=== PATIENT | female | born 1955 | race African-American/Black ===

== ENCOUNTER 2017-10-05 12:22 | Outpatient (CLI) | payer MEDICARE, MEDICAID | END 2017-10-05 12:23 | disposition home or self-care (01) | LOC: ULT 12:22 | PROVIDERS: ATTEND Family Medicine | DX: I08.1 Rheumatic disorders of both mitral and tricuspid valves (principal); R06.09 Other forms of dyspnea | CPT/HCPCS: 93306 ==

== ENCOUNTER 2017-10-15 12:01 | Outpatient (CLI) | payer MEDICARE, MEDICAID ==
[2017-10-15] MEDS ORDERED: ISOVUE-370 76%-LOCM 1 ML ONE (16:32)
== END 2017-10-15 12:02 | disposition home or self-care (01) ==
LOC: BICCT 12:01
PROVIDERS: ATTEND Family Medicine
DX: I27.20 Pulmonary hypertension, unspecified (principal); F17.210 Nicotine dependence, cigarettes, uncomplicated; I51.7 Cardiomegaly; R06.00 Dyspnea, unspecified; J98.4 Other disorders of lung
CPT/HCPCS: 71260; 82565

== ENCOUNTER 2017-12-15 13:24 | Outpatient (CLI) | payer MEDICARE, MEDICAID | END 2017-12-15 13:25 | disposition home or self-care (01) | LOC: CP 13:24 | PROVIDERS: ATTEND Internal Medicine Pulmonary Disease | DX: R06.09 Other forms of dyspnea (principal) | CPT/HCPCS: 94060; 94727; 94729 ==

== ENCOUNTER 2017-12-15 20:30 | Outpatient (CLI) | payer MEDICARE, OTHER | END 2017-12-15 20:31 | disposition home or self-care (01) | LOC: SLEEPLAB 20:30 | PROVIDERS: ATTEND Internal Medicine Pulmonary Disease | DX: G47.33 Obstructive sleep apnea (adult) (pediatric) (principal); E66.9 Obesity, unspecified; R40.0 Somnolence; R53.83 Other fatigue; Z68.36 Body mass index [BMI] 36.0-36.9, adult | CPT/HCPCS: 95811 ==

== ENCOUNTER 2018-02-23 20:16 | Emergency (ER) | payer MEDICARE, OTHER ==
[2018-02-23 20:48] LABS: #Basophils 0.1 thou/uL (0.0-0.2); #Eosinphils 0.4 thou/uL (0.0-0.7); #Lymphocytes 3.7 thou/uL (1.20-3.40); #Monocytes 0.9 thou/uL (0.11-0.59); #Neutrophils 4.1 thou/uL (1.40-6.50); %Basophils 1.1 % (0.0-1.0); %Eosinophils 4.3 % (0.0-10.0); %Monocytes 9.6 % (0.0-10.0); Hemoglobin 12.7 g/dL (12.0-16.0); Mean Corpuscular HGB CONC 30.6 g/dL (32.0-36.0); Mean Corpuscular Hemoglobin 26.5 pg (27.0-31.0); Mean Corpuscular Volume 86.5 fL (78.0-98.0); Mean Platelet Volume 8.9 fL (7.4-10.4); Platelet Count 250 thou/uL (130-400); RBC Distribution Width 14.6 % (11.5-14.5); Red Blood Cell (RBC) Count 4.79 mill/uL (4.20-5.40); White Blood Cell (WBC) Count 9.1 thou/uL (4.8-10.8)
[2018-02-23 21:14] LABS: ALT (SGPT) Less than 7 U/L (8-55); AST (SGOT) 11 U/L (5-34); Albumin 3.8 g/dL (3.4-4.8); Alkaline Phosphatase 76 U/L (40-150); Anion Gap 11 mmol/L (10-20); BUN (Urea Nitrogen) 11 mg/dL (9.8-20.1); Bilirubin, Total 0.6 mg/dL (0.2-1.2); Calc. Creatinine Clearance 0 mL/min (70-130); Calcium 9.7 mg/dL (7.8-10.44); Carbon Dioxide 30 mmol/L (23-31); Chloride 100 mmol/L (98-107); Estimated GFR-MDRD 90; Globulin 4.2 g/dL (2.4-3.5); Glucose 95 mg/dL (80-115); Sodium 138 mmol/L (136-145)
[2018-02-23] MEDS ORDERED: Potassium Chloride 20 MEQ TAB ONE (21:37)
== END 2018-02-23 21:52 | disposition home or self-care (01) ==
LOC: ERS 20:16
DX: E87.6 Hypokalemia (principal); M32.9 Systemic lupus erythematosus, unspecified; F17.210 Nicotine dependence, cigarettes, uncomplicated; Z79.899 Other long term (current) drug therapy; Z79.52 Long term (current) use of systemic steroids
CPT/HCPCS: 36415; 80053; 85025; 93005

== ENCOUNTER 2018-02-28 11:23 | Outpatient (CLI) | payer MEDICARE, MEDICAID | END 2018-02-28 11:24 | disposition home or self-care (01) | LOC: BICMAMMO 11:23 | PROVIDERS: ATTEND Family Medicine | DX: Z12.31 Encounter for screening mammogram for malignant neoplasm of breast (principal) | CPT/HCPCS: 77063; 77067 ==

== ENCOUNTER 2018-11-16 13:45 | Outpatient (CLI) | payer MEDICARE, MEDICAID ==
--- NOTE | 2018-11-16 14:54 | RAD ---
XR Lumbar Spine Min 4 View: 11/16/2018 12:00 AM CLINICAL INDICATION: Lumbar radiculopathy, low back pain COMPARISON: None. FINDINGS: Fracture:No fracture. There is grade 1 spondylolisthesis at L4-5. Dextroscoliosis is centered at the mid lumbar spine. Arthropathy:There is multilevel degenerative change throughout the lumbar spine. Incidental findings:Left hip prosthesis. Vascular calcification. Surgical clips of right upper abdome n. IMPRESSION: 1. Multilevel degenerative change of lumbar spine. 2. No acute fracture. Grade I spondylolisthesis at L1-2.
--- NOTE | 2018-11-16 15:14 | MRI ---
MRI Lumbar Spine Noncontrast: HISTORY: Pain COMPARISON: 01/15/2014 FINDINGS: Conus medullaris is normal in morphology and terminates at the L1-2 level. Generalized marrow heterogeneity is likely degenerative. There are Schmorl's nodes at the superior L3 and L4 vertebral bodies, and there is multilevel endplate degenerative change with multilevel disc space narrowing and bilateral multilevel facet degenerative hypertrophy. L1-2:Minimal left neural foraminal narrowing due to facet hypertrophy and mild disc osteophyte. Centr al canal and right neural foramen are patent L2-3:Broad-based disc osteophyte with mild narrowing of the central canal and mild bilateral neural f oraminal narrowing L3-4:Mild central canal stenosis due to broad-based disc osteophyte. Neural foramina are patent. L4-5:Grade 1 spondylolisthesis. Moderate central canal stenosis with potential for impingement upon t he bilateral traversing L5 nerve roots. Mild bilateral neural foraminal narrowing. L5-S1:Broad-based disc osteophyte with mild to moderate central canal stenosis. There is moderate to severe bilateral neural foraminal stenosis. IMPRESSION: Multilevel degenerative change of the lumbar spine, as outlined above. Transcribed Date/Time: 11/16/2018 4:17 PM
== END 2018-11-16 13:46 | disposition home or self-care (01) ==
LOC: BICMRI 13:45
PROVIDERS: ATTEND Surgery
DX: M51.36 Other intervertebral disc degeneration, lumbar region (principal); M47.26 Other spondylosis with radiculopathy, lumbar region
CPT/HCPCS: 72110; 72148

== ENCOUNTER 2019-03-01 10:44 | Outpatient (CLI) | payer MEDICARE, MEDICAID ==
--- NOTE | 2019-03-01 13:12 | MMO ---
Bilateral MAMMO Bilat Screen [facility]. CLINICAL HISTORY: Patient is 63 years old and is seen for screening. The patient has no family history of breast cancer. The patient has no personal history of cancer. VIEWS: The views performed were: bilateral craniocaudal with tomosynthesis and bilateral mediolateral oblique with tomosynthesis. FILMS COMPARED: The present examination has been compared to prior imaging studies performed at [facility] on 01/31/2015, 02/04/2016, 02/26/2017 and 02/28/2018. This study has been interpreted with the assistance of computer-aided detection. MAMMOGRAM FINDINGS: There are scattered fibroglandular densities. There are benign appearing calcifications seen in both breasts. There are no suspicious masses, suspicious calcifications, or new areas of architectural distortion. IMPRESSION: THERE IS NO MAMMOGRAPHIC EVIDENCE OF MALIGNANCY. A ROUTINE FOLLOW-UP MAMMOGRAM IN 1 YEAR IS RECOMMENDED. THE RESULTS OF THIS EXAM WERE SENT TO THE PATIENT. ACR BI-RADS Category 2 - Benign finding MAMMOGRAPHY NOTE: 1. A negative mammogram report should not delay a biopsy if a dominant of clinically suspicious mass is present. 2. Approximately 10% to 15% of breast cancers are not detected by mammography. 3. Adenosis and dense breasts may obscure an underlying neoplasm. Reported by: LUIS ALBERTO REED MD Electonically Signed: [id number]
== END 2019-03-01 10:45 | disposition home or self-care (01) ==
LOC: BICMAMMO 10:44
DX: Z12.31 Encounter for screening mammogram for malignant neoplasm of breast (principal)
CPT/HCPCS: 77063; 77067

== ENCOUNTER 2019-06-22 20:17 | Inpatient (IN) | payer MEDICARE, MEDICAID ==
--- NOTE | 2019-06-22 21:29 | RAD ---
Chest AP view INDICATION: Shortness of breath COMPARISON: None FINDINGS: Lungs: There is scattered interstitial fibrosis and subpleural emphysema involving both lungs suspic ious for interstitial lung disease. No confluent airspace opacities is evident to suggest presence of pneumonia. Cardiac silhouette: There is mild cardiomegaly. There are mild vascular calcifications involving the aortic arch. Pulmonary vasculature: Normal Pleural spaces: No pleural effusion or pneumothorax is demonstrated. Upper abdomen: No abnormality seen. Osseous structures: No acute osseous abnormality. Additional findings: None. IMPRESSION: Scattered fibrotic change within the lungs suspicious for underlying interstitial lung disease. There is mild cardiomegaly without evidence of cardiac decompensation.
[2019-06-22 21:38] LABS: Mean Corpuscular Volume 87.9 fL (78.0-98.0)
[2019-06-22 21:41] LABS: ALT (SGPT) Less than 7 U/L (8-55); AST (SGOT) 17 U/L (5-34); Alkaline Phosphatase 74 U/L (40-110); Anion Gap 16 mmol/L (10-20); BUN (Urea Nitrogen) 8 mg/dL (9.8-20.1); Bilirubin, Total 3.6 mg/dL (0.2-1.2); Calc. Creatinine Clearance 0 mL/min (70-130); Calcium 9.2 mg/dL (7.8-10.44); Carbon Dioxide 23 mmol/L (23-31); Chloride 102 mmol/L (98-107); Estimated GFR-MDRD 83; Globulin 3.6 g/dL (2.4-3.5); Glucose 84 mg/dL (80-115); Protein, Total 7.6 g/dL (6.0-8.3); Sodium 138 mmol/L (136-145)
[2019-06-22 21:58] LABS: CKMB 1.4 ng/mL (0-6.6)
[2019-06-22 22:03] LABS: Anisocytosis SLIGHT = 6-15 cells (100X) (0-5/hpf); Band 4 % (5-11); Crenated RBC MODERATE= 6-15 cells (100X) (None Seen); Elliptocytes SLIGHT = 2-5 cells (100X) (0-1/hpf); Eosinophils 2 % (0-10); Hemoglobin 12.6 g/dL (12.0-16.0); Lymphocytes 37 % (21-51); MDiff Complete? YES; Mean Corpuscular HGB CONC 31.4 g/dL (32.0-36.0); Mean Corpuscular Hemoglobin 27.6 pg (27.0-31.0); Mean Platelet Volume 6.5 fL (7.4-10.4); Monocytes 2 % (0-10); Neutrophil 54 % (42-75); Platelet Count 109 thou/uL (130-400); Platelet Morphology Comment Appears Decreased; RBC Distribution Width 16.8 % (11.5-14.5); Red Blood Cell (RBC) Count 4.57 mill/uL (4.20-5.40); White Blood Cell (WBC) Count 7.5 thou/uL (4.8-10.8)
[2019-06-22] MEDS ORDERED: Furosemide 40 MG/4 ML VIAL ONE (22:21)
[2019-06-22 23:19] LABS: Bilirubin Negative (Negative); Blood, Urine Negative (Negative); Clarity Turbid (Clear); Glucose, Urine (Dipstick) Normal (Negative); Leukocyte Negative Leu/uL (Negative); Nitrite Negative (Negative); Protein, Urine (Dipstick) 20 mg/dL (Neg-Trace); Urobilinogen Greater than 12 mg/dL (Less than 2)
[2019-06-22] MEDS ORDERED: Aspirin Chewable 81 MG TAB ONE (23:19)
[2019-06-23 01:18] VITALS: BMI 34.0
[2019-06-23] MEDS ORDERED: Calcium Carbonate 500 MG ChewTAB PO PRN (03:06)
[2019-06-23] MEDS ORDERED: Acetaminophen 325 MG TAB PO PRN (03:06)
[2019-06-23 04:10] LABS: Troponin I 0.049 ng/mL (< 0.028)
[2019-06-23 04:38] LABS: Hemoglobin A1c 5.6 % (4.0-6.0)
[2019-06-23] MEDS ORDERED: Nitroglycerin 0.4 MG TAB (25 Tab Bottle) SL PRN (04:48)
[2019-06-23 04:52] LABS: Anion Gap 14 mmol/L (10-20); BUN (Urea Nitrogen) 6 mg/dL (9.8-20.1); Calc. Creatinine Clearance 106 mL/min (70-130); Calcium 9.3 mg/dL (7.8-10.44); Carbon Dioxide 26 mmol/L (23-31); Chloride 102 mmol/L (98-107); Estimated GFR-MDRD Greater than 90; Glucose 85 mg/dL (80-115); Sodium 139 mmol/L (136-145)
[2019-06-23 04:57] LABS: Cardiac Risk 3.8 (Less than 4.5); Cholesterol 84 mg/dl (< 200 Desired); HDL Cholesterol 22 mg/dL (>60 Neg Risk); LDL Cholesterol, Calculated 42 mg/dL; Magnesium 1.7 mg/dL (1.6-2.6); Phosphorus 2.5 mg/dL (2.3-4.7); Triglycerides 99 mg/dL (Less than 150)
[2019-06-23 04:58] LABS: Potassium 2.6 mmol/L (3.5-5.1)
[2019-06-23] MEDS ORDERED: Potassium Chloride 20 MEQ TAB PO SCH ×2 (05:00→14:45)
[2019-06-23] MEDS: Furosemide 20 MG/2 ML VIAL SLOW IVP SCH ×2 (05:20→13:50)
--- NOTE | 2019-06-23 05:50 | PDOC.FPRHP ---
- History of Present Illness Chief Complaint: dyspnea History of Present Illness: 63yo AAF with h/o lupus, HTN, LEE presents for worsening dyspnea over past 6+ months. Pt states no acute change or onset but over past 6mo has had increased LIN, LE edema, and dyspnea. Also endorses PND but no orthopnea. Denies any known history of cardiac disease, no CP, SOB, fever/chills, n/v, dizziness/ lightheadedness, abd pain, urinary sxs, recent falls. Presented to the ED because sxs had just not gotten any better and she wants to figure out why. ED Course: CXR, Lasix 20mg, KCl 20meq. - Allergies/Adverse Reactions Allergies Allergy/AdvReac Type Severity Reaction Status Date / Time No Known Allergies Allergy Verified 06/23/19 01:16 - Home Medications Medication Instructions Recorded Confirmed Type Calcium Carbonate [Tums] 1,000 mg PO QID PRN 10/09/14 06/23/19 History Hydroxychloroquine Sulfate 200 mg PO BID 10/09/14 06/23/19 History [Plaquenil] Naproxen Sodium [Aleve] 220 mg PO BID PRN 10/09/14 06/23/19 History Omeprazole [Prilosec] 20 mg PO DAILY 10/09/14 06/23/19 History Potassium Gluconate [Potassium] 200 mg PO DAILY 06/23/19 06/23/19 History - History PMHx: Lupus, LEE, HTN PSHx: L hip replacement FHx: mom with DM, dad of preet cancer Social: ~28py smoking history but trying to quit and down to 1 cig/day. THC use. No EtOH. Lives at home with daughters. - Review of Systems General: reports: weight/appetite/sleep changes (increased weight), fatigue. denies: fever/chills, night sweats Eyes: denies: vision changes ENT: denies: nasal congestion, rhinorrhea Respiratory: reports: cough, congestion, shortness of breath, exercise intolerance Cardiovascular: reports: edema, paroxysmal nocturnal dyspnea. denies: chest pain, palpitation, orthopnea Gastrointestinal: denies: nausea, vomiting, diarrhea, constipation, abdominal pain Genitourinary: denies: incontinence, dysuria Skin: denies: rashes - Vital signs BP: 152/79 HR: 81 RR: 18 Tmax: 98.1 Pox: 94% on RA Wt: 89kg - Physical Exam Constitutional: NAD, awake, alert and oriented, well developed HEENT: PERRLA, EOMI, conjunctiva clear, grossly normal vision, grossly normal hearing, MMM, oropharynx clear Neck: supple, trachea midline, no JVD Heart: RRR, normal S1/S2, pulses present, other (1+ pitting to mid prado, 2/6 systolic ejection murmur) Lungs: no respiratory distress, good air movement, no wheezing, other (mild bibasilar crackles) Abdomen: soft, non-tender, bowel sounds present Musculoskeletal: normal structure, normal tone Neurological: no focal deficit Skin: other (hypopigmented rash on right forearm) Heme/Lymphatic: no unusual bruising or bleeding Psychiatric: normal mood and affect, good judgment and insight, intact recent and remote memory FMR H&P: Results - Labs Result Diagrams: 06/22/19 21:08 06/23/19 04:03 Lab results: WBC 7.5 thou/uL (4.8-10.8) 06/22/19 21:08 Hgb 12.6 g/dL (12.0-16.0) 06/22/19 21:08 Hct 40.2 % (36.0-47.0) 06/22/19 21:08 MCV 87.9 fL (78.0-98.0) 06/22/19 21:08 Plt Count 109 thou/uL (130-400) L 06/22/19 21:08 Band Neuts % (Manual) 4 % (5-11) L 06/22/19 21:08 Sodium 139 mmol/L (136-145) 06/23/19 04:03 Potassium 2.6 mmol/L (3.5-5.1) L* 06/23/19 04:03 Chloride 102 mmol/L (98-107) 06/23/19 04:03 Carbon Dioxide 26 mmol/L (23-31) 06/23/19 04:03 BUN 6 mg/dL (9.8-20.1) L 06/23/19 04:03 Creatinine 0.76 mg/dL (0.6-1.1) 06/23/19 04:03 Glucose 85 mg/dL (80-115) 06/23/19 04:03 Calcium 9.3 mg/dL (7.8-10.44) 06/23/19 04:03 Total Bilirubin 3.6 mg/dL (0.2-1.2) H 06/22/19 21:08 AST 17 U/L (5-34) 06/22/19 21:08 ALT Less than 7 U/L (8-55) L 06/22/19 21:08 Alkaline Phosphatase 74 U/L (40-110) 06/22/19 21:08 CK-MB (CK-2) 1.4 ng/mL (0-6.6) 06/22/19 21:08 B-Natriuretic Peptide 506.0 pg/mL (0-100) H 06/22/19 21:08 Serum Total Protein 7.6 g/dL (6.0-8.3) 06/22/19 21:08 Albumin 4.0 g/dL (3.4-4.8) 06/22/19 21:08 Urine Ketones Negative mg/dL (Negative) 06/22/19 22:47 Urine Blood Negative (Negative) 06/22/19 22:47 Urine Nitrite Negative (Negative) 06/22/19 22:47 Ur Leukocyte Esterase Negative Sean/uL (Negative) 06/22/19 22:47 - EKG Interpretation EKG: Normal intervals. poor R wave progression, no acute st or T wave changes - Radiology Interpretation Chest x-ray Status: image reviewed by me (overpenatrated, no focal consolidation or pleural effusions noted, cardiomegaly and increased insterstitial lung markings), report reviewed by me FMR H&P: A/P - Problem List (1) CHF (congestive heart failure), NYHA class IV Current Visit: Yes Status: Suspected Code(s): I50.9 - HEART FAILURE, UNSPECIFIED (2) Lupus Current Visit: Yes Status: Chronic Code(s): M32.9 - SYSTEMIC LUPUS ERYTHEMATOSUS, UNSPECIFIED (3) HTN (hypertension) Current Visit: Yes Status: Chronic Code(s): I10 - ESSENTIAL (PRIMARY) HYPERTENSION (4) LEE (obstructive sleep apnea) Current Visit: Yes Status: Chronic Code(s): G47.33 - OBSTRUCTIVE SLEEP APNEA (ADULT) (PEDIATRIC) - Plan 63yo AAF with h/o lupus, HTN, LEE presents for suspected new onset CHF exacerbation #Suspected CHF exacerbation, newly dx - no previous h/o CHF or CAD - s/s of LIN, PND, dyspnea at rest over past 6 mo and progressive - NYHA Class IV - likely 2/2 R heart strain from chronic LEE as well as HTN and lupus - s/p lasix 20mg in ED - Will cont lasix 20mg IV BID - Echo ordered - Pending workup, consider CHF clinic and cardiac rehab consult and cards consult - PT/OT - will need HF medications post Echo and confirmation - strict I's and O's and daily weights - risk stratify with Lipid, A1C, TSH - satting low-90s on RA, hypertensive otherwise VSS, will cont to monitor #Elevated trop, suspected 2/2 demand ischemia and CHF - Trop 0.036 -> 0.045 - no sx of CP, EKG no acute changes - trend trop and monitor on tele #Hypokalemia - Replace, will need close monitoring as giving lasix - will check Mg #HTN - does not appear to be on home meds - consider addition pending echo and optimization of HF medications #LEE - newly dx per pt, awaiting CPAP at home, if knows settings consider adding CPAP QHS while inpt #Lupus - cont home meds, no apparent flare #Tob abuse - counseled on cessation PCP: DAVINA Garcia Code: Initially DNR however pt later stated she wanted to talk to her daughters before changing to DNR so now is Full Code IVF: SL Diet: HH, Low Na, Fluid restriction VTE: SCDs - held pharm 2/2 low plt Disposition/LOS: Admit to tele inpt for suspected new onset CHF with exacerbation. Diuresis, workup pending. Hospitalization >48hrs. FMR H&P: Upper Level - Pertinent history 63 year old female presents with progressively worsening dyspnea on exertion over the course of the last 6 months. Patient states she can barely walk a few steps without significant shortness of breath. She has been unable to come to doctor appointments because of it. She denies N/V. She states she has had some lower extremity edema, as well. Patient endorses one episode of sudden onset chest pain just prior to my evaluation. She states that the pain was left sided in nature and relieved with nitro. EKG and troponin obtained at time of chest pain. EKG NSR. Troponin neg. Patient denies any further episodes. Patient also with history of SLE on plaquinil. - Pertinent findings General: Alert and oriented x3. No acute distress. HEENT: MMM. Card: 2/6 LINO, RRR Resp: Mild bibasilar crackles Abdom: Soft, non-tender Ext: Trace edema - Plan Date/Time: 06/23/19 0556 I, Janie Morales, have evaluated this patient and agree with findings/plan as outlined by rn international resident. Pertinent changes/additions are listed here. Dyspnea, suspect new onset CHF vs. ILD - Patient with progressive dyspnea on exertion and LE edema - Will order Echo - CXR c/w ILD; this may be the etiology of dyspnea - Patient also with uncontrolled LEE and may have Pulmonary HTN contributing to above - Patient with SLE on plaquenil, both of which may contribute to lung pathology ; consider CT for further investigation - Strict I&O's, daily weights, fluid restriction - Consult cardiology of echo shows new onset HF, consult pulm if ILD seems to be leading differential - Start BERNARDINO-I, BB, statin if HF present - BNP 500 Elevated trop, suspected 2/2 demand ischemia and CHF - Trop 0.036 -> 0.045 -> 0.049 - One episode of chest pain, no EKG findings significant for ischemia - Monitor on tele - Nitro PRN - Consider further workup if pain returns/pending above workup Hypokalemia - Replace, will need close monitoring as giving lasix - Check Mg HTN - Does not appear to be on home meds - Consider addition pending echo and optimization of HF medications LEE - Newly dx per pt, awaiting CPAP at home, if knows settings consider adding CPAP QHS while inpt - LEE may be contributing to dyspnea if pulmonary HTN present Lupus - Cont home meds, no apparent flare - There does appear to be evidence of ILD on CXR which may be contributing to dyspnea Tobacco abuse - Counseled on cessation DVT: SCD's - held lovenox d/t low platelets Code: Initially DNR however pt later stated she wanted to talk to her daughters before changing to DNR so now is Full Code Dispo: Admit to telemetry. Anticipate LOS >48 hours. Addendum - Attending - Attending Attestation Date/Time: 06/23/19 [id number] I personally evaluated the patient and discussed the management with Dr. Gould I agree with the History, Examination, Assessment and Plan documented above with any addition or exceptions noted below. 63 yo AAF PMH LEE, HTN, and lupus. presents with 6 mo hx of worsening dyspnea that acutely worsened over past 1-2 weeks and lower extremity edema. No hx HF. Exam NSR, bibasilar crackles, and trace to 1+ LE edema. labs intermittent trop, BNP 500, potassium 2.6. CXR interstitial findings but no fluid overload. EKG NSR , normal intervals, no ST elevation/depressions. admit for new-onset CHF. cards consult, TTE, and diuresis. replace K and Mg and repeat K at 1200. will await recommendations from cardiology.
[2019-06-23 06:48] LABS: Troponin I 0.047 ng/mL (< 0.028)
[2019-06-23] MEDS: Hydroxychloroquine Sulfate 200 MG TAB PO SCH ×2 (08:45→20:38)
[2019-06-23] MEDS ORDERED: Magnesium 2 GM/50 ML 2 GM in Premix Bag 1 BAG IVPB SCH (10:15)
[2019-06-23 14:28] LABS: Potassium 3.3 mmol/L (3.5-5.1)
[2019-06-24 04:22] LABS: Anion Gap 13 mmol/L (10-20); BUN (Urea Nitrogen) 8 mg/dL (9.8-20.1); Calc. Creatinine Clearance 93 mL/min (70-130); Calcium 9.6 mg/dL (7.8-10.44); Carbon Dioxide 26 mmol/L (23-31); Chloride 103 mmol/L (98-107); Estimated GFR-MDRD 79; Glucose 99 mg/dL (80-115); Potassium 3.4 mmol/L (3.5-5.1); Sodium 139 mmol/L (136-145)
[2019-06-24] MEDS: Furosemide 20 MG/2 ML VIAL SLOW IVP SCH ×2 (05:37→14:58)
--- NOTE | 2019-06-24 06:07 | PDOC.FM ---
- Subjective Subjective: She says she is doing well and not having any SOB. She denies any edema. - Objective MAR Reviewed: Yes Vital Signs & Weight: Vital Signs (12 hours) Temp Pulse Resp BP Pulse Ox 06/24/19 04:00 97.7 F 79 18 118/72 95 06/23/19 23:30 97.4 F L 92 20 123/84 94 L 06/23/19 19:30 97.3 F L 91 20 129/71 94 L Weight Weight 87.997 kg I&O: 06/22/19 06/23/19 06/24/19 06:59 06:59 06:59 Intake Total 1250 Output Total 4000 Balance -2750 Result Diagrams: 06/22/19 21:08 06/24/19 03:27 EKG Reviewed by me: Yes (SR 70s with some non-conducting PACs) Phys Exam - Physical Examination Constitutional: NAD HEENT: moist MMs, oral pharynx no lesions Neck: no nodes, supple Respiratory: no wheezing, no rales, no rhonchi, clear to auscultation bilateral Cardiovascular: RRR, no significant murmur Gastrointestinal: soft, non-tender, positive bowel sounds Musculoskeletal: no edema, pulses present Neurological: moves all 4 limbs Lymphatic: no nodes Psychiatric: normal affect Skin: no rash, normal turgor Dx/Plan (1) CHF (congestive heart failure), NYHA class IV Code(s): I50.9 - HEART FAILURE, UNSPECIFIED Status: Suspected (2) HTN (hypertension) Code(s): I10 - ESSENTIAL (PRIMARY) HYPERTENSION Status: Chronic (3) Lupus Code(s): M32.9 - SYSTEMIC LUPUS ERYTHEMATOSUS, UNSPECIFIED Status: Chronic (4) LEE (obstructive sleep apnea) Code(s): G47.33 - OBSTRUCTIVE SLEEP APNEA (ADULT) (PEDIATRIC) Status: Chronic - Plan Plan: 63yo AAF with h/o lupus, HTN, LEE presents for suspected new onset CHF exacerbation 1. Suspected CHF exacerbation, newly dx No previous h/o CHF or CAD * s/s of LIN, PND, dyspnea at rest over past 6 mo and progressive * NYHA Class IV * CXR: Scattered Fibrotic changes * Pulmonology referral outpatient * likely 2/2 R heart strain from chronic LEE as well as HTN and lupus * s/p lasix 20mg in ED, will cont lasix 20mg IV BID * Echo: EF 50-55%, I/III Diastolic Dysfunction, Dilated LV consistent with volume overload, Dilated RV with decreased systolic function, Enlarged RA, Mild MR, AV sclerosis, Severe TR, Increased RV systolic pressure, Mild RI * Consider CHF clinic and cardiac rehab consult and cards consult * Strict I's and O's and daily weight 2. Elevated trop, suspected 2/2 demand ischemia and CHF * Trop 0.036 > 0.045 > 0.047 * No sx of CP, EKG no acute changes * Unable to calculate ASCVD due to low LDL 3. Hypokalemia * Replaced, will need close monitoring as giving lasix * Mag replaced yesterday 4. HTN * Does not appear to be on home meds * Will monitor 5. LEE * Newly dx per pt, awaiting CPAP at home, if knows settings consider adding CPAP QHS while inpt 6. Lupus * Cont home meds, no apparent flare 7. Tob abuse * Counseled on cessation Code Status: Full IVF: SL Diet: HH, Low Na, Fluid restriction VTE: SCDs - held pharm 2/2 low plt PCP: DAVINA Garcia Disposition/LOS: Tele inpt, need to f/u with Cardiology and get recs. Possibly d /c later today with f/u with her paper deliverer. LOS >48hrs.
[2019-06-24] MEDS ORDERED: Potassium Chloride 20 MEQ TAB PO SCH ×2 (07:30→08:00)
[2019-06-24] MEDS: Hydroxychloroquine Sulfate 200 MG TAB PO SCH (08:48)
--- NOTE | 2019-06-24 11:38 | CT ---
EXAM: CTA of the chest HISTORY: Shortness of breath COMPARISON: None TECHNIQUE: Multiple contiguous axial images were obtained a CTA of the chest with contrast per pulmon osorio embolism protocol. 3-D oblique MIP reformats and direct coronal reformats were performed. FINDINGS: HEART: Normal in size without focal cardiac abnormality. PULMONARY ARTERIES: Normal in caliber without filling defects to suggest pulmonary emboli. MEDIASTINUM: No hilar or mediastinal lymphadenopathy. LUNGS: Emphysematous changes are seen in the lungs. Peripheral increased interstitial lung markings a re seen throughout the lungs. This is more prominent in the lung apices. No suspicious pulmonary nodules or focal infiltrates are seen. PLEURAL SPACE: No pleural effusion or pneumothorax. CHEST WALL SOFT TISSUES: Unremarkable VISUALIZED OSSEOUS STRUCTURES: Degenerative changes in the spine. VISUALIZED SUBDIAPHRAGMATIC STRUCTURES: Unremarkable IMPRESSION: No evidence of pulmonary thromboembolism
[2019-06-24] MEDS ORDERED: Iopamidol-370 76% 500 ML 1 ML ONE (11:46)
--- NOTE | 2019-06-24 15:12 | CON ---
DATE OF CONSULTATION: 06/24/2019 REASON FOR CONSULTATION: Shortness of breath. PRIMARY SUPERINTENDENT CAR CONSTRUCTION: John Junior MD. HISTORY OF PRESENT ILLNESS: Ms. Pollard is a pleasant 63-year-old female, who comes to the hospital for worsening shortness of breath. She states that she has been getting worsening shortness of breath in the last 6 months to the point where she has had to come in yesterday for further evaluation. She was found to be in volume overload. She was diuresed, and actually today, she feels a lot better. She denies any chest pain, tightness, or pressure. Shortness of breath has significantly improved. PAST MEDICAL HISTORY: 1. Hypertension. 2. Sleep apnea. 3. Lupus. SURGICAL HISTORY: Left hip replacement. FAMILY HISTORY: Mother with diabetes. Father with lung cancer. No early coronary artery disease. OUTPATIENT MEDICATIONS: 1. Calcium carbonate. 2. Plaquenil. 3. Aleve. 4. Omeprazole. 5. Potassium. ALLERGIES: NO KNOWN DRUG ALLERGIES. SOCIAL HISTORY: Continues to smoke, she states she quit when she came into the hospital. No alcohol. No drugs. REVIEW OF SYSTEMS: A 12-point review of systems was done and was all negative unless stated in the history of present illness. PHYSICAL EXAMINATION: VITAL SIGNS: Temperature 97.4, pulse 82, respiratory rate 17, saturations 94% on room air, blood pressure 138/75. GENERAL: Awake, alert, and oriented x3. No distress. HEENT: Normocephalic and atraumatic. NECK: Supple. LUNGS: Reduced breath sounds bilaterally. CARDIOVASCULAR: S1 and S2. No S3 or S4. ABDOMEN: Soft. Positive bowel sounds. EXTREMITIES: No edema. SKIN: Warm and dry. LABORATORY DATA: Laboratory work was reviewed. UA was unremarkable. Chemistry was low, but has been replaced . GFR was normal. CBC is unremarkable except for a low platelet count of 109, but normal hemoglobin of 12.6, normal white count. Echocardiogram done yesterday, showed normal LV systolic function of 50% to 55%, but findings consistent with pulmonary hypertension with a D-shaped left ventricle and dilated right ventricle with reduced systolic function and enlarged right atrium. Chest x-ray was reviewed. ASSESSMENT: 1. Acute on chronic right-sided heart failure. 2. Possibly chronic obstructive pulmonary disease, given history of tobacco use. 3. Lupus maybe playing a role in her pulmonary hypertension. PLAN: 1. Agree with IV diuresis. 2. We will plan on getting a CT chest with contrast. If this is negative for thromboembolic disease, she will need a sleep study as an outpatient and follow up with Pulmonary for pulmonary hypertension. She is Dr. Byrd's patient. Thank you for letting us to participate in the care of your patient. We will follow. Job ID: [id number]
[2019-06-24 16:58] VITALS: BP 126/75; TEMP 97.2
--- NOTE | 2019-06-24 17:44 | PRG ---
DATE OF SERVICE: 06/24/[address] Daimon Gould, for which I agree. The patient is seen, evaluated, discussed, and examined with the residents by bedside. Complicated 63-year-old with known lupus. Not the best historian, but it sounds like she has been seeing Dr. Byrd of Pulmonary for a while for fibrosis of the lungs, some breathing problems. Did show that she has an albuterol inhaler, but states that it is not working. Came in with worsening shortness of breath and almost seemed to be a CHF type picture little bit volume overload. Fluid overload responded well to IV Lasix. BNP was slightly elevated at 506. X-ray shows interstitial lung disease. CT is pending, was done this morning. Echocardiogram showed a lot of right-sided heart issues including likely pulmonary hypertension, but otherwise left-sided ejection fraction was normal. So, it is unclear how much of her issues is the Plaquenil potentially causing pulmonary fibrosis. I looked it up and the incident is 0.5%. So very low percentage, but I guess is a possibility versus how much this is actually from the lupus. She also has known sleep apnea, but states she cannot afford her CPAP, although has dual insurance include Medicaid, so I am not sure why that is. This sounds like she has two basic primary care doctors, one at [facility] and one with [facility] and sees a resident intern at [facility] here in town, but diuresed well, breathing better, seems fairly stable right now and probably can be taken care of as an outpatient and would recommend we stop the Plaquenil, put her on p.o. Lasix, put her on prednisone taper and to follow up with Rheumatology and Pulmonary soon in this next week. Can continue her home albuterol. Job ID: [id number]
--- NOTE | 2019-06-26 07:49 | PQF ---
Araceli Pollard FERNANDO [id number] CLINICAL DOCUMENTATION CLARIFICATION FORM: POST DISCHARGE Addendum to original discharge summary date: ____ Late entry note date: __ DATE: 06/26/2019 ATTN:TONJA BLAKE Please exercise your independent, professional judgment in responding to the clarification form. Clinical indicators are provided on the bottom of this form for your review Please check appropriate box(s): AMI TYPE: [ ] Acute Coronary Syndrome (ACS) without Acute GA meaning Unstable Angina [ ] NSTEMI (GA type I) [ * ] NSTEMI due to Demand Ischemia (AMI Type II) [ ] Demand Ischemia without GA [ ] STEMI (please also specify site and arterysee below) If STEMI, SITE:[ ] Anterior [ ] Apical [ ] Lateral [ ] Inferior [ ] Posterior [ ] Q Wave [ ] Septal [ ] Unable to Determine SPECIFIC ARTERY (Based on site) [ ] Left Main Coronary[ ] Diagonal [ ] Left Anterior Descending[ ] Oblique Marginal [ ] Right Coronary Artery[ ] Unable to Determine [ ] Left Circumflex [ ] Other diagnosis [ ] Unable to determine CLINICAL INDICATORS - SIGNS / SYMPTOMS / LABS -Elevated troponin, suspected 2/2 demand ischemia and CHF- Family medicine H&P, 06/22, Pee Carson MD -Troponin: 0.036>0.045>0.049- - Family medicine H&P, 06/22, Pee Carson MD - EKG NSR, Normal intervals, no ST elevation/depressions-- Family medicine H&P, 06/22, Pee Carson MD - EF: 50-55%, grade 1/3 diastolic dysfunction-Echo, 06/23 - Lupus may be playing a role in her pulmonary hypertension- Consultation report , 06/24, CHLOE BLAKE RISKS: - Acute on chronic right-sided heart failure- Consultation report, 06/24, TONJA BLAKE - PMH: HTN- Family medicine H&P, 06/22, Pee Carson MD TREATMENTS: - Cardiac consultation, 06/24 - Aspirin chewable- JUL, 06/22 - Furosemide.IV- MAR, 06/22 to 06/24 (This form is maintained as a part of the permanent medical record) 2014 [employer] All Rights Reserved Michelle [email or web address]
--- NOTE | 2019-06-26 12:05 | DIS ---
DATE OF ADMISSION: 06/22/2019 DATE OF DISCHARGE: 06/24/2019 RESIDENT: Damion Gould MD ADMITTING ATTENDING: Alli Glasgow MD DISCHARGE ATTENDING: Deniz Pyle MD CONSULT: Cardiology, Dr. King, on 06/24. Agree with IV diuresis. CT chest with contrast is negative for thromboembolic disease. She needs an outpatient followup with sleep study with Pulmonary Medicine,Dr. Byrd. PROCEDURES PERFORMED: * Chest x-ray 06/22 showed scattered fibrotic changes within the lungs suspicious for underlying interstitial lung disease. There is cardiomegaly without evidence of cardiac decompensation. * Echo on 06/23 shows EF is 55%. Grade 1/3 diastolic dysfunction, flattened end diastole, D-shaped left ventricle consistent with right ventricle volume overload, dilated right ventricle with reduced right ventricular systolic function, markedly enlarged right atrium size, mild mitral regurgitation is present, aortic valve sclerosis but opens well, severe tricuspid regurgitation, elevated right ventricular systolic pressure estimated at 76 mmHg , mild pulmonic regurgitation present. * Chest CT 06/24 shows no evidence of PE. PRIMARY DIAGNOSES: 1. Pulmonary hypertension with congestive heart failure exacerbation. 2. Elevated troponin. 3. Hypokalemia. SECONDARY DIAGNOSES: 1. Hypertension 2. Obstructive sleep apnea 3. Lupus 4. Tobacco abuse. DISCHARGE MEDICATIONS: 1. Lasix 20 mg daily. 2. Potassium chloride 20 mEq daily. 3. Prednisone 10 mg p.o. q.a.m. DISCONTINUED MEDICATIONS: Continue home medications except for Plaquenil, which should be discontinued. HISTORY OF PRESENT ILLNESS: The patient is a 63-year-old female with history of lupus, hypertension, obstructive sleep apnea, presents for worsening dyspnea over the past six months. The patient states no acute changes around that but over the past six months has had increased dyspnea on exertion, lower extremity edema, and dyspnea. Also endorses paroxysmal nocturnal dyspnea, but no orthopnea. Denies any known history of cardiac disease. No chest pain, shortness of breath , fever, chills, nausea, vomiting, dizziness, lightheadedness, abdominal pain, urinary symptoms, or recent falls, presented to the ED because her symptoms have not gotten any better and she wants to know why. In the ED, they performed a chest x-ray as noted above. Lasix 20 mg, potassium chloride 20 mEq. 1. Suspected congestive heart failure with pulmonary hypertension as noted above. No previous history of congestive heart failure or coronary artery symptoms of dyspnea on exertion. * Paroxysmal nocturnal dyspnea at rest over past 6 months and progressive. * [place] Heart Association class 4. * Chest x-ray shows scattered fibrotic changes. * Will need Pulmonary referral outpatient, although she is followed by Dr. Byrd. * Likely secondary to right heart strain from chronic obstructive sleep apnea as well as hypertension and lupus, was previously on Plaquenil status post Lasix 20 mg in the ED. * We will continue 20 mg IV Lasix b.i.d. * Echo shows EF of 50% to 55%. Echo as noted above. * Cardiology consulted as noted above 2. Elevated troponin suspected secondary to demand ischemia and congestive heart failure. Troponins trended from 0.036 to 0.047. * No symptoms of chest pain. * EKG showed no acute changes. * Unable to calculate ASCVD due to low LDL. 3. Hypokalemia, replaced. 4. Hypertension. * Does not appear to be on any home meds. 5. Obstructive sleep apnea, newly diagnosed per patient awaiting CPAP at home. 6. Lupus. * Discontinued home medications * No apparent flare. * D/c with prednisone 7. Tobacco abuse. Counseled on cessation. DISPOSITION: Stable. DISCHARGE INSTRUCTIONS: 1. Location: Home. 2. Diet: Heart healthy, low-sodium. 3. Activity: As tolerated. 4. Followup: Follow up with Dr. Byrd in 7 days, Dr. Junior in 3 to 4 weeks, and Dr. Neymar Blackwell on 06/30/2019 at 4:00 p.m. Job ID: [id number] MTDD
== END 2019-06-24 17:35 | disposition home or self-care (01) | DRG 282 ==
LOC: ERS 20:17 → 2NO 23:18
PROVIDERS: ADMIT Family Medicine; ATTEND Family Medicine
DX: I11.0 Hypertensive heart disease with heart failure (principal); I21.A1 Myocardial infarction type 2; Z96.642 Presence of left artificial hip joint; F12.10 Cannabis abuse, uncomplicated; F17.210 Nicotine dependence, cigarettes, uncomplicated; Z66 Do not resuscitate; G47.33 Obstructive sleep apnea (adult) (pediatric); M32.9 Systemic lupus erythematosus, unspecified; E87.6 Hypokalemia; I27.20 Pulmonary hypertension, unspecified; J84.10 Pulmonary fibrosis, unspecified; I50.813 Acute on chronic right heart failure; J44.9 Chronic obstructive pulmonary disease, unspecified
CPT/HCPCS: 36415; 71045; 71275; 80048; 80053; 80061; 81003; 82553; 83036; 83735; 83880; 84100; 84443; 84484; 85025; 93005; 93010; 93306; 96374; J1940; J3475; Q9967

== ENCOUNTER 2020-01-18 13:52 | Inpatient (IN) | payer MEDICARE, MEDICAID, OTHER ==
[2020-01-18] MEDS ORDERED: Iopamidol-370 76% 500 ML 1 ML ONE (14:25)
--- NOTE | 2020-01-18 15:57 | RAD ---
XR Chest 1 View Portable HISTORY: Difficulty urinating. COMPARISON: 06/22/2019 FINDINGS: The heart size is at upper limits of normal. Chronic parenchymal changes again seen. The ok ngs are well expanded without focal areas of consolidation, pneumothorax or pleural effusions. IMPRESSION: No radiographic evidence of acute cardiopulmonary process.
[2020-01-18 15:59] LABS: Bacteria/HPF 4+ HPF (None Seen); Bilirubin 1+ (Negative); Blood, Urine Trace (Negative); Clarity Turbid (Clear); Glucose, Urine (Dipstick) Normal (Negative); Ketone, Urine Negative (Negative); Leukocyte 75 Leu/uL (Negative); Nitrite 1+ (Negative); Protein, Urine (Dipstick) 70 mg/dL (Neg-Trace); RBC/HPF 0-3 HPF (0-3); Specific Gravity, Urine 1.024 (1.002-1.036); Urobilinogen 12 mg/dL (Less than 2); pH, Urine 5.5 (5.0-9.0)
[2020-01-18 16:07] LABS: ALT (SGPT) 27 U/L (8-55); AST (SGOT) 31 U/L (5-34); Albumin 3.3 g/dL (3.4-4.8); Alkaline Phosphatase 70 U/L (40-110); Anion Gap 17 mmol/L (10-20); BUN (Urea Nitrogen) 16 mg/dL (9.8-20.1); Bilirubin, Total 6.6 mg/dL (0.2-1.2); Calc. Creatinine Clearance 0 mL/min (70-130); Carbon Dioxide 30 mmol/L (23-31); Chloride 94 mmol/L (98-107); Estimated GFR-MDRD 70; Globulin 3.7 g/dL (2.4-3.5); Glucose 96 mg/dL (80-115); Lipase 13 U/L (8-78); Sodium 138 mmol/L (136-145)
[2020-01-18 16:10] LABS: Potassium 2.5 mmol/L (3.5-5.1)
[2020-01-18 16:13] LABS: Anisocytosis SLIGHT = 6-15 cells (100X) (0-5/hpf); Band 7 % (5-11); Hemoglobin 14.3 g/dL (12.0-16.0); Hypochromia SLIGHT = 6-15 cells (100X) (0-5/hpf); Lymphocytes 23 % (21-51); MDiff Complete? YES; Mean Corpuscular HGB CONC 30.9 g/dL (32.0-36.0); Mean Corpuscular Hemoglobin 26.9 pg (27.0-31.0); Mean Corpuscular Volume 87.3 fL (78.0-98.0); Mean Platelet Volume 7.2 fL (7.4-10.4); Monocytes 3 % (0-10); Neutrophil 62 % (42-75); Nucleated RBC 3 % (0); Ovalocytes SLIGHT = 2-5 cells (100X) (0-1/hpf); Platelet Count 109 thou/uL (130-400); Platelet Morphology Comment Appears Decreased; Polychromasia MODERATE = 3-4 cells (100X) (0-2/hpf); Reactive Lymphocytes 5 % (0-10); Red Blood Cell (RBC) Count 5.29 mill/uL (4.20-5.40); Schistocytes SLIGHT = 2-5 cells (100X) (0-1/hpf); Target Cells MODERATE= 6-15 cells (100X) (0-1/hpf); Tear Drops SLIGHT = 2-5 cells (100X) (0-1/hpf)
[2020-01-18 16:28] LABS: CKMB 2.6 ng/mL (0-6.6)
[2020-01-18] MEDS ORDERED: Aspirin Chewable 81 MG TAB ONE (17:03)
[2020-01-18] MEDS ORDERED: cefTRIAXone\\ROCEPHIN 2 GM VIAL ONE (17:03)
[2020-01-18] MEDS ORDERED: Aspirin Chewable 81 MG TAB PO SCH (17:15)
[2020-01-18] MEDS ORDERED: cefTRIAXone\\ROCEPHIN 2 GM in Sodium Chloride 0.9% 100 ML IVPB SCH (17:15)
[2020-01-18] MEDS ORDERED: Potassium Chloride 20 MEQ TAB PO SCH ×2 (17:15→20:00)
[2020-01-18] MEDS ORDERED: Potassium Chloride 20 MEQ in Premix Bag 1 BAG IVPB SCH (17:15)
[2020-01-18] MEDS ORDERED: Calcium Carbonate 500 MG ChewTAB PO PRN (18:34)
[2020-01-18] MEDS ORDERED: Guaifenesin DM 100-10/5 ML UDCUP PO PRN (18:34)
[2020-01-18] MEDS ORDERED: Bisacodyl 10 MG SUPP PR PRN (18:34)
[2020-01-18] MEDS ORDERED: HYDROcodone/Acetaminophen 5/325 mg Tablet PO PRN (18:34)
[2020-01-18] MEDS ORDERED: Ondansetron PF 4 MG/2 ML Vial IVP PRN (18:34)
[2020-01-18] MEDS ORDERED: Senokot S 8.6-50 MG TAB PO PRN (18:34)
--- NOTE | 2020-01-18 19:11 | HP ---
REASON FOR ADMISSION: CHF exacerbation, hypokalemia, possible UTI, hyperbilirubinemia. HISTORY OF PRESENTING ILLNESS: The patient gives history of difficulty walking. She normally uses a walker and mobilizes to do activities of daily living. She states she has not been able to walk long distance for almost a year now. She stays with her daughter. She is having trouble even with minimal walking. She has had aches and pains in the leg musculature. She also developed shortness of breath. She is always short of breath due to her smoking habit in the past with prior COPD. She tried taking nebulizer which did not help either. On arrival in the ER, the patient was found to have had a potassium of 2.5 with the patient being on Bumex and a BNP of 766. A decision was made to admit the patient. Incidentally, patient' s total bilirubin was also 6.6 with normal AST, ALT, and alkaline phosphatase. She has never had this high level of total bilirubin in the past. No complaints of exposure to COVID. No diarrhea. No complaints of chest pain or palpitation. PAST MEDICAL AND SURGICAL HISTORY: History of CHF with diastolic dysfunction, COPD, history of lupus, left hip replacement, obstructive sleep apnea. CURRENT MEDICATIONS: 1. Potassium chloride 20 mEq p.o. daily. 2. Plaquenil 200 mg p.o. daily. 3. Bumex 1 mg p.o. daily. 4. Prednisone 5 mg p.o. daily. ALLERGIES: NO KNOWN DRUG ALLERGIES. PERSONAL HISTORY: The patient states she quit smoking recently, but has smoked all her life. Does not abuse alcohol or drugs. She lives with her daughter, uses rolling walker to ambulate. FAMILY HISTORY: Both parents in their 80s both had lung cancer and were smokers per patient. CODE STATUS: Full. Power of patent prosecution attorney is her daughter. REVIEW OF SYSTEMS: CONSTITUTIONAL: Negative for weight loss or gain, ability to conduct usual activities. SKIN: Negative for rash, itching. EYES: Negative for double vision, pain. ENT/MOUTH: Negative for nose bleeding, neck stiffness, pain, tenderness. CARDIOVASCULAR: Negative for palpitations, dyspnea on exertion, orthopnea. RESPIRATORY: Negative for shortness of breath, wheezing, cough, hemoptysis, fever or night sweats. GASTROINTESTINAL: Negative for poor appetite, abdominal pain, heartburn, nausea , vomiting, constipation, or diarrhea. GENITOURINARY: Negative for urgency, frequency, dysuria, nocturia. MUSCULOSKELETAL: Negative for pain, swelling. NEUROLOGIC/PSYCHIATRIC: Negative for anxiety, depression. ALLERGY/IMMUNOLOGIC: Negative for skin rash, bleeding tendency. PHYSICAL EXAMINATION: GENERAL: The patient is a 64-year-old female, who is currently not in any acute distress. VITAL SIGNS: Blood pressure 134/96, pulse 90 per minute, respiratory rate 16 per minute, temperature 97.5 degrees Fahrenheit, saturating 95% on room air. NECK: Supple. No elevated JVD. HEENT: Eyes: Extraocular muscles intact. Pupils reacting to light. Oral cavity: Mucous membranes are dry. No exudates or congestion. CARDIOVASCULAR SYSTEM: S1, S2 heard. Regular rhythm. RESPIRATORY: Air entry 1+ bilateral. Scattered rhonchi plus bilateral. No wheezes. ABDOMEN: Soft bowel sounds heard. No tenderness, rigidity, or guarding. EXTREMITIES: There is 2+ peripheral edema. No calf tenderness. Peripheral pulses are 1+ bilateral. Dorsalis pedis is barely palpable. There is 1+ posterior tibial felt on both sides. Her toes are cold to touch, but no clinical evidence of any gangrene seen. CENTRAL NERVOUS: No gross focal deficits noted. The patient has contractures of her finger and hands due to history of lupus with small joint involvement. No prior history of CVA. PSYCHIATRIC: No obvious hallucinations or delusions. LABORATORY DATA: Chest x-ray done shows chronic parenchymal changes see. No acute infiltrate. CT of the abdomen and pelvis without contrast done is pending at present. H and H 14 and 46, platelet count 109, MCV is 87, white count of 8, 62 % neutrophils. There are 6-15 target cells seen. There are 3 nucleated RBC seen, potassium 2.5, serum bicarb is 30, BUN 16, creatinine 0.9, serum glucose is 96, total bilirubin 6.6, albumin is 3.3, CK-MB 2.6, troponin I 0.08. BNP is 766. Lipase is 13. TSH is 2.3. UA is positive for urobilinogen and signs of UTI. EKG shows low voltage sinus rhythm at 87 beats per minute. There is RSR prime seen. There is Q-wave seen in V1, V2, V3. CLINICAL IMPRESSION AND PLAN: The patient will be admitted to telemetry for acute congestive heart failure exacerbation, severe hypokalemia with diuretic use and needing diuretics with congestive heart failure exacerbation. She will be kept inpatient due to above-mentioned factors. We will continue her on Lasix 40 mg IV at 6 a.m. and 2 p.m. 20 mEq IV potassium is being given in the ER. She also got 40 mEq of p.o. potassium, 1 dose and will continue K-Dur 40 mEq p.o. q.6 hourly for a total of 6 doses. The patient has been chronically on prednisone. We will continue the same for now. We will place her on a small dose of Cozaar, a small dose of Coreg and continue omeprazole as before. DuoNeb q.6 hourly. We will follow up on the CT of the abdomen. COVID-19 PCR has been ordered and will follow up on the results as well. We will obtain LDH, Magdalene test, and hepatitis panel for elevated Total bilirubin to rule out hemolysis. . Job ID: [id number] MTDD
--- NOTE | 2020-01-18 19:38 | CT ---
CT ABDOMEN WITH CONTRAST CT PELVIS WITH CONTRAST: DATE: 01/18/20 HISTORY: 64-year-old female with abdominal pain and dysuria. COMPARISON: 10/22/[address] TECHNIQUE: IV injection of iodinated contrast media: 100 mL Isovue 370. Oral contrast media: Not administered. FINDINGS: Chronic appearing interstitial changes at the lung bases, similar to or slightly worse than in 2016. The cluster of calcifications at the posterior aspect of the right renal upper pole mentioned on the previous noncontrast CT, is demonstrated to be within a 2 x 2 x 2.5 cm cyst in that location. Patient's upper extremities were not elevated, resulting in streak artifact degrading the images, benny ecially of the bilateral kidneys, such that the sensitivity for the detection of pyelonephritis is de creased. There is no hydronephrosis. No major pathology of the liver, spleen, pancreas, or appendix. Atherosclerotic calcification without aneurysm of abdominal aorta. No small bowel dilation, ascites, pneumoperitoneum. Metallic hardware for left total hip prosthesis r esults in severe streak artifact, significantly partial obscuring portions of the pelvic cavity, incl uding bladder. Large number of descending and sigmoid colonic diverticula without diverticulitis. High grade bilateral facet DJD at L4-5 and L5-S1. This causes grade I anterolisthesis of L4 on L5. De generative disc disease at L4-5 and L5-S1. IMPRESSION: 1. No definite acute findings. 2. 2.5 cm cystic lesion containing calcifications at the upper pole of the right kidney. 3. Left total hip replacement arthroplasty. 4. Colonic diverticulosis without diverticulitis. 5. Lower lumbar spondylosis. 6. Urinary bladder cannot be evaluated because of the severe streak artifact from the orthopedic hardware of the left hip. TANI R POS: OFF
--- NOTE | 2020-01-18 19:43 | PDOC.BPN ---
- Brief Progress Note Discussed with Dr. Callaway that patient is our clinic patient. Since she is already admitted with orders and workup started, she will remain on hospitalist service for tonight with transfer to our team tomorrow morning.
[2020-01-18] MEDS ORDERED: Famotidine 20 MG TAB PO SCH (21:00)
[2020-01-18] MEDS ORDERED: Carvedilol 3.125 MG TAB PO SCH (21:00)
[2020-01-18] MEDS: Albuterol 200 PUFF (6.7GM INHALER) INH SCH (22:40)
[2020-01-19 01:11] LABS: Troponin I 0.061 ng/mL (< 0.028)
[2020-01-19 01:12] LABS: HBCM Index 0.05 S/CO (0-0.79); HBSAg Index 0.16 S/CO (0-0.99); Hep A IgM AB Non-Reactive (NonReactive); Hep A IgM S/CO 0.16 S/CO (0-0.79); Hep B Surf Ag Non-Reactive S/CO (NonReactive); Hep C IgG Ab Non-Reactive (NonReactive); Hepatitis B Core IgM Abs Non-Reactive (NonReactive)
[2020-01-19 02:03] LABS: Hep C Index 0.16 S/CO (0-0.79)
[2020-01-19] MEDS ORDERED: Potassium Chloride 20 MEQ TAB PO SCH ×2 (03:00→08:00)
[2020-01-19] MEDS: Albuterol 200 PUFF (6.7GM INHALER) INH SCH ×4 (05:16→19:31)
[2020-01-19] MEDS: Furosemide 40 MG/4 ML VIAL SLOW IVP SCH ×2 (05:22→14:47)
--- NOTE | 2020-01-19 06:35 | PDOC.FM ---
- Subjective Subjective: Araceli Pollard was asleep and unable to answer many questions aside from telling me she has Lupus and takes prednisone daily. She is unable to tell me any of her other medical hx or why she was brought into the hospital. She is A&O to self, location, president, but not month/year. She lives with her daughters Kamryn and Chasity, and gave me the contact information for them as well as her other daughter Shelby. She gave me permission to speak with them about her and her health. I was able to get in contact with Kamryn: They brought Araceli to the hospital yesterday because she was delusional. About 2 wks ago, Kamryn noticed Araceli's legs started swelling and they noticed she was going to the bathroom frequently and producing foul smelling urine. She was also starting to have funcional incontinence because her leg swelling was accompanied by pain that prevented her from making it to the bathroom on time. Then, she started having a decline in mental status that continued to worsen until last night when she started having delusions and hallucinations. Kamryn says Araceli was complaining of having an allergic reaction to her face, rambling and perseverating on topics, and talking about her hair feeling frozen and bugs being on the bed. Kamryn denies any recent falls, fevers, other changes. She endorses a PMH of CHF, COPD without O2 requirement, SLE, LEE. She denies incontinence, kidney and liver disease. She says Araceli quit smoking ~1mo ago but previously smoked ~1/3-1/2ppd for several years. Normally, Kamryn says Araceli has no memory issues, is able to tell you all about her medical history, and is very vibrant and bubbly. - Objective Vital Signs & Weight: Vital Signs (12 hours) Temp Pulse Resp BP BP Pulse Ox 01/19/20 03:59 98.4 F 90 20 124/71 95 01/19/20 00:00 98.5 F 89 20 117/78 95 01/18/20 21:55 97.9 F 93 20 119/75 96 Weight Weight 83.098 kg I&O: 01/17/20 01/18/20 01/19/20 06:59 06:59 06:59 Intake Total 460 Output Total 700 Balance -240 Result Diagrams: 01/21/20 09:20 01/21/20 09:20 Phys Exam - Physical Examination Constitutional: NAD (Sleeping comfortably, easily arousable) Neck: supple Significant crackles Cardiovascular: RRR, no significant murmur Gastrointestinal: soft, no distention, positive bowel sounds Musculoskeletal: pulses present (2+ radial b/l. 1+ dp b/l), edema present (1+ pitting in LE b/l) Psychiatric: A&O x 3 Deviation from normal: Slow to answer questions Deviation from normal: Hypopigmentation and skin changes consistent with SLE -: Feels very cold, which daughter says is normal for her Dx/Plan - Plan Plan: This is a 64yo F that was brought to the ED for AMS, polyuria, foul-smelling urine, and LE edema b/l. Metabolic encephalopathy likely 2/2 UTI - Did not meet sepsis criteria because only had tachycardia. All other vitals nml, WBC of 8 without L shift or abnormal band count WBC possibly falsely normal d/t chronic steroid use - TSH 2.3, Lipase 13 - UA showed nitrites, leuks, bacteria, urobili, WBCs, hyaline casts, crystals, epith cells - UCx shows presumptive E. coli - BCx pending - CXR showed chronic parenchymal changes - She is A&O x3 but is far from baseline mental status based on daughter's description of what her baseline is Hypokalemia - K 2.5 on CMP at admission - Pt takes Bumex and Lasix at home. - Hold Bumex. On Lasix 40mg IV - Started K-Dur - Repeat K was 4.2 on 01/18. - Continue to monitor with daily BMPs Acute CHF exacerbation - HFpEF - Had new dx of HFpEF by Dr. King during hospitalization in 06/2019 - EF at that time showed EF 50-55%, with RV overload and decreased RV systolic function with mild pulmonary regurg and an increased RV pressure of 76 - BNP 766 - EKG shows low voltage, R BBB, RSR', and Q wave in V1-V3 On tele monitoring - Troponin 0.089 -> 0.061 - CK-MB nml at 2.6 - Clinically fluid-overloaded: crackles in lungs b/l and 1+ edema in LE b/l - On Lasix 40mg IV - Strict I&Os - Monitor fluid status - Consider cards consult Hyperbilirubinemia - TBili 6.6 on admission - AST/ALT/Alk Phos normal - Hepatitis panel neg - LDH 503 - Magdalene test showed Ab neg, but direct antiglobulin positive - Fractionated bili ordered - RUQ U/S showed mild GB wall thickening and possible small collection of pericholecystic edema - Hepatic doppler ordered - CBC showed 3 nucleated RBCs, moderate polychromasia, moderate target cells - Reticulocyte count 1.5 with 0.4 fraction of immature reticulocytes - Haptoglobin pending SLE - Patient takes prednisone 10mg daily and Plaquenil - Continue here - It is possible this is the underlying cause of her heart disease R renal cyst - CT abd/pelvis showed a 2.5cm R renal upper pole cyst COPD - Smoking hx of 05/11-1/3ppd x "many years" - Quit smoking ~1mo ago - Uses albuterol at home. Continue here LEE - Uses CPAP at home - Continue here SPIKE - Takes Omeprazole and TUMS at home - Contine here Colonic diverticulosis - No diverticulitis - Seen on CT abd/pelvis - MD aware L total hip arthroplasty - Confirmed by CT abd/pelvis - Streak from hardware prevented clear view of bladder Dispo: Inpatient tele, LOS >48h Diet: fluid restricted, HH IVF: SL DVT Ppx: Lovenox 40mg Code: Full, per daughter Addendum - Attending - Attending Attestation Date/Time: 01/21/202021 I personally evaluated the patient and discussed the management with the team. I agree with the History, Examination, Assessment and Plan documented above with any addition or exceptions noted below.
[2020-01-19 08:08] LABS: Reticulocyte Count 1.5 % (0.5-1.5)
[2020-01-19 08:09] LABS: Hemoglobin 14.1 g/dL (12.0-16.0); Mean Corpuscular Hemoglobin 26.3 pg (27.0-31.0); Mean Corpuscular Volume 87.5 fL (78.0-98.0); Mean Platelet Volume 7.1 fL (7.4-10.4); Platelet Count 106 thou/uL (130-400); Red Blood Cell (RBC) Count 5.35 mill/uL (4.20-5.40); White Blood Cell (WBC) Count 8.1 thou/uL (4.8-10.8)
[2020-01-19 08:29] LABS: ALT (SGPT) 27 U/L (8-55); AST (SGOT) 29 U/L (5-34); Albumin 3.2 g/dL (3.4-4.8); Alkaline Phosphatase 68 U/L (40-110); Anion Gap 19 mmol/L (10-20); BUN (Urea Nitrogen) 18 mg/dL (9.8-20.1); Calc. Creatinine Clearance 71 mL/min (70-130); Calcium 8.8 mg/dL (7.8-10.44); Carbon Dioxide 27 mmol/L (23-31); Chloride 97 mmol/L (98-107); Estimated GFR-MDRD 64; Globulin 3.7 g/dL (2.4-3.5); Glucose 88 mg/dL (80-115); Potassium 4.2 mmol/L (3.5-5.1); Protein, Total 6.9 g/dL (6.0-8.3); Sodium 139 mmol/L (136-145)
[2020-01-19 08:44] LABS: Band 5 % (5-11); Lymphocytes 25 % (21-51); MDiff Complete? YES; Monocytes 2 % (0-10); Neutrophil 68 % (42-75); Nucleated RBC 1 % (0); Ovalocytes MODERATE= 6-15 cells (100X) (0-1/hpf); Platelet Morphology Comment Appears Decreased; Polychromasia MODERATE = 3-4 cells (100X) (0-2/hpf); Schistocytes SLIGHT = 2-5 cells (100X) (0-1/hpf); Target Cells SLIGHT = 2-5 cells (100X) (0-1/hpf)
[2020-01-19] MEDS: Enoxaparin Sodium 40 MG/0.4 ML SYRINGE SC SCH (09:54)
[2020-01-19] MEDS: predniSONE 20 MG TAB PO SCH (09:56)
[2020-01-19] MEDS: Aspirin Chewable 81 MG TAB PO SCH (09:57)
[2020-01-19] MEDS: Losartan 25 MG TAB PO SCH (09:58)
[2020-01-19] MEDS: Carvedilol 3.125 MG TAB PO SCH ×2 (09:59→16:23)
[2020-01-19 12:41] LABS: SARS-CoV-2 MS2 Positive; SARS-CoV-2 N Gene Negative; SARS-CoV-2 S Gene Negative; SARS-CoV-2 by NAA Not Detected (NotDetected); SARS-CoV-2 orf1ab Negative
--- NOTE | 2020-01-19 14:21 | ULT ---
HEPATIC ULTRASOUND WITH DOPPLER: Color Doppler with spectral analysis performed on hepatic vessels. INDICATION: Hepatic congestion. FINDINGS: Liver is upper normal size measured at 16 cm. The liver is mildly heterogeneous. The technologist states that the exam is technically difficult due to the patient's inability to move to appropriate positions. Liver is upper normal size measured at 16 cm. The liver is mildly hetero geneous. The technologist states the exam is technically difficult due to patient's inability to move to appro priate positions. The patient is unable to lay on her back. As visualized with Doppler, the hepatic vessels appear to show normal hepatopetal blood flow. Aorta and IVC both show normal flow. Portal veins, hepatic veins, splenic artery, and splenic vein show no rmal hepatopetal blood flow. The gallbladder shows a mildly thickened wall and some questionable pericholecystic edema. This may be due to mild contraction. No definite gallstone. The common duct is normal caliber. Visualized spleen appears normal. Both kidneys are imaged and appear unremarkable. Visualized pancreas unremarkable. Visualized aorta and IVC unremarkable. IMPRESSION: 1. Hepatic vessels show normal hepatopetal blood flow. 2. Gallbladder shows mild wall thickening and question of pericholecystic edema. POS: AGW
[2020-01-19] MEDS: cefTRIAXone\\ROCEPHIN 2 GM in Sodium Chloride 0.9% 100 ML IVPB SCH (16:23)
[2020-01-19] MEDS: Potassium Chloride 20 MEQ TAB PO SCH (16:23)
[2020-01-19 17:09] LABS: Bilirubin, Total 5.8 mg/dL (0.2-1.2)
[2020-01-20] MEDS: Albuterol 200 PUFF (6.7GM INHALER) INH SCH ×4 (00:50→19:11)
[2020-01-20 04:47] LABS: ALT (SGPT) 26 U/L (8-55); AST (SGOT) 25 U/L (5-34); Albumin 2.8 g/dL (3.4-4.8); Alkaline Phosphatase 60 U/L (40-110); Anion Gap 18 mmol/L (10-20); BUN (Urea Nitrogen) 23 mg/dL (9.8-20.1); Bilirubin, Total 4.4 mg/dL (0.2-1.2); Calc. Creatinine Clearance 69 mL/min (70-130); Calcium 8.7 mg/dL (7.8-10.44); Carbon Dioxide 29 mmol/L (23-31); Chloride 95 mmol/L (98-107); Estimated GFR-MDRD 62; Globulin 3.5 g/dL (2.4-3.5); Glucose 93 mg/dL (80-115); Protein, Total 6.3 g/dL (6.0-8.3); Sodium 138 mmol/L (136-145)
[2020-01-20 05:41] LABS: Hemoglobin 13.8 g/dL (12.0-16.0); Mean Corpuscular HGB CONC 30.7 g/dL (32.0-36.0); Mean Corpuscular Hemoglobin 26.3 pg (27.0-31.0); Mean Corpuscular Volume 85.7 fL (78.0-98.0); RBC Distribution Width 18.1 % (11.5-14.5); Red Blood Cell (RBC) Count 5.24 mill/uL (4.20-5.40); White Blood Cell (WBC) Count 9.4 thou/uL (4.8-10.8)
--- NOTE | 2020-01-20 05:42 | PDOC.FM ---
- Subjective Subjective: Patient says she is feeling well. She notes lower extremity edema bilaterally but denies headache, vision changes, chest pain, SOB, nausea and abdominal pain. - Objective MAR Reviewed: Yes Vital Signs & Weight: Vital Signs (12 hours) Temp Pulse Resp BP Pulse Ox 01/20/20 04:00 98.1 F 71 20 92/66 01/19/20 20:00 97.5 F L 74 16 100/64 98 01/19/20 19:32 95 Weight Admit Weight 83.416 kg Weight 83.098 kg I&O: 01/18/20 01/19/20 01/20/20 06:59 06:59 06:59 Intake Total 460 960 Output Total 700 1400 Balance -240 -440 Result Diagrams: 01/20/20 04:01 01/20/20 04:01 Phys Exam - Physical Examination Constitutional: NAD HEENT: moist MMs, sclera anicteric Neck: supple Respiratory: no wheezing, clear to auscultation bilateral Cardiovascular: RRR, no significant murmur Gastrointestinal: soft, non-tender Musculoskeletal: pulses present, edema present 2+ pitting edema Neurological: non-focal, moves all 4 limbs Lymphatic: no nodes Psychiatric: normal affect Deviation from normal: A&Ox1 (self). States she is in hospital for "allergic reaction." Skin: no rash, cap refill <2 seconds Dx/Plan - Plan Plan: This is a 64yo F that was brought to the ED for AMS, polyuria, foul-smelling urine, and LE edema b/l. Metabolic encephalopathy 2/2 UTI - UA showed nitrites, leuks, bacteria, urobili, WBCs, hyaline casts, crystals, epith cells. Started on Rocephin. - UCx shows presumptive E. coli - BCx pending - Decreased mentation from baseline (A&Ox3). Will monitor today and consider CT Head in am if mentation has not improved with treatment Hypokalemia, resolved - K 2.5 at admission, now 4.0 - Held home bumex - Continue Lasix 40mg BID - Continue K-Dur - Continue to monitor with daily BMPs Acute HFpEF exacerbation - Diagnosed with HFpEF by Dr. King during hospitalization in 06/2019. EF 50-55 % with RV overload and decreased RV systolic function with mild pulmonary regurg and an increased RV pressure of 76. BNP 766. - EKG shows low voltage, R BBB, RSR', and Q wave in V1-V3 - Troponin 0.089 -> 0.061 - Continue Lasix 40mg BID - Continue home meds - Strict I&Os - Monitor fluid status Hyperbilirubinemia - TBili 6.6 on admission. AST/ALT/Alk Phos normal. Hepatitis panel neg. LDH 503. Magdalene test showed Ab neg, but direct antiglobulin positive - RUQ U/S showed mild GB wall thickening and possible small collection of pericholecystic edema - Hepatic doppler showed normal blood flow - CBC showed high immature retic count - Haptoglobin pending SLE - Continue home prednisone and Plaquenil R renal cyst - CT abd/pelvis showed a 2.5cm R renal upper pole cyst COPD - Smoking hx of 2-1/3ppd x "many years" - Quit smoking ~1mo ago - Uses albuterol at home. Continue here LEE - Uses CPAP at home - Continue here SPIKE - Takes Omeprazole and TUMS at home - Continue here Colonic diverticulosis - No diverticulitis seen on CT abd/pelvis L total hip arthroplasty - Confirmed by CT abd/pelvis - Streak from hardware prevented clear view of bladder DVT Ppx: Lovenox 40mg Code: Full, per daughter PCP: DAVINA Garcia Dispo: Home pending symptom improvement Addendum - Attending - Attending Attestation Date/Time: 01/20/20 5811 I personally evaluated the patient and discussed the management with Dr. King. I agree with the History, Examination, Assessment and Plan documented above with any addition or exceptions noted below. The patient was resting comfortably. She denies pain to me. Continue antibiotics. Will monitor for improvement in cognition, if no change, will consider CT head. Pt is hypotensive but asymtpomatic. Will hold bp meds.
[2020-01-20] MEDS: Furosemide 40 MG/4 ML VIAL SLOW IVP SCH ×2 (05:52→15:10)
[2020-01-20 06:02] LABS: Band 1 % (5-11); Elliptocytes SLIGHT = 2-5 cells (100X) (0-1/hpf); Lymphocytes 43 % (21-51); MDiff Complete? YES; Monocytes 7 % (0-10); Nucleated RBC 4 % (0); Platelet Morphology Comment Appears Decreased; Polychromasia SLIGHT = 2-3 cells (100X) (0-2/hpf); Reactive Lymphocytes 2 % (0-10); Schistocytes SLIGHT = 2-5 cells (100X) (0-1/hpf); Target Cells SLIGHT = 2-5 cells (100X) (0-1/hpf)
[2020-01-20 06:03] LABS: Mean Platelet Volume 8.4 fL (7.4-10.4); Platelet Count 119 thou/uL (130-400)
[2020-01-20] MEDS: predniSONE 20 MG TAB PO SCH (08:19)
[2020-01-20] MEDS: Carvedilol 3.125 MG TAB PO SCH (08:19)
[2020-01-20] MEDS: Aspirin Chewable 81 MG TAB PO SCH (08:19)
[2020-01-20] MEDS: Potassium Chloride 20 MEQ TAB PO SCH ×2 (08:20→16:44)
[2020-01-20] MEDS: Enoxaparin Sodium 40 MG/0.4 ML SYRINGE SC SCH (08:20)
[2020-01-20] MEDS: Losartan 25 MG TAB PO SCH (08:26)
[2020-01-20] MEDS: cefTRIAXone\\ROCEPHIN 2 GM in Sodium Chloride 0.9% 100 ML IVPB SCH (16:44)
[2020-01-20] MEDS: Acetaminophen 325 MG TAB PO PRN (16:44)
[2020-01-21] MEDS: Albuterol 200 PUFF (6.7GM INHALER) INH SCH ×5 (00:07→23:43)
--- NOTE | 2020-01-21 05:38 | PDOC.FM ---
- Subjective Subjective: The patient complains of mild abdominal pain with nausea. She does not know when her last BM was and believes her pain might be related to constipation. She reports continued lower extremity edema. She denies headache, vision changes , chest pain and SOB. - Objective MAR Reviewed: Yes Vital Signs & Weight: Vital Signs (12 hours) Temp Pulse Resp BP BP Pulse Ox 01/21/20 04:00 98.5 F 68 18 103/55 L 96 01/21/20 00:29 96 01/20/20 23:42 98.2 F 67 22 H 98/53 L 98 01/20/20 19:30 97.7 F 73 20 91/57 L 93 L 01/20/20 19:12 94 L Weight Admit Weight 83.416 kg Weight 89.811 kg I&O: 01/19/20 01/20/20 01/21/20 06:59 06:59 06:59 Intake Total 460 1135 320 Output Total 700 2150 700 Balance -797 -1015 -334 Result Diagrams: 01/21/20 09:01/21/20 09:20 Phys Exam - Physical Examination Constitutional: NAD HEENT: moist MMs, sclera anicteric Neck: supple, full ROM Respiratory: no wheezing, clear to auscultation bilateral Cardiovascular: RRR, no significant murmur Gastrointestinal: soft, non-tender, positive bowel sounds Musculoskeletal: pulses present, edema present (2+ pitting edema) Neurological: non-focal, moves all 4 limbs Psychiatric: normal affect Deviation from normal: A&Ox2 (person, place). Does not know date, month or year. Believes she was admitted for "allergic reaction to my head." Skin: no rash, cap refill <2 seconds Dx/Plan - Plan Plan: This is a 64yo F that was brought to the ED for AMS, polyuria, foul-smelling urine, and LE edema b/l. Metabolic encephalopathy 2/2 UTI - UA showed nitrites, leuks, bacteria, urobili, WBCs, hyaline casts, crystals, epith cells. Started on Rocephin. - UCx shows presumptive E. coli - BCx 1/2 prelim - coag negative staph - Decreased mentation from baseline (A&Ox3). Due to continued alteration despite treatment for UTI, will order CT Brain for further investigation Acute HFpEF exacerbation - Diagnosed with HFpEF by Dr. King during hospitalization in 06/2019. EF 50-55% . BNP 766. - EKG showed low voltage, R BBB, RSR', and Q wave in V1-V3 - Troponin 0.089 -> 0.061 - Continue Lasix 20mg BID. - Hold home meds due to asymptomatic hypotension over last day - Strict I&Os - Monitor fluid status Constipation - Unknown last BM. Complaining of mild abdominal pain with nausea. - Dulcolax, senokot PRN Hyperbilirubinemia - TBili 6.6 on admission. AST/ALT/Alk Phos normal. Hepatitis panel neg. LDH 503. Magdalene test showed Ab neg, but direct antiglobulin positive - RUQ U/S showed mild GB wall thickening and possible small collection of pericholecystic edema - Hepatic doppler showed normal blood flow - CBC showed high immature retic count - Haptoglobin pending SLE - Continue home prednisone and Plaquenil R renal cyst - CT abd/pelvis showed a 2.5cm R renal upper pole cyst COPD - Smoking hx of 05/11-1/3ppd x "many years" - Quit smoking ~1mo ago - Uses albuterol at home. Continue here LEE - Uses CPAP at home - Continue here SPIKE - Takes Omeprazole and TUMS at home - Continue here Colonic diverticulosis - No diverticulitis seen on CT abd/pelvis L total hip arthroplasty - Confirmed by CT abd/pelvis - Streak from hardware prevented clear view of bladder DVT Ppx: Lovenox 40mg Code: Full, per daughter PCP: DAVINA Garcia Dispo: Home pending symptom improvement Addendum - Attending - Attending Attestation Date/Time: 01/21/20 4503 I personally evaluated the patient and discussed the management with Dr. King. I agree with the History, Examination, Assessment and Plan documented above with any addition or exceptions noted below. Patient is still confused. Oriented to person, place. Continue antibiotics. Blood cultures show contaminant. Will get CT brain to further evaluate persistent confusion.
[2020-01-21] MEDS: Furosemide 20 MG/2 ML VIAL SLOW IVP SCH ×2 (06:53→15:16)
[2020-01-21] MEDS: Potassium Chloride 20 MEQ TAB PO SCH ×2 (09:34→17:14)
[2020-01-21] MEDS: predniSONE 20 MG TAB PO SCH (09:34)
[2020-01-21] MEDS: Enoxaparin Sodium 40 MG/0.4 ML SYRINGE SC SCH (09:34)
[2020-01-21] MEDS: Aspirin Chewable 81 MG TAB PO SCH (09:34)
[2020-01-21 09:45] LABS: Anisocytosis SLIGHT = 6-15 cells (100X) (0-5/hpf); Hemoglobin 13.7 g/dL (12.0-16.0); Hypochromia SLIGHT = 6-15 cells (100X) (0-5/hpf); Lymphocytes 35 % (21-51); MDiff Complete? YES; Mean Corpuscular Hemoglobin 26.8 pg (27.0-31.0); Mean Corpuscular Volume 86.3 fL (78.0-98.0); Mean Platelet Volume 7.6 fL (7.4-10.4); Monocytes 5 % (0-10); Neutrophil 60 % (42-75); Nucleated RBC 1 % (0); Platelet Count 132 thou/uL (130-400); Poikilocytosis SLIGHT = 6-15 cells (100X) (0-5/hpf); RBC Distribution Width 18.2 % (11.5-14.5); Target Cells SLIGHT = 2-5 cells (100X) (0-1/hpf); White Blood Cell (WBC) Count 11.5 thou/uL (4.8-10.8)
[2020-01-21 09:51] LABS: ALT (SGPT) 32 U/L (8-55); AST (SGOT) 32 U/L (5-34); Albumin 2.9 g/dL (3.4-4.8); Alkaline Phosphatase 67 U/L (40-110); Anion Gap 17 mmol/L (10-20); BUN (Urea Nitrogen) 27 mg/dL (9.8-20.1); Bilirubin, Total 4.1 mg/dL (0.2-1.2); Calc. Creatinine Clearance 73 mL/min (70-130); Calcium 9.1 mg/dL (7.8-10.44); Carbon Dioxide 27 mmol/L (23-31); Chloride 96 mmol/L (98-107); Estimated GFR-MDRD 65; Globulin 3.5 g/dL (2.4-3.5); Glucose 113 mg/dL (80-115); Potassium 3.7 mmol/L (3.5-5.1); Protein, Total 6.4 g/dL (6.0-8.3); Sodium 136 mmol/L (136-145)
--- NOTE | 2020-01-21 11:25 | CT ---
CT head noncontrast HISTORY: Altered mental status. FINDINGS: There is no evidence of acute intracranial hemorrhage or infarct. No mass effect or shift o f midline structures. Diffuse cortical atrophy and chronic ischemic small vessel disease. Calcification of the arterial structures of the brain base. Visualized paranasal sinuses remain well aerated. IMPRESSION : Chronic-type findings. No acute intracranial abnormalities are demonstrated.
[2020-01-21] MEDS: Acetaminophen 325 MG TAB PO PRN (12:32)
[2020-01-21] MEDS: cefTRIAXone\\ROCEPHIN 2 GM in Sodium Chloride 0.9% 100 ML IVPB SCH (17:13)
[2020-01-21] MEDS: Carvedilol 3.125 MG TAB PO SCH (17:14)
--- NOTE | 2020-01-22 06:00 | PDOC.FM ---
- Subjective Subjective: Araceli is doing okay this morning. Her mentation is improved from Wednesday. She still thinks she came in to the hospital for an allergic reaction but is now able to tell me about her medical problems, endorses UTI sxs prior to being admitted, and remembers having delusions/hallucinations. She is still not upbeat the way her daughter describes her. She still appears confused and cannot tell me the year but is oriented to self, location, and president. She endorses feeling cold which is normal for her per her daughter. She is endorsing significant L leg hip pain, worse on the posterior aspect. She had a brief episode of R hand trembling that scared her but that appeared to resolve with distraction. She denies N/V/D, dyspnea/SOB, CP. - Objective Vital Signs & Weight: Vital Signs (12 hours) Temp Pulse Resp BP Pulse Ox 01/22/20 03:46 98.0 F 72 15 110/69 100 01/21/20 21:15 97.7 F 79 24 H 111/66 98 01/21/20 19:21 95 Weight Admit Weight 83.416 kg Weight 84.912 kg I&O: 01/20/20 01/21/20 01/22/20 06:59 06:59 06:59 Intake Total 1135 520 240 Output Total 2150 950 400 Balance -1015 -430 -160 Result Diagrams: 01/22/20 07:44 01/22/20 07:44 Phys Exam - Physical Examination Constitutional: NAD (Was sitting comfortably) Neck: supple Significant crackles on L mid/lower lobes Cardiovascular: RRR (Telemetry shows some PACs) Gastrointestinal: soft, no distention, positive bowel sounds Tender in LLQ Musculoskeletal: pulses present, edema present (Non-pitting but present in LW b/l) Neurological: non-focal, moves all 4 limbs Psychiatric: normal affect Skin: no rash Dx/Plan - Plan Plan: This is a 64yo F that was brought to the ED for AMS, polyuria, foul-smelling urine, and LE edema b/l. Metabolic encephalopathy 2/2 UTI - UA showed nitrites, leuks, bacteria, urobili, WBCs, hyaline casts, crystals, epith cells. Started on Rocephin. - UCx shows E. coli sensitive to Rocephin On Rocephin since 01/17 (today is day 5) - BCx 1/2 prelim - coag negative staph - Decreased mentation from baseline (A&Ox3). Improving - CT brain ordered due to continued alteration despite treatment for UTI. Showed chronic findings Acute HFpEF exacerbation - Diagnosed with HFpEF by Dr. King during hospitalization in 06/2019. EF 50- 55%. BNP 766. - EKG showed low voltage, R BBB, RSR', and Q wave in V1-V3 - Troponin 0.089 -> 0.061 - Continue Lasix 20mg BID. - Strict I&Os. Balance -160mL on 01/21 - Monitor fluid status - Will consult cardiology today d/t poor diuresis, hypotension Constipation - Unknown last BM. Complaining of mild abdominal pain with nausea. - Will schedule dulcolax, senokot Hyperbilirubinemia - TBili 6.6 on admission. - AST/ALT/Alk Phos normal. - Hepatitis panel neg. - LDH 503. - Magdalene test positive - Haptoglobin low - RUQ U/S showed mild GB wall thickening and possible small collection of pericholecystic edema - Hepatic doppler showed normal blood flow - CBC showed high immature retic count SLE - Continue home prednisone and Plaquenil R renal cyst - CT abd/pelvis showed a 2.5cm R renal upper pole cyst COPD - Smoking hx of 05/11-1/3ppd x "many years" - Quit smoking ~1mo ago - Uses albuterol at home. Continue here LEE - Uses CPAP at home - Continue here SPIKE - Takes Omeprazole and TUMS at home - Continue here Colonic diverticulosis - No diverticulitis seen on CT abd/pelvis L total hip arthroplasty - Confirmed by CT abd/pelvis - Streak from hardware prevented clear view of bladder DVT Ppx: Lovenox 40mg Code: Full, per daughter PCP: DAVINA Garcia Dispo: Home pending symptom improvement
[2020-01-22] MEDS: Furosemide 20 MG/2 ML VIAL SLOW IVP SCH (06:13)
[2020-01-22] MEDS: Albuterol 200 PUFF (6.7GM INHALER) INH SCH ×3 (08:02→20:39)
[2020-01-22 08:09] LABS: Hemoglobin 13.8 g/dL (12.0-16.0); Mean Corpuscular HGB CONC 30.6 g/dL (32.0-36.0); Mean Corpuscular Hemoglobin 26.3 pg (27.0-31.0); Mean Corpuscular Volume 85.8 fL (78.0-98.0); Mean Platelet Volume 8.3 fL (7.4-10.4); Platelet Count 141 thou/uL (130-400); RBC Distribution Width 18.2 % (11.5-14.5); Red Blood Cell (RBC) Count 5.24 mill/uL (4.20-5.40); White Blood Cell (WBC) Count 12.2 thou/uL (4.8-10.8)
[2020-01-22 08:25] LABS: ALT (SGPT) 36 U/L (8-55); AST (SGOT) 30 U/L (5-34); Alkaline Phosphatase 66 U/L (40-110); Anion Gap 16 mmol/L (10-20); BUN (Urea Nitrogen) 23 mg/dL (9.8-20.1); Bilirubin, Total 3.9 mg/dL (0.2-1.2); Calc. Creatinine Clearance 70 mL/min (70-130); Calcium 8.8 mg/dL (7.8-10.44); Carbon Dioxide 28 mmol/L (23-31); Chloride 96 mmol/L (98-107); Estimated GFR-MDRD 62; Globulin 3.7 g/dL (2.4-3.5); Glucose 86 mg/dL (80-115); Potassium 3.6 mmol/L (3.5-5.1); Protein, Total 6.7 g/dL (6.0-8.3); Sodium 136 mmol/L (136-145)
[2020-01-22 08:43] LABS: Band 1 % (5-11); Basophilic Stippling SLIGHT = 1-2 cells (100X) (None Seen); Elliptocytes SLIGHT = 2-5 cells (100X) (0-1/hpf); Hypochromia SLIGHT = 6-15 cells (100X) (0-5/hpf); Lymphocytes 28 % (21-51); MDiff Complete? YES; Monocytes 2 % (0-10); Nucleated RBC 5 % (0); Ovalocytes SLIGHT = 2-5 cells (100X) (0-1/hpf); Platelet Morphology Comment Appears Adequate; Polychromasia MODERATE = 3-4 cells (100X) (0-2/hpf); Schistocytes SLIGHT = 2-5 cells (100X) (0-1/hpf); Target Cells SLIGHT = 2-5 cells (100X) (0-1/hpf)
[2020-01-22] MEDS: Carvedilol 3.125 MG TAB PO SCH ×2 (08:43→17:26)
[2020-01-22] MEDS: Potassium Chloride 20 MEQ TAB PO SCH ×2 (08:43→17:26)
[2020-01-22] MEDS: Enoxaparin Sodium 40 MG/0.4 ML SYRINGE SC SCH (08:44)
[2020-01-22] MEDS: predniSONE 20 MG TAB PO SCH (08:44)
[2020-01-22] MEDS: Acetaminophen 325 MG TAB PO PRN (08:44)
[2020-01-22] MEDS: Losartan 25 MG TAB PO SCH (08:44)
[2020-01-22] MEDS: Aspirin Chewable 81 MG TAB PO SCH (08:44)
[2020-01-22] MEDS ORDERED: cefTRIAXone\\ROCEPHIN 1 GM in Sodium Chloride 0.9% 100 ML IVPB SCH (17:30)
--- NOTE | 2020-01-22 19:17 | PRG ---
DATE OF SERVICE: 01/22/2020 Ms. Pollard is admitted with a mild heart failure exacerbation and is looking and feeling better. She was noted on admission to have quite elevated bilirubin, which may be related to chronic hemolysis from her lupus. However, most of the bilirubin seems to be of the direct component and we may consult Hematology to help us sort this out. Job ID: [id number]
[2020-01-23] MEDS: Albuterol 200 PUFF (6.7GM INHALER) INH SCH ×4 (01:30→19:07)
--- NOTE | 2020-01-23 01:37 | CON ---
DATE OF CONSULTATION: REASON FOR CONSULTATION: Possible hemolysis. HISTORY OF PRESENT ILLNESS: Ms. Pollard is a 64-year-old female with a history of lupus, who was admitted for CHF exacerbation and UTI. She was having altered mental status and difficulty walking for over two weeks prior to admission. Her bilirubin was 6.6 on admission. She received IV fluids and antibiotics. Her urine showed 4+ bacteria and micro was positive for E coli bacteremia. The patient's CBC on arrival showed a white count of 8, normal hemoglobin of 14.3, and platelet count of 109,000. She has 52% neutrophils, 7% bands, and 23% lymphocytes. She did have three nucleated RBC's and slight schistocytes on her smear. She had a retic count of 1.5, immature retic fraction of 0.399, and haptoglobin of less than 10. The patient had a fractionated bilirubin, which showed a total of 5.6 and direct of 4.0. Her LDH was 503. The patient had an elevated bilirubin in June, on a prior admission, it was 3.6 at this time. She was admitted then for cardiac issues. The patient has slowly improved over the course of the last several days. Her mentation has improved. Her bilirubin is now 3.9. Her platelets are back to normal. PAST MEDICAL HISTORY: 1. Congestive heart failure. 2. SLE. 3. COPD. 4. Obstructive sleep apnea. PAST SURGICAL HISTORY: Left hip replacement. ALLERGIES: NO KNOWN DRUG ALLERGIES. HOME MEDICATIONS: 1. Potassium chloride. 2. Plaquenil. 3. Bumex. 4. Prednisone. FAMILY HISTORY: Apparently, both parents had lung cancer and were smokers. SOCIAL HISTORY: Quit smoking recently. No alcohol or illicit drug use. Lives with her daughter. REVIEW OF SYSTEMS: A 10-point review of systems is negative. PHYSICAL EXAMINATION: VITAL SIGNS: Temperature is 97.8, pulse is 74, respiratory rate 15, and blood pressure is 103/59. GENERAL: This is a well-developed, well-nourished female, in no acute distress. HEENT: Normocephalic, atraumatic. NECK: Supple. CV: Regular rate and rhythm. ABDOMEN: Obese and nontender. Bowel sounds are positive. EXTREMITIES: No clubbing or cyanosis. NEUROLOGIC: The patient is oriented to time and place. PERTINENT LABORATORY DATA AND X-RAYS: Current WBCs 12.2, hemoglobin 13.8, hematocrit 45.0, platelet count is 141,000. Sodium 136, potassium 3.6, chloride 96, CO2 of 28, BUN is 23, creatinine 1.07, calcium 8.8. Bilirubin 3.9, AST 30, ALT 36, alkaline phosphatase is 66, LDH is 503. C-reactive protein is 1.34. Serum total protein is 6.7, albumin 3.0, globulin 3.7. Urine showed 4+ bacteria with positive leukocyte esterase and nitrites. Hepatitis and COVID-19 were negative. Radiology, per HPI. ASSESSMENT: 1. Escherichia coli bacteremia in urine. 2. Toxic metabolic encephalopathy. 3. Lupus, on Plaquenil. DISCUSSION: Case has been discussed with Dr. Blanca. The patient has no evidence of hemolysis at this time. She has a normal RBC with normal retic count. Although , her haptoglobin is low, it can be secondary to liver disease and infection. She has elevated bilirubin, which has been chronic and is predominantly direct. Her Magdalene test is positive; however, she has not received any blood and this could be a longstanding issue. The nucleated RBCs are likely due to her sepsis. We will continue treating her UTI and recheck a CBC in 3 to 4 weeks after treatment. She may need a GI workup for her liver issues. Thank you for the consult. Job ID: [id number] EVIN
--- NOTE | 2020-01-23 06:41 | PDOC.FM ---
- Subjective Subjective: Araceli is doing okay this morning and is oriented to year which is an improvement from previously. Still appears to not be at baseline. She says she spoke to her daughters yesterday and they kept asking her what was wrong with her. She endorses some dyspnea but cannot qualify it. She endorses LE edema although it is minimal on exam. Denies CP/N/V/D/hip pain. - Objective Vital Signs & Weight: Vital Signs (12 hours) Temp Pulse Resp BP Pulse Ox 01/23/20 04:07 98.1 F 74 18 106/59 L 94 L 01/22/20 21:24 98.0 F 82 18 90/53 L 93 L Weight Admit Weight 83.416 kg Weight 86.239 kg I&O: 01/21/20 01/22/20 01/23/20 06:59 06:59 06:59 Intake Total 184 141 4878 Output Total 950 625 950 Balance -430 -185 110 Result Diagrams: 01/23/20 06:45 01/23/20 06:45 Phys Exam - Physical Examination Constitutional: NAD (Sitting up comfortably, slow to speak, easily annoyed which is not baseline, per daughter) Neck: supple, full ROM Respiratory: no wheezing, no rales, clear to auscultation bilateral Difficult to auscultate mid/lower lung d/t poor air movement Cardiovascular: RRR, no significant murmur Telemetry shows 9s SVT run and PAC Musculoskeletal: pulses present Non-pitting, minimal edema of L LE. 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 Dx/Plan (1) Acute metabolic encephalopathy Code(s): G93.41 - METABOLIC ENCEPHALOPATHY Status: Acute (2) UTI (urinary tract infection) due to Enterococcus Code(s): N39.0 - URINARY TRACT INFECTION, SITE NOT SPECIFIED; B95.2 - ENTEROCOCCUS THE CAUSE OF DISEASES CLASSIFIED ELSEWHERE Status: Acute (3) Constipation Code(s): K59.00 - CONSTIPATION, UNSPECIFIED Status: Chronic (4) Lupus Code(s): M32.9 - SYSTEMIC LUPUS ERYTHEMATOSUS, UNSPECIFIED Status: Chronic (5) CHF (congestive heart failure), NYHA class IV Code(s): I50.9 - HEART FAILURE, UNSPECIFIED Status: Chronic (6) COPD (chronic obstructive pulmonary disease) Status: Chronic (7) Hyperbilirubinemia Code(s): E80.6 - OTHER DISORDERS OF BILIRUBIN METABOLISM Status: Chronic (8) Hypokalemia due to excessive renal loss of potassium Code(s): E87.6 - HYPOKALEMIA Status: Acute (9) LEE (obstructive sleep apnea) Code(s): G47.33 - OBSTRUCTIVE SLEEP APNEA (ADULT) (PEDIATRIC) Status: Chronic (10) Renal cyst, right Code(s): N28.1 - CYST OF KIDNEY, ACQUIRED Status: Acute - Plan Plan: This is a 64yo F that was brought to the ED for AMS, polyuria, foul-smelling urine, and LE edema b/l. Metabolic encephalopathy 06/11 UTI - UA showed nitrites, leuks, bacteria, urobili, WBCs, hyaline casts, crystals, epith cells. Started on Rocephin. - UCx shows E. coli sensitive to Rocephin On Rocephin since 01/17 - BCx 05/11 prelim - coag negative staph likely skin juana, and alpha hemolytic strep - Decreased mentation from baseline (A&Ox3). Improving - CT brain ordered due to continued alteration despite treatment for UTI. Showed chronic findings - CRP elev at 1.34 - ESR 14 - Procal 0.31 - CBC: WBCs 9.4 with 1% bands on 01/22 Acute HFpEF exacerbation - Diagnosed with HFpEF by Dr. King during hospitalization in 06/2019. EF 50- 55%. BNP 766. - EKG showed low voltage, R BBB, RSR', and Q wave in V1-V3 - Troponin 0.089 -> 0.061 - Continue Lasix 20mg BID. - Strict I&Os. Balance +110mL on 01/22 - Monitor fluid status Hyperbilirubinemia - TBili 6.6 on admission. Present on previous hospitalizations 3.1 on 01/22 - AST/ALT/Alk Phos normal. - Hepatitis panel neg. - LDH 503. - Magdalene test positive - Haptoglobin low - RUQ U/S showed mild GB wall thickening and possible small collection of pericholecystic edema - Hepatic doppler showed normal blood flow - CBC showed high immature retic count - MIESHA, Anti-Sm, SPEP pending. Consider AMA - Order HIDA scan - Consider GI consult Positive Magdalene - Concern for autoimmune hemolytic anemia - Consulted heme onc on 01/21, appreciate recs Do not think it is hemolytic in nature - MIESHA, Anti-Sm, SPEP pending. Consider AMA SLE - Continue home prednisone and Plaquenil Constipation - Unknown last BM. Complaining of mild abdominal pain with nausea. - Will schedule dulcolax, senokot R renal cyst - CT abd/pelvis showed a 2.5cm R renal upper pole cyst COPD - Smoking hx of 05/11-1/3ppd x "many years" - Quit smoking ~1mo ago - Uses albuterol at home. Continue here LEE - Uses CPAP at home - Continue here SPIKE - Takes Omeprazole and TUMS at home - Continue here Colonic diverticulosis - No diverticulitis seen on CT abd/pelvis L total hip arthroplasty - Confirmed by CT abd/pelvis - Streak from hardware prevented clear view of bladder DVT Ppx: Lovenox 40mg Code: Full, per daughter PCP: DAVINA Garcia Dispo: Home pending symptom improvement, LOS >48h
[2020-01-23 07:20] LABS: ALT (SGPT) 37 U/L (8-55); AST (SGOT) 32 U/L (5-34); Alkaline Phosphatase 99 U/L (40-110); Anion Gap 14 mmol/L (10-20); BUN (Urea Nitrogen) 30 mg/dL (9.8-20.1); Bilirubin, Total 3.1 mg/dL (0.2-1.2); Calc. Creatinine Clearance 73 mL/min (70-130); Carbon Dioxide 28 mmol/L (23-31); Chloride 97 mmol/L (98-107); Estimated GFR-MDRD 64; Globulin 3.7 g/dL (2.4-3.5); Glucose 143 mg/dL (80-115); Potassium 4.2 mmol/L (3.5-5.1); Protein, Total 6.7 g/dL (6.0-8.3); Sodium 135 mmol/L (136-145)
[2020-01-23 08:00] LABS: Hemoglobin 13.2 g/dL (12.0-16.0); Mean Corpuscular HGB CONC 29.6 g/dL (32.0-36.0); Mean Corpuscular Hemoglobin 25.2 pg (27.0-31.0); Mean Corpuscular Volume 85.3 fL (78.0-98.0); Mean Platelet Volume 9.4 fL (7.4-10.4); Platelet Count 144 thou/uL (130-400); RBC Distribution Width 18.6 % (11.5-14.5); Red Blood Cell (RBC) Count 5.23 mill/uL (4.20-5.40); White Blood Cell (WBC) Count 9.4 thou/uL (4.8-10.8)
[2020-01-23 08:50] LABS: Band 1 % (5-11); Bite Cells SLIGHT = 2-5 cells (100X) (0-1/hpf); Eosinophils 1 % (0-10); Lymphocytes 48 % (21-51); MDiff Complete? YES; Nucleated RBC 8 % (0); Ovalocytes MODERATE= 6-15 cells (100X) (0-1/hpf); Platelet Morphology Comment Appears Adequate; Polychromasia MODERATE = 3-4 cells (100X) (0-2/hpf); Reactive Lymphocytes 4 % (0-10); Schistocytes SLIGHT = 2-5 cells (100X) (0-1/hpf); Target Cells SLIGHT = 2-5 cells (100X) (0-1/hpf)
[2020-01-23] MEDS: Enoxaparin Sodium 40 MG/0.4 ML SYRINGE SC SCH (08:51)
[2020-01-23] MEDS: Aspirin Chewable 81 MG TAB PO SCH (08:51)
[2020-01-23] MEDS: predniSONE 20 MG TAB PO SCH (08:52)
[2020-01-23] MEDS: Furosemide 40 MG/4 ML VIAL SLOW IVP SCH (08:52)
[2020-01-23] MEDS: Carvedilol 3.125 MG TAB PO SCH ×2 (08:52→17:16)
[2020-01-23] MEDS: Potassium Chloride 20 MEQ TAB PO SCH ×2 (08:52→17:16)
[2020-01-23] MEDS: Losartan 25 MG TAB PO SCH (09:48)
[2020-01-23 10:25] LABS: Neutrophil 69 % (42-75)
--- NOTE | 2020-01-23 12:19 | PRG ---
DATE OF SERVICE: 01/23/2020 Ms. Pollard is presenting some diagnostic dilemmas. Her labs seemed consistent with a possible hemolytic anemia. We consulted Hem-Onc and they did not feel the patient had a hemolytic anemia and suggested we pursue a liver GI workup. We are in fact ordering markers for possible autoimmune hepatitis. In the event, Ms. Pollard' bilirubin has dropped from her admission level of 6.1 with today being 3.1. Job ID: [id number]
[2020-01-23 12:37] LABS: Neutrophil 47 % (42-75)
[2020-01-23 14:55] VITALS: BMI 32.6
[2020-01-24] MEDS: Albuterol 200 PUFF (6.7GM INHALER) INH SCH ×4 (00:06→18:54)
[2020-01-24] MEDS ORDERED: Enoxaparin Sodium 40 MG/0.4 ML SYRINGE ONE (08:18)
[2020-01-24] MEDS: predniSONE 20 MG TAB PO SCH ×2 (08:18→09:45)
[2020-01-24] MEDS: Enoxaparin Sodium 40 MG/0.4 ML SYRINGE SC SCH ×2 (08:18→09:45)
[2020-01-24] MEDS ORDERED: predniSONE 20 MG TAB ONE (08:18)
[2020-01-24] MEDS: Furosemide 40 MG/4 ML VIAL SLOW IVP SCH ×2 (08:18→09:46)
[2020-01-24] MEDS ORDERED: Aspirin Chewable 81 MG TAB ONE (08:18)
[2020-01-24] MEDS: Losartan 25 MG TAB PO SCH ×2 (08:18→09:44)
[2020-01-24] MEDS ORDERED: Losartan 25 MG TAB ONE (08:18)
[2020-01-24] MEDS: Carvedilol 3.125 MG TAB PO SCH ×3 (08:18→16:59)
[2020-01-24] MEDS ORDERED: Carvedilol 3.125 MG TAB ONE (08:18)
[2020-01-24] MEDS ORDERED: Potassium Chloride 20 MEQ TAB ONE (08:18)
[2020-01-24] MEDS: Aspirin Chewable 81 MG TAB PO SCH ×2 (08:18→09:44)
[2020-01-24] MEDS ORDERED: Furosemide 40 MG/4 ML VIAL ONE (08:18)
[2020-01-24] MEDS: Potassium Chloride 20 MEQ TAB PO SCH ×3 (08:18→16:59)
--- NOTE | 2020-01-24 11:01 | PRG ---
DATE OF SERVICE: 01/24/2020 Ms. Pollard is getting a HIDA scan. We are still working up her hyperbilirubinemia and likely later get a GI consult as Hem/Onc had seen the patient and does not believe this is hemolysis. Job ID: [id number]
[2020-01-24 11:07] LABS: Hemoglobin 14.4 g/dL (12.0-16.0); Mean Corpuscular HGB CONC 30.9 g/dL (32.0-36.0); Mean Corpuscular Hemoglobin 26.3 pg (27.0-31.0); Mean Corpuscular Volume 85.2 fL (78.0-98.0); Mean Platelet Volume 7.4 fL (7.4-10.4); Platelet Count 134 thou/uL (130-400); RBC Distribution Width 18.1 % (11.5-14.5); Red Blood Cell (RBC) Count 5.45 mill/uL (4.20-5.40); White Blood Cell (WBC) Count 11.8 thou/uL (4.8-10.8)
[2020-01-24 11:08] LABS: Band 4 % (5-11); Eosinophils 2 % (0-10); Lymphocytes 29 % (21-51); MDiff Complete? YES; Monocytes 9 % (0-10); Neutrophil 56 % (42-75)
[2020-01-24 11:09] LABS: Anisocytosis SLIGHT = 6-15 cells (100X) (0-5/hpf); Elliptocytes SLIGHT = 2-5 cells (100X) (0-1/hpf); Polychromasia SLIGHT = 2-3 cells (100X) (0-2/hpf)
[2020-01-24 11:10] LABS: Nucleated RBC 5 % (0)
--- NOTE | 2020-01-24 11:22 | PQF ---
CLINICAL DOCUMENTATION CLARIFICATION FORM: Dear Dr. Sadiq GRAY Date: 01/24/20 7727 Please exercise your independent, professional judgment in responding to the clarification form. Clinical indicators are provided on the bottom of this form for your review. Please check appropriate box(es): ACUTE CONGESTIVE HEART FAILURE EXACERBATION A. TYPE: [ ] Systolic / HFrEF [ ] Diastolic / HFpEF [ ] Combined Systolic / Diastolic [ ] Other diagnosis [ X ] Unable to determine In addition, please specify: Present on Admission (POA): [ X ] Yes [ ] No [ ] Unable to determine For continuity of documentation, please document condition throughout progress notes and discharge summary. Thank You. To be completed by CDI/Coding staff for physician review: CLINICAL INDICATORS - SIGNS / SYMPTOMS / LABS / RESULTS AND LOCATION IN EMR 01/17 BNP 766.6 01/17 H&P (TYRA) THE PATIENT WILL BE ADMITTED TO TELEMETRY FOR ACUTE CONGESTIVE HEART FAILURE EXACERBATION. 01/18 PN (ISAAC) ACUTE CHF EXACERBATION- HAD NEW DX OF HFpEF BY DR. BLAKE DURING HOSPITALIZATION IN 06/2019- EF AT THAT TIME SHOWED EF 50-55%, WITH RV OVERLOAD AND DECREASED RV SYSTOLIC FUNCTION WITH MILD PULMONARY REGURGITATION AND AN INCREASED RV PRESSURE OF 76 RISKS FACTORS / RESULTS AND LOCATION IN EMR HX OF CHF WITH DIASTOLIC DYSFUNCTION ( H&P/DEVIKAADEESHAN) 01/17 TREATMENTS / RESULTS AND LOCATION IN EMR LASIX IV (01/22 PRESENT) CDS Signature: ALLA PEARCE RN Phone #: [phone] Date: 01/24/20 This is a permanent part of the Medical Record [facility]
[2020-01-24 11:28] LABS: Platelet Morphology Comment Appears Adequate; Target Cells SLIGHT = 2-5 cells (100X) (0-1/hpf)
--- NOTE | 2020-01-24 11:54 | PDOC.FM ---
- Subjective Subjective: Araceli is doing well this morning and has no complaints but admits she still does not feel like she is back to her normal self. She is A&O x3 this morning and denies dyspnea/SOB/CP/V/D. - Objective Vital Signs & Weight: Vital Signs (12 hours) Temp Pulse Resp BP Pulse Ox 01/24/20 07:25 98.8 F 91 14 94/55 L 95 Weight Admit Weight 83.416 kg Weight 86.239 kg I&O: 01/23/20 01/24/20 01/25/20 06:59 06:59 06:59 Intake Total 1060 480 Output Total 950 850 Balance 110 -370 Result Diagrams: 01/24/20 05:26 01/23/20 06:45 Phys Exam - Physical Examination Constitutional: NAD (Sleeping comfortably, easily arousable) Neck: supple, full ROM Significant crackles b/l Cardiovascular: RRR, no significant murmur Musculoskeletal: edema present (Minimal in LE b/l) Neurological: moves all 4 limbs Psychiatric: normal affect, A&O x 3 Dx/Plan (1) Acute metabolic encephalopathy Code(s): G93.41 - METABOLIC ENCEPHALOPATHY Status: Acute (2) UTI (urinary tract infection) due to Enterococcus Code(s): N39.0 - URINARY TRACT INFECTION, SITE NOT SPECIFIED; B95.2 - ENTEROCOCCUS THE CAUSE OF DISEASES CLASSIFIED ELSEWHERE Status: Acute (3) Constipation Code(s): K59.00 - CONSTIPATION, UNSPECIFIED Status: Chronic (4) Lupus Code(s): M32.9 - SYSTEMIC LUPUS ERYTHEMATOSUS, UNSPECIFIED Status: Chronic (5) CHF (congestive heart failure), NYHA class IV Code(s): I50.9 - HEART FAILURE, UNSPECIFIED Status: Chronic (6) COPD (chronic obstructive pulmonary disease) Status: Chronic (7) Hyperbilirubinemia Code(s): E80.6 - OTHER DISORDERS OF BILIRUBIN METABOLISM Status: Chronic (8) Hypokalemia due to excessive renal loss of potassium Code(s): E87.6 - HYPOKALEMIA Status: Acute (9) LEE (obstructive sleep apnea) Code(s): G47.33 - OBSTRUCTIVE SLEEP APNEA (ADULT) (PEDIATRIC) Status: Chronic (10) Renal cyst, right Code(s): N28.1 - CYST OF KIDNEY, ACQUIRED Status: Acute - Plan Plan: This is a 64yo F that was brought to the ED for AMS, polyuria, foul-smelling urine, and LE edema b/l. Metabolic encephalopathy 2/ UTI - UA showed nitrites, leuks, bacteria, urobili, WBCs, hyaline casts, crystals, epith cells. Started on Rocephin. - UCx shows E. coli sensitive to Rocephin On Rocephin since 01/17 - BCx 1/2 positive coag negative staph likely skin juana, and alpha hemolytic strep - Decreased mentation from baseline although still A&Ox3. Improving - CT brain ordered due to continued alteration despite treatment for UTI. Showed chronic findings - CRP elev at 1.34 - ESR 14 - Procal negative and stable - CBC: WBCs 11.8 with 4% bands on 01/23. Finished Rocephin yesterday, no other signs of infxn currently. Will continue to monitor with daily CBCs Acute HFpEF exacerbation - Diagnosed with HFpEF by Dr. King during hospitalization in 06/2019. EF 50- 55%. BNP 766. - EKG showed low voltage, R BBB, RSR', and Q wave in V1-V3 - Troponin 0.089 -> 0.061 - Continue Lasix 20mg BID. - Strict I&Os. Minimal urine production and limited fluid intake. Will double Lasix - Monitor fluid status. Crackles in lungs but minimal LE edema - Echo from 01/22 shows dilated RV and RA, with increased RV systolic pressure although it is not quantified. Suggests considering PE or COPD; pt has hx of COPD. Shows EF 50-55%. Overall, consistent with findings from echo on 06/2019 Hyperbilirubinemia - TBili 6.6 on admission. Present on previous hospitalizations 3.1 on 01/22 - AST/ALT/Alk Phos normal. - Hepatitis panel neg. - LDH 503. - Magdalene test positive - Haptoglobin low - RUQ U/S showed mild GB wall thickening and possible small collection of pericholecystic edema - Hepatic doppler showed normal blood flow - CBC showed high immature retic count - MIESHA, AMA, Anti-Sm, SPEP pending. - HIDA scan ordered and pending - Consulting GI today, appreciate recs Positive Magdalene - Concern for autoimmune hemolytic anemia - Consulted heme onc on 9/14, appreciate recs Do not think it is hemolytic in nature - MIESHA, AMA, Anti-Sm, SPEP pending. SLE - Continue home prednisone and Plaquenil Constipation - Unknown last BM. Complaining of mild abdominal pain with nausea. - Will schedule dulcolax, senokot R renal cyst - CT abd/pelvis showed a 2.5cm R renal upper pole cyst COPD - Smoking hx of 1/2-1/3ppd x "many years" - Quit smoking ~1mo ago - Uses albuterol at home. Continue here LEE - Uses CPAP at home - Continue here SPIKE - Takes Omeprazole and TUMS at home - Continue here Colonic diverticulosis - No diverticulitis seen on CT abd/pelvis L total hip arthroplasty - Confirmed by CT abd/pelvis - Streak from hardware prevented clear view of bladder DVT Ppx: Lovenox 40mg Code: Full, per daughter PCP: DAVINA Garcia Dispo: Home pending symptom improvement, LOS >48h
[2020-01-24] MEDS ORDERED: Furosemide 40 MG/4 ML VIAL SLOW IVP SCH ×2 (12:06→15:45)
[2020-01-24 12:37] LABS: ALT (SGPT) 46 U/L (8-55); AST (SGOT) 38 U/L (5-34); Albumin 3.2 g/dL (3.4-4.8); Alkaline Phosphatase 100 U/L (40-110); Anion Gap 13 mmol/L (10-20); BUN (Urea Nitrogen) 26 mg/dL (9.8-20.1); Bilirubin, Total 4.1 mg/dL (0.2-1.2); Calc. Creatinine Clearance 80 mL/min (70-130); Carbon Dioxide 29 mmol/L (23-31); Chloride 94 mmol/L (98-107); Estimated GFR-MDRD 71; Globulin 3.9 g/dL (2.4-3.5); Glucose 139 mg/dL (80-115); Potassium 4.2 mmol/L (3.5-5.1); Protein, Total 7.1 g/dL (6.0-8.3); Sodium 132 mmol/L (136-145)
--- NOTE | 2020-01-24 12:38 | NM ---
HEPATOBILIARY SCAN: HISTORY:Hyperbilirubinemia. Abdominal pain no gallstones on ultrasound of 01/19/2020 RADIOPHARMACEUTICAL: 6 mCi Technetium 99m Mebrofenin injected intravenously FINDINGS: There is normal tracer extraction by the liver with normal excretion into the biliary tracts and smal l bowel loops and normal filling of the gallbladder. The calculated gallbladder ejection fraction following a 30 minute IV infusion of 1.7 mcg CCK-8 measu res 93%. The patient was also pretreated with 1.7 mcg of CCK-8 intravenously 20 minutes prior to imaging. IMPRESSION:Normal exam.
[2020-01-24] MEDS ORDERED: Furosemide 100 MG/10 ML VIAL SLOW IVP SCH (12:45)
[2020-01-24 13:40] LABS: Albumin 3.2 g/dL (2.9-4.4); Alpha 1 0.2 g/dL (0.0-0.4); Alpha 2 0.4 g/dL (0.4-1.0); Beta 0.9 g/dL (0.7-1.3); Gamma 1.7 g/dL (0.4-1.8); Globulin, Total 3.3 g/dL (2.2-3.9); M-Spike Not Observed g/dL (Not Observed)
[2020-01-24 13:53] LABS: Iron 95 ug/dL (50-170); Iron Binding Capacity, Total 265 mcg/dL (265-497)
[2020-01-24 14:17] LABS: Ferritin 407.85 ng/mL (10-291)
[2020-01-24 15:00] LABS: EliA Vaculitis New Method **** NEW METHOD ****
[2020-01-24 15:49] LABS: ANA Symphony (Qualitative) POSITIVE (Negative); ANA Symphony (Quantitative) 1.8 Ratio (< 0.7 Negative); CENP IgG Antibody 0.5 EliAU/mL (<7 Negative); Jo-1 IgG Antibody Less than 0.3 EliAU/mL (<7 Negative); RNP70 IgG Antibody 0.4 EliAU/mL (<7 Negative); SSA/Ro IgG Antibody 0.4 EliAU/mL (<7 Negative); SSB/La IgG Antibody 0.4 EliAU/mL (<7 Negative); Scleroderma-70 IgG Antibody 0.9 EliAU/mL (<7 Negative); Smith D IgG Antibody 1.9 EliAU/mL (<7 Negative); dsDNA IgG Antibody 2.3 IU/mL (<10 Negative)
[2020-01-24] MEDS ORDERED: Hydroxychloroquine Sulfate 200 MG TAB PO SCH (21:00)
[2020-01-25] MEDS: Albuterol 200 PUFF (6.7GM INHALER) INH SCH ×4 (00:16→19:29)
--- NOTE | 2020-01-25 05:45 | PDOC.FM ---
- Subjective Subjective: Araceli is doing well this morning. She is still flat in affect but tells me nothing is wrong. She is not sure if she is feeling back to her normal self yet. She denies dyspnea/SOB/CP/edema/V/D. - Objective Vital Signs & Weight: Vital Signs (12 hours) Temp Pulse Resp BP Pulse Ox 01/25/20 03:09 98.1 F 80 15 123/64 97 01/24/20 23:14 91/50 L 01/24/20 21:06 96 Weight Admit Weight 83.416 kg Weight 85.729 kg I&O: 01/23/20 01/24/20 01/25/20 06:59 06:59 06:59 Intake Total 1060 480 816 Output Total 950 850 850 Balance 110 -370 -34 Result Diagrams: 01/24/20 05:26 01/24/20 11:44 Phys Exam - Physical Examination Constitutional: NAD (Sitting up comfortably) Neck: supple, full ROM Rales present in bases of lungs b/l Cardiovascular: RRR, no significant murmur Telemetry has shown occasional PACs and PVCs but otherwise NSR Musculoskeletal: pulses present, edema present (Mild, non-pitting edema in LE b/l. Unchanged from previous exams) Endorses pain every time I check for edema in her LEs Neurological: moves all 4 limbs Psychiatric: normal affect, A&O x 3 Dx/Plan (1) Acute metabolic encephalopathy Code(s): G93.41 - METABOLIC ENCEPHALOPATHY Status: Acute (2) UTI (urinary tract infection) due to Enterococcus Code(s): N39.0 - URINARY TRACT INFECTION, SITE NOT SPECIFIED; B95.2 - ENTEROCOCCUS THE CAUSE OF DISEASES CLASSIFIED ELSEWHERE Status: Acute (3) Constipation Code(s): K59.00 - CONSTIPATION, UNSPECIFIED Status: Chronic (4) Lupus Code(s): M32.9 - SYSTEMIC LUPUS ERYTHEMATOSUS, UNSPECIFIED Status: Chronic (5) CHF (congestive heart failure), NYHA class IV Code(s): I50.9 - HEART FAILURE, UNSPECIFIED Status: Chronic (6) COPD (chronic obstructive pulmonary disease) Status: Chronic (7) Hyperbilirubinemia Code(s): E80.6 - OTHER DISORDERS OF BILIRUBIN METABOLISM Status: Chronic (8) Hypokalemia due to excessive renal loss of potassium Code(s): E87.6 - HYPOKALEMIA Status: Acute (9) LEE (obstructive sleep apnea) Code(s): G47.33 - OBSTRUCTIVE SLEEP APNEA (ADULT) (PEDIATRIC) Status: Chronic (10) Renal cyst, right Code(s): N28.1 - CYST OF KIDNEY, ACQUIRED Status: Acute - Plan Plan: This is a 64yo F that was brought to the ED for AMS, polyuria, foul-smelling urine, and LE edema b/l. Metabolic encephalopathy 2/ UTI - UA showed nitrites, leuks, bacteria, urobili, WBCs, hyaline casts, crystals, epith cells. Started on Rocephin. - UCx shows E. coli sensitive to Rocephin Rocephin stopped on 01/22 - BCx 1/ positive coag negative staph likely skin juana, and alpha hemolytic strep - Decreased mentation from baseline although still A&Ox3. Improving - CT brain ordered due to continued alteration despite treatment for UTI. Showed chronic findings - CRP elev at 1.34 - ESR 14 - Procal negative and stable - CBC: WBCs 11.8 with 4% bands on 01/23. Finished Rocephin yesterday, no other signs of infxn currently. Will continue to monitor with daily CBCs Have not resulted yet this morning. Will monitor. Acute HFpEF exacerbation - Diagnosed with HFpEF by Dr. King during hospitalization in 06/2019. EF 50- 55%. BNP 766. - EKG showed low voltage, R BBB, RSR', and Q wave in V1-V3 - Troponin 0.089 -> 0.061 - Continue Lasix 80mg BID. - Strict I&Os. Minimal urine production and limited fluid intake. Balance -34mL per chart - Monitor fluid status. Crackles in lungs but minimal LE edema - Echo from 01/22 shows dilated RV and RA, with increased RV systolic pressure although it is not quantified. Suggests considering PE or COPD; pt has hx of COPD. Shows EF 50-55%. Overall, consistent with findings from echo on 06/2019 Hyperbilirubinemia - TBili 6.6 on admission. Present on previous hospitalizations 3.1 on 01/22 - AST/ALT/Alk Phos normal. Hepatitis panel neg. - LDH 503. - Magdalene test positive - Haptoglobin low - RUQ U/S showed mild GB wall thickening and possible small collection of pericholecystic edema - Hepatic doppler showed normal blood flow - CBC showed high immature retic count - AMA negative - MIESHA, Anti-Sm, SPEP pending. - HIDA scan ordered and pending - GI consulted yesterday, appreciate recs Positive Magdalene - Concern for autoimmune hemolytic anemia - Consulted heme onc on 01/21, appreciate recs Do not think it is hemolytic in nature - AMA neg - MIESHA, Anti-Sm, SPEP pending. SLE - Continue home prednisone and Plaquenil Constipation - Unknown last BM. Complaining of mild abdominal pain with nausea. - Will schedule dulcolax, senokot R renal cyst - CT abd/pelvis showed a 2.5cm R renal upper pole cyst COPD - Smoking hx of 05/11-1/3ppd x "many years" - Quit smoking ~1mo ago - Uses albuterol at home. Continue here LEE - Uses CPAP at home - Continue here SPIKE - Takes Omeprazole and TUMS at home - Continue here Colonic diverticulosis - No diverticulitis seen on CT abd/pelvis L total hip arthroplasty - Confirmed by CT abd/pelvis - Streak from hardware prevented clear view of bladder DVT Ppx: Lovenox 40mg Code: Full, per daughter PCP: DAVINA Garcia Dispo: Home pending symptom improvement, LOS >48h
--- NOTE | 2020-01-25 07:51 | CON ---
DATE OF CONSULTATION: 01/24/2020 REASON FOR CONSULTATION: Abnormal liver function tests. HISTORY OF PRESENT ILLNESS: Ms. Araceli Pollard is a 64-year-old female hospitalized almost 6 days ago with hyperkalemia, UTI and also CHF exacerbation. She was found to have abnormal liver tests on admission. Her liver function tests are actually normal. Her bilirubin level is elevated. The patient had abdominal CAT scan, abdominal sonogram, which came back negative. She does have a kidney cyst on the right side. The patient also had a HIDA scan today. The HIDA scan is normal. Her liver function test shows normal AST and normal ALT. Alkaline phosphatase is normal at 99 to 100. The bilirubin level yesterday was 3.1, today 4.1. Her albumin level is 3.2. The patient has no previous liver disease. She appears very weak but not in distress. She denies abdominal pain, nausea, vomiting. The bilirubin appears to be direct bilirubin. The bilirubin on admission was 6. The repeat on 01/18 shows direct bilirubin to be 4 mg percent and indirect to be 5.8. It has been decreasing slowly. Today it is about 4.1. On admission she also had elevated bilirubin. The patient actually feeling better. She does not have any chest pain, any difficulty breathing, and she has no orthopnea. She is actually lying down flat and without any difficulty breathing. She denies abdominal pain, nausea, vomiting. No relevant history. ALLERGIES: NO DRUG ALLERGIES. SOCIAL HISTORY: The patient quit smoking recently. Denies any alcohol abuse. No history of drug abuse. She lives with daughter. PAST MEDICAL HISTORY: 1. History of congestive heart failure. 2. COPD. 3. History of lupus. Not sure if it is history of lupus or discoid lupus. 4. Sleep apnea. 5. Left hip replacement. MEDICATIONS: List reviewed, which include 1. Prednisone. 2. Bumex. 3. Plaquenil. 4. Potassium chloride. 5. Albuterol inhaler. 6. Dulcolax. 7. Coreg. 8. Lovenox. 9. Furosemide. FAMILY HISTORY: Lung cancer. REVIEW OF SYSTEMS: CONSTITUTIONAL: Poor appetite, does not ambulate and she has generalized weakness and fatigue. HEAD: No chronic headache, no TIA. EYES: No diplopia, no impaired vision. EARS: No hearing loss. NOSE: No nosebleed. THROAT: No sore throat or dysphagia. NECK: No stiffness or any limitation of movement. LUNGS: History of COPD. CARDIOVASCULAR: No chest pain. No palpitation. No dyspnea, orthopnea, or PND. GI: No abdominal pain. No nausea, no vomiting. No hematochezia or melena. GENITOURINARY: No dysuria, hematuria, although she has positive UTI. NEUROPSYCHIATRY: No depression, anxiety. PHYSICAL EXAMINATION: GENERAL: She appears comfortable but appears weak. She does communicate. She is in no distress. VITAL SIGNS: Afebrile, pulse is 73, blood pressure is 113/58. HEENT: She is mildly icteric. NECK: Supple. No adenitis or thyromegaly noted. CARDIOVASCULAR: Normal heart sounds. LUNGS: Clear to auscultation. ABDOMEN: Soft. Abdomen is nondistended. Abdomen is nontender. No organomegaly. No masses. EXTREMITIES: No edema. LABORATORY DATA: WBC of 9400, hemoglobin 13.2, hematocrit 44.6, MCV is 85.3, platelet count is 144,000, polymorphs of 69, lymphocytes 28, monocytes 2. She has mild microcytosis. Her LDH is slightly high at 503, normal is up to 220. Retic count is 1.5. She has positive . CLINICAL IMPRESSION: 1. A 64-year-old female with CHF, UTI hyperbilirubinemia. The patient's AST 32, ALT 37, alkaline phosphatase 98. Her abdominal CAT scan, abdominal sonogram and HIDA scan all are negative. 2. History of lupus from before. She is on Plaquenil and also she is on prednisone. 3. Congestive heart failure. 4. Chronic obstructive pulmonary disease. 5. Sleep apnea. 6. Hyperbilirubinemia without any other abnormal lab findings. The possibilities include compensated hemolysis versus Rolanda-Hamilton syndrome or possibly Gilbert disease. She has been totally asymptomatic and her elevated bilirubin level. Probably we will just watch it periodically. Job ID: [id number]
[2020-01-25] MEDS: predniSONE 20 MG TAB PO SCH (08:35)
[2020-01-25] MEDS: Enoxaparin Sodium 40 MG/0.4 ML SYRINGE SC SCH (08:35)
[2020-01-25] MEDS: Aspirin Chewable 81 MG TAB PO SCH (08:36)
[2020-01-25] MEDS ORDERED: Furosemide 100 MG/10 ML VIAL SLOW IVP SCH (09:00)
[2020-01-25] MEDS: Potassium Chloride 20 MEQ TAB PO SCH ×2 (09:33→17:52)
[2020-01-25] MEDS: Carvedilol 3.125 MG TAB PO SCH ×2 (09:37→17:52)
[2020-01-25] MEDS: Losartan 25 MG TAB PO SCH (09:37)
[2020-01-25] MEDS ORDERED: Haloperidol Lactate 5 MG/ML VIAL IM PRN (11:03)
[2020-01-25] MEDS ORDERED: Haloperidol Lactate 5 MG/ML VIAL SLOW IVP PRN (11:33)
--- NOTE | 2020-01-25 12:38 | PRG ---
DATE OF SERVICE: 01/25/2020 Ms. Pollard was originally admitted for AMS. Her workup so far has been unrevealing. Her CBC; white count 9400, hemoglobin 13.8, hematocrit 44.9 with an MCV of 86, platelets 141,000. Chemistries; sodium 138, potassium 4.0, chloride 95, bicarb 29, BUN 23, creatinine 1.07 with a GFR of 62. Her bilirubin was elevated at 4.4 and has been looked at and evaluated thoroughly. Her MIESHA screen is positive and she does have a history of lupus. Her hepatitis screen is negative. Imaging; her brain CT showed no evidence of acute intracranial hemorrhage or infarct. There was no mass effect or shift of midline structures. She did have diffuse cortical atrophy and chronic ischemic small-vessel disease. Her echocardiogram does show changes consistent with a dilated right ventricle, likely secondary to her COPD as well as elevated right ventricular systolic pressure consistent with moderate pulmonary hypertension. Her ejection fraction was 50% to 55%. She does have some suggestion of diastolic dysfunction. Her HIDA scan is not coming up. Her HIDA scan showed no evidence of gallbladder disease. She was seen also in consultation by Dr. Lindquist given her elevated bilirubin. His impression was that the hyperbilirubinemia possibly could be compensated hemolysis versus Rolanda-Hamilton syndrome or possible Gilbert syndrome. He felt that all it was necessary at this point was just to watch it periodically. Given that her workup so far has been completely negative, I feel it would be safe to pursue further workup as an outpatient. There is, however, a problem with her remaining at home by herself, which I would not agree with. Her daughter works during the day and cannot be with her. We will therefore consult Case Management for some type of placement. Job ID: [id number]
[2020-01-25 12:59] LABS: Anisocytosis SLIGHT = 6-15 cells (100X) (0-5/hpf); Eosinophils 2 % (0-10); Hemoglobin 15.1 g/dL (12.0-16.0); Lymphocytes 18 % (21-51); MDiff Complete? YES; Mean Corpuscular HGB CONC 31.2 g/dL (32.0-36.0); Mean Corpuscular Hemoglobin 26.4 pg (27.0-31.0); Mean Corpuscular Volume 84.7 fL (78.0-98.0); Mean Platelet Volume 7.5 fL (7.4-10.4); Monocytes 1 % (0-10); Neutrophil 79 % (42-75); Nucleated RBC 2 % (0); Ovalocytes SLIGHT = 2-5 cells (100X) (0-1/hpf); Platelet Count 163 thou/uL (130-400); Platelet Morphology Comment Appears Adequate; Polychromasia MODERATE = 3-4 cells (100X) (0-2/hpf); RBC Distribution Width 18.5 % (11.5-14.5); Red Blood Cell (RBC) Count 5.71 mill/uL (4.20-5.40); Target Cells SLIGHT = 2-5 cells (100X) (0-1/hpf); White Blood Cell (WBC) Count 11.5 thou/uL (4.8-10.8)
[2020-01-25 13:04] LABS: ALT (SGPT) 58 U/L (8-55); AST (SGOT) 54 U/L (5-34); Albumin 3.3 g/dL (3.4-4.8); Alkaline Phosphatase 124 U/L (40-110); Anion Gap 15 mmol/L (10-20); BUN (Urea Nitrogen) 30 mg/dL (9.8-20.1); Bilirubin, Total 4.1 mg/dL (0.2-1.2); Calc. Creatinine Clearance 73 mL/min (70-130); Calcium 10.2 mg/dL (7.8-10.44); Carbon Dioxide 26 mmol/L (23-31); Chloride 94 mmol/L (98-107); Estimated GFR-MDRD 64; Globulin 4.2 g/dL (2.4-3.5); Glucose 205 mg/dL (80-115); Potassium 4.2 mmol/L (3.5-5.1); Protein, Total 7.5 g/dL (6.0-8.3); Sodium 131 mmol/L (136-145)
[2020-01-25 13:06] LABS: Syphilis Antibody Nonreactive (Nonreactive); Syphilis Antibody Index 0.09 S/CO (<1.00 Non-Reactive)
[2020-01-25 13:18] LABS: HIV (1/2) Antibody/Antigen Non-Reactive (NonReactive); HIV 1/2 INDEX 0.14 S/CO (<1.00)
[2020-01-25 15:14] LABS: Hematocrit 45.9 % (34.0-46.6); RBC Folate Test Component 671 ng/mL (>498)
--- NOTE | 2020-01-25 15:21 | MRI ---
MRI BRAIN WITH AND WITHOUT IV CONTRAST: HISTORY: Altered mental status COMPARISON: None CORRELATION:01/21/2020 FINDINGS: No restricted diffusion is seen. No evidence of infarct, hemorrhage, mass, midline shift or abnormal extra-axial fluid collections is noted. No abnormal postcontrast enhancement is seen. The ventricular size is appropriate and the basilar cisterns are patent. There are multiple foci of T2 prolongation in the periventricular white matter, consistent with chron ic small vessel ischemic disease. There is diffuse cortical atrophy. There is a tiny amount of fluid in the mastoid air cells.The visualized paranasal sinuses are well ae rated. A Tornwaldt cyst is seen in the nasopharynx. IMPRESSION: Chronic changes. No evidence of acute intracranial process or mass.
[2020-01-25 16:34] VITALS: TEMP 97.8
[2020-01-25 18:08] VITALS: BP 105/53
--- NOTE | 2020-01-26 02:04 | DIS ---
DATE OF ADMISSION: 01/18/2020 DATE OF DISCHARGE: 01/25/2020 RESIDENT: Rody Macdonald MD ADMITTING ATTENDING: Venus Lindsey MD / Dr. Mat Vaughn DISCHARGE ATTENDING: Mat Vaughn MD CONSULTS: Hematology (01/21), GI (01/23). PROCEDURES: None. PRIMARY DIAGNOSES: Metabolic encephalopathy likely secondary to urinary tract infection, acute CHF exacerbation, pulmonary hypertension, corpulmonale, hypokalemia, hyperbilirubinemia. SECONDARY DIAGNOSES: Lupus, COPD, GERD, sleep apnea, heart failure with preserved ejection fraction. DISCHARGE MEDICATIONS: None. DISCONTINUED MEDICATIONS: 1. Coreg 3.125 mg b.i.d. 2. Losartan 12.5 mg p.o. daily. 3. Dulcolax. 4. Prednisone 20 mg p.o. daily x5 days. 5. Prilosec. 6. Tums. 7. Aleve. 8. Potassium gluconate. 9. Lasix 20 mg p.o. daily. 10. Potassium chloride. 11. Hydroxychloroquine 200 mg p.o. daily. 12. Bumex 1 mg p.o. daily. 13. Albuterol inhaler. 14. Prednisone 10 mg once daily beginning 01/29/2020. DISCONTINUED MEDICATIONS: None. HISTORY OF PRESENT ILLNESS/HOSPITAL COURSE: This is a 64-year-old female who was brought to the ED by her daughters due to declining mental status, polyuria, foul smelling urine x14 days. Her daughter states she had begun rambling nonsensically and having visual hallucinations. On arrival to the ED, urinalysis was positive for nitrites, leukocytes, bacteria, urobilinogen, white blood cells, epithelial cells, crystals. She was started on Rocephin. AST/ALT/alkaline phosphatase were normal. Her BNP was 766, total bili was 6.6, potassium was 2.5, troponin was 0.088. White blood cell count was 8 and there were several different red blood cell morphology present on CBC. Chest x-ray was negative. CT of abdomen/pelvis showed a 2.5 cm right renal upper pole cyst. EKG showed low voltage sinus rhythm as well as an RSR prime and Q-waves in V1 through V3. The patient was admitted to telemetry for acute CHF exacerbation, severe hypokalemia associated with diuretic use and elevated total bilirubin. Due to her heart failure, her Lasix was continued but her Bumex was stopped and she was given IV potassium in the ED, followed by K-Dur. Repeat potassium had corrected, so her K-Dur was decreased. By the next day, she was A&O x2-3, but was unable to answer questions about her medical history that brought her to the hospital. Hepatitis panel was negative, LDH was 503, Magdalene test was positive, and she had low haptoglobin. Right upper quadrant ultrasound showed mild gallbladder wall thickening and possible pericholecystic edema, hepatic doppler was normal, fractionated bilirubin showed elevated direct bilirubin, and her reticulocyte fraction was normal. Hematology was consulted due to suspected hemolytic process. They evaluated her, but felt she was not undergoing hemolysis and recommended a GI consult. Urine culture grew E. coli sensitive to Rocephin, so the Rocephin was continued. Blood culture resulted positive for staph and strep suggestive of skin juana. CT brain was ordered due to continued altered mental status and it showed only chronic findings. CRP was elevated at 1.34, ESR was 14, procal 0.31. Her white blood cell count was transiently and inconsistently elevated. RODY was positive, AMA was negative. HIDA scan was negative. Anti-smooth muscle antibody and SPEP were ordered and pending. GI was consulted to evaluate the elevated bilirubin due to suspicion for autoimmune hepatitis despite normal liver function tests. They concluded that the possibilities included compensated hemolysis versus Rolanda-Hamilton syndrome versus Gilbert disease but given her lack of symptoms and decreasing bilirubin levels, they recommended watchful waiting. The patient continued to cycle through behaviors suggestive of delirium, but never returned to her previous baseline, so an RPR, HIV, and MRI were obtained. RPR was nonreactive. MRI was unremarkable. HIV is pending. In an attempt to address all possible causes of her change in mentation, the prednisone was increased from 10 mg daily to 20 daily for 5 days as a stress dose of steroid. Both the patient and her daughter wanted her to go back home and home health was successfully setup, so she was discharged. DISPOSITION: Stable. DISCHARGE INSTRUCTIONS: Location: Home with home health. Diet: Fluid restriction, heart healthy. Activity: As tolerated. Followup: Recommend follow up with PCP (Bibiana Garcia) within 10 days to manage diuretics, medications, and fluid status. Job ID: [id number] [facility]
[2020-01-26] MEDS ORDERED: predniSONE 20 MG TAB PO SCH (08:00)
[2020-01-26 14:14] LABS: Smooth Muscle Total ABS 11 Units (0-19)
--- NOTE | 2020-01-27 13:51 | EKG ---
Test Reason : Blood Pressure : / mmHG Vent. Rate : 087 BPM Atrial Rate : 090 BPM P-R Int : 142 ms QRS Dur : 090 ms QT Int : 408 ms P-R-T Axes : 053 -03 -33 degrees QTc Int : 490 ms Sinus rhythm with Premature atrial complexes with Abberant conduction Possible Left atrial enlargement RSR' or QR pattern in V1 suggests right ventricular conduction delay Anteroseptal infarct , age undetermined Abnormal ECG T wave inversions III, aVF, V4-V6 Confirmed by LIVAN KENT M.D. ([id number]), rewrite editor NAKIA SINGH ([id number]) on 01/27/2020 1:50:35 PM Referred By: Confirmed By:LIVAN KENT M.D.
[2020-02-01] MEDS ORDERED: predniSONE 5 MG TAB PO SCH (08:00)
== END 2020-01-25 19:45 | disposition home health service (06) | DRG 291 ==
LOC: ERS 13:52 → 2NO 17:13
PROVIDERS: ADMIT Internal Medicine; ATTEND Student in an Organized Health Care Education/Training Program
DX: I50.31 Acute diastolic (congestive) heart failure (principal); G93.41 Metabolic encephalopathy; N39.0 Urinary tract infection, site not specified; Z20.828 Contact with and (suspected) exposure to other viral communicable diseases; I27.20 Pulmonary hypertension, unspecified; E87.6 Hypokalemia; I27.81 Cor pulmonale (chronic); J44.9 Chronic obstructive pulmonary disease, unspecified; G47.33 Obstructive sleep apnea (adult) (pediatric); B96.20 Unspecified Escherichia coli [E. coli] as the cause of diseases classified elsewhere; Z96.642 Presence of left artificial hip joint; M32.9 Systemic lupus erythematosus, unspecified; N28.1 Cyst of kidney, acquired; K21.9 Gastro-esophageal reflux disease without esophagitis; I45.10 Unspecified right bundle-branch block; K57.90 Diverticulosis of intestine, part unspecified, without perforation or abscess without bleeding; I37.1 Nonrheumatic pulmonary valve insufficiency; E80.6 Other disorders of bilirubin metabolism; B95.2 Enterococcus as the cause of diseases classified elsewhere; I95.9 Hypotension, unspecified; K59.00 Constipation, unspecified; Z87.891 Personal history of nicotine dependence
CPT/HCPCS: 36415; 51701; 70450; 70553; 71045; 74177; 76705; 78227; 80053; 80074; 81003; 81015; 82247; 82553; 82607; 82728; 82747; 83010; 83516; 83540; 83550; 83615; 83690; 83735; 83880; 84145; 84165; 84443; 84484; 85025; 85046; 85652; 86038; 86140; 86225; 86235; 86780; 86850; 86880; 87040; 87077; 87086; 87149; 87186; 87389; 87635; 93005; 93306; 96365; 96366; 96367; A9537; J0696; J1630; J1650; J1940; J3480; J3490; J7512; Q9967; U0003

== ENCOUNTER 2020-02-10 17:56 | Inpatient (IN) | payer MEDICARE, MEDICAID, OTHER ==
[2020-02-10 18:57] LABS: Hemoglobin 13.3 g/dL (12.0-16.0); Mean Corpuscular HGB CONC 31.5 g/dL (32.0-36.0); Mean Corpuscular Hemoglobin 27.2 pg (27.0-31.0); Mean Corpuscular Volume 86.3 fL (78.0-98.0); Mean Platelet Volume 10.9 fL (7.4-10.4); Platelet Count 221 thou/uL (130-400); RBC Distribution Width 18.9 % (11.5-14.5); Red Blood Cell (RBC) Count 4.88 mill/uL (4.20-5.40); White Blood Cell (WBC) Count 12.2 thou/uL (4.8-10.8)
[2020-02-10 19:19] LABS: Anisocytosis SLIGHT = 6-15 cells (100X) (0-5/hpf); Band 2 % (5-11); Elliptocytes SLIGHT = 2-5 cells (100X) (0-1/hpf); Eosinophils 1 % (0-10); Lymphocytes 44 % (21-51); MDiff Complete? YES; Monocytes 4 % (0-10); Neutrophil 42 % (42-75); Nucleated RBC 1 % (0); Platelet Morphology Comment Appears Adequate; Poikilocytosis SLIGHT = 6-15 cells (100X) (0-5/hpf); Polychromasia SLIGHT = 2-3 cells (100X) (0-2/hpf); Reactive Lymphocytes 7 % (0-10); Schistocytes SLIGHT = 2-5 cells (100X) (0-1/hpf); Target Cells SLIGHT = 2-5 cells (100X) (0-1/hpf); Tear Drops SLIGHT = 2-5 cells (100X) (0-1/hpf)
[2020-02-10 19:25] LABS: ALT (SGPT) 24 U/L (8-55); AST (SGOT) 29 U/L (5-34); Albumin 2.9 g/dL (3.4-4.8); Alkaline Phosphatase 136 U/L (40-110); Anion Gap 14 mmol/L (10-20); BUN (Urea Nitrogen) 33 mg/dL (9.8-20.1); Bilirubin, Total 2.9 mg/dL (0.2-1.2); Calc. Creatinine Clearance 0 mL/min (70-130); Calcium 9.3 mg/dL (7.8-10.44); Carbon Dioxide 29 mmol/L (23-31); Chloride 100 mmol/L (98-107); Estimated GFR-MDRD 53; Globulin 4.1 g/dL (2.4-3.5); Glucose 85 mg/dL (80-115); Potassium 4.2 mmol/L (3.5-5.1); Sodium 139 mmol/L (136-145)
--- NOTE | 2020-02-10 22:37 | PDOC.FPRHP ---
- History of Present Illness Chief Complaint: bleeding per rectum History of Present Illness: Pt is a 64 yo F with PMH of CHF, Lupus, HTN, LEE, COPD who presents from SNF with her daughter at bed side for bleeding per rectum. Patient states this started today, and nothing like this has ever happened in the past. She did say she has not had a BM in about 2 weeks. She denies a recent history of abdominal pain, CP, SOB, N/V, inability to tolerate PO, fevers, chills leading up to the bleeding. She states "I did not realize my stomach was hurting until you and the other doctor made me think about it". She cannot describe the quality or location of the pain in her stomach, but she does state she feels pressure in her vagina "like she is going to have a baby". She was recently discharged on 02/06 after a hospital stay where she was admitted for sepsis 2/2 UTI. As per patient, she has had persistent dysuria since discharge. She was sent home on Doxycycline. As per ED report, patient had dark blood bleeding per rectum on exam. The med student went in and disimpacted the patient and an enema was given. The patient continued to bleed "only a tbsp" of blood per rectum but vitals and H/H were stable so patient was sent to Obs. Upon arrival to obs, nursing called to notify of "copious amounts of bright red blood and clots per rectum". Upon exam, patient was briskly bleeding bright red blood per rectum and patient complained of being dizzy. SBP was 93 while being tachycardic to 113. Recheck 5-10 minutes later was improved to SBP of 110s. GI was called due to concern for amount of bleeding and symptoms of being dizzy in the setting of lower BP and tachycardia. A bolus was given and blood was typed and crossed and patient was transferred to the CCU. Of note, on previous admission on 02/03, CT Abdomen/Pelvis showed constipation and stercoral proctitis. ED Course: fecal disimpaction, enema - Allergies/Adverse Reactions Allergies Allergy/AdvReac Type Severity Reaction Status Date / Time No Known Allergies Allergy Verified 02/11/20 00:57 - Home Medications Medication Instructions Recorded Confirmed Type Furosemide [Lasix] 20 mg PO DAILY 30 Days #30 tab 06/24/19 02/11/20 Rx Potassium Chloride 20 meq PO DAILY 30 Days #30 ml 06/24/19 02/11/20 Rx Bumetanide 1 mg PO DAILY 01/18/20 02/11/20 History Hydroxychloroquine Sulfate 200 mg PO DAILY 01/18/20 02/11/20 History [Plaquenil] Carvedilol 3.125 mg PO BID 02/04/20 02/11/20 History Losartan [Cozaar] 12.5 mg PO DAILY 02/04/20 02/11/20 History Naproxen 500 mg PO BID 02/04/20 02/11/20 History predniSONE [Prednisone] 5 mg PO DAILY 02/04/20 02/11/20 History Doxycycline [Vibramycin] 100 mg PO BID 2 Days cap 02/07/20 02/11/20 Rx Mirtazapine [Remeron] 15 mg PO HS tab 02/07/20 02/11/20 Rx Polyethylene Glycol 3350 [Miralax] 17 gm PO DAILY pk 02/07/20 02/11/20 Rx Sennosides [Senokot] 2 tab PO HS tab 02/07/20 02/11/20 Rx - History PMHx: CHF, Lupus, HTN, LEE, COPD, right renal cyst PSHx: L hip replacement FHx: non-contributory Social: former smoker, denies drugs/alcohol - Review of Systems General: denies: fever/chills, fatigue Respiratory: denies: cough, shortness of breath Cardiovascular: denies: chest pain Gastrointestinal: reports: constipation, abdominal pain, GI bleeding. denies: nausea, vomiting, diarrhea Genitourinary: reports: dysuria Skin: denies: rashes Musculoskeletal: denies: swelling Neurological: denies: weakness - Vital signs BP: 127/76 HR: 81 RR: 23 Tmax: 98.7 Pox: 99% on 2L Wt: 77.11kg - Physical Exam Constitutional: NAD, awake, alert and oriented HEENT: normocephalic and atraumatic, EOMI Neck: supple, no JVD Chest: no-tender to palpation Heart: RRR, normal S1/S2, pulses present, no edema Lungs: CTAB, no respiratory distress, good air movement -Abdomen: diffusely TTP, especially along right side and in the epigastric region. Distension noted on exam in the lower/mid abdomen. Hyperactive, high pitched bowel sounds. Clumps of hard stool extracted on exam and clots of blood and active bleeding of bright red blood per rectum Musculoskeletal: normal structure, normal tone Neurological: no focal deficit -Skin: discoid lupus lesions scattered over body Psychiatric: normal mood and affect FMR H&P: Results - Labs Result Diagrams: 02/11/20 00:38 02/10/20 18:34 Lab results: WBC 12.2 thou/uL (4.8-10.8) H 02/10/20 18:34 Hgb 13.3 g/dL (12.0-16.0) 02/10/20 18:34 Hct 42.1 % (36.0-47.0) 02/10/20 18:34 MCV 86.3 fL (78.0-98.0) 02/10/20 18:34 Plt Count 221 thou/uL (130-400) 02/10/20 18:34 Band Neuts % (Manual) 2 % (5-11) L 02/10/20 18:34 Sodium 139 mmol/L (136-145) 02/10/20 18:34 Potassium 4.2 mmol/L (3.5-5.1) 02/10/20 18:34 Chloride 100 mmol/L (98-107) 02/10/20 18:34 Carbon Dioxide 29 mmol/L (23-31) 02/10/20 18:34 BUN 33 mg/dL (9.8-20.1) H 02/10/20 18:34 Creatinine 1.24 mg/dL (0.6-1.1) H 02/10/20 18:34 Glucose 85 mg/dL (80-115) 02/10/20 18:34 Calcium 9.3 mg/dL (7.8-10.44) 02/10/20 18:34 Total Bilirubin 2.9 mg/dL (0.2-1.2) H 02/10/20 18:34 AST 29 U/L (5-34) 02/10/20 18:34 ALT 24 U/L (8-55) 02/10/20 18:34 Alkaline Phosphatase 136 U/L (40-110) H 02/10/20 18:34 Serum Total Protein 7.0 g/dL (6.0-8.3) 02/10/20 18:34 Albumin 2.9 g/dL (3.4-4.8) L 02/10/20 18:34 FMR H&P: A/P - Plan 1. Bleeding per rectum likely 2/2 stercoral ulcer -CT abd/pelvis on 02/03 showed constipation and likely stercoral proctitis -patient's bleeding progressed from mild, dark blood to copious amounts of bright red bleeding per rectum -bleeding improved s/p disimpaction x2 and enema x3, vitals stable -Type and screen 4U -s/p 1 of blood, follow up H/H -GI consulted, appreciate the recs -continue to monitor vitals and clinical picture, concern for large bowel ob struction -KUB pending from prior to disimpaction, repeat KUB in AM -Rocephin started 02/10 for ppx given possibility of bacterial translocation across her bowel coy 2. HFpEF -last echo 01/27 showed EF 50-55%, severe tricuspid regurgitation -continue home meds 3. Lupus -aware, continue home meds 4. COPD -aware, continue home meds 5. HTN -hold home meds at this time 6. Pulmonary HTN -last echo 01/27 -MD aware 7. SONIA -Cr mildly elevated -IVF, continue to monitor 8. Dysuria -patient recently d/c for sepsis 2/2 UTI -patient has had persistent dysuria -follow up UA Diet: NPO Fluids: IVF LR @ 100mL/hr GI ppx: Protonix DVT ppx: SCDs Code: FULL DISPO: admit CCU, anticipated LOS >38 hours FMR H&P: Upper Level - Plan Date/Time: 02/10/202235 Luis Trivedi DO, have evaluated this patient and agree with findings/plan as outlined by graduate internship resident. Pertinent changes/additions are listed here. 64 yo F presents for rectal bleeding from SNF Daughter and pt confirm noticeable BRBPR starting today. No BM for approx. two weeks, reported lower abdominal pain. Denies fever, previous episodes, taking blood thinners, abnormal colonoscopies or vaginal source of bleeding. Upon further questioning she does report dysuria. Pt was initially normotensive and had minimal blood found on rectal exam. Abdominal pain present with palpation in the suprapubic area and LLQ. Hb wnl, BUN elevated. Upon transfer to oncology nursing called to report pt passing large amount of blood and clots. Upon repeat evaluation pt is hypotense and tachycardic, mildly dizzy, Alert and oriented, rectal exam positive for blood and clots, no masses or stool present. GI contacted, pt to be transferred to ICU where she will be treated for a Lower GI bleed with fluid resuscitation, transfuse 1u, monitor H&H. Obtain coags and UA. Please see graduate internship note for mgmt. of chronic medical conditions. Admit to ICU, ELOS>48hrs. Addendum - Attending - Attending Attestation Date/Time: 02/11/20 0015 I personally evaluated the patient and discussed the management with Dr. Tomlinson/Perry. I agree with the History, Examination, Assessment and Plan documented above with any addition or exceptions noted below. Patient here with initial concern of vaginal bleeding per her SNF facility. Patient reports blood in her diaper area that began this evening. In the ED, pelvic exam performed which did not reveal source of bleeding. Rectal exam then performed, small amount of chris blood discovered at that time, and patient had manual disimpaction in ED. She was admitted to our service for observation. However, shortly after arriving on the medical floor, she began passing large clots per rectum, associated with a change in her vital signs. Repeat rectal exam revealed clots as well as large stool burden. Manual disimpaction attempted again followed by enema. She had bright red blood per rectum at this time. I was contacted by the team at that time, and recommended urgent GI consult while I was en route to bedside. Patient transferred to CCU for more intensive monitoring. At bedside, patient is A&O, reports pain in her "butt". Her pulse at that time was 78 and SBP 113. She had diffuse mild tenderness to palpation across the abdomen. Firm, mass-like structures palpated in the lower abdomen, and patient with some voluntary guarding. Exam of the perineal area revealed a large amount of blood. The rest of her exam is noncontributory. On review of her chart, she had initial Hgb of 13. Elevated BUN and Cr but not too much above her baseline. CT scan of the abdomen from 02/03 (previous admit) showed large stool burden and findings concerning for stercoral proctitis. A/P is as follows: 1. Suspected Stercoral ulcer with hemorrhage, 2. Large stool burden to the point of possible LBO, 3. Acute lower GI bleed, 4. Acute blood loss anemia. The patient will be monitored in the CCU. GI has been consulted who recommends supportive care overnight as well as continued disimpaction and enema. KUB to ensure no pneumoperitoneum. T&C, will tranfuse 1 unit and continue to transfuse for continued bleeding. Vitals stable at this time but monitor extremely closely with serial exams through the night. NPO status, IVF and ensure she has adequate IV access. Consider abx for ppx given her likelihood of some ischemic proctitis, leading to possibility of bacterial translocation across her bowel coy.
[2020-02-10] MEDS ORDERED: Acetaminophen 325 MG TAB PO PRN (23:56)
[2020-02-10] MEDS ORDERED: Ondansetron ODT 4 MG TAB PO PRN (23:56)
[2020-02-11 00:43] VITALS: BMI 30.1
[2020-02-11 00:55] LABS: Hemoglobin 11.6 g/dL (12.0-16.0)
[2020-02-11 00:59] LABS: INR-International Normal Ratio 1.2; Prothrombin Time 15.1 sec (12.0-14.7)
[2020-02-11] MEDS: cefTRIAXone\\ROCEPHIN 1 GM in Sodium Chloride 0.9% 100 ML IVPB SCH (03:52)
[2020-02-11 04:23] LABS: ALT (SGPT) 19 U/L (8-55); AST (SGOT) 22 U/L (5-34); Albumin 2.3 g/dL (3.4-4.8); Alkaline Phosphatase 98 U/L (40-110); Anion Gap 15 mmol/L (10-20); BUN (Urea Nitrogen) 33 mg/dL (9.8-20.1); Bilirubin, Total 2.7 mg/dL (0.2-1.2); Calc. Creatinine Clearance 73 mL/min (70-130); Calcium 8.4 mg/dL (7.8-10.44); Carbon Dioxide 23 mmol/L (23-31); Chloride 104 mmol/L (98-107); Estimated GFR-MDRD 70; Globulin 3.2 g/dL (2.4-3.5); Glucose 93 mg/dL (80-115); Potassium 4.3 mmol/L (3.5-5.1); Protein, Total 5.5 g/dL (6.0-8.3); Sodium 138 mmol/L (136-145)
[2020-02-11 05:03] LABS: Band 2 % (5-11); Lymphocytes 44 % (21-51); MDiff Complete? YES; Mean Corpuscular HGB CONC 30.6 g/dL (32.0-36.0); Mean Corpuscular Hemoglobin 27.1 pg (27.0-31.0); Mean Corpuscular Volume 88.5 fL (78.0-98.0); Mean Platelet Volume 11.1 fL (7.4-10.4); Monocytes 10 % (0-10); Neutrophil 44 % (42-75); Platelet Count 137 thou/uL (130-400); Platelet Morphology Comment Appears Adequate; RBC Distribution Width 18.2 % (11.5-14.5); RBC Morphology Normal; Red Blood Cell (RBC) Count 4.45 mill/uL (4.20-5.40); White Blood Cell (WBC) Count 12.7 thou/uL (4.8-10.8)
[2020-02-11 05:53] LABS: Bacteria/HPF None Seen HPF (None Seen); Bilirubin Negative (Negative); Blood, Urine Negative (Negative); Clarity Clear (Clear); Glucose, Urine (Dipstick) Normal (Negative); Ketone, Urine Negative (Negative); Leukocyte 25 Leu/uL (Negative); Nitrite Negative (Negative); Protein, Urine (Dipstick) Negative (Neg-Trace); Specific Gravity, Urine 1.015 (1.002-1.036); Squamous Epithelial 0-3 HPF (0-3); Urobilinogen 6 mg/dL (Less than 2)
--- NOTE | 2020-02-11 05:55 | PDOC.FM ---
- Subjective Subjective: Patient is resting in bed. Denies chest pain, shortness of breath, dizziness, or light-headed. No abdominal pain. Patient reports she is unsure if she still has rectal bleeding. - Objective MAR Reviewed: Yes Vital Signs & Weight: Vital Signs (12 hours) Temp Pulse Resp BP Pulse Ox 02/11/20 01:00 98.4 F 02/11/20 00:20 100 02/11/20 00:05 81 94/62 02/10/20 23:50 82 108/60 02/10/20 23:16 97.6 F 84 18 118/62 99 Weight Weight 79.696 kg Most Recent Monitor Data Heart Rate from ECG 78 NIBP 101/57 NIBP BP-Mean 71 Respiration from ECG 29 SpO2 100 I&O: 02/09/20 02/10/20 02/11/20 06:59 06:59 06:59 Intake Total 500 Balance 500 Result Diagrams: 02/11/20 03:49 02/11/20 03:49 Phys Exam - Physical Examination Constitutional: NAD HEENT: PERRLA, moist MMs Respiratory: no wheezing, clear to auscultation bilateral Cardiovascular: RRR, no significant murmur Gastrointestinal: soft, positive bowel sounds diffuse tenderness to palpation, firm abdomen palpated Musculoskeletal: no edema, pulses present Neurological: non-focal, normal sensation Psychiatric: normal affect, A&O x 3 Skin: no rash Dx/Plan - Plan Plan: 1. Rectal Bleeding, Likely 2/[address] abd/pelvis on 02/03 showed constipation and likely stercoral proctitis Copious amounts of bright red bleeding per rectum, improved s/p disimpaction x2 and enema x3, vitals stable S/p Transfusion 1 of blood, follow up H/H -GI consulted, appreciate the recs -continue to monitor vitals and clinical picture, concern for large bowel obstruction -KUB prior to disimpaction showed fecal impaction, repeat KUB pending -Rocephin started 02/10 for ppx 2. HFpEF -last echo 01/27 showed EF 50-55%, severe tricuspid regurgitation -continue home meds 3. Lupus -aware, continue home meds 4. COPD -aware, continue home meds 5. HTN -hold home meds at this time 6. Pulmonary HTN -last echo 01/27 -MD aware 7. SONIA, resolved -Cr .97 today -IVF, continue to monitor 8. Dysuria -patient recently d/c for sepsis 2/2 UTI -patient has had persistent dysuria -follow up UA showed +Leuk esterase and WBC, will order Uculture, patient on Rocephin Diet: NPO Fluids: IVF LR @ 100mL/hr GI ppx: Protonix DVT ppx: SCDs Code: FULL DISPO: admit CCU, anticipated LOS >38 hours Addendum - Attending - Attending Attestation Date/Time: 02/11/20 0712 I personally evaluated the patient and discussed the management with Dr. Dumont. I agree with the History, Examination, Assessment and Plan documented above with any addition or exceptions noted below. Continue to trend H/H and vital signs. GI recs pending.
[2020-02-11] MEDS: Lactated Ringer's 1,000 ML IV SCH ×3 (06:00→19:17)
--- NOTE | 2020-02-11 08:38 | RAD ---
KUB: HISTORY: Rectal bleeding. COMPARISON: CT abdomen and pelvis dated 02/04/2020. FINDINGS: Bowel gas pattern is nonobstructive. There is residual oral contrast within the cecum and diverticul osis changes of the descending colon. A mild amount of stool was seen in the rectum region. There i s a round density which is almost the same density of the contrast in the adjacent descending colon s een just to the left of the L4 level. I am no certain what this represents. It does not appear to r epresent a diverticulum and no inflammatory change was seen in this region on the CT examination and may just represent some residual oral contrast. IMPRESSION: No evidence of obstruction. Definite reduction in the fecal burden within the rectum. POS: OFF
[2020-02-11] MEDS: Hydroxychloroquine Sulfate 200 MG TAB PO SCH (08:47)
[2020-02-11] MEDS: Carvedilol 3.125 MG TAB PO SCH ×2 (08:47→20:02)
[2020-02-11] MEDS: predniSONE 5 MG TAB PO SCH (08:47)
[2020-02-11] MEDS: Sodium Chloride 0.9% (PF) 10 ML VIAL FS PRN (08:48)
[2020-02-11] MEDS: Pantoprazole 40 MG VIAL IVP SCH ×2 (08:48→20:06)
[2020-02-11] MEDS: Losartan 25 MG TAB PO SCH (08:57)
[2020-02-11] MEDS ORDERED: GoLYTELY 4,000 ml Bottle PO SCH ×2 (09:15→16:00)
--- NOTE | 2020-02-11 12:02 | RAD ---
KUB: HISTORY: Constipation and bleeding per rectum. COMPARISON: Exam done earlier today. FINDINGS: Residual oral contrast still within the colon. The round collection seen in the left mid abdomen on the previous examination is no longer visualized. Diverticular disease of the descending and sigmoid colon is seen. Arthritic changes of the lower lumbar spine are present. IMPRESSION: No evidence of obstruction. Residual oral contrast within the colon. Moderate diverticulosis change s of the descending sigmoid colon region. POS: OFF
[2020-02-11 13:51] LABS: Hemoglobin 10.3 g/dL (12.0-16.0); Platelet Count 184 thou/uL (130-400)
[2020-02-11] MEDS ORDERED: Sodium Chloride 0.9% 500 ML IV SCH (14:15)
[2020-02-11] MEDS: Mirtazapine 15 MG TAB PO SCH (20:02)
[2020-02-11 21:25] LABS: Hemoglobin 11.7 g/dL (12.0-16.0)
[2020-02-12] MEDS: cefTRIAXone\\ROCEPHIN 1 GM in Sodium Chloride 0.9% 100 ML IVPB SCH (02:24)
--- NOTE | 2020-02-12 05:33 | CON ---
DATE OF CONSULTATION: 02/11/2020 CONSULTING PHYSICIAN: Dr. Nitza Tomlinson. REASON FOR CONSULT: Rectal bleeding. HISTORY OF PRESENT ILLNESS: Ms. Pollard came to the hospital yesterday evening for bright red blood per rectum. She was at the group home facility. She was here about a week ago, being discharged I think on the 03 of February, at which time, she was in for UTI and severe constipation, at which time she was manually disimpacted. On presentation here, she states she had not had a bowel movement in 2 weeks. However, she had been in the hospital within the last two weeks, but she complained of some lower abdominal discomfort and pressure-like sensation in the vagina like she is going to have a baby. She was also complaining of ongoing dysuria. In the emergency room, she had dark blood per rectum on disimpaction exam and enema was given. Then, the patient had a little bit of bleeding and was admitted to observation. However, on observation, she had a "copious amount of bright red blood per rectum and clots from the rectum per the nurse." She was re-examined by the admitting physician. There was brisk red bleeding, which concerned them enough to call me. She was a little bit dizzy with systolic pressure in the 90s and became tachycardic to a pulse of 113. She was given a fluid bolus and her vital signs stabilized. She was sent to the ICU and I was called. After reviewing the films last night from her previous admissions, it appeared to me that she had a stercoral proctitis. I did talk to the ICU nurse and noted she was not bleeding much and I decided to come in and see her this morning. In talking with the daughter, she has had a lot of problems with constipation recently. The patient notes she is taking something at home for constipation. It looks like her shelter medicines do include Senokot at bedtime. Presently, she denies any lower abdominal pain, states she feels much better. The nurses here report that she has had minimal blood per rectum and she has had good urine output with 600 mL out by straight cath just recently. The patient denies having any problems with urination when she is at home typically. On reviewing her records, she had an EGD and colonoscopy in 2014, at which time, she had some mild duodenitis and gastritis, no H pylori, and she also had a diminutive polyp, which was hyperplastic. PAST MEDICAL HISTORY: Difficulty walking for several years, history of lupus, history of heart failure with diastolic dysfunction, mild COPD, obstructive sleep apnea. PAST SURGICAL HISTORY: Left hip replacement. STUDIES: Last echocardiogram on 01/23 showed EF of 50% to 55%, moderately enlarged right ventricle, right atrial dilatation, trace MR, severe tricuspid regurg. She had ultrasound on 01/19/2020, which showed normal gallbladder, mild thickening. She had a normal HIDA scan on 01/24/2020. Brain MRI with chronic changes on 01/25/2020. CAT scan on 02/04/2020, as noted in HPI showed constipation, large volume of stool in the rectum with perirectal edema and free fluid, possible stercoral proctitis and signs of medical renal disease. Chest x-ray on 02/03, no acute cardiopulmonary abnormalities. ALLERGIES: NONE KNOWN. MEDICATIONS: Home medications; 1. Lasix 20 mg daily. 2. Potassium chloride 20 mEq daily. 3. Bumetanide 1 mg daily. 4. Hydroxychloroquine sulfate 200 mg daily. 5. Carvedilol 3.125 mg b.i.d. 6. Losartan 12.5 mg daily. 7. Naprosyn 500 mg b.i.d. 8. Prednisone 5 mg daily. 9. Vibramycin 100 mg. 10. Remeron 15 mg at bedtime. 11. Polyethylene glycol once daily. 12. Senokot two tablets at bedtime. Home medications recorded by nursing did not include the MiraLAX. It is unclear if she is getting that at the shelter. Medications here; 1. Tylenol. 2. Bumex on hold. 3. Coreg. 4. Rocephin. 5. Furosemide. 6. Plaquenil. 7. LR at 100. 8. Losartan. 9. Remeron 15 mg at bedtime. 10. Zofran p.r.n. 11. Protonix 40 mg b.i.d. 12. Prednisone 5 mg daily. SOCIAL HISTORY: The patient stays with her daughter for the most part, but is in a group home unit presently. She is a former smoker. She does not drink. FAMILY HISTORY: Noncontributory. REVIEW OF SYSTEMS: GENERAL: She has had a poor functional status, not being able to walk well recently, past several months to a year. She has had generalized fatigue. She denies any chills or rigors. RESPIRATORY: Denies any shortness of breath or cough or dyspnea on exertion, but she does not exert herself much. CARDIOVASCULAR: Negative for chest pain or orthopnea. GI: Positive for constipation, abdominal pain, and rectal bleeding. No nausea, vomiting, or diarrhea. : Dysuria, pelvic fullness. SKIN: Negative for rashes, myalgias, or arthralgias. MUSCULOSKELETAL: No arthralgias. NEUROLOGIC: No focal weakness or prior history of TIAs or strokes. PHYSICAL EXAMINATION: GENERAL: Presently, she is resting comfortably in bed. She is alert and oriented to person, place, and time. VITAL SIGNS: Temperature is 98.5, but she has been afebrile since admission. Blood pressure 113/73, pulse is 78. Urine output was 600 mL by straight cath this morning, 450 out yesterday. On physical exam, she is alert and oriented. HEENT: Oropharynx without lesions. NECK: Supple. HEART: Regular rate and rhythm. ABDOMEN: Soft and nontender. There is no rebound. There is no guarding. There is no distention in lower abdomen. RECTAL: Reveals no residual impaction. There is scant dark blood on the examining glove. There is no overt pain. There is some small what feels like an internal hemorrhoid. EXTREMITIES: Reveal no clubbing, cyanosis, or edema. LABORATORY STUDIES: White count was 12.2 on admission, 12.7 this morning. Hemoglobin was 13.3 on admission, it was 13.7 on discharge on 02/06, hemoglobin was 11.6 at midnight and 12 this morning. Platelet count 137. Differential is normal. INR 1.2. Sodium 138, potassium 4.3, BUN and creatinine are 33 and 0.9, bilirubin is 2.7, calcium is 8.4, albumin 2.3, protein 5, alkaline phosphatase 98. On 01/22/2020, she had negative M spike. In January, she had a B12 of 735, folate normal. TSH on 02/03 was 2.1. Ferritin 407. Direct bilirubin had been 4 on 01/18. She had total bilirubin 5.8. ASSESSMENT: 1. Lower gastrointestinal bleed, likely related to stercoral colitis or stercoral ulcer from fecal impaction, improving. No evidence of hemodynamic instability. Hemoglobin is stable at 11.7. She is getting a unit of blood today. 2. Constipation with fecal impaction, seemingly resolved with disimpaction, enemas last night. 3. History of lupus. 4. History of congestive heart failure with good preserved EF, but it seems like most of her problem is right heart failure with dilated right ventricle and severe tricuspid regurgitation. She has a history of sleep apnea. It does not seem she uses a CPAP. 5. Elevated bilirubin. This is likely related to passive congestion of liver. It has come and gone over time. She was evaluated by Dr. Lindquist back in January. She had negative hepatitis A, B, and C, negative HIV. She does have a positive MIESHA. Smooth muscle antibody was negative. AMA was negative. 6. Anemia secondary to gastrointestinal bleeding. This is likely related to the stercoral ulcer. 7. History of chronic NSAID use with steroid use at home. She is at high risk for ulcers in the upper GI tract. RECOMMENDATIONS: 1. She needs to be on PPI maintenance therapy at discharge to prevent upper GI tract ulcers in light of her chronic NSAID and steroid use. 2. Likely, the patient will be moved to the floor and started on liquid diet. 3. We will proceed with colonoscopy tomorrow. We would also do an upper endoscopy at the same time in light of her high risk for ulcers with current medications. I have discussed with the patient's daughter, Kamryn Pollard, who is in agreement. Discussed with the patient the risks, benefits, and possible complications, and she would like to proceed. Job ID: [id number]
--- NOTE | 2020-02-12 05:38 | PDOC.FM ---
- Subjective Subjective: Patient is doing well this morning. She denies any headache, CP, weakness. She says she is tired. - Objective Vital Signs & Weight: Vital Signs (12 hours) Temp Pulse Ox 02/12/20 04:00 98 F 02/12/20 00:00 98.3 F 02/11/20 20:00 98 F 02/11/20 19:33 100 Weight Weight 79.696 kg Most Recent Monitor Data Heart Rate from ECG 80 NIBP 77/44 NIBP BP-Mean 55 Respiration from ECG 35 SpO2 99 I&O: 02/10/20 02/11/20 02/12/20 06:59 06:59 06:59 Intake Total 1488 4283 Output Total 650 2285 Balance 838 1997 Result Diagrams: 02/11/20 21:13 02/11/20 03:49 Phys Exam - Physical Examination Constitutional: NAD HEENT: moist MMs, sclera anicteric Neck: full ROM Respiratory: no wheezing, clear to auscultation bilateral Cardiovascular: RRR, no significant murmur Gastrointestinal: soft, non-tender, no distention, positive bowel sounds Musculoskeletal: no edema, pulses present Neurological: moves all 4 limbs Psychiatric: normal affect, A&O x 3 Dx/Plan - Plan Plan: 1. Rectal Bleeding, Likely 2/[address] abd/pelvis on 02/03 showed constipation and likely stercoral proctitis Copious amounts of bright red bleeding per rectum on admission, improved s/p disimpaction x2 and enema x3, vitals stable S/p 2 blood transfusions, H/H stable at 11.7/37.4 -continue to monitor vitals -KUB prior to disimpaction showed fecal impaction, repeat KUB showed no obstruction -Rocephin started 02/10 for ppx -GI consulted: PPI maintenance upon discharge, colonoscopy and endoscopy today (02/11) 2. COVID positive Screening completed prior to colonoscopy resulted positive - asymptomatic - unsure if patient will be able to complete colonoscopy today given positive screening 3. HFpEF -last echo 01/27 showed EF 50-55%, severe tricuspid regurgitation -continue home meds 4. Lupus -aware, continue home meds 5. COPD -aware, continue home meds 6. HTN -hold home meds at this time 7. Pulmonary HTN -last echo 01/27 -MD aware 8. SONIA, resolved -IVF, continue to monitor 9. Dysuria -patient recently d/c for sepsis 2/2 UTI -patient has had persistent dysuria -follow up UA showed +Leuk esterase and WBC, will order Uculture, patient on Rocephin Diet: NPO Fluids: IVF LR @ 100mL/hr GI ppx: Protonix DVT ppx: SCDs Code: FULL DISPO: admit CCU, anticipated LOS >38 hours Addendum - Attending - Attending Attestation Date/Time: 02/12/20 1104 I personally evaluated the patient and discussed the management with Dr. Diaz. I agree with the History, Examination, Assessment and Plan documented above with any addition or exceptions noted below.
[2020-02-12 08:12] LABS: SARS-CoV-2 NAA Rapid Test DETECTED (NotDetected)
[2020-02-12] MEDS: Pantoprazole 40 MG VIAL IVP SCH (08:49)
[2020-02-12] MEDS: predniSONE 5 MG TAB PO SCH (08:49)
[2020-02-12] MEDS: Sodium Chloride 0.9% (PF) 10 ML VIAL FS PRN (08:49)
[2020-02-12] MEDS: Hydroxychloroquine Sulfate 200 MG TAB PO SCH (08:50)
[2020-02-12] MEDS: Furosemide 20 MG TAB PO SCH (09:15)
[2020-02-12] MEDS: Carvedilol 3.125 MG TAB PO SCH ×2 (09:15→22:13)
[2020-02-12] MEDS: Bumetanide 1 MG TAB PO SCH (10:21)
[2020-02-12] MEDS ORDERED: PROPOFOL 200 MG/20 ML VIAL ONE (10:46)
[2020-02-12] MEDS: Lactated Ringer's 1,000 ML IV SCH (17:57)
[2020-02-12] MEDS: Mirtazapine 15 MG TAB PO SCH (22:13)
[2020-02-13] MEDS: cefTRIAXone\\ROCEPHIN 1 GM in Sodium Chloride 0.9% 100 ML IVPB SCH (01:52)
--- NOTE | 2020-02-13 07:57 | OP ---
DATE OF PROCEDURE: 02/12/2020 PROCEDURE PERFORMED: Colonoscopy with biopsy. ANESTHESIA: TIVA. POSTPROCEDURE DIAGNOSES: 1. Ulcer in the rectum consistent with stercoral/ischemic ulcer in conjunction which fits the clinical history of having a large fecal impaction with CT showing "proctitis." Biopsies obtained. 2. Small red vessels at the base of some of these ulcers, but no visible vessels indicate high risk for hemorrhage. Biopsies obtained. 3. Diverticulosis coli diffusely. No obstructive lesions. RECOMMENDATIONS: 1. Fiber daily. 2. MiraLAX daily with possible Senokot daily. 3. Basically this patient needs a bowel regimen to keep her bowels moving. 4. Await biopsies. 5. We will follow from a distance. If I can be of any further assistance in the patient's care, please do not hesitate to contact me. 6. We will defer COVID positive status to the admitting physicians, although there does not appear to be any active symptoms. This may represent a previous exposure at the [place] [facility]. PROCEDURE IN DETAIL: After the patient was informed of the risks, benefits, and possible complications of endoscopy including perforation, bleeding, reaction to medication, and aspiration, informed consent was obtained. The patient was brought to the endoscopy suite, a negative pressure room. All team members were in respiratory precaution and contact precaution at the time-out. Once the patient was adequately sedated, rectal examination was performed, which was normal. The endoscope was advanced from the anal canal through the colon to the cecum, which was identified by ileocecal valve and the appendiceal orifice. Scope was then slowly removed. There was good visualization of the mucosa. There was no mass lesions or AV malformations. Diverticulosis coli was noted throughout the colon. In the rectal distally, there were ulcers that were somewhat serpiginous with dusky borders and then normal intervening mucosa and areas of healing. These had the appearance of what you would expect from the appearance of ischemic/stercoral ulcer. Biopsies taken at the margins. Retroflexion was performed, revealing no lesions. The scope was removed. The patient tolerated the procedure well and there were no complications. Job ID: [id number]
--- NOTE | 2020-02-13 08:18 | PDOC.FM ---
- Subjective Subjective: Patient was resting comfortably in bed at the time of evaluation. Patient denied any acute overnight events, particularly with regard to chest pain, worsening cough, SOB, ABD pain or profuse rectal bleeding. - Objective Vital Signs & Weight: Vital Signs (12 hours) Temp Pulse Resp BP Pulse Ox 02/13/20 03:13 97.8 F 88 16 105/71 94 L 02/12/20 21:00 98.1 F 104 H 16 106/72 97 Weight Weight 79.696 kg Most Recent Monitor Data Heart Rate from ECG 101 NIBP 97/63 NIBP BP-Mean 74 Respiration from ECG 24 SpO2 95 I&O: 02/12/20 02/13/20 02/14/20 06:59 06:59 06:59 Intake Total 5579 720 Output Total 0425 800 Balance 3194 -80 Result Diagrams: 02/11/20 21:13 02/11/20 03:49 Phys Exam - Physical Examination Constitutional: NAD HEENT: moist MMs, oral pharynx no lesions Neck: supple, full ROM Respiratory: no wheezing, no rales, no rhonchi, clear to auscultation bilateral Cardiovascular: RRR, no significant murmur, no rub Gastrointestinal: soft, non-tender, no distention, positive bowel sounds Musculoskeletal: no edema, pulses present Neurological: non-focal, moves all 4 limbs Psychiatric: normal affect Deviation from normal: Diffuse Vitiligo Dx/Plan (1) Renal cyst, right Code(s): N28.1 - CYST OF KIDNEY, ACQUIRED Status: Acute (2) COPD (chronic obstructive pulmonary disease) Status: Chronic (3) Constipation Code(s): K59.00 - CONSTIPATION, UNSPECIFIED Status: Chronic (4) HTN (hypertension) Code(s): I10 - ESSENTIAL (PRIMARY) HYPERTENSION Status: Chronic (5) Lupus Code(s): M32.9 - SYSTEMIC LUPUS ERYTHEMATOSUS, UNSPECIFIED Status: Chronic (6) LEE (obstructive sleep apnea) Code(s): G47.33 - OBSTRUCTIVE SLEEP APNEA (ADULT) (PEDIATRIC) Status: Chronic - Plan Plan: Patient is a 64 y/o female with a PMH significant for SLE, HFpEF and COPD who presents to the hospital for evaluation of rectal bleeding. 1. Rectal Bleeding, likely 2/2 Stercoral Ulcer -Copious amounts of BRBPR on admission, improved s/p disimpaction x2 and enema x3 -s/p 2u PRBCs - VSS and H/H stable -CT ABD/Pelvis (02/03): Constipation and likely Stercoral Proctitis -KUB (Prior to Disimpaction): Fecal impaction - no obstruction on repeat -Ceftriaxone initiated on 02/10 for PPx -Colonoscopy (02/11): Stercoral Ulcer w/o active bleeding -GI: Consulted, recommended PPI, fiber and Miralax following DC 2. COVID(+) -Screening completed prior to Colonoscopy - results delayed -Asymptomatic -COVID Precautions in place 3. HFpEF -Echo (01/27): EF (50-55%) w/ severe Tricuspid Regurgitation -Will continue home medication regimen 4. SLE -Will continue home medication regimen 5. COPD -Will continue home medication regimen 6. HTN -Will hold home medication regimen at this time 7. Pulmonary HTN -Seen on Echo on 01/27 - stable -Will continue to monitor 8. SONIA, resolved -Cr: 1.24 > 0.97 -s/p IVF - will continue to monitor 9. Dysuria -Patient recently treated for Sepsis 2/2 UTI - patient has complained of persistent dysuria since that time -UA: Leuk. Esterase, WBCs -UCx: No growth at 48H -s/p Ceftriaxone Code: Full PCP: [facility] Diet: Regular VTE PPx: SCDs IVF: None GI PPx: Protonix Dispo: Patient is currently stable and admitted to the Medical Floor for ongoing evaluation and treatment of Rectal Bleeding secondary to Stercoral Ulcer. Colonoscopy performed on 02/11 demonstrated Stercoral Ulcer without evidence of ongoing bleeding - will continue to coordinate with GI closely prior to DC. Will likely plan to DC following coordination with Case Management for transfer back to [place]. Expected LOS < 48H. Addendum - Attending - Attending Attestation Date/Time: 02/13/20 9935 I personally evaluated the patient and discussed the management with Dr. Cosme. I agree with the History, Examination, Assessment and Plan documented above with any addition or exceptions noted below. No evidence of continued bleeding. S/p endoscopic evaluation, had stercoral ulcer. Biopsies obtained. If tolerating diet, will work to dc on bowel regimen back to SNF.
[2020-02-13] MEDS: Hydroxychloroquine Sulfate 200 MG TAB PO SCH (09:12)
[2020-02-13] MEDS: predniSONE 5 MG TAB PO SCH (09:12)
[2020-02-13] MEDS: Furosemide 20 MG TAB PO SCH ×2 (09:12→15:47)
[2020-02-13] MEDS: Carvedilol 3.125 MG TAB PO SCH ×2 (09:13→22:11)
[2020-02-13] MEDS: Losartan 25 MG TAB PO SCH (09:13)
[2020-02-13] MEDS: Polyethylene Glycol 3350 17 GM Packet PO SCH (09:14)
[2020-02-13] MEDS: Bumetanide 1 MG TAB PO SCH ×2 (09:14→15:47)
[2020-02-13] MEDS: Citrucel 500 MG TAB PO SCH (09:15)
[2020-02-13 13:14] LABS: #Basophils 0.1 thou/uL (0.0-0.2); #Eosinphils 0.2 thou/uL (0.0-0.7); #Lymphocytes 4.3 thou/uL (1.20-3.40); #Monocytes 0.9 thou/uL (0.11-0.59); #Neutrophils 5.3 thou/uL (1.40-6.50); %Basophils 1.1 % (0.0-1.0); %Eosinophils 1.6 % (0.0-10.0); %Lymphocytes 39.6 % (21.0-51.0); %Monocytes 8.6 % (0.0-10.0); %Neutrophils 49.1 % (42.0-75.0); Hemoglobin 10.6 g/dL (12.0-16.0); Mean Corpuscular HGB CONC 31.3 g/dL (32.0-36.0); Mean Corpuscular Hemoglobin 27.8 pg (27.0-31.0); Mean Corpuscular Volume 88.8 fL (78.0-98.0); Mean Platelet Volume 9.5 fL (7.4-10.4); Platelet Count 190 thou/uL (130-400); RBC Distribution Width 17.7 % (11.5-14.5); White Blood Cell (WBC) Count 10.7 thou/uL (4.8-10.8)
[2020-02-13] MEDS: Mirtazapine 15 MG TAB PO SCH (22:11)
[2020-02-14] MEDS: cefTRIAXone\\ROCEPHIN 1 GM in Sodium Chloride 0.9% 100 ML IVPB SCH (01:38)
--- NOTE | 2020-02-14 06:23 | PDOC.FM ---
- Subjective Subjective: Patient was sleeping at the time of evaluation, but was easily arousable and easy to converse with. Patient denied any acute overnight events, to include chest pain, SOB or ABD pain. Patient states that she had a bowel movement overnight, and denied any noticeable blood. - Objective Vital Signs & Weight: Vital Signs (12 hours) Temp Pulse Resp BP Pulse Ox 02/13/20 21:00 97.8 F 98 16 107/73 100 02/13/20 20:00 100 Weight Weight 79.696 kg Most Recent Monitor Data Heart Rate from ECG 101 NIBP 97/63 NIBP BP-Mean 74 Respiration from ECG 24 SpO2 95 I&O: 02/12/20 02/13/20 02/14/20 06:59 06:59 06:59 Intake Total 5579 720 340 Output Total 2385 800 Balance 3194 -80 340 Result Diagrams: 02/13/20 13:06 02/11/20 03:49 Phys Exam - Physical Examination Constitutional: NAD HEENT: moist MMs, oral pharynx no lesions Neck: supple, full ROM No stethoscope present in the room No stethoscope present in the room Gastrointestinal: soft, non-tender, no distention, positive bowel sounds Musculoskeletal: pulses present Neurological: non-focal, moves all 4 limbs Psychiatric: normal affect Deviation from normal: A&Ox2 (Person, Place) Deviation from normal: Diffuse vitiligo present - stable Dx/Plan (1) Renal cyst, right Code(s): N28.1 - CYST OF KIDNEY, ACQUIRED Status: Acute (2) COPD (chronic obstructive pulmonary disease) Status: Chronic (3) Constipation Code(s): K59.00 - CONSTIPATION, UNSPECIFIED Status: Chronic (4) HTN (hypertension) Code(s): I10 - ESSENTIAL (PRIMARY) HYPERTENSION Status: Chronic (5) Lupus Code(s): M32.9 - SYSTEMIC LUPUS ERYTHEMATOSUS, UNSPECIFIED Status: Chronic (6) LEE (obstructive sleep apnea) Code(s): G47.33 - OBSTRUCTIVE SLEEP APNEA (ADULT) (PEDIATRIC) Status: Chronic - Plan Plan: Patient is a 64 y/o female with a PMH significant for SLE, HFpEF and COPD who presents to the hospital for evaluation of rectal bleeding. 1. Rectal Bleeding, likely 2/2 Stercoral Ulcer -Copious amounts of BRBPR on admission, improved s/p disimpaction x2 and enema x3 -s/p 2u PRBCs - VSS and H/H stable -CT ABD/Pelvis (02/03): Constipation and likely Stercoral Proctitis -KUB (Prior to Disimpaction): Fecal impaction - no obstruction on repeat -Ceftriaxone initiated on 02/10 for PPx -Colonoscopy (02/11): Stercoral Ulcer w/o active bleeding -GI: Consulted, recommended PPI, fiber and Miralax following DC 2. COVID(+) -Screening completed prior to Colonoscopy - results delayed -Asymptomatic -COVID Precautions in place 3. HFpEF -Echo (01/27): EF (50-55%) w/ severe Tricuspid Regurgitation -Will continue home medication regimen 4. SLE -Will continue home medication regimen 5. COPD -Will continue home medication regimen 6. HTN -Will hold home medication regimen at this time 7. Pulmonary HTN -Seen on Echo on 01/27 - stable -Will continue to monitor 8. SONIA, resolved -Cr: 1.24 > 0.97 -s/p IVF - will continue to monitor 9. Dysuria -Patient recently treated for Sepsis 2/2 UTI - patient has complained of persistent dysuria since that time -UA: Leuk. Esterase, WBCs -UCx: No growth at >48H -s/p Ceftriaxone - will consider d/c this AM Code: Full PCP: [facility] Diet: Regular VTE PPx: SCDs IVF: None GI PPx: Protonix 40 mg PO Daily Dispo: Patient is currently stable and admitted to the Medical Floor for ongoing evaluation and treatment of Rectal Bleeding secondary to Stercoral Ulcer. Colonoscopy performed on 02/11 demonstrated Stercoral Ulcer without evidence of ongoing bleeding - GI will follow from [place] following medication optimization to include an appropriate bowel regimen. Patient is currently stable for DC back to her NH but is awaiting insurance authorization. Expected LOS < 48H. Addendum - Attending - Attending Attestation Date/Time: 02/14/20 8900 I personally evaluated the patient and discussed the management with Dr. Cosme. I agree with the History, Examination, Assessment and Plan documented above with any addition or exceptions noted below. Patient stable. Working to get her back to [place] today. Continues to have adequate BMs and no bleeding.
[2020-02-14] MEDS: Losartan 25 MG TAB PO SCH (08:32)
[2020-02-14] MEDS: Bumetanide 1 MG TAB PO SCH (08:32)
[2020-02-14] MEDS: Carvedilol 3.125 MG TAB PO SCH (08:32)
[2020-02-14] MEDS: Hydroxychloroquine Sulfate 200 MG TAB PO SCH (08:32)
[2020-02-14] MEDS: predniSONE 5 MG TAB PO SCH (08:33)
[2020-02-14] MEDS: Furosemide 20 MG TAB PO SCH (08:33)
[2020-02-14] MEDS: Polyethylene Glycol 3350 17 GM Packet PO SCH (08:33)
[2020-02-14] MEDS: Citrucel 500 MG TAB PO SCH (08:33)
[2020-02-14 16:54] VITALS: BP 117/80; TEMP 98.1
--- NOTE | 2020-02-15 03:28 | DIS ---
DATE OF ADMISSION: 02/10/2020 DATE OF DISCHARGE: 02/14/2020 RESIDENT: Adriel Cosme MD. ADMITTING ATTENDING: Ja Bravo MD. DISCHARGE ATTENDING: Ja Bravo MD. CONSULTS: Anup Fajardo MD, GI. PROCEDURES: Abdominal x-ray performed on 02/11/2020 which revealed no evidence of obstruction. PRIMARY DIAGNOSES: Lower gastrointestinal bleed secondary to stercoral ulcer and proctitis. SECONDARY DIAGNOSES: COVID-19 positive; heart failure with preserved ejection fraction; lupus; chronic obstructive pulmonary disease; hypertension; pulmonary hypertension; acute kidney injury, resolved; dysuria, likely chronic. DISCHARGE MEDICATIONS: 1. Bumetanide 1 mg p.o. daily. 2. Carvedilol 3.125 mg p.o. b.i.d. 3. Furosemide 20 mg p.o. daily. 4. Hydroxychloroquine 200 mg p.o. daily. 5. Losartan 12.5 mg p.o. daily. 6. Mirtazapine 15 mg p.o. daily. 7. Prednisone 5 mg p.o. daily. 8. Doxycycline 100 mg p.o. b.i.d. in accordance with previous prescription written prior to hospitalization. 9. Naproxen 500 mg p.o. b.i.d. 10. MiraLAX 17 g p.o. daily. 11. Potassium chloride 20 mEq p.o. daily. 12. Senokot 2 tabs p.o. daily. DISCONTINUED MEDICATIONS: None. HISTORY OF PRESENT ILLNESS AND HOSPITAL COURSE: The patient is a 64-year-old female with past medical history significant for heart failure with preserved ejection fraction, lupus, hypertension, obstructive sleep apnea, COPD, and pulmonary hypertension, who [facility] with her daughter at bedside due to bleeding per rectum. The patient states that the bleeding started today and nothing like this has ever happened in the past. She states that she has not had a BM in about 2 weeks. The patient denies recent history of abdominal pain, chest pain, shortness of breath, nausea, vomiting, inability to tolerate p.o., fevers, chills, or any other symptoms leading up to this episode of bleeding. However, when questioned again, she did admit to intermittent abdominal pain, but she was unable to describe the quality or location of the pain. She states that she did feel a pressure in her vagina that was "like she is going to have a baby." She was recently discharged on 02/06 after a hospital stay where she was admitted for sepsis secondary to urinary tract infection. As such, she has had persistent dysuria since discharge and was sent home on a prescription for doxycycline. Per ER provider report, the patient had dark bleeding from her rectum on physical exam. A medical student attempted disimpaction, and an enema was administered. Only a small amount of blood was returned. This was repeated 2nd time and copious amounts of bright red blood and clots were returned per rectum with brisk bleed noted. The patient suddenly became dizzy. Systolic blood pressure at the time was noted to be 93 and heart rate was recorded at 113. Repeat in 5 to 10 minutes confirmed similar measurements. GI was consulted from the ER for concern of amount of bleeding and patient being hemodynamically unstable. A bolus of fluid was given and the patient was administered 2 units of packed red blood cells. The patient was subsequently transferred to the ICU. A CT abdomen and pelvis revealed constipation and likely stercoral proctitis. This was an old record that was referenced from February 04, 2020. Subsequent KUB revealed fecal impaction. A colonoscopy was performed on 02/12/2020, which revealed stercoral ulcer without active bleeding. The patient did not demonstrate additional episodes of bleeding throughout her hospital stay and she remained hemodynamically stable and was able to tolerate p.o. intake well and void and stool appropriately without blood noted. As such, the patient was subsequently medically optimized to include an appropriate bowel regimen as per GI recommendations, and she was prepped for discharge. Prior to discharge, the patient's vital signs were recorded as temperature of 98 degrees, pulse 78 beats per minute, respirations 20 breaths per minute, oxygen saturation 98% on room air, blood pressure 105/76. LABORATORY ANALYSIS: Revealed a white blood cell count of 10.7, hemoglobin 10.6, hematocrit 33.7, platelet count 190. Coagulation panel revealed a PT of 15.1, INR of 1.2. Chem panel revealed a sodium of 138, potassium 4.3, chloride 104, carbon dioxide 23, BUN 33, creatinine 0.97, glucose 93, calcium 8.4. Total bilirubin 2.7, down from a high of 2.9. AST 22, ALT 19. Alkaline phosphatase 98, down from a high of 136. Urinalysis revealed +6 urobilinogen, +25 leukocyte esterase, 11 to 20 urine rbc's and 4 to 6 wbc's; however, subsequent urine culture was negative for growth at greater than 48 hours. The patient was also tested for COVID-19 and was found to be positive and was subsequently kept under COVID-19 contact precaution for the duration of her hospitalization. DISPOSITION: Stable. DISCHARGE INSTRUCTIONS: 1. Location: [facility]. 2. Diet: Heart healthy to include appropriate bowel regimen as mentioned elsewhere in this document. 3. Activity: No restrictions. 4. Followup: The patient was encouraged to follow up with the primary care provider in 1 to 2 weeks in order to discuss her most recent hospitalization and an appropriate bowel regimen moving forward. Job ID: [id number]
== END 2020-02-14 18:08 | DRG 385 ==
LOC: ERS 17:56 → ONC 22:35 → OBSVTOIN 22:35 → CCU 02-11 00:26 → T4-B 02-12 17:20
PROVIDERS: ADMIT Student in an Organized Health Care Education/Training Program; ATTEND Student in an Organized Health Care Education/Training Program
PROC: 0DBP8ZX Excision of Rectum, Via Natural or Artificial Opening Endoscopic, Diagnostic (ICD-10-PCS; principal; 2020-02-13)
DX: K51.211 Ulcerative (chronic) proctitis with rectal bleeding (principal); U07.1 COVID-19; I50.32 Chronic diastolic (congestive) heart failure; N17.9 Acute kidney failure, unspecified; D62 Acute posthemorrhagic anemia; K55.9 Vascular disorder of intestine, unspecified; N93.9 Abnormal uterine and vaginal bleeding, unspecified; K57.30 Diverticulosis of large intestine without perforation or abscess without bleeding; I27.20 Pulmonary hypertension, unspecified; Z96.642 Presence of left artificial hip joint; L89.152 Pressure ulcer of sacral region, stage 2; J44.9 Chronic obstructive pulmonary disease, unspecified; G47.33 Obstructive sleep apnea (adult) (pediatric); I11.0 Hypertensive heart disease with heart failure; N28.1 Cyst of kidney, acquired; M32.9 Systemic lupus erythematosus, unspecified; K59.00 Constipation, unspecified; K62.89 Other specified diseases of anus and rectum; Z79.899 Other long term (current) drug therapy; Z87.891 Personal history of nicotine dependence
CPT/HCPCS: 36415; 36430; 74018; 80053; 81001; 85025; 85610; 86850; 86900; 86901; 87086; 88305; 99285; C9113; G0378; J0696; J2704; J3490; J7512; P9016; U0002

== ENCOUNTER 2020-03-18 11:58 | Inpatient (IN) | payer MEDICARE, MEDICAID ==
[~2020-03-18 11:58] MED LIST: Iopamidol-370 76% 500 ML 1 ML ONE
--- NOTE | 2020-03-18 12:49 | RAD ---
Exam: Chest one view HISTORY:Decreasing O2 saturation. COVID positive patient Comparison: 02/04/2020 FINDINGS: Cardiac silhouette:Cardiomegaly, due to portable technique Aorta: Atherosclerotic Pulmonary vessels: Normal Costophrenic angles: Clear LUNGS: No masses or consolidation. Scattered interstitial opacities do remain. Pneumothorax: None Osseous abnormalities: None IMPRESSION: 1. Atherosclerosis. 2. Scattered interstitial opacities which may represent infiltrate from COVID pneumonia.
[2020-03-18] MEDS ORDERED: Furosemide 40 MG/4 ML VIAL ONE (12:52)
[2020-03-18] MEDS ORDERED: Nitroglycerin 2% Ointment 1 INCH/1 GM Packet ONE ×2 (12:52→13:12)
[2020-03-18] MEDS ORDERED: Aspirin 325 MG TAB ONE (12:52)
[2020-03-18 13:28] LABS: Actual Bicarbonate (HCO3a) 19.3 mEq/L (22-28); Analyzer IN Cardio ER; CO2 Tension 27.3 mmHg (35.0-45.0); Calcium, Ionized (arterial) 1.22 mmol/L (1.12-1.30); Carboxyhemoglobin (COHb) 1.6 gm% (0.0-3.0); Hemoglobin (Hb) 13.6 g/dL (12.0-16.0); O2 Tension (PaO2), arterial 67.6 mmHg (> 80.0); Potassium - ABG Lab 3.71 mmol/L (3.70-5.30); pH, Arterial 7.47 (7.35-7.45)
[2020-03-18 13:36] LABS: ALV-art Gradient 97.915 mmHg (0-20); Puncture Site RRA
[2020-03-18 13:54] LABS: Hemoglobin 13.2 g/dL (12.0-16.0); Mean Corpuscular HGB CONC 28.9 g/dL (32.0-36.0); Mean Corpuscular Hemoglobin 28.4 pg (27.0-31.0); Mean Corpuscular Volume 98.5 fL (78.0-98.0); Mean Platelet Volume 9.6 fL (7.4-10.4); Platelet Count 174 thou/uL (130-400); RBC Distribution Width 18.7 % (11.5-14.5); Red Blood Cell (RBC) Count 4.65 mill/uL (4.20-5.40); White Blood Cell (WBC) Count 10.1 thou/uL (4.8-10.8)
[2020-03-18 14:01] LABS: ALT (SGPT) 25 U/L (8-55); AST (SGOT) 43 U/L (5-34); Albumin 3.3 g/dL (3.4-4.8); Alkaline Phosphatase 154 U/L (40-110); Anion Gap 16 mmol/L (10-20); BUN (Urea Nitrogen) 20 mg/dL (9.8-20.1); Bilirubin, Total 5.7 mg/dL (0.2-1.2); CK (CPK) 76 U/L (29-168); Calc. Creatinine Clearance 0 mL/min (70-130); Calcium 9.3 mg/dL (7.8-10.44); Carbon Dioxide 23 mmol/L (23-31); Chloride 107 mmol/L (98-107); Estimated GFR-MDRD 86; Globulin 4.7 g/dL (2.4-3.5); Glucose 112 mg/dL (80-115); Lipase 12 U/L (8-78); Potassium 3.8 mmol/L (3.5-5.1); Sodium 142 mmol/L (136-145)
[2020-03-18 14:08] LABS: Band 7 % (5-11); Eosinophils 2 % (0-10); Hypochromia MODERATE=16-30 cells (100X) (0-5/hpf); Lymphocytes 25 % (21-51); MDiff Complete? YES; Monocytes 8 % (0-10); Neutrophil 58 % (42-75); Ovalocytes SLIGHT = 2-5 cells (100X) (0-1/hpf); Platelet Morphology Comment Appears Adequate; Polychromasia MODERATE = 3-4 cells (100X) (0-2/hpf); Target Cells MODERATE= 6-15 cells (100X) (0-1/hpf); Tear Drops SLIGHT = 2-5 cells (100X) (0-1/hpf)
[2020-03-18 14:17] LABS: CKMB 3.3 ng/mL (0-6.6)
--- NOTE | 2020-03-18 15:03 | CT ---
CTA Angio Chest W WO Con History: Elevated d-dimer. Comparison: Radiograph chest same day Findings: CT angiogram chest performed after the intravenous ministration of contrast. 3-D rendering provided. Heart size is enlarged. Small pericardial effusion. Reflux contrast within the suprahepatic IVC along the hepatic veins. Evaluation for embolism is limited due to motion artifact. No proximal segmental pulmonary arterial f illing defect. In the upper abdomen there is abnormal fluid along the right paracolic gutter. Layering calcium withi n a cyst superior pole right kidney is similar. Moderate third spacing of fluid in the superficial and deep soft tissues. No acute thoracic spine fracture. Sternum and manubrium are intact. No acute displaced rib fracture. Moderate fibrosis throughout the lungs with honeycombing. No high-grade pulmonary edema. No pulmonary consolidation. Impression: 1. UIP pattern pulmonary fibrosis. 2. No pulmonary embolism. 3. Dilated right atrium and right ventricle with reflux into the abdomen suggesting cardiac dysfuncti on. Echocardiogram may be beneficial. 4. New third spacing of fluid throughout the superficial and deep soft tissues along with right parac olic gutter fluid could also be sequelae of congestive change. If there is concern for inflammatory process within the abdomen and pelvis, CT would be recommended. 5. Asymmetric skin thickening along the right breast may also be sequela of asymmetric third spacing as patient is slightly rotated to the right versus less likely underlying malignant process. Clinical correlation advised along with mammographic evaluation.
--- NOTE | 2020-03-18 15:31 | PDOC.FPRHP ---
- History of Present Illness Chief Complaint: Shortness of Breath History of Present Illness: Ms. Pollard is a 64 yo F with hx of COPD and pulmonary HTN who was sent over by her PCP after a home visit for feeling SOB and altered. Patient is A&O x3 but unable to provide history as she doesn't know why she is sent here. After talking with PCP & daughter, patient has been declining for the past two weeks after coming back from rehab. This past week she had dec. PO intake and refusing meds and also having hallucinations. She normally requires 2L O2 at home and currently she is at 3L. Patient endorses she has been having increasing difficulty breathing and orthopnea. Declines fever or recent travel. ER: In the ER she had an elevated troponin and was given 324 mg ASA, nitro paste and 40mg IV lasix. BNP was elevated beyond normal baseline. She had an elevated Ddimer of 16 with f/u CTA that was negative for PE. ABG was consistent with metabolic acidosis with respiratory compensation. - Allergies/Adverse Reactions Allergies Allergy/AdvReac Type Severity Reaction Status Date / Time No Known Allergies Allergy Verified 03/18/20 23:00 - Home Medications Medication Instructions Recorded Confirmed Type Carvedilol 3.125 mg PO BID 02/04/20 03/18/20 History Losartan [Cozaar] 12.5 mg PO DAILY 02/04/20 03/18/20 History Naproxen 500 mg PO BID PRN 02/04/20 03/18/20 History predniSONE [Prednisone] 5 mg PO DAILY 02/04/20 03/18/20 History Bisacodyl [Dulcolax] 5 mg PO DAILY PRN 03/18/20 03/18/20 History - History PMHx: CHF, Lupus, HTN, LEE, COPD, right renal cyst PSHx: L hip replacement FHx: non-contributory Social: former smoker, denies drugs/alcohol - Review of Systems General: denies: fever/chills, weight/appetite/sleep changes ENT: denies: nasal congestion, rhinorrhea Respiratory: reports: cough, shortness of breath Cardiovascular: reports: edema. denies: chest pain, palpitation Gastrointestinal: denies: nausea, vomiting, diarrhea, constipation, abdominal pain Skin: reports: lesions. denies: rashes, jaundice Musculoskeletal: denies: pain, tenderness, stiffness Neurological: denies: numbness, syncope Psychological: denies: anxiety, depression - Vital signs BP: 136/97, Pulse: 88, Resp: 28, Pain: 0, O2 sat: 98 on (Room Air), Time: 03/18/2020 12:05. Wt 77 kg - Physical Exam Constitutional: NAD, awake, alert and oriented, well developed HEENT: normocephalic and atraumatic, PERRLA -HEENT: mild scleral icterus Neck: supple, FROM, trachea midline Chest: no-tender to palpation -Heart: tachycardic Lungs: no respiratory distress -Lungs: crackles bilaterally Abdomen: soft, non-tender, no masses/distention -Musculoskeletal: 3/5 strength in lower extremities 4/5 in upper extremities Neurological: no focal deficit -Neurological: strength 3/5 Skin: good turgor, capillary refill <2 seconds -Skin: depigmented patches on upper extremities Heme/Lymphatic: no unusual bruising or bleeding, no purpura Psychiatric: normal mood and affect -Psychiatric: poor insight & judgement FMR H&P: Results - Labs Result Diagrams: 03/21/20 05:00 03/21/20 05:00 Lab results: WBC 10.1 thou/uL (4.8-10.8) 03/18/20 13:24 Hgb 13.2 g/dL (12.0-16.0) 03/18/20 13:24 Hct 45.8 % (36.0-47.0) 03/18/20 13:24 MCV 98.5 fL (78.0-98.0) H 03/18/20 13:24 Plt Count 174 thou/uL (130-400) 03/18/20 13:24 Band Neuts % (Manual) 7 % (5-11) 03/18/20 13:24 ABG pH 7.47 (7.35-7.45) H 03/18/20 13:15 ABG pCO2 27.3 mmHg (35.0-45.0) L 03/18/20 13:15 ABG pO2 67.6 mmHg (> 80.0) 03/18/20 13:15 Sodium 142 mmol/L (136-145) 03/18/20 13:24 Potassium 3.8 mmol/L (3.5-5.1) 03/18/20 13:24 Chloride 107 mmol/L (98-107) 03/18/20 13:24 Carbon Dioxide 23 mmol/L (23-31) 03/18/20 13:24 BUN 20 mg/dL (9.8-20.1) 03/18/20 13:24 Creatinine 0.81 mg/dL (0.6-1.1) 03/18/20 13:24 Glucose 112 mg/dL (80-115) 03/18/20 13:24 Calcium 9.3 mg/dL (7.8-10.44) 03/18/20 13:24 Total Bilirubin 5.7 mg/dL (0.2-1.2) H 03/18/20 13:24 AST 43 U/L (5-34) H 03/18/20 13:24 ALT 25 U/L (8-55) 03/18/20 13:24 Alkaline Phosphatase 154 U/L (40-110) H 03/18/20 13:24 Creatine Kinase 76 U/L (29-168) 03/18/20 13:24 CK-MB (CK-2) 3.3 ng/mL (0-6.6) 03/18/20 13:24 B-Natriuretic Peptide 1259.2 pg/mL (0-100) H 03/18/20 13:24 Serum Total Protein 8.0 g/dL (6.0-8.3) 03/18/20 13:24 Albumin 3.3 g/dL (3.4-4.8) L 03/18/20 13:24 Lipase 12 U/L (8-78) 03/18/20 13:24 - EKG Interpretation EKG: Tachycardic, no ST/T wave changes - Radiology Interpretation CT scan - chest Status: report reviewed by me Chest x-ray Status: image reviewed by me, report reviewed by me FMR H&P: A/P - Plan 64 yo F here for acute on chronic CHF exacerbation #Acute on chronic exacerbation -Hx of diastolic heart failure as seen on echo January 2020 with pulmonary HTN and dilated right atrium, EF 55-60% -Trace edema, elevated BNP (higher than baseline), crackles on lungs -Requiring 3L (baseline 2L) nasal cannula -s/p IV lasix, will continue home bumex (IV), strict I/O #Respiratory alkalosis -pH 7.47, mild, stable, will monitor #Metabolic acidosis -Per ABG but CMP normal -Will repeat in AM #Hyperbilirubinemia -5.8, could be from hepatic congestion. Will get direct bili & coags. -LFTs mildly elevated. Repeat in AM. -RUQ to further evaluate. #Indeterminate trop -Likely from demand. EKG with no ST elevations. No chest pain. -Trend. Tele monitoring. #Physical deconditioning -Family interested in fdc. CM/PT/OT consulted -Plan for placement #COPD -PRN Duonebs -sPO2 target goal 88-92% #Pulmonary HTN/Pulm fibrosis -Continue home O2 Admit:Tele/Inpt PCP: Oseas Dvt ppx: Lovenox Abx: None Code:Full FMR H&P: Upper Level - Plan Date/Time: 03/18/20 5226 I, [], have evaluated this patient and agree with findings/plan as outlined by communications marketing intern resident. Pertinent changes/additions are listed here. Addendum - Attending - Attending Attestation Date/Time: 03/18/20 6753 I personally evaluated the patient and discussed the management with resident team I agree with the History, Examination, Assessment and Plan documented above with any addition or exceptions noted below. Patient does not appear well. Poor prognosis due to chronic conditions. End stage HF with hepatic congestion and complicated by pHTN along with SLE. Now with acute exerbation of HF. Last ECHO reviewed. Continue supplemental O2. Rule out COVID and other forms of infection. Trend cardiac labs. Place on tele. Risk for dysrrhythmias. Monitor renal function closely. Consult cards/HF team and pulm. Caren
[2020-03-18 17:39] LABS: INR-International Normal Ratio 1.6; Prothrombin Time 19.2 sec (12.0-14.7)
[2020-03-18 17:40] LABS: PTT 30.7 sec (22.9-36.1)
[2020-03-18 17:56] LABS: Troponin I 0.068 ng/mL (< 0.028)
[2020-03-18 19:08] LABS: Bilirubin Negative (Negative); Blood, Urine Negative (Negative); Clarity Clear (Clear); Glucose, Urine (Dipstick) Normal (Negative); Ketone, Urine Negative (Negative); Leukocyte Negative Leu/uL (Negative); Nitrite Negative (Negative); Protein, Urine (Dipstick) Negative (Neg-Trace); Specific Gravity, Urine 1.023 (1.002-1.036); Urobilinogen Normal mg/dL (Less than 2)
[2020-03-18 21:43] LABS: Troponin I 0.059 ng/mL (< 0.028)
[2020-03-18] MEDS ORDERED: Ondansetron PF 4 MG/2 ML Vial IVP PRN (22:34)
[2020-03-18] MEDS ORDERED: Polyethylene Glycol 3350 17 GM Packet PO PRN (22:34)
[2020-03-18] MEDS ORDERED: Senokot S 8.6-50 MG TAB PO PRN (22:34)
[2020-03-18] MEDS ORDERED: Bisacodyl 10 MG SUPP PR PRN (22:34)
[2020-03-18] MEDS ORDERED: Bisacodyl 5 MG TAB PO PRN ×2 (22:34→23:48)
[2020-03-18] MEDS ORDERED: Acetaminophen 650 MG Suppository PR PRN (22:34)
[2020-03-18] MEDS ORDERED: Ondansetron ODT 4 MG TAB PO PRN (22:34)
[2020-03-18] MEDS ORDERED: Carvedilol 3.125 MG TAB PO SCH (23:59)
[2020-03-19 05:22] LABS: ALT (SGPT) 22 U/L (8-55); AST (SGOT) 38 U/L (5-34); Albumin 2.9 g/dL (3.4-4.8); Alkaline Phosphatase 142 U/L (40-110); Anion Gap 14 mmol/L (10-20); BUN (Urea Nitrogen) 21 mg/dL (9.8-20.1); Bilirubin, Total 4.7 mg/dL (0.2-1.2); Calc. Creatinine Clearance 96 mL/min (70-130); Calcium 8.9 mg/dL (7.8-10.44); Carbon Dioxide 25 mmol/L (23-31); Chloride 106 mmol/L (98-107); Estimated GFR-MDRD 87; Globulin 4.2 g/dL (2.4-3.5); Glucose 121 mg/dL (80-115); Potassium 3.5 mmol/L (3.5-5.1); Protein, Total 7.1 g/dL (6.0-8.3); Sodium 141 mmol/L (136-145)
[2020-03-19 05:57] LABS: Hemoglobin 12.1 g/dL (12.0-16.0); Mean Corpuscular HGB CONC 29.6 g/dL (32.0-36.0); Mean Corpuscular Hemoglobin 28.8 pg (27.0-31.0); Mean Corpuscular Volume 97.4 fL (78.0-98.0); Mean Platelet Volume 9.5 fL (7.4-10.4); Platelet Count 161 thou/uL (130-400); RBC Distribution Width 18.7 % (11.5-14.5)
[2020-03-19] MEDS ORDERED: Bumetanide 1 MG/4 ML VIAL IVP SCH (06:00)
[2020-03-19 06:24] LABS: Anisocytosis SLIGHT = 6-15 cells (100X) (0-5/hpf); Band 6 % (5-11); Eosinophils 1 % (0-10); Hypochromia SLIGHT = 6-15 cells (100X) (0-5/hpf); Lymphocytes 41 % (21-51); MDiff Complete? YES; Monocytes 10 % (0-10); Neutrophil 42 % (42-75); Nucleated RBC 1 % (0); Polychromasia SLIGHT = 2-3 cells (100X) (0-2/hpf); Target Cells MODERATE= 6-15 cells (100X) (0-1/hpf); Tear Drops SLIGHT = 2-5 cells (100X) (0-1/hpf); White Blood Cell (WBC) Count 8.5 thou/uL (4.8-10.8)
--- NOTE | 2020-03-19 08:53 | PDOC.FM ---
- Subjective Subjective: Patient reports no acute concerns this AM. Breathing at baseline per patient. Patient had several episodes of asymptomatic, nonsustained VTac. Patient received another dose of home coreg overnight. - Objective Vital Signs & Weight: Vital Signs (12 hours) Temp Pulse Resp BP Pulse Ox 03/19/20 07:12 98.2 F 80 16 120/78 100 03/19/20 03:38 98.1 F 95 18 115/56 L 93 L 03/18/20 23:36 98.4 F 97 12 115/78 97 Weight Weight 87.498 kg I&O: 03/18/20 03/19/20 03/20/20 06:59 06:59 06:59 Intake Total 600 Balance 600 Result Diagrams: 03/19/20 04:50 03/19/20 04:50 Phys Exam - Physical Examination Constitutional: NAD mild crackles in bases bilaterally Cardiovascular: RRR, no significant murmur, no rub Gastrointestinal: soft, no distention, positive bowel sounds mild epigastric tenderness Dx/Plan - Plan Plan: 64 yo F here for acute on chronic CHF exacerbation Acute on chronic exacerbation - Hx of diastolic heart failure as seen on echo January 2020 with pulmonary HTN and dilated right atrium, EF 55-60% - BNP >1200 on admission, mild crackles today - on baseline 2L NC O2 - Bumex diuresis--strict I/Os Respiratory alkalosis - pH 7.47, mild, stable, will monitor - Would expect CO2 retention with chronic disease, could be compensation for metabolic acidosis Metabolic acidosis - Per ABG but CMP normal on admission - repeat CMP shows normal Bicarb this AM Hyperbilirubinemia - 5.8, likely from hepatic congestion with direct bili of 3.5 on admission - LFTs mildly elevated - RUQ to further evaluate. Indeterminate trop - Likely from demand, troponins elevated but stable with trend EKG with no ST elevations - Tele monitoring. Physical deconditioning - Family interested in prison per discussion with PCP, will discuss again today - CM/PT/OT consulted - Plan for placement COPD - PRN Duonebs - sPO2 target goal 88-92% Pulmonary HTN/Pulm fibrosis - Continue home O2 Admit:Tele/Inpt PCP: Oseas Dvt ppx: Lovenox Abx: None Code:Full Dispo: patient likely need placement in SNF vs NH Addendum - Attending - Attending Attestation Date/Time: 03/19/20 5902 I personally evaluated the patient and discussed the management with Dr. Zaman. I agree with the History, Examination, Assessment and Plan documented above with any addition or exceptions noted below. Patient on baseline O2 requirement at this time. Will work on possible placement with family. Continue chronic meds and bowel regimen.
[2020-03-19] MEDS ORDERED: Losartan 25 MG TAB PO SCH (09:00)
[2020-03-19] MEDS ORDERED: FLU VACC QS2020-21(65YR UP)/PF 240 MCG/0.7 ML SYRINGE IM ONE (09:00)
[2020-03-19] MEDS: Potassium Chloride 20 MEQ TAB PO SCH (10:48)
[2020-03-19] MEDS: Enoxaparin Sodium 40 MG/0.4 ML SYRINGE SC SCH ×2 (10:49→11:09)
[2020-03-19] MEDS: predniSONE 5 MG TAB PO SCH (10:49)
[2020-03-19] MEDS: Carvedilol 3.125 MG TAB PO SCH ×2 (10:49→19:53)
[2020-03-19] MEDS: Losartan 25 MG TAB PO SCH (10:49)
[2020-03-19 13:56] LABS: SARS-CoV-2 MS2 Positive; SARS-CoV-2 N Gene Negative; SARS-CoV-2 S Gene Negative; SARS-CoV-2 by NAA Not Detected (NotDetected); SARS-CoV-2 orf1ab Negative
[2020-03-19] MEDS: Acetaminophen 325 MG TAB PO PRN (14:48)
[2020-03-19] MEDS ORDERED: Lactated Ringer's 500 ML IV SCH ×2 (16:15→20:45)
[2020-03-19] MEDS ORDERED: Furosemide 40 MG/4 ML VIAL SLOW IVP SCH (16:15)
[2020-03-19] MEDS: Lactated Ringer's 1,000 ML IV SCH ×2 (16:24→21:03)
--- NOTE | 2020-03-19 16:43 | RAD ---
RADIOGRAPH CHEST 1 VIEW: DATE: 03/19/2020 TIME: 4:25 PM HISTORY: 66-year-old female with hypotension COMPARISON: 03/18/2020 FINDINGS: Hypoinflated lungs. Diffuse moderate to severe chronic interstitial infiltrates. Cardiomegaly. No pneumothorax. The interstitial densities appear slightly worse on the current study compared to previous, but that could be due to positional and inspirational differences. IMPRESSION: 1) moderate to severe interstitial lung disease: Pulmonary fibrosis. 2) cardiomegaly
[2020-03-19] MEDS ORDERED: DOPamine 400 MG/D5W 250 ML 250 ML IVPB SCH (22:00)
--- NOTE | 2020-03-19 23:29 | PDOC.BPN ---
- Brief Progress Note Encounter Date: 03/19/20 Encounter Time: 21:00 Received call from nursing that patient's BP was 86/52 with MAP of 53. Evaluated patient who appeared dry on exam and gave a 500mL bolus of LR. Spoke with Dr. Javier who suggested consulting Cardiology. Spoke with Dr. Billingsley with cardiology who recommended not giving patient anymore fluid due to her BNP of 1200 and recommended starting dopamine 5mg if her pressures did not improve. After finishing 500mL bolus, nurse contacted via tiger text and informed that patient's BP was 72/49, was trendelenburg and felt tired and was dozing off. Put in order for patient to begin receiving dopamine 5mg.
[2020-03-20 06:02] LABS: ALT (SGPT) 25 U/L (8-55); AST (SGOT) 49 U/L (5-34); Albumin 3.2 g/dL (3.4-4.8); Alkaline Phosphatase 163 U/L (40-110); Anion Gap 15 mmol/L (10-20); BUN (Urea Nitrogen) 23 mg/dL (9.8-20.1); Bilirubin, Total 4.2 mg/dL (0.2-1.2); Calc. Creatinine Clearance 85 mL/min (70-130); Calcium 9.2 mg/dL (7.8-10.44); Carbon Dioxide 22 mmol/L (23-31); Chloride 103 mmol/L (98-107); Estimated GFR-MDRD 75; Globulin 4.8 g/dL (2.4-3.5); Glucose 142 mg/dL (80-115); Potassium 4.3 mmol/L (3.5-5.1); Sodium 136 mmol/L (136-145)
[2020-03-20 06:16] LABS: #Basophils 0.1 thou/uL (0.0-0.2); #Eosinphils 0.2 thou/uL (0.0-0.7); #Lymphocytes 4.3 thou/uL (1.20-3.40); #Monocytes 1.1 thou/uL (0.11-0.59); #Neutrophils 7.5 thou/uL (1.40-6.50); %Eosinophils 1.6 % (0.0-10.0); %Lymphocytes 32.4 % (21.0-51.0); %Monocytes 8.2 % (0.0-10.0); %Neutrophils 56.9 % (42.0-75.0); Hemoglobin 13.8 g/dL (12.0-16.0); Mean Corpuscular HGB CONC 29.3 g/dL (32.0-36.0); Mean Corpuscular Hemoglobin 28.9 pg (27.0-31.0); Mean Corpuscular Volume 98.7 fL (78.0-98.0); Platelet Count 160 thou/uL (130-400); RBC Distribution Width 19.3 % (11.5-14.5); Red Blood Cell (RBC) Count 4.79 mill/uL (4.20-5.40); White Blood Cell (WBC) Count 13.2 thou/uL (4.8-10.8)
[2020-03-20] MEDS: Losartan 25 MG TAB PO SCH (07:38)
[2020-03-20] MEDS: Carvedilol 3.125 MG TAB PO SCH (07:38)
[2020-03-20] MEDS: Potassium Chloride 20 MEQ TAB PO SCH (08:04)
[2020-03-20] MEDS: Enoxaparin Sodium 40 MG/0.4 ML SYRINGE SC SCH (08:05)
[2020-03-20] MEDS: predniSONE 5 MG TAB PO SCH (08:05)
[2020-03-20] MEDS: Polyethylene Glycol 3350 17 GM Packet PO SCH (08:25)
--- NOTE | 2020-03-20 08:40 | PDOC.FM ---
- Subjective Subjective: Patient reports feeling well this AM. Denies difficulty breathing, chest pain, or palpitations. Overnight had multiple events of VTach and SVT on tele monitoring. Received fluid bolus for hypotension and eventually 5 of dopamine drip through PIV. - Objective Vital Signs & Weight: Vital Signs (12 hours) Temp Pulse Resp BP Pulse Ox 03/20/20 07:09 98.1 F 111 H 20 127/88 96 03/20/20 04:27 97.4 F L 24 H 149/76 H 98 03/20/20 03:15 98 03/20/20 00:10 94 156/98 H Weight Weight 89.675 kg I&O: 03/19/20 03/20/20 03/21/20 06:59 06:59 06:59 Intake Total 600 416.7 Output Total 650 Balance 600 -233.3 Result Diagrams: 03/20/20 05:16 03/20/20 05:16 Phys Exam - Physical Examination Constitutional: NAD Bilateral diffuse crackles Cardiovascular: no significant murmur, no rub Irregularly irregular rate/rhythm Gastrointestinal: soft, non-tender, no distention, positive bowel sounds trace pitting edema BLT Dx/Plan - Plan Plan: 64 yo F here for acute on chronic CHF exacerbation Acute on chronic CHF vs COPD exacerbation - Hx of diastolic heart failure as seen on echo January 2020 with pulmonary HTN and dilated right atrium, EF 55-60% - BNP >1200 on admission, mild crackles throughout today - on baseline 2L NC O2 - Hold diuresis Intermittent arrhythmia - Going into bouts of SVT and VTach-mainly overnight - Cardiology consulted, appreciate recs - Consider selective rate/rhythm controller Hypotension - s/p Fluid bolus yesterday w/ no improvement - Patient with significant pulmonary HTN - Started on 5 dopamine drip, MAPs near or just below 60 - Cards consulted Respiratory alkalosis - pH 7.47, mild, stable, will monitor - Would expect CO2 retention with chronic disease, could be compensation for metabolic acidosis Metabolic acidosis - Per ABG but CMP normal on admission - repeat CMP shows normal Bicarb this AM Hyperbilirubinemia - 5.8, likely from hepatic congestion with direct bili of 3.5 on admission - LFTs mildly elevated - RUQ to further evaluate. Indeterminate trop - Likely from demand, troponins elevated but stable with trend EKG with no ST elevations - Tele monitoring. Physical deconditioning - Family interested in [facility] per discussion with PCP, discussed with family yesterday, will plan for SNU placement - CM/PT/OT consulted - Plan for placement COPD - PRN Duonebs - sPO2 target goal 88-92% Pulmonary HTN/Pulm fibrosis - Continue home O2 Admit:Tele/Inpt PCP: [facility] Dvt ppx: Lovenox Abx: None Code:Full Dispo: patient likely need placement in SNF vs NH Addendum - Attending - Attending Attestation Date/Time: 03/20/20 1100 I personally evaluated the patient and discussed the management with Dr. Zaman. I agree with the History, Examination, Assessment and Plan documented above with any addition or exceptions noted below. Concern for worsening heart failure, likely R sided, as she has become hypotensive overnight. Cardiology on board. Julissa Neptali called a few minutes ago due to issues with loss of IV access and hypotension once Dobamine stopped. That has now resolved and central line is being placed. Cardiology updated. Recent CXR does not suggest pulmonary edema.
[2020-03-20] MEDS ORDERED: Bisacodyl 5 MG TAB PO SCH (09:00)
[2020-03-20] MEDS ORDERED: Bumetanide 1 MG TAB PO SCH (09:00)
[2020-03-20] MEDS ORDERED: Lidocaine 1% (PF) 30 ML VIAL ONE (10:50)
--- NOTE | 2020-03-20 11:40 | PDOC.OP ---
Operative Note - Operative Note Operative Note: INDICATION: Hypotension PROCEDURE DECISION SCIENCE ANALYST: Dr. Zaman ATTENDING PHYSICIAN: Dr. Rubio, In Attendance Ultrasound Used: Y CONSENT: Consent was obtained from patient's daughter over phone prior to the procedure. Indications, risks, and benefits were explained at length. PROCEDURE SUMMARY: A time out was performed. My hands were washed immediately prior to the procedure. I wore a surgical cap, mask with protective eyewear, sterile gown and sterile gloves throughout the procedure. The RIGHT inguinal region was prepped using chlorhexidine scrub and draped in sterile fashion using a full drape and sterile probe cover employed. The femoral pulse was identified. Ultrasound was used to visualize the femoral artery and vein. Anesthesia was achieved using 1% lidocaine. The introducer needle was inserted medial to the femoral artery, inferior to the inguinal crease and into the femoral vein while under direct US visualization. Venous blood was withdrawn. The syringe was removed and a guidewire was advanced into the introducer needle. A small incision was made at the skin surface with a scalpel and the introducer needle was exchanged for a dilator over the guidewire. Advancement over the wire was not able to be done, procedure was repeated X1 with successful advancement of catheter. The wire was removed and the catheter was sutured in place at 1.5 cm. A sterile sorbaview shield was placed over the catheter at the insertion site. The patient tolerated the procedure without any hemodynamic compromise. At time of procedure completion, all ports aspirated and flushed properly. Estimated blood loss is <15 mL.
[2020-03-20] MEDS: Acetaminophen 325 MG TAB PO PRN ×2 (11:57→19:01)
[2020-03-20] MEDS: DOPamine 400 MG/D5W 250 ML 250 ML IVPB SCH ×2 (12:12→17:30)
--- NOTE | 2020-03-20 12:39 | PDOC.BPN ---
- Brief Progress Note Code german was called on patient at approximately 1008 this am 2/2 hypotension (in range of 60-70/40-50)and loss of IV access with dopamine drip. Patient appeared to have pulled IV out, per nursing, when they went in the room it was disconnected. They are unsure of how long she was l. They were able to successfully establish IV access and patient was evaluated with decision was made to place central line. Central line was placed succesfully. We were called again 2/2 intermittent SVT with HR reaching the 180s. We reevaluated the richard ent, decreased the dopamine to 2.5 from 5, and got an EKG. EKG is showing intermittent SVT and sinus tachycardia. BP was stable on 2.5 dopamine at 129/86.
[2020-03-20] MEDS: Lactated Ringer's 1,000 ML IV SCH ×2 (14:05→19:40)
[2020-03-20] MEDS ORDERED: DOPamine 400 MG/D5W 250 ML 250 ML IVPB SCH ×2 (18:30→20:15)
--- NOTE | 2020-03-20 19:26 | CON ---
DATE OF CONSULTATION: REASON FOR CONSULTATION: Hypotension. HISTORY OF PRESENT ILLNESS: Ms. Pollard is a 64-year-old woman who I have seen and evaluated in the past. She recently presented with shortness of breath. She has had intermittent episodes of hypotension. Blood pressure is in the 60s. Julissa porter was called. She was placed on dopamine. She has had episodes of ventricular tachycardia, likely related to dopamine. Ms. Pollard' LVEF has been normal in the past. Her most recent echo was dated 01/24/2016. LVEF at that time was 50% to 55%. She did have a dilated right ventricle and right atrium. She also had moderate pulmonary hypertension. CT of her chest to rule out PE was performed on 03/18/2020 and did show pulmonary fibrosis with no evidence of PE. Dilated right atrium and right ventricle were noted. PAST MEDICAL HISTORY: Diastolic dysfunction, underlying dementia, sleep apnea, and lupus. PAST SURGICAL HISTORY: Hip replacement. MEDICATIONS: Include: 1. Calcium carbonate. 2. Plaquenil. 3. Aleve. 4. Omeprazole. 5. Potassium. ALLERGIES: NONE. SOCIAL HISTORY: Positive tobacco use. REVIEW OF SYSTEMS: Ten-point review of systems is difficult to obtain. She is alert and oriented x2 only. PHYSICAL EXAMINATION: GENERAL: Patient is a pleasant female who is in no acute distress. The patient appears their stated age. VITAL SIGNS: Blood pressure 101/68, pulse 109, and respirations 20. NEUROLOGIC: The patient is alert and oriented x3 with no focal neurologic deficits. HEENT: Sclerae without icterus. Mouth has moist mucous membranes with normal pallor. NECK: No JVD. Carotid upstroke brisk. No bruits bilaterally. LUNGS: Clear to auscultation with unlabored respirations. BACK: No scoliosis or kyphosis. CARDIAC: Regular rate and rhythm with normal S1 and S2. No S3 or S4 noted. No significant rubs, murmurs, thrills, or gallops noted throughout the precordium. PMI is not displaced. There is no parasternal heave. ABDOMEN: Soft, nontender, nondistended. No peritoneal signs present. No hepatosplenomegaly. No abnormal striae. EXTREMITIES: 2+ femoral and 2+ dorsalis pedis pulses. No cyanosis, clubbing, or edema. SKIN: No gross abnormalities. PERTINENT LABORATORY DATA: Hemoglobin 13.8, hematocrit 47.3, and white blood cell count 13.2. Peak troponin 0.04, creatinine 0.91. BNP of 1200. IMPRESSION: Hypotension. RECOMMENDATIONS: 1. Continue IV fluids. 2. The patient's LVEF was felt to be normal a few months ago. I would recheck her echo. 3. Blood cultures x2. 4. PE has been ruled out. She does have right ventricle enlarged noted on previous echo also on CT scan. This is likely related to a COPD. 5. Continue to try and wean off the dopamine. Underlying VT secondary to dopamine. Job ID: [id number]
[2020-03-21 05:51] LABS: ALT (SGPT) 22 U/L (8-55); AST (SGOT) 39 U/L (5-34); Albumin 2.8 g/dL (3.4-4.8); Alkaline Phosphatase 151 U/L (40-110); Anion Gap 14 mmol/L (10-20); BUN (Urea Nitrogen) 21 mg/dL (9.8-20.1); Bilirubin, Total 3.4 mg/dL (0.2-1.2); Calc. Creatinine Clearance 99 mL/min (70-130); Calcium 9.2 mg/dL (7.8-10.44); Carbon Dioxide 20 mmol/L (23-31); Chloride 105 mmol/L (98-107); Estimated GFR-MDRD 87; Globulin 4.5 g/dL (2.4-3.5); Glucose 134 mg/dL (80-115); Protein, Total 7.3 g/dL (6.0-8.3); Sodium 135 mmol/L (136-145)
[2020-03-21 05:55] LABS: Band 1 % (5-11); Eosinophils 2 % (0-10); Hemoglobin 12.9 g/dL (12.0-16.0); Lymphocytes 43 % (21-51); MDiff Complete? YES; Mean Corpuscular Hemoglobin 28.6 pg (27.0-31.0); Mean Corpuscular Volume 98.8 fL (78.0-98.0); Mean Platelet Volume 10.4 fL (7.4-10.4); Monocytes 6 % (0-10); Neutrophil 46 % (42-75); Platelet Count 166 thou/uL (130-400); Polychromasia SLIGHT = 2-3 cells (100X) (0-2/hpf); RBC Distribution Width 18.6 % (11.5-14.5); Reactive Lymphocytes 2 % (0-10); Red Blood Cell (RBC) Count 4.52 mill/uL (4.20-5.40); Target Cells MODERATE= 6-15 cells (100X) (0-1/hpf); Tear Drops SLIGHT = 2-5 cells (100X) (0-1/hpf)
[2020-03-21] MEDS: Potassium Chloride 20 MEQ TAB PO SCH (08:29)
[2020-03-21] MEDS: Enoxaparin Sodium 40 MG/0.4 ML SYRINGE SC SCH (08:32)
[2020-03-21] MEDS: predniSONE 5 MG TAB PO SCH (08:32)
--- NOTE | 2020-03-21 08:32 | PDOC.FM ---
- Subjective Subjective: Patient is feeling well this AM. no acute concerns this AM. - Objective Vital Signs & Weight: Vital Signs (12 hours) Temp Pulse Resp BP Pulse Ox 03/21/20 08:11 97.8 F 112 H 20 118/79 96 03/21/20 05:14 100 03/21/20 03:36 97.6 F 113 H 18 119/82 100 03/21/20 00:20 92 16 108/78 95 Weight Weight 91.444 kg I&O: 03/20/20 03/21/20 03/22/20 06:59 06:59 06:59 Intake Total 416.7 840 Output Total 650 400 Balance -233.3 440 Result Diagrams: 03/21/20 05:00 03/21/20 05:00 Phys Exam - Physical Examination Constitutional: NAD Respiratory: no wheezing Bilateral diffuse crackles Cardiovascular: no significant murmur irregularly irregular rate/rhythm Gastrointestinal: soft, non-tender, no distention, positive bowel sounds Dx/Plan - Plan Plan: 64 yo F here for acute on chronic CHF exacerbation Acute on chronic CHF vs COPD exacerbation - Hx of diastolic heart failure as seen on echo January 2020 with pulmonary HTN and dilated right atrium, EF 55-60% - BNP >1200 on admission, mild crackles throughout today - on baseline 2L NC O2 - Give fluids Intermittent arrhythmia - Going into bouts of SVT and VTachs/p dopamine drip and CVC placement - Cardiology consulted, appreciate recs Constipation - No BM documented, nurse reports there may have been one undocumented BM yesterday - Patient with recent hx of stercoral colitis - Bowel regimen in place, please call MD if patient refuses Hypotension - Patient with significant pulmonary HTN - On 2.5 dopamine drip - Cards consulted - on IVF Respiratory alkalosis - pH 7.47, mild, stable, will monitor - Would expect CO2 retention with chronic disease, could be compensation for metabolic acidosis Metabolic acidosis - Per ABG but CMP normal on admission - repeat CMP shows normal Bicarb this AM Hyperbilirubinemia-improving - 5.8, likely from hepatic congestion with direct bili of 3.5 on admission - LFTs mildly elevated, improving with AM labs Indeterminate trop - Likely from demand, troponins elevated but stable with trend EKG with no ST el evations - Tele monitoring. Physical deconditioning - Family interested in snf per discussion with PCP, discussed with family yesterday, will plan for SNU placement - CM/PT/OT consulted - Plan for placement COPD - PRN Duonebs - sPO2 target goal 88-92% Pulmonary HTN/Pulm fibrosis - Continue home O2 Admit:Tele/Inpt PCP: Ose[facility] Dvt ppx: Lovenox Abx: None Code:Full Dispo: patient likely need placement in SNF vs NH Addendum - Attending - Attending Attestation Date/Time: 03/21/20 1205 I personally evaluated the patient and discussed the management with Dr. Zaman. I agree with the History, Examination, Assessment and Plan documented above with any addition or exceptions noted below. Patient BPs better, weaning Dopamine as tolerated. I suspect R sided heart failure and worsening due to hypovolemia. Cardiology on board, awaiting repeat TTE and their further recs.
[2020-03-21] MEDS: Polyethylene Glycol 3350 17 GM Packet PO SCH (08:33)
[2020-03-21] MEDS: Bisacodyl 5 MG TAB PO SCH (08:35)
[2020-03-21] MEDS: Lactated Ringer's 1,000 ML IV SCH (12:24)
--- NOTE | 2020-03-21 16:25 | PRG ---
DATE OF SERVICE: 03/21/2020 SUBJECTIVE: Ms. Pollard' status is unchanged. She continues to be dopamine dependent. Her blood pressure according to the nurse overnight states her blood pressure dropped in the 60s off dopamine. She was on 2.5 mcg. Her echo did suggest LVEF 45% to 50%, but difficult to assess due to cor pulmonale. Her right ventricle and right atrium were markedly enlarged. She does have severe tricuspid regurgitation with mild pulmonary hypertension. OBJECTIVE: VITAL SIGNS: Blood pressure 120/85, pulse 107, temperature 98.1. LUNGS: Fine crackles noted bilaterally. HEART: Regular rate and rhythm, tachycardic. ABDOMEN: Soft, nontender, nondistended. EXTREMITIES: No edema. PERTINENT LABORATORY DATA: Hemoglobin 12.9, hematocrit 44.7. Creatinine 0.8, sodium 135, albumin 2.8. IMPRESSION: 1. Hypotension. 2. Right ventricular failure. 3. Chronic obstructive pulmonary disease. RECOMMENDATIONS: I had a long discussion today with Kamryn, her daughter about how to proceed. Ms. Pollard does have underlying confusion and maybe the new-onset dementia. She does have enlarged right atrium and right ventricle, which is a known finding, but appears worse. At this point, we will try and discontinue dopamine and add dobutamine. She will need better inotropic support. She does have fine crackles on exam, although her CT scan did not suggest pulmonary fibrosis. May discuss with Pulmonary to see if she has seen Pulmonary in the past. She did have initial opacities on the chest x-ray, but is COVID negative. The family wants to be more aggressive. We would recommend transfer to [place] for further workup for RV failure. Her CT scan did suggest pulmonary fibrosis and is consistent with her physical examination findings. We will consult with Pulmonary. Job ID: [id number]
[2020-03-21] MEDS: Acetaminophen 325 MG TAB PO PRN ×2 (16:43→21:32)
[2020-03-21] MEDS ORDERED: DOBUTamine 500 mg/250 ml 250 ML IVPB SCH (18:15)
[2020-03-22] MEDS: Lactated Ringer's 1,000 ML IV SCH (00:36)
[2020-03-22 05:31] LABS: ALT (SGPT) 20 U/L (8-55); AST (SGOT) 40 U/L (5-34); Albumin 2.7 g/dL (3.4-4.8); Alkaline Phosphatase 139 U/L (40-110); Anion Gap 14 mmol/L (10-20); BUN (Urea Nitrogen) 15 mg/dL (9.8-20.1); Bilirubin, Total 2.5 mg/dL (0.2-1.2); Calc. Creatinine Clearance 112 mL/min (70-130); Calcium 8.7 mg/dL (7.8-10.44); Carbon Dioxide 22 mmol/L (23-31); Chloride 104 mmol/L (98-107); Estimated GFR-MDRD Greater than 90; Globulin 4.1 g/dL (2.4-3.5); Glucose 99 mg/dL (80-115); Potassium 4.3 mmol/L (3.5-5.1); Protein, Total 6.8 g/dL (6.0-8.3); Sodium 136 mmol/L (136-145)
[2020-03-22 05:32] LABS: Hemoglobin 11.9 g/dL (12.0-16.0); Mean Corpuscular HGB CONC 28.9 g/dL (32.0-36.0); Mean Corpuscular Volume 96.8 fL (78.0-98.0); Mean Platelet Volume 9.7 fL (7.4-10.4); Platelet Count 145 thou/uL (130-400); RBC Distribution Width 17.9 % (11.5-14.5); Red Blood Cell (RBC) Count 4.26 mill/uL (4.20-5.40)
[2020-03-22 05:33] LABS: Elliptocytes SLIGHT = 2-5 cells (100X) (0-1/hpf); Eosinophils 6 % (0-10); Lymphocytes 49 % (21-51); MDiff Complete? YES; Monocytes 9 % (0-10); Neutrophil 36 % (42-75); Platelet Morphology Comment Appears Adequate; Target Cells MODERATE= 6-15 cells (100X) (0-1/hpf)
--- NOTE | 2020-03-22 08:07 | CON ---
DATE OF CONSULTATION: 03/22/2020 SUBJECTIVE: Ms. Pollard from a clinical standpoint is unchanged. She has no current complaints, although is fairly nonverbal. Blood pressures have been stable. Dobutamine was discontinued and placed off Dobutrex. Blood pressures have been in the 100s systolic. OBJECTIVE: VITAL SIGNS: Blood pressure 105/57, pulse 100, temperature 98.7. LUNGS: Fine crackles noted bilaterally. HEART: Regular rate and rhythm. ABDOMEN: Soft, nontender, nondistended. EXTREMITIES: 1 to 2+ pitting edema. PERTINENT LABORATORY DATA: Creatinine 0.72. Albumin 2.7. IMPRESSION: 1. RV failure. 2. Hypotension. 3. Pulmonary fibrosis. 4. Chronic obstructive pulmonary disease. RECOMMENDATIONS: The patient's right ventricle and right atrium are markedly enlarged strongly suggesting RV failure. Right ventricle appears hypokinetic. She appears to have undiagnosed pulmonary hypertension. This is noted on both physical exam and confirmed on CT scan. She also has longstanding tobacco history and likely has underlying COPD. Overall LVEF does appear mildly diminished, but is likely underestimated due to RV pressure overload. At this point, I would try and wean off her Dobutrex and see if her blood pressure is maintained. I have added inotropic support with digoxin, although the studies using digoxin are unclear. It appears from a long-term prognosis standpoint that Ms. Pollard' prognosis is poor. I have asked Pulmonary to consult for further recommendations to confirm the above. If confirmed, we will need to discuss palliative measures for patient if she is not able to maintain blood pressure off inotropes. Job ID: [id number]
[2020-03-22] MEDS: Digoxin 0.25 MG TAB PO SCH ×4 (08:23→23:33)
[2020-03-22] MEDS: Bisacodyl 5 MG TAB PO SCH (08:23)
[2020-03-22] MEDS: Potassium Chloride 20 MEQ TAB PO SCH (08:24)
[2020-03-22] MEDS: predniSONE 5 MG TAB PO SCH (08:24)
[2020-03-22] MEDS: Polyethylene Glycol 3350 17 GM Packet PO SCH (08:24)
[2020-03-22] MEDS: Enoxaparin Sodium 40 MG/0.4 ML SYRINGE SC SCH (08:24)
--- NOTE | 2020-03-22 08:54 | PDOC.FM ---
- Subjective Subjective: Patient feeling well this AM. No acute concerns. - Objective Vital Signs & Weight: Vital Signs (12 hours) Temp Pulse Resp BP Pulse Ox 03/22/20 08:33 99 03/22/20 08:23 102 H 03/22/20 07:56 98.7 F 102 H 19 100/55 L 100 03/22/20 04:00 98.7 F 100 20 105/57 L 99 Weight Weight 92.669 kg I&O: 03/21/20 03/22/20 03/23/20 06:59 06:59 06:59 Intake Total 840 2175.1 Output Total 400 850 Balance 440 1325.1 Result Diagrams: 03/22/20 04:30 03/22/20 04:30 Phys Exam - Physical Examination Constitutional: NAD Respiratory: no wheezing mild crackles diffusely Cardiovascular: no significant murmur, no rub irregularly irregular rhythm Gastrointestinal: soft, non-tender, no distention, positive bowel sounds Dx/Plan - Plan Plan: 64 yo F here for acute on chronic CHF exacerbation Acute on chronic CHF vs COPD exacerbation - Hx of diastolic heart failure as seen on echo January 2020 with pulmonary HTN and dilated right atrium, EF 55-60% - RPT ECHO shows cor pulmonale with EF 45-50% - BNP >1200 on admission, mild crackles throughout persistently on exam likely 2/2 pulmoary fibrosis - on baseline 2L NC O2 - Give fluids Intermittent arrhythmia - Going into bouts of SVT and VTach CVC placement - CVC not in place, patient on dobutamine at this time - Cardiology consulted, appreciate recs Constipation - one BM yesterday - Patient with recent hx of stercoral colitis - Bowel regimen in place, please call MD if patient refuses Hypotension - Patient with significant pulmonary HTN - On 2.8 dobutamine drip - Cards consulted - on IVF Respiratory alkalosis - pH 7.47, mild, stable, will monitor - Would expect CO2 retention with chronic disease, could be compensation for metabolic acidosis Metabolic acidosis - Per ABG but CMP normal on admission - repeat CMP shows normal Bicarb this AM Hyperbilirubinemia-improving - 5.8, likely from hepatic congestion with direct bili of 3.5 on admission - LFTs mildly elevated, improving with AM labs Indeterminate trop - Likely from demand, troponins elevated but stable with trend EKG with no ST elevations - Tele monitoring. Physical deconditioning - Family interested in fci per discussion with PCP, discussed with family yesterday, will plan for SNU placement - CM/PT/OT consulted - Plan for placement COPD - PRN Duonebs - sPO2 target goal 88-92% Pulmonary HTN/Pulm fibrosis - Continue home O2 Admit:Tele/Inpt PCP: [facility] Dvt ppx: Lovenox Abx: None Code:Full Dispo: patient likely need placement in SNF vs NH, palliative care consulted for GOC, will likely need to discuss with family Addendum - Attending - Attending Attestation Date/Time: 03/22/20 5119 I personally evaluated the patient and discussed the management with Dr. Zaman. I agree with the History, Examination, Assessment and Plan documented above with any addition or exceptions noted below. Patient here for worsening R sided HF. She is on Dobutamine. Cardiology has discussed possible transfer and we will await their recs regarding that.
--- NOTE | 2020-03-22 16:45 | CON ---
DATE OF CONSULTATION: 03/22/2020 HISTORY OF PRESENT ILLNESS: Ms. Pollard is a 64-year-old female. She looks older than her age. She was admitted on March 18 with complaints of shortness of breath. There is a report that she was hallucinating prior to admission. She is chronically on oxygen at home. She is a very poor historian. Pulmonary function tests done in 2018 showed a restrictive defect. This was of [id number] severity. Her diffusion was severely reduced. She has had multiple CTs over the last 2 years. I was consulted because of pulmonary hypertension. PAST MEDICAL HISTORY: Remarkable for; 1. Interstitial lung disease. 2. History of hypertension. 3. Reported history of lupus. 4. History of sleep apnea. 5. History of deconditioning and falling, noted on admission on June 29, 2019. 6. History of a hip replacement. 7. She is a pack-a-day smoker, all most all of her life. 8. She has a history of severe sleep apnea with an apnea-hypopnea index of 107. CPAP was recommended at 11 cm of water pressure. FAMILY HISTORY: Negative for lung disease in early age. REVIEW OF SYSTEMS: Otherwise negative. All she would tell me is "I want to go home, I'm fine." PHYSICAL EXAMINATION: VITAL SIGNS: The patient is afebrile. Heart rate is 108, respiratory rate is 18, oximetry is 99 on room air, blood pressure is 111/65. HEENT: Pupils are equal. Sclerae are anicteric. Conjunctivae are injected. Throat is clear. NECK: Supple. LUNGS: Remarkable for distant crackles. HEART: Regular rhythm. S1 and S2 are normal. There is grade 2/6 systolic murmur. ABDOMEN: Soft and nontender. EXTREMITIES: Without clubbing or cyanosis. She does have lower extremity edema. LABORATORY DATA: White count 9, hemoglobin 11.9, platelets 145. Electrolytes are normal. Liver enzymes are mildly elevated. Albumin is 2.7. IMPRESSION: Pulmonary hypertension. I reviewed CTs going back as far as we have them in our records. She has radiographic evidence of usual interstitial pneumonitis in my opinion. Pulmonary function test moderate restrictive defect, but these have not been repeated since 2018. CT angiogram did not show any evidence of thromboembolic disease at this admission. It is unclear whether or not she has a component of obstructive lung disease. She does not feel nebulizer treatments helped her, so I suspect most of her shortness of breath is related to pulmonary fibrosis and deconditioning. Her pulmonary hypertension is secondary to that combined with very severe obstructive sleep apnea. Her cardiac medications will be adjusted. Blood pressure control is important. Treatment of her sleep apnea is important. I have no other suggestions at this time. We will follow from a distance. This is a 50 min visit with greater than 50% of the time spent on the unit with coordination of care. Job ID: [id number] EVIN
[2020-03-22] MEDS: Acetaminophen 325 MG TAB PO PRN (20:37)
[2020-03-22] MEDS: Guaifenesin DM 100-10/5 ML UDCUP PO PRN (20:40)
[2020-03-23] MEDS: Guaifenesin DM 100-10/5 ML UDCUP PO PRN ×3 (03:26→21:31)
[2020-03-23 04:57] LABS: ALT (SGPT) 21 U/L (8-55); AST (SGOT) 43 U/L (5-34); Albumin 2.7 g/dL (3.4-4.8); Alkaline Phosphatase 134 U/L (40-110); Anion Gap 14 mmol/L (10-20); BUN (Urea Nitrogen) 14 mg/dL (9.8-20.1); Bilirubin, Total 3.1 mg/dL (0.2-1.2); Calc. Creatinine Clearance 126 mL/min (70-130); Calcium 8.7 mg/dL (7.8-10.44); Carbon Dioxide 24 mmol/L (23-31); Chloride 103 mmol/L (98-107); Estimated GFR-MDRD Greater than 90; Globulin 4.1 g/dL (2.4-3.5); Glucose 89 mg/dL (80-115); Protein, Total 6.8 g/dL (6.0-8.3); Sodium 137 mmol/L (136-145)
[2020-03-23 05:38] LABS: Band 6 % (5-11); Eosinophils 1 % (0-10); Hemoglobin 12.4 g/dL (12.0-16.0); Lymphocytes 46 % (21-51); MDiff Complete? YES; Mean Corpuscular HGB CONC 30.6 g/dL (32.0-36.0); Mean Corpuscular Volume 94.7 fL (78.0-98.0); Mean Platelet Volume 10.1 fL (7.4-10.4); Monocytes 4 % (0-10); Neutrophil 43 % (42-75); Platelet Count 162 thou/uL (130-400); RBC Distribution Width 17.9 % (11.5-14.5); Red Blood Cell (RBC) Count 4.29 mill/uL (4.20-5.40)
--- NOTE | 2020-03-23 06:21 | PDOC.FM ---
- Subjective Subjective: Pt resting comfortably. Has no complaints. Says her daughter helps take care of her at home. - Objective Vital Signs & Weight: Vital Signs (12 hours) Temp Pulse Resp BP Pulse Ox 03/23/20 03:15 97.8 F 92 20 124/78 92 L 03/22/20 23:33 78 03/22/20 23:15 97.7 F 78 22 H 126/83 94 L 03/22/20 19:10 98.5 F 98 20 165/86 H 93 L Weight Weight 92.533 kg I&O: 03/21/20 03/22/20 03/23/20 06:59 06:59 06:59 Intake Total 840 2175.1 1204 Output Total 400 850 500 Balance 440 1325.1 704 Result Diagrams: 03/23/20 04:15 03/23/20 04:15 Phys Exam - Physical Examination Respiratory: no wheezing, clear to auscultation bilateral Cardiovascular: RRR, no significant murmur Gastrointestinal: soft, non-tender, no distention Musculoskeletal: edema present Dx/Plan - Plan Plan: 64 yo F here for acute on chronic CHF exacerbation Acute on chronic CHF vs COPD exacerbation - ECHO: cor pulmonale with EF 45-50% - BNP >1200 on admission - cardiology consulted, Dr. Junior-will wean dobutamine, add digoxin, poor prognosis, likely needs palliative care if unable to maintain pressure on digoxin - pulmonology consulted, Dr Whaley- needs treatment for LEE - on baseline 2L NC O2 Intermittent arrhythmia - SVT overnight, HR 180-190s - CVC not in place, patient on dobutamine at this time via peripheral IV - Cardiology consulted Constipation - one BM yesterday - Patient with recent hx of stercoral colitis - Bowel regimen in place Hypotension - On 2.8 dobutamine gtt - Cards consulted Respiratory alkalosis - pH 7.47, mild, stable, will monitor - Would expect CO2 retention with chronic disease, could be compensation for metabolic acidosis Metabolic acidosis - Per ABG but CMP normal on admission - repeat CMP shows normal Bicarb this AM Hyperbilirubinemia-improving - 5.8-->3.1, likely from hepatic congestion - LFTs mildly elevated, improving Indeterminate trop - Likely from demand, troponins elevated but stable with trend EKG with no ST elevations - Tele monitoring. Physical deconditioning - Family discussing with palliative care: placement vs hospice - CM/PT/OT consulted COPD - PRN Duonebs - sPO2 target goal 88-92% Pulmonary HTN/Pulm fibrosis - Continue home O2 Admit:Tele/Inpt PCP: [facility] Dvt ppx: Lovenox Code:Full Dispo: Cardiology consulted, palliative care consulted, will need to discuss placement/hospice with family Addendum - Attending - Attending Attestation Date/Time: 03/23/20 1204 I personally evaluated the patient and discussed the management with Dr. Krishnamurthy I agree with the History, Examination, Assessment and Plan documented above with any addition or exceptions noted below.intermission coordinator prognosis guarded agree with plan of care. wean off doputamine convert po digoxin as tolerated appreciate Ca rdiology and Pulmonary recommendations will need to discuss Goals of care with patient and family.
[2020-03-23] MEDS: predniSONE 5 MG TAB PO SCH (09:53)
[2020-03-23] MEDS: Bisacodyl 5 MG TAB PO SCH (09:53)
[2020-03-23] MEDS: Enoxaparin Sodium 40 MG/0.4 ML SYRINGE SC SCH (09:53)
[2020-03-23] MEDS: Potassium Chloride 20 MEQ TAB PO SCH (09:53)
[2020-03-23] MEDS: Polyethylene Glycol 3350 17 GM Packet PO SCH (10:28)
[2020-03-23] MEDS ORDERED: Metolazone 5 MG TAB PO SCH (11:45)
[2020-03-23] MEDS ORDERED: Digoxin 0.125 MG TAB PO SCH (11:45)
--- NOTE | 2020-03-23 15:57 | PDOC.CPN ---
- Subjective Date: 03/23/20 Time: 09:45 Interval history: Patient with c/o SOB, cough and edema. Symptoms no worse, just "not much better" Denies any CP. - Review of Systems General: denies: fever/chills, weight/appetite/sleep changes, night sweats, fatigue Respiratory: reports: cough, shortness of breath Cardiovascular: reports: edema. denies: chest pain, palpitation, paroxysmal nocturnal dyspnea, orthopnea Gastrointestinal: denies: nausea, vomiting, diarrhea, constipation, abd pain, GI bleeding Musculoskeletal: denies: pain, tenderness, stiffness, swelling, arthritis/arthralgias Neurological: denies: numbness, syncope, seizure, weakness - Objective Allergies/Adverse Reactions: Allergies Allergy/AdvReac Type Severity Reaction Status Date / Time No Known Allergies Allergy Verified 03/18/20 23:00 Visit Medications: Current Medications Acetaminophen (Acetaminophen 325 Mg Tab) 650 mg PO Q4H PRN PRN Reason: Headache/Fever/Mild Pain (1-3) Last Admin: 03/22/20 20:37 Dose: 650 mg Documented by: Acetaminophen (Acetaminophen 650 Mg Suppository) 650 mg CA Q4H PRN PRN Reason: Headache/Fever/Mild Pain (1-3) Albuterol/Ipratropium (Ipratropium/Albuterol Sulfate 3 Ml Neb) 3 ml NEB [id number] PRN PRN Reason: SOB &/or Wheezing Bisacodyl (Bisacodyl 10 Mg Supp) 10 mg CA DAILYPRN PRN PRN Reason: Constipation Bisacodyl (Bisacodyl 5 Mg Tab) 10 mg PO DAILY [facility] Last Admin: 03/23/20 09:53 Dose: 10 mg Documented by: Calcium Carbonate (Calcium Carbonate 500 Mg Chewtab) 1,000 mg PO Q4H PRN PRN Reason: Heartburn or Indigestion Digoxin (Digoxin 0.125 Mg Tab) 0.125 mg PO DAILY [facility] Enoxaparin Sodium (Enoxaparin Sodium 40 Mg/0.4 Ml Syringe) 40 mg SC 0900 [facility] Last Admin: 03/23/20 09:53 Dose: 40 mg Documented by: Guaifenesin/Dextromethorphan (Guaifenesin Dm 100-10/5 Ml Udcup) 15 ml PO Q4H PRN PRN Reason: Cough Last Admin: 03/23/20 09:53 Dose: 15 ml Documented by: Metolazone (Metolazone 5 Mg Tab) 5 mg PO 0830 [facility] Ondansetron HCl (Ondansetron Pf 4 Mg/2 Ml Vial) 4 mg IVP Q6H PRN PRN Reason: Nausea/Vomiting Ondansetron HCl (Ondansetron Odt 4 Mg Tab) 4 mg PO Q6H PRN PRN Reason: Nausea/Vomiting Pantoprazole Sodium (Pantoprazole 40 Mg Tab) 40 mg PO DAILY [facility] Last Admin: 03/23/20 09:53 Dose: 40 mg Documented by: Polyethylene Glycol (Polyethylene Glycol 3350 17 Gm Packet) 17 gm PO DAILY [facility] Last Admin: 03/23/20 10:28 Dose: 17 gm Documented by: Potassium Chloride (Potassium Chloride 20 Meq Tab) 20 meq PO QA-[facility] Last Admin: 03/23/20 09:53 Dose: 20 meq Documented by: Prednisone (Prednisone 5 Mg Tab) 5 mg PO DAILY [facility] Last Admin: 03/23/20 09:53 Dose: 5 mg Documented by: Senna/Docusate Sodium (Senokot S 8.6-50 Mg Tab) 2 tab PO BID PRN PRN Reason: Constipation Sodium Chloride (Flush - Normal Saline 10 Ml Syringe) 10 ml IVF PRN PRN PRN Reason: Saline Flush Vital Signs & Weight: Vital Signs Temp Pulse Resp BP Pulse Ox 03/23/20 12:41 86 03/23/20 11:57 98.1 F 81 16 125/74 97 03/23/20 08:10 97.6 F 92 16 121/57 L 94 L Weight 204 lb - Physical Exam General: alert & oriented x3, appears well, no apparent distress HEENT: mucus membranes moist Neck: supple neck Cardiac: regular rate and rhythm Lungs: decreased breath sounds, bibasilar rales Neuro: grossly intact Abdomen: soft, non-tender Extremities: 1+ LE edema, 2+ LE edema Skin: clear Musculoskeletal: no pain - Labs Result Diagrams: 03/23/20 04:15 03/23/20 04:15 Troponin/CKMB CK-MB (CK-2) 3.3 ng/mL (0-6.6) 03/18/20 13:24 Troponin I 0.040 ng/mL (< 0.028) H 03/19/20 16:45 - Assessment/Plan Assessment/Plan: 1. Cor Pulmonale and RHF 2. SLE Will wean dobutamine. Patient edematous and weight up since admit. Add zaroxolyn and caution not to overdiurese. Will resume Coreg once off dobutamine. Digoxin added yesterday by RG.
--- NOTE | 2020-03-24 06:14 | PDOC.FM ---
- Subjective Subjective: Pt doing well this morning. Awake and alert, no complaints. No CP, SOB. Tolerating diet. - Objective Vital Signs & Weight: Vital Signs (12 hours) Temp Pulse Resp BP Pulse Ox 03/24/20 03:05 96 F L 95 20 137/69 97 03/24/20 00:18 96 03/23/20 23:30 98.6 F 100 20 126/76 95 03/23/20 19:30 97.6 F 99 22 H 145/71 H 96 Weight Weight 91.671 kg I&O: 03/22/20 03/23/20 03/24/20 06:59 06:59 06:59 Intake Total 2175.1 1204 880 Output Total 034 034 0325 Balance 1325.1 704 -470 Result Diagrams: 03/23/20 04:15 03/23/20 04:15 Phys Exam - Physical Examination Constitutional: NAD Neck: supple Respiratory: no wheezing, clear to auscultation bilateral Cardiovascular: RRR, no significant murmur Gastrointestinal: soft, non-tender, no distention Musculoskeletal: edema present Dx/Plan - Plan Plan: 64 yo F here for acute on chronic CHF exacerbation Acute on chronic CHF vs COPD exacerbation - ECHO: cor pulmonale with EF 45-50% - cardiology consulted: weaned dobutamine, added digoxin, added zaroxolyn, add back coreg once off dobutamine - she is preload dependent so will monitor diuresis closely - pulmonology consulted, Dr Whaley- needs treatment for LEE - on baseline 2L NC O2 - CM and palliative care consulted for placement, GOC, advanced directives Intermittent arrhythmia - NSR for past 24 hours - will add back coreg once off dobutamine - Cardiology consulted Constipation - 2 small b.m yesterday - Patient with recent hx of stercoral colitis - Bowel regimen in place Hypotension - currently normotensive on digoxin - Cards consulted Respiratory alkalosis - pH 7.47, mild, stable, will monitor - Would expect CO2 retention with chronic disease, could be compensation for metabolic acidosis Metabolic acidosis - Per ABG but CMP normal on admission - repeat CMP shows normal Bicarb this AM Hyperbilirubinemia-improving - 5.8-->3.1, likely from hepatic congestion - LFTs mildly elevated, improving Indeterminate trop - Likely from demand, troponins elevated but stable with trend EKG with no ST elevations - Tele monitoring. Physical deconditioning - Family discussing with palliative care: placement vs hospice - CM/PT/OT consulted COPD - PRN Duonebs - sPO2 target goal 88-92% Pulmonary HTN/Pulm fibrosis - Continue home O2 Admit:Tele/Inpt PCP: [facility] Dvt ppx: Lovenox Code:Full Dispo: Cardiology consulted, palliative care consulted, will need to discuss placement/hospice with family Addendum - Attending - Attending Attestation Date/Time: 03/24/20 3446 I personally evaluated the patient and discussed the management with Dr. Krishnamurthy I agree with the History, Examination, Assessment and Plan documented above with any addition or exceptions noted below. patient somewhat despondent this am she has been successfully weaned off dobutamine to digoxin. Will need continued discussion with patient and family regard goals of care. recommend check dig level soon.
[2020-03-24] MEDS: predniSONE 5 MG TAB PO SCH (08:17)
[2020-03-24] MEDS: Bisacodyl 5 MG TAB PO SCH (08:18)
[2020-03-24] MEDS: Potassium Chloride 20 MEQ TAB PO SCH (08:18)
[2020-03-24] MEDS: Enoxaparin Sodium 40 MG/0.4 ML SYRINGE SC SCH (08:18)
[2020-03-24] MEDS: Polyethylene Glycol 3350 17 GM Packet PO SCH (08:18)
[2020-03-24] MEDS: Metolazone 5 MG TAB PO SCH (08:18)
[2020-03-24] MEDS: Digoxin 0.125 MG TAB PO SCH (08:18)
[2020-03-24] MEDS ORDERED: Carvedilol 3.125 MG TAB PO SCH (09:15)
[2020-03-24] MEDS: Acetaminophen 325 MG TAB PO PRN (10:25)
--- NOTE | 2020-03-24 14:37 | PDOC.CPN ---
- Subjective Date: 03/24/20 Time: 09:50 Interval history: No overnight events. Still weak and tired - Review of Systems General: denies: fever/chills, weight/appetite/sleep changes, night sweats, fatigue Respiratory: reports: cough, congestion, shortness of breath, exercise intolerance Cardiovascular: denies: chest pain, palpitation, edema, paroxysmal nocturnal dyspnea, orthopnea Gastrointestinal: denies: nausea, vomiting, diarrhea, constipation, abd pain, GI bleeding Musculoskeletal: denies: pain, tenderness, stiffness, swelling, arthritis/arthralgias Neurological: denies: numbness, syncope, seizure, weakness - Objective Allergies/Adverse Reactions: Allergies Allergy/AdvReac Type Severity Reaction Status Date / Time No Known Allergies Allergy Verified 03/18/20 23:00 Visit Medications: Current Medications Acetaminophen (Acetaminophen 325 Mg Tab) 650 mg PO Q4H PRN PRN Reason: Headache/Fever/Mild Pain (1-3) Last Admin: 03/24/20 10:25 Dose: 650 mg Documented by: Acetaminophen (Acetaminophen 650 Mg Suppository) 650 mg MD Q4H PRN PRN Reason: Headache/Fever/Mild Pain (1-3) Albuterol/Ipratropium (Ipratropium/Albuterol Sulfate 3 Ml Neb) 3 ml NEB [id number] PRN PRN Reason: SOB &/or Wheezing Bisacodyl (Bisacodyl 10 Mg Supp) 10 mg MD DAILYPRN PRN PRN Reason: Constipation Bisacodyl (Bisacodyl 5 Mg Tab) 10 mg PO DAILY [facility] Last Admin: 03/24/20 08:18 Dose: 10 mg Documented by: Calcium Carbonate (Calcium Carbonate 500 Mg Chewtab) 1,000 mg PO Q4H PRN PRN Reason: Heartburn or Indigestion Carvedilol (Carvedilol 3.125 Mg Tab) 3.125 mg PO BID-[facility] Digoxin (Digoxin 0.125 Mg Tab) 0.125 mg PO DAILY [facility] Last Admin: 03/24/20 08:18 Dose: 0.125 mg Documented by: Enoxaparin Sodium (Enoxaparin Sodium 40 Mg/0.4 Ml Syringe) 40 mg SC 0900 [facility] Last Admin: 03/24/20 08:18 Dose: 40 mg Documented by: Guaifenesin/Dextromethorphan (Guaifenesin Dm 100-10/5 Ml Udcup) 15 ml PO Q4H PRN PRN Reason: Cough Last Admin: 03/23/20 21:31 Dose: 15 ml Documented by: Metolazone (Metolazone 5 Mg Tab) 5 mg PO 0830 [facility] Last Admin: 03/24/20 08:18 Dose: 5 mg Documented by: Ondansetron HCl (Ondansetron Pf 4 Mg/2 Ml Vial) 4 mg IVP Q6H PRN PRN Reason: Nausea/Vomiting Ondansetron HCl (Ondansetron Odt 4 Mg Tab) 4 mg PO Q6H PRN PRN Reason: Nausea/Vomiting Pantoprazole Sodium (Pantoprazole 40 Mg Tab) 40 mg PO DAILY [facility] Last Admin: 03/24/20 08:18 Dose: 40 mg Documented by: Polyethylene Glycol (Polyethylene Glycol 3350 17 Gm Packet) 17 gm PO DAILY [facility] Last Admin: 03/24/20 08:18 Dose: 17 gm Documented by: Potassium Chloride (Potassium Chloride 20 Meq Tab) 20 meq PO QA-[facility] Last Admin: 03/24/20 08:18 Dose: 20 meq Documented by: Prednisone (Prednisone 5 Mg Tab) 5 mg PO DAILY [facility] Last Admin: 03/24/20 08:17 Dose: 5 mg Documented by: Senna/Docusate Sodium (Senokot S 8.6-50 Mg Tab) 2 tab PO BID PRN PRN Reason: Constipation Sodium Chloride (Flush - Normal Saline 10 Ml Syringe) 10 ml IVF PRN PRN PRN Reason: Saline Flush Vital Signs & Weight: Vital Signs Temp Pulse Resp BP Pulse Ox 03/24/20 11:36 97.5 F L 80 15 106/67 100 03/24/20 08:25 99 03/24/20 08:13 98.3 F 95 15 133/80 99 03/24/20 03:05 96 F L 95 20 137/69 97 Weight 202 lb 1.6 oz - Physical Exam General: alert & oriented x3, appears well, no apparent distress HEENT: mucus membranes moist Neck: supple neck, JVD/HJR Cardiac: regular rate and rhythm Lungs: decreased breath sounds Neuro: grossly intact Abdomen: soft, non-tender Extremities: 1+ LE edema Skin: clear Musculoskeletal: no pain - Labs Result Diagrams: 03/23/20 04:15 03/23/20 04:15 Troponin/CKMB CK-MB (CK-2) 3.3 ng/mL (0-6.6) 03/18/20 13:24 Troponin I 0.040 ng/mL (< 0.028) H 03/19/20 16:45 - Assessment/Plan Assessment/Plan: 1. Cor Pulmonale and RHF 2. SLE Poor termite renewal inspector prognosis. No changes today. Will continue zaroxolyn 5mg for now and consider decrease to 2.5mg in the future. If potassium stable tomorrow, ok for discharge from my standpoint. Will see PRN.
[2020-03-24] MEDS: Carvedilol 3.125 MG TAB PO SCH (16:47)
[2020-03-24] MEDS: Guaifenesin DM 100-10/5 ML UDCUP PO PRN (22:16)
[2020-03-25 05:06] LABS: Anion Gap 12 mmol/L (10-20); BUN (Urea Nitrogen) 12 mg/dL (9.8-20.1); Calc. Creatinine Clearance 112 mL/min (70-130); Carbon Dioxide 26 mmol/L (23-31); Chloride 100 mmol/L (98-107); Estimated GFR-MDRD Greater than 90; Glucose 112 mg/dL (80-115); Potassium 3.6 mmol/L (3.5-5.1); Sodium 134 mmol/L (136-145)
--- NOTE | 2020-03-25 06:39 | PDOC.FM ---
- Subjective Subjective: Pt resting comfortably. Tolerating diet, voiding well. Denies CP, SOB, N/V. - Objective Vital Signs & Weight: Vital Signs (12 hours) Temp Pulse Resp BP Pulse Ox 03/25/20 04:00 98.8 F 83 16 129/79 90 L 03/24/20 20:00 98.5 F 89 14 116/65 90 L Weight Weight 89.811 kg I&O: 03/23/20 03/24/20 03/25/20 06:59 06:59 06:59 Intake Total 5626 260 2755 Output Total 500 1350 1200 Balance 704 -470 300 Result Diagrams: 03/23/20 04:15 03/25/20 04:06 Phys Exam - Physical Examination Neck: supple Respiratory: no wheezing velcro crackles heard on anterior chest auscultation occasional irregular beat Gastrointestinal: soft, non-tender, no distention Neurological: non-focal Psychiatric: normal affect Dx/Plan - Plan Plan: 64 yo F here for acute on chronic CHF exacerbation Acute on chronic CHF vs COPD exacerbation - ECHO: cor pulmonale with EF 45-50% - cardiology consulted: stable for discharge, needs outpt f/u, she is preload dependent so will monitor diuresis closely, on zaroxolyn 5mg, will decrease to 2.5mg - pulmonology consulted, Dr Whaley- needs treatment for LEE - on baseline 2L NC O2 - CM and palliative care consulted for placement, GOC, advanced directives Intermittent arrhythmia - NSR for past 24 hours - on home meds - Cardiology consulted Constipation - 2 small b.m yesterday - Patient with recent hx of stercoral colitis - Bowel regimen in place Hypotension - currently normotensive on digoxin. - dig level ordered for later today - Cards consulted Respiratory alkalosis - pH 7.47, mild, stable, will monitor - Would expect CO2 retention with chronic disease, could be compensation for metabolic acidosis Metabolic acidosis - Per ABG but CMP normal on admission - repeat CMP shows normal Bicarb this AM Hyperbilirubinemia-improving - 5.8-->3.1, likely from hepatic congestion - LFTs mildly elevated, improving Indeterminate trop - Likely from demand, troponins elevated but stable with trend EKG with no ST elevations - Tele monitoring. Physical deconditioning - Family discussing with palliative care: placement vs hospice - CM/PT/OT consulted COPD - PRN Duonebs - sPO2 target goal 88-92% Pulmonary HTN/Pulm fibrosis - Continue home O2 LEE -needs outpt f/u Admit:Tele/Inpt PCP: [facility] Dvt ppx: Lovenox Code:Full Dispo: Cardiology consulted, palliative care consulted, will need to discuss placement/hospice with family Addendum - Attending - Attending Attestation Date/Time: 03/25/20 6010 I personally evaluated the patient and discussed the management with . [] I agree with the History, Examination, Assessment and Plan documented above with any addition or exceptions noted below. Patient is nearing ready for d/c. Cardiology and pulm have signed off. Will change metolazone 5mg to every other day. Check dig level to verify not toxic. CM to work on placement. Will discuss palliative options with family. Given patient's advanced HF and concurrent pulmonary problems, she would be a candidate for hospice.
[2020-03-25] MEDS: predniSONE 5 MG TAB PO SCH (09:06)
[2020-03-25] MEDS: Potassium Chloride 20 MEQ TAB PO SCH (09:06)
[2020-03-25] MEDS: Enoxaparin Sodium 40 MG/0.4 ML SYRINGE SC SCH (09:06)
[2020-03-25] MEDS: Polyethylene Glycol 3350 17 GM Packet PO SCH (09:06)
[2020-03-25] MEDS: Bisacodyl 5 MG TAB PO SCH (09:06)
[2020-03-25] MEDS: Carvedilol 3.125 MG TAB PO SCH ×2 (09:07→15:43)
[2020-03-25] MEDS: Digoxin 0.125 MG TAB PO SCH (09:07)
[2020-03-25] MEDS: Metolazone 5 MG TAB PO SCH (09:08)
--- NOTE | 2020-03-25 11:01 | PRG ---
DATE OF SERVICE: 03/25/2020 SUBJECTIVE: Araceli Pollard this morning is awake, alert, and responsive. OBJECTIVE: VITAL SIGNS: Temperature is 97, pulse 91, saturations 98% on room air, respiratory rate 16, and blood pressure 116/76. LUNGS: Denies any shortness of breath, coughing, or wheezing. CHEST: No wheezing. No crackles. CARDIAC: Normal S1 and S2. No gallops. ABDOMEN: No masses. IMPRESSION AND PLAN: Mild ejection fraction. Sleep apnea, pulmonary hypertension, and pulmonary fibrosis. Pulmonary hawkins, she is stable to be discharged home any time. Pulmonary follow at a distance. Call if any questions. Job ID: [id number]
[2020-03-25] MEDS: Guaifenesin DM 100-10/5 ML UDCUP PO PRN ×2 (16:59→22:29)
[2020-03-25] MEDS: Acetaminophen 325 MG TAB PO PRN (22:40)
[2020-03-25 22:53] LABS: Digoxin 0.73 ng/mL (0.8-2.0)
--- NOTE | 2020-03-26 02:11 | EKG ---
Test Reason : Blood Pressure : / mmHG Vent. Rate : 082 BPM Atrial Rate : 082 BPM P-R Int : 144 ms QRS Dur : 088 ms QT Int : 414 ms P-R-T Axes : 059 023 -41 degrees QTc Int : 483 ms Sinus rhythm with Premature atrial complexes Low voltage QRS Cannot rule out Anteroseptal infarct , age undetermined Abnormal ECG When compared with ECG of 18-MAR-2020 13:30, (Unconfirmed) Minimal criteria for Anteroseptal infarct are now Present Confirmed by FRED LEONG MD ([id number]) on 03/26/2020 2:11:35 AM Referred By: MEGHAN armando Confirmed By:FRED LEONG MD
--- NOTE | 2020-03-26 02:13 | EKG ---
Test Reason : Blood Pressure : / mmHG Vent. Rate : 112 BPM Atrial Rate : 112 BPM P-R Int : 162 ms QRS Dur : 080 ms QT Int : 330 ms P-R-T Axes : 043 018 036 degrees QTc Int : 450 ms Sinus tachycardia with Premature atrial complexes Low voltage QRS RSR' or QR pattern in V1 suggests right ventricular conduction delay Borderline ECG Confirmed by FRED LEONG MD ([id number]) on 03/26/2020 2:13:31 AM Referred By: MEGHAN *r Confirmed By:FRED LEONG MD
--- NOTE | 2020-03-26 02:14 | EKG ---
Test Reason : Blood Pressure : / mmHG Vent. Rate : 177 BPM Atrial Rate : 177 BPM P-R Int : 104 ms QRS Dur : 070 ms QT Int : 284 ms P-R-T Axes : 000 -03 083 degrees QTc Int : 487 ms Supraventricular tachycardia RSR' or QR pattern in V1 suggests right ventricular conduction delay Septal infarct , age undetermined Abnormal ECG When compared with ECG of 20-MAR-2020 12:20, (Unconfirmed) Vent. rate has increased BY 65 BPM Non-specific change in ST segment in Lateral leads Nonspecific T wave abnormality, worse in Lateral leads Confirmed by FRED LEONG MD ([id number]) on 03/26/2020 2:14:04 AM Referred By: MEGHAN *r Confirmed By:FRED LEONG MD
--- NOTE | 2020-03-26 06:16 | PDOC.FM ---
- Subjective Subjective: Pt resting comfortably. Complains of dysuria and mild abdominal pain. - Objective Vital Signs & Weight: Vital Signs (12 hours) Temp Pulse Resp BP Pulse Ox 03/26/20 04:00 98.6 F 82 18 119/74 90 L 03/25/20 19:52 98.5 F 87 16 128/78 97 Weight Weight 89.811 kg I&O: 03/24/20 03/25/20 03/26/20 06:59 06:59 06:59 Intake Total 880 1500 870 Output Total 1350 1200 1425 Balance -470 300 -555 Result Diagrams: 03/26/20 06:28 03/26/20 08:50 Phys Exam - Physical Examination Constitutional: NAD Neck: supple velcro crackles Cardiovascular: RRR Gastrointestinal: soft, no distention mild tenderness to palpation Neurological: non-focal Dx/Plan - Plan Plan: 64 yo F here for acute on chronic CHF exacerbation Acute on chronic CHF vs COPD exacerbation - ECHO: cor pulmonale with EF 45-50% - cardiology consulted: stable for discharge, continue digoxin, switch metolazone to lasix - on baseline 2L NC O2 - CM and palliative care consulted for placement, pt family wants NH placement, not interested in hospice at this time Intermittent arrhythmia - 19 beat of SVT overnight - on home meds - Cardiology consulted Constipation - Patient with recent hx of stercoral colitis - Bowel regimen in place Hypotension - currently normotensive on digoxin. - dig level 0.73, therapeutic range 0.8-2 - Cards consulted Respiratory alkalosis - stable, will monitor Metabolic acidosis - resolved Hyperbilirubinemia-improving - 5.8-->3.1, likely from hepatic congestion - LFTs mildly elevated, improving Indeterminate trop - Likely from demand, troponins elevated but stable with trend EKG with no ST elevations - Tele monitoring. Physical deconditioning - Family would like NH placement - CM/PT/OT consulted COPD - PRN Duonebs - sPO2 target goal 88-92% Pulmonary HTN/Pulm fibrosis - Continue home O2 LEE -needs outpt f/u Admit:Tele/Inpt PCP: [facility] Dvt ppx: Lovenox Code:Full Dispo: Cardiology consulted, CM consulted, pending placement Addendum - Attending - Attending Attestation Date/Time: 03/26/20 1352 I personally evaluated the patient and discussed the management with Dr. Krishnamurthy. I agree with the History, Examination, Assessment and Plan documented above with any addition or exceptions noted below. Awaiting placement. Cardiology adjusted diuretics and signed off.
[2020-03-26 06:49] LABS: Hemoglobin 12.4 g/dL (12.0-16.0); Mean Corpuscular HGB CONC 30.2 g/dL (32.0-36.0); Mean Corpuscular Hemoglobin 28.3 pg (27.0-31.0); Mean Corpuscular Volume 93.7 fL (78.0-98.0); Mean Platelet Volume 9.8 fL (7.4-10.4); Platelet Count 203 thou/uL (130-400); RBC Distribution Width 17.8 % (11.5-14.5); Red Blood Cell (RBC) Count 4.39 mill/uL (4.20-5.40)
--- NOTE | 2020-03-26 07:12 | PRG ---
DATE OF SERVICE: 03/25/2020 SUBJECTIVE: Ms. Pollard is doing better. Her blood pressure appears to be stable, off Dobutrex and dobutamine. OBJECTIVE: VITAL SIGNS: Blood pressure 113/69, pulse rate 73, LUNGS: Clear to auscultation. HEART: Regular rate and rhythm. ABDOMEN: Soft, nontender, nondistended. EXTREMITIES: 1 to 2+ pitting edema. PERTINENT LABORATORY DATA: 0.7. IMPRESSION: 1. Right ventricular failure. 2. Pulmonary fibrosis. 3. ? Chronic obstructive pulmonary disease. RECOMMENDATIONS: Unfortunately, there are limited options for Ms. Pollard. It is fortunate that she is off of Dobutrex. At this point, we will continue with current medical therapy. Continue digoxin at a low dose. Continue carvedilol at low dose as well. We would recommend stopping metolazone and adding Lasix. Unfortunately, her prognosis appears poor. Hospice will be discussed with family. We will sign off. Job ID: [id number]
[2020-03-26 07:35] LABS: Band 5 % (5-11); Eosinophils 2 % (0-10); Hypochromia SLIGHT = 6-15 cells (100X) (0-5/hpf); Lymphocytes 37 % (21-51); MDiff Complete? YES; Monocytes 8 % (0-10); Neutrophil 45 % (42-75); Polychromasia MODERATE = 3-4 cells (100X) (0-2/hpf); Reactive Lymphocytes 3 % (0-10); Schistocytes SLIGHT = 2-5 cells (100X) (0-1/hpf); Spherocytes SLIGHT = 1-5 cells (100X) (None Seen); Target Cells MODERATE= 6-15 cells (100X) (0-1/hpf)
[2020-03-26] MEDS: Carvedilol 3.125 MG TAB PO SCH ×2 (09:06→18:17)
[2020-03-26] MEDS: Furosemide 20 MG TAB PO SCH (09:06)
[2020-03-26] MEDS: Digoxin 0.125 MG TAB PO SCH (09:06)
[2020-03-26] MEDS: Potassium Chloride 20 MEQ TAB PO SCH (09:06)
[2020-03-26] MEDS: predniSONE 5 MG TAB PO SCH (09:07)
[2020-03-26] MEDS: Enoxaparin Sodium 40 MG/0.4 ML SYRINGE SC SCH (09:07)
[2020-03-26] MEDS: Bisacodyl 5 MG TAB PO SCH (09:07)
[2020-03-26] MEDS: Polyethylene Glycol 3350 17 GM Packet PO SCH (09:08)
[2020-03-26 09:19] LABS: Anion Gap 15 mmol/L (10-20); BUN (Urea Nitrogen) 12 mg/dL (9.8-20.1); Calc. Creatinine Clearance 119 mL/min (70-130); Calcium 9.1 mg/dL (7.8-10.44); Carbon Dioxide 24 mmol/L (23-31); Chloride 100 mmol/L (98-107); Estimated GFR-MDRD Greater than 90; Glucose 88 mg/dL (80-115); Potassium 3.9 mmol/L (3.5-5.1); Sodium 135 mmol/L (136-145)
[2020-03-26 13:47] LABS: Bacteria/HPF 4+ HPF (None Seen); Bilirubin Negative (Negative); Blood, Urine Negative (Negative); Clarity Turbid (Clear); Glucose, Urine (Dipstick) Normal (Negative); Ketone, Urine Negative (Negative); Leukocyte 25 Leu/uL (Negative); Nitrite Negative (Negative); Protein, Urine (Dipstick) Negative (Neg-Trace); RBC/HPF 0-3 HPF (0-3); Squamous Epithelial 0-3 HPF (0-3); Urobilinogen Normal mg/dL (Less than 2); WBC/HPF 0-3 HPF (0-3); pH, Urine 6.5 (5.0-9.0)
[2020-03-26 13:54] LABS: Urine Culture Reflex Yes Yes
[2020-03-26 17:51] LABS: Bacteria/HPF None Seen HPF (None Seen); Bilirubin Negative (Negative); Blood, Urine Negative (Negative); Clarity Clear (Clear); Glucose, Urine (Dipstick) Normal (Negative); Ketone, Urine Negative (Negative); Leukocyte Negative Leu/uL (Negative); Nitrite Negative (Negative); Protein, Urine (Dipstick) Negative (Neg-Trace); RBC/HPF 0-3 HPF (0-3); Specific Gravity, Urine 1.006 (1.002-1.036); Squamous Epithelial 0-3 HPF (0-3); WBC/HPF 0-3 HPF (0-3)
[2020-03-26 17:57] LABS: Urine Culture Reflex No No
[2020-03-26] MEDS: Guaifenesin DM 100-10/5 ML UDCUP PO PRN (21:41)
--- NOTE | 2020-03-27 06:13 | PDOC.FM ---
- Subjective Subjective: Pt sitting up eating breakfast. Has no complaints. Nurse informed me that right groin was a little tender where the fem line was removed. On exam, it was slightly tender to palpation and firm. - Objective Vital Signs & Weight: Vital Signs (12 hours) Temp Pulse Resp BP Pulse Ox 03/27/20 03:50 98.3 F 86 16 120/74 91 L 03/26/20 19:25 97.9 F 61 16 118/73 91 L Weight Weight 89.811 kg I&O: 03/25/20 03/26/20 03/27/20 06:59 06:59 06:59 Intake Total 1500 870 720 Output Total 1200 1425 1050 Balance 317 -206 -419 Result Diagrams: 03/26/20 06:28 03/26/20 08:50 Phys Exam - Physical Examination Constitutional: NAD Neck: supple velcro crackles Cardiovascular: RRR heave noted Gastrointestinal: soft, non-tender, no distention Musculoskeletal: no edema R groin, firm nodule-like area where fem line removed, minimum tender to palpation, no erythema, edema or warmth Neurological: non-focal Deviation from normal: flat affect Dx/Plan - Plan Plan: 64 yo F here for acute on chronic CHF exacerbation Acute on chronic CHF vs COPD exacerbation - ECHO: cor pulmonale with EF 45-50% - cardiology consulted: stable for discharge - on baseline 2L NC O2 - CM and palliative care consulted for placement, pt family wants NH placement, not interested in hospice at this time Intermittent arrhythmia - on home meds - Cardiology consulted R groin pain -fem line removed on 03/22 -likely a hematoma, less likely thrombosed-distal extremeity pulse palpated, warm, no swelling or tenderness -will continue to monitor while in hospital, consider US if worsening Constipation - Patient with recent hx of stercoral colitis - Bowel regimen in place Hypotension - currently normotensive on digoxin. - Cards consulted Respiratory alkalosis - stable, will monitor Metabolic acidosis - resolved Hyperbilirubinemia-improving - 5.8-->3.1, likely from hepatic congestion - LFTs mildly elevated, improving Indeterminate trop - Likely from demand - Tele monitoring. Physical deconditioning - Family would like NH placement - CM/PT/OT consulted COPD - PRN Duonebs - sPO2 target goal 88-92% Pulmonary HTN/Pulm fibrosis - Continue home O2 LEE -needs outpt f/u Admit:Tele/Inpt PCP: [facility] Dvt ppx: Lovenox Code:Full Dispo: Cardiology signed off, CM consulted, pending placement Addendum - Attending - Attending Attestation Date/Time: 03/27/20 9740 I personally evaluated the patient and discussed the management with Dr. Krishnamurthy. I agree with the History, Examination, Assessment and Plan documented above with any addition or exceptions noted below. awaiting NH placement. Is stable for d/c whenever approved.
[2020-03-27] MEDS ORDERED: Metolazone 5 MG TAB PO SCH (09:00)
[2020-03-27] MEDS: Polyethylene Glycol 3350 17 GM Packet PO SCH (09:28)
[2020-03-27] MEDS: Digoxin 0.125 MG TAB PO SCH (09:28)
[2020-03-27] MEDS: Carvedilol 3.125 MG TAB PO SCH ×2 (09:28→17:12)
[2020-03-27] MEDS: Enoxaparin Sodium 40 MG/0.4 ML SYRINGE SC SCH (09:28)
[2020-03-27] MEDS: Potassium Chloride 20 MEQ TAB PO SCH (09:28)
[2020-03-27] MEDS: Furosemide 20 MG TAB PO SCH (09:28)
[2020-03-27] MEDS: Bisacodyl 5 MG TAB PO SCH (09:29)
[2020-03-27] MEDS: predniSONE 5 MG TAB PO SCH (09:29)
--- NOTE | 2020-03-27 10:59 | ULT ---
Exam:Rightlower extremity venous ultrasound with Doppler HISTORY: Right femoral catheter removed. Evaluate for thrombus. Rightlower extremity swelling COMPARISON: None TECHNIQUE: Grayscale, color flow, Doppler imaging and spectral wave muscle performed right lower extr emity venous system FINDINGS: There is compressibility, presence of flow and augmentation in the common femoral vein, femoral vein and popliteal vein. There is flow in the posterior tibial vein. There is flow in the greater saphenous vein and profunda femoral vein Right groin hematoma and soft tissue swelling. IMPRESSION: 1. No thrombus in the right lower extremity deep venous system. 2. Right superior right lower extremity swelling and right groin hematoma.
--- NOTE | 2020-03-28 06:19 | PDOC.FM ---
- Subjective Subjective: Pt resting comfortably. Denies N/V, SOB, CP. - Objective Vital Signs & Weight: Vital Signs (12 hours) Temp Pulse Resp BP Pulse Ox 03/28/20 04:09 98.1 F 96 18 126/65 95 03/28/20 01:10 97.3 F L 03/27/20 19:40 99.2 F 79 18 131/64 100 Weight Weight 81.647 kg I&O: 03/26/20 03/27/20 03/28/20 06:59 06:59 06:59 Intake Total 870 1220 770 Output Total 1425 1650 1400 Balance -510 -173 -619 Result Diagrams: 03/26/20 06:28 03/28/20 06:39 Phys Exam - Physical Examination Constitutional: NAD Neck: supple, full ROM Respiratory: no wheezing, clear to auscultation bilateral Cardiovascular: RRR, no significant murmur Gastrointestinal: soft, non-tender, no distention Musculoskeletal: edema present Neurological: non-focal Dx/Plan (1) Cor pulmonale Code(s): I27.81 - COR PULMONALE (CHRONIC) Status: Acute (2) Pulmonary fibrosis Code(s): J84.10 - PULMONARY FIBROSIS, UNSPECIFIED Status: Acute (3) COPD (chronic obstructive pulmonary disease) Status: Chronic (4) HTN (hypertension) Code(s): I10 - ESSENTIAL (PRIMARY) HYPERTENSION Status: Chronic - Plan Plan: 64 yo F here for acute on chronic CHF exacerbation Acute on chronic CHF vs COPD exacerbation - ECHO: cor pulmonale with EF 45-50% - cardiology consulted: stable for discharge - on baseline 2L NC O2 - CM and palliative care consulted for placement, pt family wants NH placement, not interested in hospice at this time Intermittent arrhythmia - on home meds - Cardiology consulted R groin hematoma -fem line removed on 03/22 -US: hematoma, no VTE Constipation - Patient with recent hx of stercoral colitis - Bowel regimen in place Hypotension - currently normotensive on digoxin. - Cards consulted Respiratory alkalosis - stable, will monitor Metabolic acidosis - resolved Hyperbilirubinemia-improving - 5.8-->3.1, likely from hepatic congestion - LFTs mildly elevated, improving Indeterminate trop - Likely from demand - Tele monitoring. Physical deconditioning - Family would like NH placement - CM/PT/OT consulted COPD - PRN Duonebs - sPO2 target goal 88-92% Pulmonary HTN/Pulm fibrosis - Continue home O2 LEE -needs outpt f/u Admit:Tele/Inpt PCP: [facility] Dvt ppx: Lovenox Code:Full Dispo: Cardiology signed off, CM consulted, pending placement Addendum - Attending - Attending Attestation Date/Time: 03/28/20 3075 I personally evaluated the patient and discussed the management with Dr. Krishnamurthy. I agree with the History, Examination, Assessment and Plan documented above with any addition or exceptions noted below. She appeared more obtunded this morning and her urine is much more concentrated. Her oxygen requirement has also gone up in the past 24 hrs. Given her frail state, will consult Dr. Rocha for HF management as I feel she may be d ecompensating again. Will d/c to NH once HF is optimized. She still remains a candidate for hospice.
[2020-03-28 07:07] LABS: Anion Gap 12 mmol/L (10-20); BUN (Urea Nitrogen) 10 mg/dL (9.8-20.1); Calc. Creatinine Clearance 115 mL/min (70-130); Carbon Dioxide 28 mmol/L (23-31); Chloride 98 mmol/L (98-107); Estimated GFR-MDRD Greater than 90; Glucose 88 mg/dL (80-115); Potassium 3.3 mmol/L (3.5-5.1); Sodium 135 mmol/L (136-145)
[2020-03-28] MEDS ORDERED: Potassium Chloride 20 MEQ TAB PO SCH ×2 (08:45→20:15)
[2020-03-28] MEDS: Bisacodyl 5 MG TAB PO SCH (09:29)
[2020-03-28] MEDS: Carvedilol 3.125 MG TAB PO SCH ×2 (09:29→16:19)
[2020-03-28] MEDS: Digoxin 0.125 MG TAB PO SCH (09:29)
[2020-03-28] MEDS: Enoxaparin Sodium 40 MG/0.4 ML SYRINGE SC SCH (09:29)
[2020-03-28] MEDS: Furosemide 20 MG TAB PO SCH (09:30)
[2020-03-28] MEDS: Polyethylene Glycol 3350 17 GM Packet PO SCH (09:30)
[2020-03-28] MEDS: predniSONE 5 MG TAB PO SCH (09:30)
[2020-03-28] MEDS: Potassium Chloride 20 MEQ TAB PO SCH (09:46)
[2020-03-28] MEDS ORDERED: Furosemide 20 MG/2 ML VIAL SLOW IVP SCH (12:00)
--- NOTE | 2020-03-28 12:07 | RAD ---
PORTABLE CHEST: Date: 03/28/2020 HISTORY: Mental status change. COMPARISON: 03/19/2020. FINDINGS/IMPRESSION: Cardiomegaly. Mild vascular and interstitial congestion. Small bilateral effusions. Interstitial prom inence may indicate superimposed interstitial disease with mild vascular and interstitial congestion. No significant interval change from . POS: [facility]
[2020-03-28] MEDS: Acetaminophen 325 MG TAB PO PRN (12:16)
[2020-03-28] MEDS: DOBUTamine 500 mg/250 ml 500 MG in Premix Bag 1 BAG IVPB SCH (13:55)
--- NOTE | 2020-03-28 18:16 | CON ---
DATE OF CONSULTATION: 03/28/2020 SERVICE: Advanced Heart Failure/Transplant Cardiology Consult Service. REASON FOR CONSULT: Management of right heart failure-cor pulmonale. HISTORY OF PRESENT ILLNESS: Ms. Araceli Pollard, 64-year-old lady with longstanding SLE and more recently pulmonary hypertension, was admitted for right heart failure. As of two years ago, Ms. Pollard was quite active. She can carry on her activities of daily living, walk around her house, go to store without too much problems. About one year ago, she was not moving that much. However, she still could walk around her house with the yard and do things around her house. However, she did not travel outside her house anymore. About three months ago that is when things really deteriorated that she has greatly decreased walking distance. She says it hurts to walk, lack of energy to walk. Then on January 18, 2020, that is when she was admitted for right heart failure/cor pulmonale. Apparently, she was diuresed, was sent home. Since then, she did have two more admissions, one for UTI and another one for GI bleed. She was at rehabilitation for about a month and she went home from the rehabilitation. She was seen on a regular basis by home healthcare. Then, she became less and less active. She nearly stopped eating and is not doing well. She was seen by home healthcare visit nurse. Home healthcare nurse thought that she is in a very bad shape and in pulmonary edema and called 911 for the patient to be transferred to [facility]. At [facility], echocardiogram was done. It showed extraordinarily enlarged right ventricle and right atrium showing that she has a right heart failure/cor pulmonale, likely due to severe pulmonary hypertension. She was on dobutamine that improved her situation. However, the inotrope was titrated off and she was put on digoxin. Unfortunately, she deteriorated on oral medications and she became nearly nonresponsive, thus the primary team called for help. PAST MEDICAL HISTORY: 1. Lupus. 2. Pulmonary hypertension. 3. Right heart failure/cor pulmonale. 4. COPD. 5. Pulmonary fibrosis. SOCIAL HISTORY: 1. She said she smoked for many years but stopped. She denies any alcohol use. 2. She denied illicit drug use. She lives with her daughter, Kamryn Polladr. FAMILY HISTORY: 1. Her father of myocardial infarction, but she does not remember at what age. 2. Her mother at age 70. She cannot really recall why she . REVIEW OF SYSTEMS: GENERAL: She is very fatigued, but there is no fever, chills. HEENT: There is no change in vision, hearing, or swallowing. PULMONARY: She is short of breath, needing oxygen and she has some cough. CARDIAC: She denies palpitations, syncope, or chest pain. GI: She currently does not have nausea, vomiting, or diarrhea. : She is able to urinate on her own. MUSCULOSKELETAL: She does have some back pain. INTEGUMENT: There is no skin breakdown. NEUROLOGIC: There are no new focal deficits or weaknesses. CURRENT MEDICATIONS: Include: 1. Dulcolax 10 mg daily. 2. Carvedilol 3.125 twice a day. 3. Digoxin 0.125 mg daily. 4. Enoxaparin 40 mg subcutaneous daily. 5. Furosemide 20 mg p.o. daily. 6. Protonix 40 mg daily. 7. MiraLAX 17 g daily. 8. K-Dur 30 mEq daily. 9. Prednisone 5 mg daily. Her telemetry was briefly reviewed. She is in sinus rhythm. PHYSICAL EXAMINATION: GENERAL: When I first arrived at the room, she was slumped over and groaning. VITAL SIGNS: Her heart rate is about 86, blood pressure is about 87/55. She was difficult to arouse. Dobutamine was quickly started at 2.5 mcg/kg/minute and then was titrated up to 5 mcg/kg/minute. After dobutamine reached 5 mcg/kg/minute in about 10 to 15 minutes, she has very much increased energy level. She opened her eyes and was able to converse. At the time, her heart rate was 88, blood pressure was 120/69, so dobutamine 5 mcg/kg per minute really helped her. HEENT: EOMI. Oropharynx is benign. NECK: Her JVP is very high as angle of jaw higher. PULMONARY: She has bilateral crackles. Some of this is pulmonary edema, Some of this is pulmonary fibrosis. CARDIAC: Regular rate and rhythm. Normal S1, S2. She has a loud 3/6 holosystolic murmur at the left sternal border corresponding to tricuspid regurgitation. She has a 2/6 holosystolic murmur at the apex with radiation to her left axilla corresponding to mitral regurgitation. She has significant right ventricular heave. ABDOMEN: Soft, nontender. Positive bowel sounds. EXTREMITIES: Her lower extremity has 0.5 cm pitting edema from her feet about a third way up. She has palpable dorsalis pedis pulses bilaterally. LABORATORY: Her laboratory value showed that white cell count is 11,000, hemoglobin is 12.4, and platelets 203. Her chemistry shows sodium 135, potassium 3.3, bicarb is 28, BUN 10, and creatinine 0.63. Her total bilirubin from March 23 is 3.1. Her echocardiogram from March 21, 2020, was reviewed. 1. She has a extraordinary dilated right ventricle that is about three times as her left ventricle. 2. On short axis view, there is definite D-shaped septum. Right ventricle is pushing on to the left ventricle and apical four chamber view shows the right ventricle is pushing into the left ventricular space. 3. There is a extraordinary dilated right atrium. 4. There is severe tricuspid regurgitation. 5. There is also mitral regurgitation present. 6. Her left ventricle ejection fraction is about 45%. This is affected by her right ventricle pushing in. ASSESSMENT: 64-year-old lady has severe right ventricular failure/cor pulmonale. This is due to untreated pulmonary hypertension. It is uncertain that this could be reversed or not. However, she has proven that she would need inotropic support for her right ventricle. Otherwise, she will not do well and likely perish. Her pulmonary edema is likely caused by her right ventricle pushing into her left. So, she would need both inotropic support and diuretics. At this hospital, there is no capability to diagnose or treat her pulmonary hypertension. If there is a strong desire for her pulmonary hypertension, right ventricular failure to be treated, we will need to refer to her a different center. I have initiated discussion with her daughter about this. Please see the following for my recommendations: RECOMMENDATIONS: 1. Continue dobutamine at 5 mcg/kg per minute, may titrate up as needed. 2. Tomorrow, I will make attempt to switch from dobutamine to milrinone. This will help to lower her pulmonary pressures better and help for long-term relief. 3. When she is able, we will use Lasix 40 mg IV to decrease her pulmonary edema. 4. Please discontinue carvedilol for now. It is making the problem worse for now. 5. Please hold family discussion session to discuss the options. One option is to transfer her to [facility] to diagnose and treat her pulmonary hypertension. This is her only chance of survival. The second option is to comfort care with milrinone and hospice. It has been a pleasure taking care of Mrs. Pollard. If you have any question, please give me a call. Time used is about 75 minutes. This includes personally performing history and physical, making multiple visits on the patient to titrate dobutamine, calling family members, reading echocardiogram, including the care with the primary team. Job ID: [id number] [id number]
[2020-03-28] MEDS ORDERED: Amiodarone 150 MG in Dextrose 5% in Water 100 ML IVPB SCH (20:00)
[2020-03-28] MEDS ORDERED: Amiodarone 450 MG in Dextrose 5% in Water 250 ML IVPB SCH (20:00)
[2020-03-28] MEDS ORDERED: Magnesium 2 GM/50 ML 2 GM in Premix Bag 1 BAG IVPB SCH (20:15)
[2020-03-28] MEDS ORDERED: Furosemide 40 MG/4 ML VIAL SLOW IVP SCH (21:15)
[2020-03-28 21:31] LABS: Chloride 93 mmol/L (98-107); Potassium 3.4 mmol/L (3.5-5.1); Sodium 134 mmol/L (136-145)
[2020-03-28 21:32] LABS: Calcium 9.3 mg/dL (7.8-10.44); Glucose 153 mg/dL (80-115)
[2020-03-28 21:34] LABS: Anion Gap 15 mmol/L (10-20); Carbon Dioxide 29 mmol/L (23-31)
[2020-03-28 21:36] LABS: Calc. Creatinine Clearance 92 mL/min (70-130); Estimated GFR-MDRD 88
[2020-03-28 21:37] LABS: BUN (Urea Nitrogen) 13 mg/dL (9.8-20.1)
[2020-03-28 21:38] LABS: Magnesium 1.4 mg/dL (1.6-2.6)
[2020-03-29 04:54] LABS: Anion Gap 15 mmol/L (10-20); BUN (Urea Nitrogen) 11 mg/dL (9.8-20.1); Calc. Creatinine Clearance 106 mL/min (70-130); Calcium 9.3 mg/dL (7.8-10.44); Carbon Dioxide 30 mmol/L (23-31); Chloride 92 mmol/L (98-107); Estimated GFR-MDRD Greater than 90; Glucose 120 mg/dL (80-115); Magnesium 1.6 mg/dL (1.6-2.6); Potassium 3.3 mmol/L (3.5-5.1); Sodium 134 mmol/L (136-145)
--- NOTE | 2020-03-29 07:05 | PDOC.FM ---
- Subjective Subjective: Pt was sleeping, but easy to arouse. No complaints overnight - Objective Vital Signs & Weight: Vital Signs (12 hours) Temp Pulse Resp BP Pulse Ox 03/29/20 04:00 98.2 F 76 22 H 103/55 L 99 03/29/20 01:45 100 03/29/20 00:01 109/57 L 03/28/20 19:50 99 F 93 20 106/58 L 100 Weight Admit Weight 86.863 kg Weight 76.839 kg I&O: 03/28/20 03/29/20 03/30/20 06:59 06:59 06:59 Intake Total 770 1000 Output Total 1400 3250 Balance -630 -2250 Result Diagrams: 03/26/20 06:28 03/29/20 04:18 Phys Exam - Physical Examination Neck: supple JVD velcro crackles Cardiovascular: RRR murmur consistent with TR, heave Gastrointestinal: soft, non-tender, no distention Musculoskeletal: edema present Neurological: non-focal Dx/Plan (1) Cor pulmonale Code(s): I27.81 - COR PULMONALE (CHRONIC) Status: Acute (2) Pulmonary fibrosis Code(s): J84.10 - PULMONARY FIBROSIS, UNSPECIFIED Status: Acute (3) COPD (chronic obstructive pulmonary disease) Status: Chronic (4) HTN (hypertension) Code(s): I10 - ESSENTIAL (PRIMARY) HYPERTENSION Status: Chronic - Plan Plan: 64 yo F here for acute on chronic CHF exacerbation Acute on chronic CHF vs COPD exacerbation -decompensated yesterday, AMS, SVT 160s - cardiology, Dr Rocha: dobutamine gtt, amiodarone gtt, will start 200mg amiodarone po bid after drip ends tonight, if family wants further treatment, she will need to transfer [facility] - ECHO: cor pulmonale with EF 45-50% - on baseline 2L NC O2 - CM and palliative care consulted - will call family and try and set up meeting with palliative care to discuss options going forward Intermittent arrhythmia - overnight SVT 160s, controlled with amiodarone gtt - Cardiology consulted R groin hematoma -fem line removed on 03/22 -US: hematoma, no VTE Constipation - Patient with recent hx of stercoral colitis - Bowel regimen in place Hypotension - likely due to severe right heart failure - dobutamine gtt - UCx: likely e.coli, will treat with rocephin - Cards consulted Respiratory alkalosis - stable, will monitor Metabolic acidosis - resolved Hyperbilirubinemia-improving - 5.8-->3.1, likely from hepatic congestion - LFTs mildly elevated, improving Indeterminate trop - Likely from demand - Tele monitoring. Physical deconditioning - Family would like NH placement - CM/PT/OT consulted COPD - PRN Duonebs - sPO2 target goal 88-92% Pulmonary HTN/Pulm fibrosis - Continue home O2 LEE -needs outpt f/u Admit:Tele/Inpt PCP: [facility] Dvt ppx: Lovenox Code:Full Dispo: Current worsening of sx of right heart failure, Dr Rocha consulted, appreciate recs, will discuss GOC/hospice with family and palliative care Addendum - Attending - Attending Attestation Date/Time: 03/29/20 8581 I personally evaluated the patient and discussed the management with Dr. Krishnamurthy. I agree with the History, Examination, Assessment and Plan documented above with any addition or exceptions noted below. Family has decided on hospice care at this point. Dr. Rocha adjusting HF meds for maximum patient comfort. CM consulted for assistance on placement.
[2020-03-29] MEDS ORDERED: Potassium Chloride 20 MEQ in Premix Bag 1 BAG IVPB SCH (08:30)
[2020-03-29] MEDS: Bisacodyl 5 MG TAB PO SCH (09:06)
[2020-03-29] MEDS: Potassium Chloride 20 MEQ TAB PO SCH (09:06)
[2020-03-29] MEDS: Enoxaparin Sodium 40 MG/0.4 ML SYRINGE SC SCH (09:07)
[2020-03-29] MEDS: Furosemide 20 MG TAB PO SCH (09:07)
[2020-03-29] MEDS: predniSONE 5 MG TAB PO SCH (09:07)
[2020-03-29] MEDS: cefTRIAXone\\ROCEPHIN 1 GM in Sodium Chloride 0.9% 100 ML IVPB SCH (09:08)
[2020-03-29] MEDS: Acetaminophen 325 MG TAB PO PRN (09:08)
[2020-03-29] MEDS: Polyethylene Glycol 3350 17 GM Packet PO SCH (09:09)
[2020-03-29] MEDS: Carvedilol 3.125 MG TAB PO SCH ×2 (09:09→17:39)
--- NOTE | 2020-03-29 12:59 | PRG ---
DATE OF SERVICE: 03/29/2020 SUBJECTIVE: Ms. Araceli Pollard had a long variable day. I found her slumped over. With the help of the nurse, the dobutamine was started. Dobutamine 2.5 helped her to wake up, but then the blood pressure was still low. Dobutamine 5 mcg/kg/minute brought her blood pressure to about 110 to 120. Then, she regained full consciousness and became conversant. She did well for a while. I offered facilitating transfer her to either [facility] or [facility] in [place]. The rationale for transfer is to treat her pulmonary hypertension. Treating her pulmonary hypertension can improve her situation and help to reverse her right heart failure. With her newfound consciousness, she had a family meeting late yesterday afternoon early evening. As last night, she and her family decided that they do not want to be transferred to [place], rather they want to go on hospice comfort, meaning that they want to have a good cardiac output, so she can be alert and conversant. About 9 o'clock last night, she had some bouts of SVT. At that time, her magnesium was low at 1.4. Her potassium was still low at 3.3. Dobutamine was titrated, electrolyte was supplemented, and amiodarone was started. Since then, she has been in normal sinus rhythm. REVIEW OF SYSTEMS: GENERAL: She is much more alert and conversational today. HEENT: There is no change in vision, hearing, or swallowing. PULMONARY: She is less short of breath today. CARDIAC: There is no complaint of chest pain, palpitations, or syncope. GASTROINTESTINAL: There is no nausea, vomiting, or diarrhea. MUSCULOSKELETAL: There is no complaint of muscle or joint pains. INTEGUMENT: There is no complaint of new skin breakdown. NEUROLOGIC: There are no focal deficits or weaknesses. OBJECTIVE: TELEMETRY: She had bouts of SVT between 7 and 9 o'clock last night. Once electrolyte correction and amiodarone started, that went away. Now, she is in sinus rhythm. VITAL SIGNS: Her current vitals are heart rate 76, blood pressure 104/59. Her second blood pressure later on was 93/55. GENERAL: She is alert and conversational today, much improved since yesterday. HEENT: Show EOMI. NECK: Her JVP is elevated about 13 cm right at angular jaw. PULMONARY: She has bilateral crackles in both sides of the lungs from mid to down. CARDIAC: Regular rate and rhythm. Normal S1 and S2. There is a 3/6 holosystolic murmur at the left upper sternal border. There is also a 2/6 systolic holosystolic murmur at the apex. ABDOMEN: Soft and nontender. Mildly distended. EXTREMITIES: Lower extremities about 0.5 cm pitting edema from her feet up towards the knees. LABORATORY VALUES: Her chemistry shows sodium 134, potassium 3.3, BUN 11, and creatinine 0.68. ASSESSMENT: 64-year-old lady is suffering from right ventricular failure, which is cor pulmonale from pulmonary hypertension. The supraventricular tachycardia was caused by combination of electrolyte loss and her underlying dilated right atrium. It has proven that she needs inotropic to survive with quality of life. Thus, we need to find a way to provide her sufficient inotropic, so she will do well enough to have a comfortable hospice experience. Please see the following for my recommendations. RECOMMENDATIONS: 1. Increase dobutamine to 5 mcg/kg/minute. 2. Per the primary team's wishes, I will facilitate a transition to milrinone. This will be done after she comes back from her PICC line placement. This includes running parallel milrinone at 0.125 mcg/kg/minute. If her systolic blood pressure does not drop, then we will increase milrinone to 0.25 mcg/kg/minute and decrease dobutamine down to 2.5. If everything goes well for another 2 hours, then we will increase milrinone to 0.37 mcg/kg/minute while dropping dobutamine to off. 3. Please continue her amiodarone IV drips. She should be having 1 mg/minute for 6 hours and 0.5 mg/minute for 18 hours. Afterwards, convert her to amiodarone 200 mg by mouth twice a day, but provide at least 1 hour overlap between oral amiodarone and IV amiodarone. 4. Please give her Lasix 40 mg IV b.i.d. today to get her dry as possible. 5. Please supplement her potassium to make it 4. Please supplement her magnesium to make it 2. It has been a pleasure taking care of Ms. Pollard. If you have any questions, please give me a call. The visitation time is 60 minutes. This includes making multiple visits, making titration of IV medications, personally performing history and physical, explaining and counseling Ms. Pollard and her daughter on multiple occasions. Job ID: [id number] MTDD
--- NOTE | 2020-03-29 13:44 | SPC ---
Left approximately PICC placement sonographic guided HISTORY: Cardiac failure. FINDINGS: After explaining the procedure and answering all questions, the left upper extremity was pr epped and draped in usual sterile fashion. Sterile technique, buffered local anesthesia, sonographic guidance, and a 22-gauge needle were used t o carefully access the left basilic vein. Standard technique was used to place a tip of a 5 Thai single lumen PICC so that the tip lies at the level of the cavoatrial junction. Catheter was flushed and secured externally. Patient tolerated the procedure well and was returned in unchanged condition. Fluoroscopy time 0 seconds. IMPRESSION : Left upper extremity PICC is ready for use.
[2020-03-29] MEDS ORDERED: Magnesium 2 GM/50 ML 1 GM in Premix Bag 1 BAG IVPB SCH (14:45)
[2020-03-29] MEDS: DOBUTamine 500 mg/250 ml 500 MG in Premix Bag 1 BAG IVPB SCH (17:36)
[2020-03-29 21:40] LABS: Anion Gap 19 mmol/L (10-20); BUN (Urea Nitrogen) 11 mg/dL (9.8-20.1); Calc. Creatinine Clearance 94 mL/min (70-130); Calcium 9.3 mg/dL (7.8-10.44); Carbon Dioxide 23 mmol/L (23-31); Chloride 95 mmol/L (98-107); Estimated GFR-MDRD Greater than 90; Glucose 104 mg/dL (80-115); Magnesium 2.1 mg/dL (1.6-2.6); Potassium 4.6 mmol/L (3.5-5.1); Sodium 132 mmol/L (136-145)
[2020-03-29] MEDS: Amiodarone 200 MG TAB PO SCH (22:29)
--- NOTE | 2020-03-30 06:18 | PDOC.FM ---
- Subjective Subjective: Patient is resting comfortably in bed, looking at breakfast menu. In no acute distress. No events overnight. Reports that her IV in her right arm bothers her. No chest pain, shortness of breath abdominal pain. - Objective MAR Reviewed: Yes Vital Signs & Weight: Vital Signs (12 hours) Temp Pulse Resp BP Pulse Ox 03/30/20 04:00 78 15 107/59 L 95 03/30/20 00:00 75 03/29/20 20:00 97.7 F 71 19 100/63 97 Weight Admit Weight 86.863 kg Weight 81.374 kg I&O: 03/28/20 03/29/20 03/30/20 06:59 06:59 06:59 Intake Total 770 1000 1380.6 Output Total 1400 3250 700 Balance -630 -2250 680.6 Result Diagrams: 03/26/20 06:28 03/29/20 21:11 Phys Exam - Physical Examination HEENT: PERRLA, moist MMs JVD crackles Cardiovascular: RRR Gastrointestinal: soft, non-tender, positive bowel sounds Musculoskeletal: edema present Neurological: non-focal, moves all 4 limbs Psychiatric: A&O x 3 Dx/Plan - Plan Plan: 64 yo F here for acute on chronic CHF exacerbation Acute on chronic CHF vs COPD exacerbation -decompensated yesterday, AMS, SVT 160s - cardiology, Dr Rocha: dobutamine gtt, 200mg amiodarone po bid, titrating milrinone drip, recommended 40 IV lasix BID, with close monitoring of kidney function - kidney function remains stable today -- appreciate Dr. Rocha's recs. - ECHO: cor pulmonale with EF 45-50% - on baseline 2L NC O2 - CM and palliative care consulted - discussed with family, plan is for patient to go to senior care on hospice, will remain full code while at hospital Intermittent arrhythmia - overnight - SVT 160s, Dr. Rocha managing as above, appreciate recs - last night NSR R groin hematoma -fem line removed on 03/22 -US: hematoma, no VTE Constipation - Patient with recent hx of stercoral colitis - Bowel regimen in place Hypotension - likely due to severe right heart failure - dobutamine gtt - Cards consulted Respiratory alkalosis - stable, will monitor Metabolic acidosis - resolved Hyperbilirubinemia-improved - 5.8-->3.1, likely from hepatic congestion - LFTs mildly elevated, improved - will recheck in am Indeterminate trop - Likely from demand - Tele monitoring. Physical deconditioning - Family would like NH placement - CM/PT/OT consulted COPD - PRN Duonebs - sPO2 target goal 88-92% Pulmonary HTN/Pulm fibrosis - Continue home O2 LEE -needs outpt f/u Admit:Tele/Inpt PCP: [facility] Dvt ppx: Lovenox Code:Full Dispo: Current worsening of sx of right heart failure, Dr Rocha consulted, appreciate recs, CM and palliative working on [place] hospice Addendum - Attending - Attending Attestation Date/Time: 03/30/20 8588 I personally evaluated the patient and discussed the management with Dr. Dumont. I agree with the History, Examination, Assessment and Plan documented above with any addition or exceptions noted below. Patient is stable. Still on drip. Awaiting senior care placement to proceed with hospice.
[2020-03-30] MEDS: Furosemide 40 MG/4 ML VIAL SLOW IVP SCH ×2 (06:25→14:26)
[2020-03-30] MEDS: predniSONE 5 MG TAB PO SCH (09:40)
[2020-03-30] MEDS: Potassium Chloride 20 MEQ TAB PO SCH (09:40)
[2020-03-30] MEDS: Carvedilol 3.125 MG TAB PO SCH ×2 (09:41→16:52)
[2020-03-30] MEDS: Amiodarone 200 MG TAB PO SCH ×2 (09:41→20:46)
[2020-03-30] MEDS: Bisacodyl 5 MG TAB PO SCH (09:42)
[2020-03-30] MEDS: Polyethylene Glycol 3350 17 GM Packet PO SCH (09:42)
[2020-03-30] MEDS: Enoxaparin Sodium 40 MG/0.4 ML SYRINGE SC SCH ×2 (09:42→09:51)
[2020-03-30] MEDS: cefTRIAXone\\ROCEPHIN 1 GM in Sodium Chloride 0.9% 100 ML IVPB SCH (09:45)
[2020-03-30] MEDS: DOBUTamine 500 mg/250 ml 500 MG in Premix Bag 1 BAG IVPB SCH (14:36)
--- NOTE | 2020-03-30 17:52 | EKG ---
Test Reason : Blood Pressure : / mmHG Vent. Rate : 100 BPM Atrial Rate : 100 BPM P-R Int : 160 ms QRS Dur : 084 ms QT Int : 356 ms P-R-T Axes : 044 010 009 degrees QTc Int : 459 ms Sinus rhythm with Premature atrial complexes Low voltage QRS Nonspecific ST and T wave abnormality Abnormal ECG Confirmed by AMA VALENTIN, KINZA ([id number]), fan mail editor NAKIA SINGH ([id number]) on 03/30/2020 5:51:56 PM Referred By: Confirmed By:KINZA SERRATO MD
[2020-03-30] MEDS ORDERED: Sodium Chloride 0.65% Nasal 44 ML BOT EA NARE PRN (18:08)
[2020-03-30 19:14] LABS: Anion Gap 19 mmol/L (10-20); BUN (Urea Nitrogen) 10 mg/dL (9.8-20.1); Calc. Creatinine Clearance 97 mL/min (70-130); Calcium 9.5 mg/dL (7.8-10.44); Carbon Dioxide 26 mmol/L (23-31); Chloride 93 mmol/L (98-107); Estimated GFR-MDRD Greater than 90; Glucose 87 mg/dL (80-115); Magnesium 1.6 mg/dL (1.6-2.6); Potassium 3.8 mmol/L (3.5-5.1); Sodium 134 mmol/L (136-145)
[2020-03-30] MEDS: Mometasone 200 MCG/Formoterol 5 MCG 120 PUFF INHALER INH SCH (19:37)
[2020-03-30] MEDS ORDERED: diphenhydrAMINE 25 MG CAP PO SCH (22:00)
[2020-03-30 23:06] LABS: Anion Gap 15 mmol/L (10-20); BUN (Urea Nitrogen) 10 mg/dL (9.8-20.1); Calc. Creatinine Clearance 101 mL/min (70-130); Calcium 9.2 mg/dL (7.8-10.44); Carbon Dioxide 28 mmol/L (23-31); Chloride 93 mmol/L (98-107); Estimated GFR-MDRD Greater than 90; Glucose 87 mg/dL (80-115); Magnesium 1.6 mg/dL (1.6-2.6); Potassium 3.6 mmol/L (3.5-5.1); Sodium 132 mmol/L (136-145)
[2020-03-31] MEDS: Furosemide 40 MG/4 ML VIAL SLOW IVP SCH ×2 (05:03→13:50)
--- NOTE | 2020-03-31 06:38 | PDOC.FM ---
- Subjective Subjective: Patient is resting comfortably in bed. No concerns. Overnight, residents got a call that patient was having chest pain, reportedly had it throughout the day yesterday, EKG was done and was wnl. Patient no longer having chest pain this morning, denies shortness of breath, abdominal pain , N/V. - Objective MAR Reviewed: Yes Vital Signs & Weight: Vital Signs (12 hours) Temp Pulse Resp BP Pulse Ox 03/31/20 04:00 80 16 121/65 94 L 03/30/20 20:00 98.3 F 80 20 108/59 L 94 L 03/30/20 19:38 95 03/30/20 19:37 18 94 L Weight Admit Weight 86.863 kg Weight 77.292 kg I&O: 03/29/20 03/30/20 03/31/20 06:59 06:59 06:59 Intake Total 1000 1380.6 810 Output Total 3250 700 2300 Balance -2250 680.6 -1490 Result Diagrams: 03/26/20 06:28 03/30/20 22:34 Phys Exam - Physical Examination Constitutional: NAD HEENT: PERRLA, moist MMs Respiratory: no wheezing, clear to auscultation bilateral Cardiovascular: RRR, no significant murmur Gastrointestinal: soft, non-tender, positive bowel sounds Musculoskeletal: no edema Neurological: non-focal, moves all 4 limbs Psychiatric: A&O x 3 Skin: no rash Dx/Plan - Plan Plan: 64 yo F here for acute on chronic CHF exacerbation Acute on chronic CHF vs COPD exacerbation - cardiology, Dr Rocha: dobutamine gtt, 200mg amiodarone po bid, titrating milrinone drip, recommended 40 IV lasix BID, with close monitoring of kidney function - kidney function remains stable today -- appreciate Dr. Rocha's recs. - ECHO: cor pulmonale with EF 45-50% - on baseline 2L NC O2 - CM and palliative care consulted - discussed with family, plan is for patient to go to senior care on hospice, will remain full code while at hospital Intermittent arrhythmia - Dr. Rocha managing as above, appreciate recs - last night NSR R groin hematoma -fem line removed on 03/22 -US: hematoma, no VTE Constipation - Patient with recent hx of stercoral colitis - Bowel regimen in place Hypomagnesemia Mag 1.6 - will give 2gm mag - recheck at 1400 Hypotension - likely due to severe right heart failure - dobutamine gtt - Cards consulted Respiratory alkalosis - stable, will monitor Metabolic acidosis - resolved Hyperbilirubinemia-improved - 5.8-->3.1, likely from hepatic congestion - LFTs mildly elevated, improved Indeterminate trop - Likely from demand - Tele monitoring. Physical deconditioning - Family would like NH placement - CM/PT/OT consulted COPD - PRN Duonebs - sPO2 target goal 88-92% Pulmonary HTN/Pulm fibrosis - Continue home O2 LEE -needs outpt f/u Admit:Tele/Inpt PCP: [facility] Dvt ppx: Lovenox Code:Full Dispo: Current worsening of sx of right heart failure, Dr Rocha consulted, appreciate recs, CM and palliative working on [place] hospice Addendum - Attending - Attending Attestation Date/Time: 03/31/20 8105 I personally evaluated the patient and discussed the management with Dr. Dumont. I agree with the History, Examination, Assessment and Plan documented above with any addition or exceptions noted below. Pt is feeling well this morning. She had no complaints. Continuing current meds and planning on d/c to nursing facility on hospice when accepted.
[2020-03-31] MEDS: Mometasone 200 MCG/Formoterol 5 MCG 120 PUFF INHALER INH SCH ×2 (06:45→18:59)
[2020-03-31] MEDS ORDERED: Magnesium 2 GM/50 ML 2 GM in Premix Bag 1 BAG IVPB SCH (07:45)
--- NOTE | 2020-03-31 08:17 | PRG ---
DATE OF SERVICE: 03/30/2020 SERVICE: Advanced Heart Failure Cardiology Consult Service. SUBJECTIVE: Mrs. Pollard had a good day. She has increasing energy level, much more talkative and that she has decreasing oxygen needs. Now, she is saturating at 95% on room air, so she does not need oxygen anymore. She feels good. Complains that her nose is stuffy and when she tries to pick her nose, it does not help with that. The family has chosen to go hospice. However, there is no facility that will take her on a drip. The family now decided to either going to take her home with the drip or stop the drip and transition to a skilled facility. REVIEW OF SYSTEMS: GENERAL: There is no fever, chills, or productive cough. HEENT: There is no change in hearing, swallowing or vision. PULMONARY: She is breathing easier. CARDIAC: There is no complaint of chest pain, palpitations, or syncope. GI: There is no nausea, vomiting, or diarrhea. She wants to eat. : She is incontinent. MUSCULOSKELETAL: There are no muscle pains or joint pains. INTEGUMENT: There is no new skin breakdown. NEUROLOGIC: There are no new focal deficits or weaknesses. MEDICATIONS: 1. Amiodarone 200 mg b.i.d. 2. Carvedilol 3.125 b.i.d. 3. Ceftriaxone 1 g daily. 4. Dobutamine currently at 5 mcg/kg. 5. Enoxaparin 40 mg at bedtime. 6. Lasix 40 mg IV b.i.d. 7. Zofran as needed. 8. Protonix 40 mg daily. 9. K-Dur 30 mEq daily. 10. Prednisone 5 mg daily. LABORATORY DATA: Sodium 132, potassium 4.6, chloride 95, bicarb 23, and magnesium 2.1. PHYSICAL EXAMINATION: LATEST VITAL SIGNS: Blood pressure 133/70, today her blood pressure ranged between 98 to 113. GENERAL: She is alert, calm, conversational. This is the best I have ever seen her. HEENT: Shows EOMI. Oropharynx is benign with moist mucosa. NECK: Her JVP is elevated around 12 to 13 cm. LUNGS: She has diffuse bilateral Velcro-like crackles. This is pulmonary fibrosis. However, she also has some crackles due to pulmonary edema at the bases, more prominent on the left. CARDIAC: Regular rate and rhythm. Normal S1, S2. There is 2/6 holosystolic murmur at the apex with radiation to the left axilla. There is also 2/6 holosystolic murmur at the left upper sternal border. Consequently, she has mitral regurgitation and tricuspid regurgitation. ABDOMEN: Soft, nontender. Positive bowel sounds. EXTREMITIES: She has edema about her hip and her thighs and edema about her legs. ASSESSMENT: 64-year-old -[place] lady is improving on dobutamine and diuretics. She has pulmonary fibrosis and severe pulmonary hypertension causing right ventricular failure. Thus, it is cor pulmonale. Currently, augmenting her right ventricle has improved her situation greatly. However, if dobutamine is stopped, she will perish. She also has quite a bit of volume left, so continuation of diuresis would help. Dobutamine was continued due to her low BP at times. Furthermore, dobutamine has half life about 2 minutes and is not renally cleared. Thus, it will be a safer choice than milrinone. I understand that the family is trying to decide whether to stop the dobutamine or not. Apparently, the current plan is to keep the dobutamine going, use IV Lasix to dry her out as much as possible. That way, when she is transitioned to a facility, she would be off dobutamine, but it would be easier transition without going into pulmonary edema right away. Please see the following for my recommendations. RECOMMENDATIONS: 1. Provide nasal saline spray to clear her nose. 2. Discontinue carvedilol. 3. Add Dulera 200/5 inhaler q.12 hours, this helps to breathe. 4. Continue dobutamine at 5 mcg/kg/minute. 5. Continue with Lasix 40 mg IV b.i.d. 6. Transition to amiodarone 200 mg p.o. b.i.d. when 24 hours of IV amiodarone is completed. 7. Keep potassium at 4 or higher and keep magnesium at 2.0 or higher. It has been a pleasure taking care of Mrs. Pollard. If you have any questions, please give me a call. The total visitation time is 30 minutes. Job ID: [id number] [facility]
[2020-03-31 09:59] LABS: Anion Gap 15 mmol/L (10-20); BUN (Urea Nitrogen) 11 mg/dL (9.8-20.1); Calc. Creatinine Clearance 94 mL/min (70-130); Calcium 9.6 mg/dL (7.8-10.44); Carbon Dioxide 32 mmol/L (23-31); Chloride 91 mmol/L (98-107); Estimated GFR-MDRD Greater than 90; Glucose 81 mg/dL (80-115); Magnesium 1.6 mg/dL (1.6-2.6); Sodium 135 mmol/L (136-145)
[2020-03-31 10:02] LABS: Potassium 2.9 mmol/L (3.5-5.1)
[2020-03-31] MEDS ORDERED: Potassium Chloride 20 MEQ TAB PO SCH (10:15)
[2020-03-31] MEDS: Bisacodyl 5 MG TAB PO SCH (10:35)
[2020-03-31] MEDS: Potassium Chloride 20 MEQ TAB PO SCH (10:35)
[2020-03-31] MEDS: Amiodarone 200 MG TAB PO SCH ×2 (10:35→20:23)
[2020-03-31] MEDS: predniSONE 5 MG TAB PO SCH (10:36)
[2020-03-31] MEDS: Enoxaparin Sodium 40 MG/0.4 ML SYRINGE SC SCH (10:36)
[2020-03-31] MEDS: Polyethylene Glycol 3350 17 GM Packet PO SCH (10:36)
--- NOTE | 2020-03-31 13:22 | PRG ---
DATE OF SERVICE: 03/31/2020 SUBJECTIVE: Ms. Araceli Pollard had a good day. She was energetic and interactive with her family. She said she is breathing well. Her breathing has improved. She has increasing appetite, but she does find the food generally unappetizing. Right now, she has no complaints. She believes that she is getting a bit stronger and then she felt like the fluid level also coming off her. REVIEW OF SYSTEMS: GENERAL: There is no fever, chills, or productive cough. HEENT: There is no change in vision, hearing, or swallowing. PULMONARY: There is no shortness of breath. CARDIAC: There is no palpitation, chest pain, or syncope. GI: There is no nausea, vomiting, diarrhea. : She is incontinent. MUSCULOSKELETAL: She has left hip pain from her past hip surgery. INTEGUMENT: There is no new skin breakdown. NEUROLOGIC: There are no focal deficits or weaknesses. CURRENT MEDICATIONS: Include: 1. Albuterol and ipratropium nebs q.4 hours. 2. Amiodarone 200 mg b.i.d. 3. Ceftriaxone 1 g daily. 4. Dobutamine currently at 5 mcg/kg per minute. 5. Enoxaparin 40 mg subcutaneous daily. 6. Furosemide 40 mg IV twice a day. 7. Dulera 200/5 mcg two puffs twice a day. 8. Pantoprazole 40 mg daily. 9. MiraLAX 17 g daily. 10. K-Dur at 30 mEq daily. 11. Prednisone 5 mg daily. 12. Nasal saline spray as needed. OBJECTIVE: VITAL SIGNS: Heart rate 85, blood pressure 117/69, and her oxygen saturations 96% on room air. GENERAL: She is alert and conversational, sitting comfortably in bed, finishing her breakfast. HEENT: Shows EOMI. Oropharynx is benign with moist mucosa, poor dentition. NECK: Her JVP is still elevated about 13 cm. PULMONARY: There are bilateral Velcro-like crackles corresponding to pulmonary fibrosis. She also has crackles more duong to pulmonary edema at bilateral bases. CARDIAC: Normal rate and rhythm. Normal S1, S2. There is significant right ventricular heave, it is very prominent. There is a 2/6 holosystolic murmur at the left sternal border. There is also 2/6 holosystolic murmur at the apex with radiation to left axilla. ABDOMEN: Soft, nontender. Positive bowel sounds. There is still some fluid in the abdomen. There is also pitting edema at hips and also thighs. EXTREMITIES: Her lower extremities are warm and well perfused. There is slight pitting edema from feet to knees. LABORATORY VALUES: White cell count 11, hemoglobin at 12.4, and platelets at 203. Her chemistry came back this morning, sodium 135, potassium 2.9, chloride 91, bicarbonate is 32, and magnesium 1.6. ASSESSMENT: 64-year-old lady is doing well with dobutamine augmenting her right ventricle. She has severe right ventricular failure/cor pulmonale. Severe pulmonary hypertension has caused her right heart failure. Her right heart actually pushes on the left heart, so the left heart is difficult to fill because of that too. She is diuresing well. At this point with plan for hospice, we will need to aim to diurese as much as possible while keeping her kidneys intact and give her a comfortable transition. Her potassium and magnesium electrolyte values are very too low. These need to be aggressively supplemented. Please see the following for my recommendations. RECOMMENDATIONS: 1. Continue dobutamine at 5 mcg/kg per minute. 2. The night before discharge to her facility, decrease to 2.5 mcg/kg per minute and then you can turn off dobutamine right before she discharge. This would provide her best comfort. 3. Please give potassium chloride 40 mEq IV one dose now and also needs to be supplemented by potassium oral 40 mEq one dose. Please also increase her oral potassium supplement. 4. Please give magnesium sulfate 2 g IV one dose now. 5. The labs need to be rechecked this afternoon and supplement as needed. 6. Please also give acetazolamide 250 mg p.o. one dose. This is for her diuretic-induced alkalosis. It has been a pleasure taking care of Ms. Araceli Pollard. I will be rotating off today. If you have any further questions, please feel free to give me a call. The total visit time is 40 minutes. [facility] ID[facility] [id number] [facility]
[2020-03-31] MEDS: cefTRIAXone\\ROCEPHIN 1 GM in Sodium Chloride 0.9% 100 ML IM SCH (13:48)
[2020-03-31] MEDS: Sterile Water 10 ML VIAL FS PRN (13:49)
[2020-03-31] MEDS ORDERED: AcetaZOLAMIDE 250 MG TAB PO SCH (14:00)
[2020-03-31] MEDS: Calcium Carbonate 500 MG ChewTAB PO PRN ×2 (18:51→23:17)
[2020-03-31 21:53] LABS: Anion Gap 14 mmol/L (10-20); BUN (Urea Nitrogen) 13 mg/dL (9.8-20.1); Calc. Creatinine Clearance 79 mL/min (70-130); Calcium 9.5 mg/dL (7.8-10.44); Carbon Dioxide 30 mmol/L (23-31); Chloride 92 mmol/L (98-107); Estimated GFR-MDRD 79; Glucose 119 mg/dL (80-115); Magnesium 1.9 mg/dL (1.6-2.6); Potassium 3.4 mmol/L (3.5-5.1); Sodium 133 mmol/L (136-145)
[2020-04-01] MEDS: Furosemide 40 MG/4 ML VIAL SLOW IVP SCH (06:03)
--- NOTE | 2020-04-01 06:41 | PDOC.FM ---
- Subjective Subjective: Pt awake and alert this morning. Complaining of pain in L arm where past IV had been. Tolerating diet. No CP, SOB. - Objective Vital Signs & Weight: Vital Signs (12 hours) Temp Pulse Resp BP Pulse Ox 04/01/20 03:41 98.3 F 86 18 120/67 94 L 04/01/20 00:00 83 133/70 03/31/20 20:00 93 L 03/31/20 19:51 98.7 F 81 110/67 93 L 03/31/20 19:00 94 L 03/31/20 18:59 94 L Weight Admit Weight 86.863 kg Weight 78.471 kg I&O: 03/30/20 03/31/20 04/01/20 06:59 06:59 06:59 Intake Total 1380.6 950 720 Output Total 700 2900 825 Balance 680.6 -1950 -105 Result Diagrams: 04/01/20 09:04 04/01/20 09:04 Phys Exam - Physical Examination Constitutional: NAD Neck: supple Respiratory: no wheezing, clear to auscultation bilateral Cardiovascular: RRR murmur, heave Gastrointestinal: soft, non-tender, no distention Musculoskeletal: no edema Neurological: moves all 4 limbs Skin: no rash Dx/Plan (1) Cor pulmonale Code(s): I27.81 - COR PULMONALE (CHRONIC) Status: Acute (2) Pulmonary fibrosis Code(s): J84.10 - PULMONARY FIBROSIS, UNSPECIFIED Status: Acute (3) COPD (chronic obstructive pulmonary disease) Status: Chronic (4) HTN (hypertension) Code(s): I10 - ESSENTIAL (PRIMARY) HYPERTENSION Status: Chronic - Plan Plan: 64 yo F here for acute on chronic CHF exacerbation Acute on chronic CHF vs COPD exacerbation - cardiology, Dr Rocha: dobutamine gtt, decrease to 2.5mcg/min the night before discharge, monitor kidney function, K and Mg closely - BUN/Cr slightly increased today, Dr Rocha recommended to stop lasix IV and start bumex 1mg po bid - ECHO: cor pulmonale with EF 45-50% - on baseline 2L NC O2 - CM and palliative care consulted - discussed with family, plan is for patient to go to group home on hospice, will remain full code while at hospital Intermittent arrhythmia - Dr. Rocha managing as above, appreciate recs - last night NSR R groin hematoma -fem line removed on 03/22 -US: hematoma, no VTE Constipation - Patient with recent hx of stercoral colitis - Bowel regimen in place Hypomagnesemia - Mg goal 2 - will replace as necessary and monitor bid Hypotension - likely due to severe right heart failure - dobutamine gtt - Cards consulted Respiratory alkalosis - stable, will monitor Metabolic acidosis - resolved Hyperbilirubinemia-improved - 5.8-->3.1, likely from hepatic congestion - LFTs mildly elevated, improved Indeterminate trop - Likely from demand - Tele monitoring. Physical deconditioning - Family would like NH placement - CM/PT/OT consulted COPD - PRN Duonebs - sPO2 target goal 88-92% Pulmonary HTN/Pulm fibrosis - Continue home O2 LEE -needs outpt f/u Admit:Tele/Inpt PCP: [facility] Dvt ppx: Lovenox Code:Full Dispo: Current worsening of sx of right heart failure, Dr Rocha consulted, appreciate recs, CM and palliative working on [place] hospice Addendum - Attending - Attending Attestation Date/Time: 04/01/201914 I personally evaluated the patient and discussed the management with Dr. Krishnamurthy. I agree with the History, Examination, Assessment and Plan documented above with any addition or exceptions noted below. Patient remains on drips. Replacing potassium, recheck lab later today. Awaiting placement with case mgmt.
[2020-04-01] MEDS: Mometasone 200 MCG/Formoterol 5 MCG 120 PUFF INHALER INH SCH ×2 (07:46→18:52)
[2020-04-01] MEDS: Polyethylene Glycol 3350 17 GM Packet PO SCH (08:16)
[2020-04-01] MEDS: Acetaminophen 325 MG TAB PO PRN ×3 (08:18→18:24)
[2020-04-01] MEDS: Bisacodyl 5 MG TAB PO SCH (08:18)
[2020-04-01] MEDS: Calcium Carbonate 500 MG ChewTAB PO PRN ×2 (08:18→18:23)
[2020-04-01] MEDS: Amiodarone 200 MG TAB PO SCH ×2 (08:18→20:11)
[2020-04-01] MEDS: Enoxaparin Sodium 40 MG/0.4 ML SYRINGE SC SCH (08:18)
[2020-04-01] MEDS: Potassium Chloride 20 MEQ TAB PO SCH (08:18)
[2020-04-01] MEDS: AcetaZOLAMIDE 250 MG TAB PO SCH (08:19)
[2020-04-01] MEDS: predniSONE 5 MG TAB PO SCH (08:19)
[2020-04-01] MEDS ORDERED: Magnesium 2 GM/50 ML 2 GM in Premix Bag 1 BAG IVPB SCH (09:15)
[2020-04-01] MEDS ORDERED: Potassium Chloride 20 MEQ TAB PO SCH ×2 (09:15→21:00)
[2020-04-01] MEDS: cefTRIAXone\\ROCEPHIN 1 GM in Sodium Chloride 0.9% 100 ML IM SCH (09:26)
[2020-04-01 09:37] LABS: Hemoglobin 13.8 g/dL (12.0-16.0); Mean Corpuscular HGB CONC 31.9 g/dL (32.0-36.0); Mean Platelet Volume 9.3 fL (7.4-10.4); Platelet Count 286 thou/uL (130-400); RBC Distribution Width 17.1 % (11.5-14.5); Red Blood Cell (RBC) Count 4.76 mill/uL (4.20-5.40); White Blood Cell (WBC) Count 8.3 thou/uL (4.8-10.8)
[2020-04-01 09:54] LABS: Anion Gap 14 mmol/L (10-20); BUN (Urea Nitrogen) 12 mg/dL (9.8-20.1); Calc. Creatinine Clearance 87 mL/min (70-130); Calcium 9.8 mg/dL (7.8-10.44); Carbon Dioxide 30 mmol/L (23-31); Chloride 93 mmol/L (98-107); Estimated GFR-MDRD 87; Glucose 123 mg/dL (80-115); Magnesium 1.8 mg/dL (1.6-2.6); Sodium 134 mmol/L (136-145)
[2020-04-01 09:58] LABS: Potassium 2.7 mmol/L (3.5-5.1)
[2020-04-01 10:06] LABS: Eosinophils 1 % (0-10); Lymphocytes 32 % (21-51); MDiff Complete? YES; Monocytes 6 % (0-10); Neutrophil 61 % (42-75); Platelet Morphology Comment Appears Adequate; Target Cells MODERATE= 6-15 cells (100X) (0-1/hpf)
[2020-04-01] MEDS ORDERED: cefTRIAXone\\ROCEPHIN 1 GM in Sodium Chloride 0.9% 100 ML IM SCH (14:00)
[2020-04-01] MEDS: Sterile Water 10 ML VIAL FS PRN (15:17)
[2020-04-01] MEDS: Bumetanide 1 MG TAB PO SCH (15:44)
[2020-04-01 21:49] LABS: Anion Gap 16 mmol/L (10-20); BUN (Urea Nitrogen) 14 mg/dL (9.8-20.1); Calc. Creatinine Clearance 84 mL/min (70-130); Calcium 9.2 mg/dL (7.8-10.44); Carbon Dioxide 24 mmol/L (23-31); Chloride 97 mmol/L (98-107); Estimated GFR-MDRD 83; Glucose 107 mg/dL (80-115); Magnesium 2.3 mg/dL (1.6-2.6); Potassium 4.2 mmol/L (3.5-5.1); Sodium 133 mmol/L (136-145)
[2020-04-02] MEDS: DOBUTamine 500 mg/250 ml 500 MG in Premix Bag 1 BAG IVPB SCH (05:07)
--- NOTE | 2020-04-02 06:33 | PDOC.FM ---
- Subjective Subjective: Pt awake this morning and not very talkative. She expresses sadness about her future, saying she wishes she could go home but knows that is not really an option for her. No complaints overnight - Objective Vital Signs & Weight: Vital Signs (12 hours) Temp Pulse Resp BP Pulse Ox 04/02/20 03:38 98.1 F 90 16 109/57 L 92 L 04/01/20 19:20 98.0 F 81 16 110/61 94 L Weight Admit Weight 86.863 kg Weight 76.702 kg I&O: 03/31/20 04/01/20 04/02/20 06:59 06:59 06:59 Intake Total 440 529 6499.4 Output Total 2900 825 1600 Balance -1950 -105 -373.6 Result Diagrams: 04/01/20 09:04 04/02/20 09:16 Phys Exam - Physical Examination Constitutional: NAD Neck: supple Respiratory: no wheezing, clear to auscultation bilateral Cardiovascular: RRR murmur, heave Gastrointestinal: soft, non-tender, no distention Musculoskeletal: edema present Neurological: moves all 4 limbs Deviation from normal: flat affect Dx/Plan (1) Cor pulmonale Code(s): I27.81 - COR PULMONALE (CHRONIC) Status: Acute (2) Pulmonary fibrosis Code(s): J84.10 - PULMONARY FIBROSIS, UNSPECIFIED Status: Acute (3) COPD (chronic obstructive pulmonary disease) Status: Chronic (4) HTN (hypertension) Code(s): I10 - ESSENTIAL (PRIMARY) HYPERTENSION Status: Chronic - Plan Plan: 64 yo F here for acute on chronic CHF exacerbation Acute on chronic CHF vs COPD exacerbation - cardiology, Dr Rocha: dobutamine gtt, decrease to 2.5mcg/min the night before discharge, monitor kidney function, K and Mg closely - bumex 1mg po bid - ECHO: cor pulmonale with EF 45-50% - on baseline 2L NC O2 - CM and palliative care consulted - discussed with family, plan [facility], will remain full code while at hospital Intermittent arrhythmia - Dr. Rocha managing as above, appreciate recs - last night NSR R groin hematoma -fem line removed on 03/22 -US: hematoma, no VTE Constipation - Patient with recent hx of stercoral colitis - Bowel regimen in place Hypomagnesemia - Mg goal 2 - will replace as necessary and monitor bid Hypotension - likely due to severe right heart failure - dobutamine gtt - Cards consulted UTI -UCX: e coli -completed txt with rocephin Respiratory alkalosis - stable, will monitor Metabolic acidosis - resolved Hyperbilirubinemia-improved - 5.8-->3.1, likely from hepatic congestion - LFTs mildly elevated, improved Indeterminate trop - Likely from demand - Tele monitoring. Physical deconditioning - Family would like NH placement - CM/PT/OT consulted COPD - PRN Duonebs - sPO2 target goal 88-92% Pulmonary HTN/Pulm fibrosis - Continue home O2 LEE -needs outpt f/u Admit:Tele/Inpt PCP: [facility] Dvt ppx: Lovenox Code:Full Dispo: Severe R heart failure, Dr Rocha consulted, appreciate recs, CM and palliative working on [place] hospice Addendum - Attending - Attending Attestation Date/Time: 04/02/201928 I personally evaluated the patient and discussed the management with Dr. Krishnamurthy. I agree with the History, Examination, Assessment and Plan documented above with any addition or exceptions noted below. Patient is stable this morning. Continues on drip. Awaiting placement decision. Initial plan is to d/c on hospice to a facility however pt may need to go via snf and then transition once there.
[2020-04-02] MEDS: Mometasone 200 MCG/Formoterol 5 MCG 120 PUFF INHALER INH SCH ×2 (07:26→18:55)
[2020-04-02] MEDS ORDERED: Potassium Chloride 20 MEQ TAB PO SCH (08:30)
[2020-04-02] MEDS: Polyethylene Glycol 3350 17 GM Packet PO SCH (09:32)
[2020-04-02] MEDS: Bumetanide 1 MG TAB PO SCH ×2 (09:32→16:01)
[2020-04-02] MEDS: AcetaZOLAMIDE 250 MG TAB PO SCH (09:33)
[2020-04-02] MEDS: Enoxaparin Sodium 40 MG/0.4 ML SYRINGE SC SCH (09:33)
[2020-04-02] MEDS: Amiodarone 200 MG TAB PO SCH ×2 (09:34→20:19)
[2020-04-02] MEDS: predniSONE 5 MG TAB PO SCH (09:34)
[2020-04-02] MEDS: Bisacodyl 5 MG TAB PO SCH (09:34)
[2020-04-02 09:53] LABS: Anion Gap 14 mmol/L (10-20); BUN (Urea Nitrogen) 14 mg/dL (9.8-20.1); Calc. Creatinine Clearance 85 mL/min (70-130); Calcium 9.4 mg/dL (7.8-10.44); Carbon Dioxide 23 mmol/L (23-31); Chloride 99 mmol/L (98-107); Estimated GFR-MDRD 87; Glucose 118 mg/dL (80-115); Magnesium 2.1 mg/dL (1.6-2.6); Potassium 3.9 mmol/L (3.5-5.1); Sodium 132 mmol/L (136-145)
[2020-04-02] MEDS: Acetaminophen 325 MG TAB PO PRN ×2 (16:00→21:06)
[2020-04-02 22:14] LABS: Anion Gap 16 mmol/L (10-20); BUN (Urea Nitrogen) 16 mg/dL (9.8-20.1); Calc. Creatinine Clearance 80 mL/min (70-130); Calcium 9.2 mg/dL (7.8-10.44); Carbon Dioxide 26 mmol/L (23-31); Chloride 96 mmol/L (98-107); Estimated GFR-MDRD 81; Glucose 103 mg/dL (80-115); Magnesium 1.8 mg/dL (1.6-2.6); Potassium 3.5 mmol/L (3.5-5.1); Sodium 134 mmol/L (136-145)
--- NOTE | 2020-04-03 06:58 | PDOC.FM ---
- Subjective Subjective: Pt doing well this morning. Tolerating diet. No complaints overnight - Objective Vital Signs & Weight: Vital Signs (12 hours) Temp Pulse Resp BP Pulse Ox 04/03/20 03:55 98.1 F 75 16 120/56 L 92 L 04/02/20 19:10 98.1 F 79 16 134/71 93 L Weight Admit Weight 86.863 kg Weight 75.705 kg I&O: 04/01/20 04/02/20 04/03/20 06:59 06:59 06:59 Intake Total 720 1226.4 1306.4 Output Total 825 1600 1550 Balance -105 -373.6 -243.6 Result Diagrams: 04/01/20 09:04 04/03/20 10:01 Phys Exam - Physical Examination Constitutional: NAD Neck: supple, full ROM Respiratory: no wheezing, clear to auscultation bilateral Cardiovascular: RRR, no significant murmur Gastrointestinal: soft, non-tender, no distention Musculoskeletal: edema present Neurological: non-focal Deviation from normal: flat affect Skin: no rash Dx/Plan (1) Cor pulmonale Code(s): I27.81 - COR PULMONALE (CHRONIC) Status: Acute (2) Pulmonary fibrosis Code(s): J84.10 - PULMONARY FIBROSIS, UNSPECIFIED Status: Acute (3) COPD (chronic obstructive pulmonary disease) Status: Chronic (4) HTN (hypertension) Code(s): I10 - ESSENTIAL (PRIMARY) HYPERTENSION Status: Chronic - Plan Plan: 64 yo F here for acute on chronic CHF exacerbation Acute on chronic CHF vs COPD exacerbation - cardiology, Dr Rocha: dobutamine gtt, decrease to 2.5mcg/min the night before discharge, monitor kidney function, K and Mg closely - bumex 1mg po bid - ECHO: cor pulmonale with EF 45-50% - on baseline 2L NC O2 - CM and palliative care consulted - discussed with family, plan is for [facility], will remain full code while at hospital Intermittent arrhythmia - Dr. Rocha managing as above, appreciate recs R groin hematoma -fem line removed on 03/22 -US: hematoma, no VTE Constipation - Patient with recent hx of stercoral colitis - Bowel regimen: jose miralax, dulcolax, senna. Prn dulcolax - has not had b.m. in a few days, consider enema if no b.m today Hypomagnesemia - Mg goal 2 - will replace as necessary and monitor bid Hypotension - likely due to severe right heart failure - dobutamine gtt - Cards consulted UTI -UCX: e coli -completed txt with rocephin Respiratory alkalosis - stable, will monitor Metabolic acidosis - resolved Hyperbilirubinemia-improved - 5.8-->3.1, likely from hepatic congestion - LFTs mildly elevated, improved Indeterminate trop - Likely from demand - Tele monitoring. Physical deconditioning - Family would like NH placement - CM/PT/OT consulted COPD - PRN Duonebs - sPO2 target goal 88-92% Pulmonary HTN/Pulm fibrosis - Continue home O2 LEE -needs outpt f/u Admit:Tele/Inpt PCP: [facility] Dvt ppx: Lovenox Code:Full Dispo: Severe R heart failure, Dr Rocha consulted, appreciate recs, CM and palliative working on [place] hospice Addendum - Attending - Attending Attestation Date/Time: 04/03/20 6172 I personally evaluated the patient and discussed the management with Dr. Krishnamurthy. I agree with the History, Examination, Assessment and Plan documented above with any addition or exceptions noted below. The patient remains stable. Still awaiting placement with a nursing facility. She had a nosebleed this morning. Will add nasal saline.
[2020-04-03] MEDS ORDERED: Potassium Chloride 20 MEQ TAB PO SCH ×2 (07:00→08:00)
[2020-04-03] MEDS ORDERED: Magnesium 2 GM/50 ML 2 GM in Premix Bag 1 BAG IVPB SCH (07:15)
[2020-04-03] MEDS: Mometasone 200 MCG/Formoterol 5 MCG 120 PUFF INHALER INH SCH ×2 (07:27→19:07)
--- NOTE | 2020-04-03 09:19 | EKG ---
Test Reason : Blood Pressure : / mmHG Vent. Rate : 080 BPM Atrial Rate : 080 BPM P-R Int : 146 ms QRS Dur : 094 ms QT Int : 328 ms P-R-T Axes : 038 -01 -49 degrees QTc Int : 378 ms Normal sinus rhythm RSR' or QR pattern in V1 suggests right ventricular conduction delay Cannot rule out Anterior infarct (cited on or before 20-MAR-2020) Abnormal ECG Confirmed by SALO VALENTIN, FRED ([id number]) on 04/03/2020 9:19:29 AM Referred By: Johanna HIGH Confirmed By:FRED LEONG MD
[2020-04-03] MEDS: DOBUTamine 500 mg/250 ml 500 MG in Premix Bag 1 BAG IVPB SCH (09:31)
[2020-04-03] MEDS: Senokot S 8.6-50 MG TAB PO SCH ×2 (09:33→21:36)
[2020-04-03] MEDS: Bumetanide 1 MG TAB PO SCH ×2 (09:33→17:20)
[2020-04-03] MEDS: Polyethylene Glycol 3350 17 GM Packet PO SCH (09:33)
[2020-04-03] MEDS: Enoxaparin Sodium 40 MG/0.4 ML SYRINGE SC SCH (09:34)
[2020-04-03] MEDS: predniSONE 5 MG TAB PO SCH (09:34)
[2020-04-03] MEDS: Amiodarone 200 MG TAB PO SCH ×2 (09:34→21:35)
[2020-04-03] MEDS: Bisacodyl 5 MG TAB PO SCH (09:35)
[2020-04-03] MEDS ORDERED: Sodium Chloride 0.65% Nasal 44 ML BOT EA NARE PRN (09:40)
[2020-04-03 10:24] LABS: Anion Gap 17 mmol/L (10-20); BUN (Urea Nitrogen) 16 mg/dL (9.8-20.1); Calc. Creatinine Clearance 91 mL/min (70-130); Calcium 9.2 mg/dL (7.8-10.44); Carbon Dioxide 21 mmol/L (23-31); Chloride 97 mmol/L (98-107); Estimated GFR-MDRD Greater than 90; Glucose 103 mg/dL (80-115); Magnesium 3.1 mg/dL (1.6-2.6); Potassium 3.9 mmol/L (3.5-5.1); Sodium 131 mmol/L (136-145)
[2020-04-03] MEDS: Acetaminophen 325 MG TAB PO PRN (17:20)
--- NOTE | 2020-04-04 06:53 | PDOC.FM ---
- Subjective Subjective: Patient reportedly had short runs of SVT overnight on tele but otherwise, NAEO. Patient drowsy on exam but awakened enough to answer a few questions. Reports she is not in any pain. No nosebleeds again yet this AM. No breathing issues. - Objective MAR Reviewed: Yes Vital Signs & Weight: Vital Signs (12 hours) Temp Pulse Resp BP Pulse Ox 04/04/20 03:56 97.6 F 81 16 118/64 95 04/03/20 19:20 97.5 F L 86 15 114/84 93 L Weight Admit Weight 86.863 kg Weight 73.391 kg I&O: 04/02/20 04/03/20 04/04/20 06:59 06:59 06:59 Intake Total 1226.4 1306.4 1018.7 Output Total 1600 1550 710 Balance -373.6 -243.6 308.7 Result Diagrams: 04/01/20 09:04 04/04/20 07:05 Phys Exam - Physical Examination Constitutional: NAD HEENT: moist MMs Neck: supple, full ROM Respiratory: no wheezing, no rales, no rhonchi, clear to auscultation bilateral Cardiovascular: RRR, no significant murmur Gastrointestinal: soft, non-tender, positive bowel sounds Musculoskeletal: no edema Neurological: non-focal, moves all 4 limbs Psychiatric: normal affect, A&O x 3 Skin: no rash Dx/Plan (1) Cor pulmonale Code(s): I27.81 - COR PULMONALE (CHRONIC) Status: Acute (2) Pulmonary fibrosis Code(s): J84.10 - PULMONARY FIBROSIS, UNSPECIFIED Status: Acute (3) CHF (congestive heart failure), NYHA class IV Code(s): I50.9 - HEART FAILURE, UNSPECIFIED Status: Chronic (4) COPD (chronic obstructive pulmonary disease) Status: Chronic (5) Constipation Code(s): K59.00 - CONSTIPATION, UNSPECIFIED Status: Chronic (6) HTN (hypertension) Code(s): I10 - ESSENTIAL (PRIMARY) HYPERTENSION Status: Chronic (7) Lupus Code(s): M32.9 - SYSTEMIC LUPUS ERYTHEMATOSUS, UNSPECIFIED Status: Chronic (8) LEE (obstructive sleep apnea) Code(s): G47.33 - OBSTRUCTIVE SLEEP APNEA (ADULT) (PEDIATRIC) Status: Chronic - Plan Plan: 64YOF here for acute on chronic CHF exacerbation Acute on chronic CHF vs COPD exacerbation - cardiology, Dr Rocha on board & following his recs as follows: continue dobutamine gtt but will decrease to 2.5mcg/min the night before discharge & will monitor kidney function, K and Mg closely. - Continue bumex 1mg po bid - ECHO: cor pulmonale with EF 45-50% - Maintaining sats on RA - CM and palliative care consulted - discussed with family, plan is for patient to go to shelter on hospice. Will f/u with CM today regarding status of placement decision. Intermittent arrhythmia/SVT - Dr. Rocha managing as noted above, appreciate recs R groin hematoma -fem line removed on 03/22 -US: hematoma, no VTE Constipation - Patient with recent hx of stercoral colitis - Bowel regimen: jose miralax, dulcolax, & senna. - Had b.m. last night per nursing although not documented in the chart. Hypomagnesemia - Mg goal 2 & 2.1 this AM - will replace as necessary and monitor bid HypoK - K goal 4 & 3.2 this AM - will replace as necessary and monitor bid Hypotension, improved - likely due to severe right heart failure - dobutamine gtt - Cards consulted UTI -UCX: e coli -completed tx with rocephin Respiratory alkalosis - stable, will monitor Metabolic acidosis - resolved Hyperbilirubinemia-improved - 5.8-->3.1, likely from hepatic congestion - LFTs mildly elevated, improved Indeterminate trop - Likely from demand - Tele monitoring. Physical deconditioning - Family would like NH placement - CM/PT/OT consulted COPD - PRN Duonebs - sPO2 target goal 88-92% Pulmonary HTN/Pulm fibrosis - Continue home O2 PRN but maintaining sats on RA for last few days. LEE -needs outpt f/u Admit:Tele/Inpt PCP: [facility] Dvt ppx: Lovenox Code:Full Dispo: Severe R heart failure, Dr Rocha consulted, appreciate recs, CM and palliative working on [place] hospice Addendum - Attending - Attending Attestation Date/Time: 04/04/20 1126 I personally evaluated the patient and discussed the management with Dr. Qureshi. I agree with the History, Examination, Assessment and Plan documented above with any addition or exceptions noted below. The patient was doing well this morning. She remains on the drip. Still no word on placement. Replacing potassium.
[2020-04-04 07:38] LABS: Anion Gap 14 mmol/L (10-20); BUN (Urea Nitrogen) 20 mg/dL (9.8-20.1); Calc. Creatinine Clearance 84 mL/min (70-130); Calcium 9.3 mg/dL (7.8-10.44); Carbon Dioxide 24 mmol/L (23-31); Chloride 98 mmol/L (98-107); Estimated GFR-MDRD Greater than 90; Glucose 95 mg/dL (80-115); Magnesium 2.1 mg/dL (1.6-2.6); Potassium 3.2 mmol/L (3.5-5.1); Sodium 133 mmol/L (136-145)
[2020-04-04] MEDS: Mometasone 200 MCG/Formoterol 5 MCG 120 PUFF INHALER INH SCH ×2 (08:00→19:17)
[2020-04-04] MEDS: Senokot S 8.6-50 MG TAB PO SCH ×2 (09:06→22:11)
[2020-04-04] MEDS: Bumetanide 1 MG TAB PO SCH ×2 (09:06→17:56)
[2020-04-04] MEDS: Potassium Chloride 20 MEQ TAB PO SCH ×2 (09:06→17:57)
[2020-04-04] MEDS: Amiodarone 200 MG TAB PO SCH ×2 (09:06→20:55)
[2020-04-04] MEDS: predniSONE 5 MG TAB PO SCH (09:06)
[2020-04-04] MEDS: Polyethylene Glycol 3350 17 GM Packet PO SCH (09:07)
[2020-04-04] MEDS: DOBUTamine 500 mg/250 ml 500 MG in Premix Bag 1 BAG IVPB SCH (09:07)
[2020-04-04] MEDS: Bisacodyl 5 MG TAB PO SCH (09:07)
[2020-04-04] MEDS: Enoxaparin Sodium 40 MG/0.4 ML SYRINGE SC SCH (12:54)
[2020-04-04 14:31] LABS: Anion Gap 18 mmol/L (10-20); BUN (Urea Nitrogen) 20 mg/dL (9.8-20.1); Calc. Creatinine Clearance 78 mL/min (70-130); Calcium 9.6 mg/dL (7.8-10.44); Carbon Dioxide 24 mmol/L (23-31); Chloride 96 mmol/L (98-107); Estimated GFR-MDRD 83; Glucose 152 mg/dL (80-115); Magnesium 2.2 mg/dL (1.6-2.6); Sodium 134 mmol/L (136-145)
[2020-04-04] MEDS: Sodium Chloride 0.65% Nasal 44 ML BOT EA NARE SCH ×2 (15:08→20:54)
[2020-04-04] MEDS ORDERED: Potassium Chloride 20 MEQ TAB PO SCH (17:00)
[2020-04-05] MEDS: Acetaminophen 325 MG TAB PO PRN ×2 (02:48→15:58)
[2020-04-05] MEDS: Sodium Chloride 0.65% Nasal 44 ML BOT EA NARE SCH ×4 (02:48→21:19)
[2020-04-05 05:03] LABS: Anion Gap 17 mmol/L (10-20); BUN (Urea Nitrogen) 18 mg/dL (9.8-20.1); Calc. Creatinine Clearance 87 mL/min (70-130); Calcium 9.7 mg/dL (7.8-10.44); Carbon Dioxide 23 mmol/L (23-31); Chloride 97 mmol/L (98-107); Estimated GFR-MDRD Greater than 90; Glucose 86 mg/dL (80-115); Potassium 6.4 mmol/L (3.5-5.1); Sodium 131 mmol/L (136-145)
[2020-04-05] MEDS: Bumetanide 1 MG TAB PO SCH ×2 (06:33→15:59)
--- NOTE | 2020-04-05 07:03 | PDOC.FM ---
- Subjective Subjective: Patient had a 10 minute run of sinus tach & a 5 second run a V-tach overnight & early this AM. Was getting up and moving around during sinus tach episode & was asymptomatic during second v-tach episode. No complaints on exam this AM. Denies any recurrent nosebleeds yesterday. Was using the nasal spray. - Objective MAR Reviewed: Yes Vital Signs & Weight: Vital Signs (12 hours) Temp Pulse Resp BP BP Pulse Ox 04/05/20 04:00 97.5 F L 87 16 113/71 95 04/05/20 01:17 95 04/04/20 19:40 98.7 F 90 17 121/63 94 L 04/04/20 19:17 87 16 95 Weight Admit Weight 86.863 kg Weight 74.298 kg I&O: 04/04/20 04/05/20 04/06/20 06:59 06:59 06:59 Intake Total 1018.7 1162.6 Output Total 710 720 Balance 308.7 442.6 Result Diagrams: 04/05/20 09:20 04/05/20 14:53 Phys Exam - Physical Examination Constitutional: NAD HEENT: moist MMs Neck: supple, full ROM Respiratory: no wheezing, no rales, no rhonchi, clear to auscultation bilateral Cardiovascular: RRR 3/6 systolic ejection murmur noted Gastrointestinal: soft, non-tender Musculoskeletal: no edema Neurological: non-focal, moves all 4 limbs Psychiatric: normal affect, A&O x 3 Skin: no rash, cap refill <2 seconds Dx/Plan (1) Cor pulmonale Code(s): I27.81 - COR PULMONALE (CHRONIC) Status: Acute (2) Pulmonary fibrosis Code(s): J84.10 - PULMONARY FIBROSIS, UNSPECIFIED Status: Acute (3) CHF (congestive heart failure), NYHA class IV Code(s): I50.9 - HEART FAILURE, UNSPECIFIED Status: Chronic (4) COPD (chronic obstructive pulmonary disease) Status: Chronic (5) Constipation Code(s): K59.00 - CONSTIPATION, UNSPECIFIED Status: Chronic (6) HTN (hypertension) Code(s): I10 - ESSENTIAL (PRIMARY) HYPERTENSION Status: Chronic (7) Lupus Code(s): M32.9 - SYSTEMIC LUPUS ERYTHEMATOSUS, UNSPECIFIED Status: Chronic (8) LEE (obstructive sleep apnea) Code(s): G47.33 - OBSTRUCTIVE SLEEP APNEA (ADULT) (PEDIATRIC) Status: Chronic - Plan Plan: 64YOF here for acute on chronic CHF exacerbation Acute on chronic CHF vs COPD exacerbation - cardiology, Dr Rocha on board & following his recs as follows: continue dobutamine gtt but will decrease to 2.5mcg/min the night before discharge & will monitor kidney function, K and Mg closely. - Continue bumex 1mg po bid - ECHO: cor pulmonale with EF 45-50% - Maintaining sats on RA - CM and palliative care consulted - discussed with family, [facility] Will f/u with CM today regarding status of placement decision. Intermittent arrhythmia/SVT/V-tach - Dr. Rocha managing as noted above, appreciate recs R groin hematoma -fem line removed on 03/22 -US: hematoma, no VTE Constipation - Patient with recent hx of stercoral colitis - Bowel regimen: jose miralax, dulcolax, & senna. - Had b.m. last night per nursing & another yesterday that was documented. Hypomagnesemia - Mg goal 2 & 2.0 this AM - will replace as necessary and monitor bid HypoK - K actually elevated at 6.4 this AM. Will get a 12-lead EKG now & recheck stat since it has been low daily for the last week. - will replace as necessary and monitor bid Hypotension, improved - likely due to severe right heart failure - dobutamine gtt - Cards consulted UTI -UCX: e coli -completed tx with rocephin Respiratory alkalosis - stable, will monitor Metabolic acidosis - resolved Hyperbilirubinemia-improved - 5.8-->3.1, likely from hepatic congestion - LFTs mildly elevated, improved Indeterminate trop - Likely from demand - Tele monitoring. Physical deconditioning - Family would like NH placement - CM/PT/OT consulted COPD - PRN Duonebs - sPO2 target goal 88-92% Pulmonary HTN/Pulm fibrosis - Continue home O2 PRN but maintaining sats on RA for last few days. LEE -needs outpt f/u Admit:Tele/Inpt PCP: [facility] Dvt ppx: Lovenox Code:Full Dispo: Severe R heart failure, Dr Rocha on board, appreciate recs, CM and palliative working on [place] hosp[place] placement. Addendum - Attending - Attending Attestation Date/Time: 04/05/20 5342 I personally evaluated the patient and discussed the management with Dr. Qureshi. I agree with the History, Examination, Assessment and Plan documented above with any addition or exceptions noted below. The patient's potassium was over 6 this morning. EKG was normal and we repeated to verify and the value came back under 4 without any treatment. will continue to follow. Awaiting placement. Will need drip cut in half the night before her d/c.
[2020-04-05] MEDS: Mometasone 200 MCG/Formoterol 5 MCG 120 PUFF INHALER INH SCH ×2 (07:41→18:29)
[2020-04-05 09:51] LABS: Mean Corpuscular HGB CONC 31.5 g/dL (32.0-36.0); Mean Corpuscular Hemoglobin 28.5 pg (27.0-31.0); Mean Corpuscular Volume 90.5 fL (78.0-98.0); Red Blood Cell (RBC) Count 5.25 mill/uL (4.20-5.40)
[2020-04-05 09:57] LABS: Anion Gap 16 mmol/L (10-20); BUN (Urea Nitrogen) 18 mg/dL (9.8-20.1); Calc. Creatinine Clearance 82 mL/min (70-130); Calcium 9.8 mg/dL (7.8-10.44); Carbon Dioxide 25 mmol/L (23-31); Chloride 96 mmol/L (98-107); Eosinophils 4 % (0-10); Estimated GFR-MDRD 87; Glucose 155 mg/dL (80-115); Lymphocytes 36 % (21-51); MDiff Complete? YES; Mean Platelet Volume 9.4 fL (7.4-10.4); Monocytes 4 % (0-10); Neutrophil 50 % (42-75); Platelet Count 300 thou/uL (130-400); Platelet Morphology Comment Appears Adequate; Potassium 3.7 mmol/L (3.5-5.1); Reactive Lymphocytes 6 % (0-10); Sodium 133 mmol/L (136-145); White Blood Cell (WBC) Count 9.4 thou/uL (4.8-10.8)
[2020-04-05] MEDS: Enoxaparin Sodium 40 MG/0.4 ML SYRINGE SC SCH (10:07)
[2020-04-05] MEDS: predniSONE 5 MG TAB PO SCH (10:07)
[2020-04-05] MEDS: Senokot S 8.6-50 MG TAB PO SCH ×2 (10:08→21:19)
[2020-04-05] MEDS: Polyethylene Glycol 3350 17 GM Packet PO SCH (10:08)
[2020-04-05] MEDS: Amiodarone 200 MG TAB PO SCH ×2 (10:08→21:19)
[2020-04-05] MEDS ORDERED: Potassium Chloride 20 MEQ TAB PO SCH (10:15)
[2020-04-05] MEDS: DOBUTamine 500 mg/250 ml 500 MG in Premix Bag 1 BAG IVPB SCH (11:41)
[2020-04-05 15:23] LABS: Anion Gap 16 mmol/L (10-20); BUN (Urea Nitrogen) 18 mg/dL (9.8-20.1); Calc. Creatinine Clearance 81 mL/min (70-130); Calcium 9.7 mg/dL (7.8-10.44); Carbon Dioxide 26 mmol/L (23-31); Chloride 96 mmol/L (98-107); Estimated GFR-MDRD 86; Glucose 124 mg/dL (80-115); Potassium 4.3 mmol/L (3.5-5.1); Sodium 134 mmol/L (136-145)
[2020-04-05] MEDS: Calcium Carbonate 500 MG ChewTAB PO PRN (21:19)
--- NOTE | 2020-04-06 05:29 | PDOC.FM ---
- Subjective Subjective: Pt resting comfortably. Asking about when she is going to get transferred to [place]. Denies any more nosebleeds or hemoptysis. - Objective Vital Signs & Weight: Vital Signs (12 hours) Temp Pulse Resp BP BP Pulse Ox 04/06/20 04:00 97.8 F 88 29 H 124/72 96 04/06/20 01:47 94 L 04/05/20 20:00 98.9 F 87 16 130/71 96 04/05/20 18:29 84 16 94 L Weight Admit Weight 86.863 kg Weight 74.298 kg I&O: 04/04/20 04/05/20 04/06/20 06:59 06:59 06:59 Intake Total 1018.7 1162.6 375 Output Total 710 720 500 Balance 308.7 442.6 -125 Result Diagrams: 04/05/20 09:20 04/06/20 06:13 Phys Exam - Physical Examination Constitutional: NAD Neck: supple, full ROM Respiratory: no wheezing, clear to auscultation bilateral Cardiovascular: RRR systolic murmur with heave Gastrointestinal: soft, non-tender, no distention Musculoskeletal: edema present Neurological: non-focal Deviation from normal: flat affect Dx/Plan (1) Cor pulmonale Code(s): I27.81 - COR PULMONALE (CHRONIC) Status: Acute (2) Pulmonary fibrosis Code(s): J84.10 - PULMONARY FIBROSIS, UNSPECIFIED Status: Acute (3) COPD (chronic obstructive pulmonary disease) Status: Chronic (4) HTN (hypertension) Code(s): I10 - ESSENTIAL (PRIMARY) HYPERTENSION Status: Chronic - Plan Plan: 64YOF here for acute on chronic CHF exacerbation Acute on chronic CHF vs COPD exacerbation - cardiology, Dr Rocha on board & following his recs as follows: continue dobutamine gtt but will decrease to 2.5mcg/min the night before discharge & will monitor kidney function, K and Mg closely. - Continue bumex 1mg po bid - ECHO: cor pulmonale with EF 45-50% - Maintaining sats on RA - CM and palliative care consulted - discussed with family, plan is for patient to go to assisted on hospice. Likely to discharge on Wednesday Intermittent arrhythmia/SVT/V-tach - Dr. Rocha managing as noted above, appreciate recs R groin hematoma -fem line removed on 03/22 -US: hematoma, no VTE Constipation - Patient with recent hx of stercoral colitis - Bowel regimen: jose miralax, dulcolax, & senna. Hypomagnesemia - Mg goal 2 - will replace as necessary and monitor bid HypoK - K - will replace as necessary and monitor bid Hypotension, improved - likely due to severe right heart failure - dobutamine gtt - Cards consulted UTI -UCX: e coli -completed tx with rocephin Respiratory alkalosis - stable, will monitor Metabolic acidosis - resolved Hyperbilirubinemia-improved - 5.8-->3.1, likely from hepatic congestion - LFTs mildly elevated, improved Indeterminate trop - Likely from demand - Tele monitoring. Physical deconditioning - Family would like NH placement - CM/PT/OT consulted COPD - PRN Duonebs - sPO2 target goal 88-92% Pulmonary HTN/Pulm fibrosis - Continue home O2 PRN but maintaining sats on RA for last few days. LEE -needs outpt f/u Admit:Tele/Inpt PCP: [facility] Dvt ppx: Lovenox Code:Full Dispo: Severe R heart failure, Dr Rocha on board, appreciate recs, CM working on [place] hospice placement.
[2020-04-06] MEDS: Sodium Chloride 0.65% Nasal 44 ML BOT EA NARE SCH ×5 (05:31→23:55)
[2020-04-06 06:45] LABS: Anion Gap 16 mmol/L (10-20); BUN (Urea Nitrogen) 21 mg/dL (9.8-20.1); Calc. Creatinine Clearance 80 mL/min (70-130); Carbon Dioxide 24 mmol/L (23-31); Chloride 97 mmol/L (98-107); Estimated GFR-MDRD 90; Glucose 102 mg/dL (80-115); Magnesium 1.9 mg/dL (1.6-2.6); Potassium 3.7 mmol/L (3.5-5.1); Sodium 133 mmol/L (136-145)
[2020-04-06] MEDS: Mometasone 200 MCG/Formoterol 5 MCG 120 PUFF INHALER INH SCH ×2 (07:09→19:26)
[2020-04-06] MEDS ORDERED: Magnesium 2 GM/50 ML 2 GM in Premix Bag 1 BAG IVPB SCH (08:15)
[2020-04-06] MEDS ORDERED: Potassium Chloride 20 MEQ TAB PO SCH (08:15)
[2020-04-06] MEDS: Potassium Chloride 20 MEQ TAB PO SCH (10:07)
[2020-04-06] MEDS: Amiodarone 200 MG TAB PO SCH ×2 (10:07→20:06)
[2020-04-06] MEDS: Bumetanide 1 MG TAB PO SCH ×2 (10:07→16:13)
[2020-04-06] MEDS: predniSONE 5 MG TAB PO SCH (10:08)
[2020-04-06] MEDS: Polyethylene Glycol 3350 17 GM Packet PO SCH (10:08)
[2020-04-06] MEDS: Enoxaparin Sodium 40 MG/0.4 ML SYRINGE SC SCH (10:08)
[2020-04-06] MEDS: Senokot S 8.6-50 MG TAB PO SCH ×2 (10:08→20:07)
--- NOTE | 2020-04-06 12:33 | PRG ---
DATE OF SERVICE: 04/06/2020 Please see the note from Dr. Krishnamurthy, for which I agree. The patient was seen, evaluated, discussed and examined with the residents by bedside. The patient has been in the hospital for almost three weeks for decompensated cor pulmonale and pulmonary fibrosis. She is on dobutamine drip right now. Dr. Rocha of [facility] is coordinating most of the care. The plan is to slowly decrease the dobutamine and then eventually stop it and [facility]. The patient is stable. Lungs are clear. Not that much edema today. Job ID: [id number]
[2020-04-06 14:17] LABS: Anion Gap 20 mmol/L (10-20); BUN (Urea Nitrogen) 20 mg/dL (9.8-20.1); Calc. Creatinine Clearance 80 mL/min (70-130); Calcium 10.1 mg/dL (7.8-10.44); Carbon Dioxide 21 mmol/L (23-31); Chloride 97 mmol/L (98-107); Estimated GFR-MDRD 90; Glucose 118 mg/dL (80-115); Magnesium 2.6 mg/dL (1.6-2.6); Potassium 4.9 mmol/L (3.5-5.1); Sodium 133 mmol/L (136-145)
[2020-04-06] MEDS: DOBUTamine 500 mg/250 ml 500 MG in Premix Bag 1 BAG IVPB SCH (23:55)
--- NOTE | 2020-04-07 05:55 | PDOC.FM ---
- Subjective Subjective: Pt resting comfortably. No complaints overnight. - Objective Vital Signs & Weight: Vital Signs (12 hours) Temp Pulse Resp BP BP Pulse Ox 04/07/20 03:23 98.7 F 88 16 132/67 98 04/07/20 01:30 95 04/07/20 00:00 70 130/72 04/06/20 19:30 97.8 F 89 14 114/72 97 04/06/20 19:26 89 16 95 Weight Admit Weight 86.863 kg Weight 70.806 kg I&O: 04/05/20 04/06/20 04/07/20 06:59 06:59 06:59 Intake Total 1162.6 1002 1350 Output Total 682 558 8242 Balance 442.6 142 -50 Result Diagrams: 04/05/20 09:20 04/06/20 13:55 Phys Exam - Physical Examination Constitutional: NAD Neck: supple Respiratory: no wheezing, clear to auscultation bilateral Cardiovascular: RRR systolic murmur Gastrointestinal: soft, non-tender, no distention Musculoskeletal: no edema Neurological: non-focal Deviation from normal: flat affect Skin: no rash Dx/Plan (1) Cor pulmonale Code(s): I27.81 - COR PULMONALE (CHRONIC) Status: Acute (2) Pulmonary fibrosis Code(s): J84.10 - PULMONARY FIBROSIS, UNSPECIFIED Status: Acute (3) COPD (chronic obstructive pulmonary disease) Status: Chronic (4) HTN (hypertension) Code(s): I10 - ESSENTIAL (PRIMARY) HYPERTENSION Status: Chronic - Plan Plan: 64YOF here for acute on chronic CHF exacerbation Acute on chronic CHF vs COPD exacerbation - cardiology, Dr Rocha on board & following his recs as follows: continue dobutamine gtt but will decrease to 2.5mcg/min the night before discharge & will monitor kidney function, K and Mg closely. - Continue bumex 1mg po bid - ECHO: cor pulmonale with EF 45-50% - Maintaining sats on RA - CM and palliative care consulted - discussed with family, [facility]. Likely to discharge on Wednesday Intermittent arrhythmia/SVT/V-tach - Dr. Rocha managing as noted above, appreciate recs R groin hematoma -fem line removed on 03/22 -US: hematoma, no VTE Constipation - Patient with recent hx of stercoral colitis - Bowel regimen: jose miralax, dulcolax, & senna. Hypomagnesemia - Mg goal 2 - will replace as necessary and monitor bid HypoK - K - will replace as necessary and monitor bid Hypotension, improved - likely due to severe right heart failure - dobutamine gtt - Cards consulted UTI -UCX: e coli -completed tx with rocephin Respiratory alkalosis - stable, will monitor Metabolic acidosis - resolved Hyperbilirubinemia-improved - 5.8-->3.1, likely from hepatic congestion - LFTs mildly elevated, improved Indeterminate trop - Likely from demand - Tele monitoring. Physical deconditioning - Family would like NH placement - CM/PT/OT consulted COPD - PRN Duonebs - sPO2 target goal 88-92% Pulmonary HTN/Pulm fibrosis - Continue home O2 PRN but maintaining sats on RA for last few days. LEE -needs outpt f/u Admit:Tele/Inpt PCP: [facility] Dvt ppx: Lovenox Code:Full Dispo: Severe R heart failure, Dr Rocha on board, appreciate recs, CM working on NH hospice placement.
[2020-04-07 07:39] LABS: Calcium 9.9 mg/dL (7.8-10.44); Chloride 96 mmol/L (98-107); Glucose 101 mg/dL (80-115); Sodium 132 mmol/L (136-145)
[2020-04-07 07:41] LABS: Anion Gap 16 mmol/L (10-20); Carbon Dioxide 24 mmol/L (23-31)
[2020-04-07 07:43] LABS: Calc. Creatinine Clearance 87 mL/min (70-130); Estimated GFR-MDRD Greater than 90
[2020-04-07] MEDS: Mometasone 200 MCG/Formoterol 5 MCG 120 PUFF INHALER INH SCH ×2 (07:43→19:24)
[2020-04-07 07:44] LABS: BUN (Urea Nitrogen) 23 mg/dL (9.8-20.1)
[2020-04-07 07:45] LABS: Magnesium 2.2 mg/dL (1.6-2.6)
[2020-04-07] MEDS: Sodium Chloride 0.65% Nasal 44 ML BOT EA NARE SCH ×3 (08:57→20:38)
[2020-04-07] MEDS: Potassium Chloride 20 MEQ TAB PO SCH ×2 (08:58→20:39)
[2020-04-07] MEDS: Bumetanide 1 MG TAB PO SCH ×2 (08:58→16:01)
[2020-04-07] MEDS: Enoxaparin Sodium 40 MG/0.4 ML SYRINGE SC SCH (08:58)
[2020-04-07] MEDS: Amiodarone 200 MG TAB PO SCH ×2 (08:58→20:39)
[2020-04-07] MEDS: Polyethylene Glycol 3350 17 GM Packet PO SCH (08:59)
[2020-04-07] MEDS: predniSONE 5 MG TAB PO SCH (08:59)
[2020-04-07] MEDS: Senokot S 8.6-50 MG TAB PO SCH ×2 (09:00→21:09)
--- NOTE | 2020-04-07 11:59 | PRG ---
DATE OF SERVICE: 04/07/2020 Please see note from Dr. Ramonita Krishnamurthy, for which I agree. The patient was seen, evaluated, and discussed with the residents by bedside. No major changes. No complaints. Breathing okay. Not complaining of any edema. Eating okay. Lungs sound good. Basically, the plan is to get her to a fdc tomorrow with hospice and overnight, we are going to stop dobutamine. Job ID: [id number]
[2020-04-07] MEDS: Acetaminophen 325 MG TAB PO PRN (13:20)
--- NOTE | 2020-04-07 14:38 | PRG ---
DATE OF SERVICE: 04/07/2020 TRANSITION OF CARE NOTE: Ms. Pollard is a 64-year-old female with history of COPD and pulmonary hypertension, who was sent over by her PCP after a home visit for symptoms of shortness of breath and altered mental status. After discussing with the patient's daughter, it was revealed that for the past 2 weeks, the patient had been declining since going home from rehab. She had decreased p.o. intake, refusing her medications, and also having hallucinations. She is on 2 L of oxygen at home, but was requiring 3 L in the emergency department. In the ER, noted to have elevated troponin, and was given aspirin and nitroglycerin paste and 40 mg of IV Lasix. BNP was elevated and found to have a D-dimer of 16, so CTA was done, which was negative for PE. The patient also has a history of lupus, LEE, and CHF. Echocardiogram done in January of 2020 showed pulmonary hypertension and dilated right atrium with ejection fraction of 55% to 60%. The patient was admitted for acute on chronic heart failure exacerbation. On 03/20/2020, the patient's care team notified night team resident on-call that blood pressure was 86/52 with MAP of 53. Resident contacted trestle mainternance laborer, Dr. Billingsley, who recommended to start dopamine gtt. Pt lost IV access at some point and carmen porter was called on 03/20/2020 due to continued hypotension. Residents placed central line in the right femoral vein and pt was started back on dopamine. Also noted that the patient had intermittent SVT at this time with heart rate in the 180s, so dopamine was decreased from 5 to 2.5. Cardiology was consulted and Dr. Junior saw the patient. He suggested to repeat the echocardiogram and continue IV fluids and try to wean off the dopamine IV. The echocardiogram done on 03/21/2020, which showed ejection fraction of 45% to 50%, severely enlarged right ventricle, consistent with cor pulmonale, right ventricle global systolic function severely reduced, left atrium moderately dilated, markedly enlarged right atrium, severe tricuspid regurgitation, mildly elevated pulmonary artery pressure. Cardiology recommended to continue try to wean off Dobutrex and add digoxin. It was pointed out that the patient has overall poor long-term prognosis, and both Palliative and Case Management were consulted to discuss goals of care with the family. Dr. Whaley with Pulmonology was consulted and he recommended that blood pressure control is very important due to her pulmonary hypertension, which is likely due to very severe obstructive sleep apnea and also pulmonary fibrosis and deconditioning. The patient was able to wean off the Dobutrex and was started on digoxin. Other cardiac medications were adjusted, so the patient maintained a more normal sinus rhythm. Central line displaced on 03/22/20 due to unknown reason. Pt developed a hematoma after the right femoral catheter was removed. The patient was having some pains and was evaluated for thrombus via US on 03/27/2020 and was found to be negative. . On 03/28/2020, the patient seemed more altered and was obtunded on exam along with her oxygen requirement having increased, so Dr. Rocha was consulted for heart failure management. Dr. Rocha saw the patient on 03/29/[address] the patient on dobutamine at 5 mcg/kg/minute. Also started on amiodarone drip, which has since been transitioned to oral amiodarone for rhythm control. Dr Rocha set goals to maintain the patient's electrolytes of potassium of at least 4 and magnesium to at least 2 to help maintain sinus rhythm. The overall plan was discussed with the patient's family multiple times, and with help from Case Management and Palliative Care, the patient's family decided that the patient would be best cared for at a nursing facility and their wish was to place the patient on hospice. Due to regulations at nursing facility, they are not equipped to handle any IV drips, so Dr. Rocha along with Primary Team came up with a plan to dry out the patient as much as possible before discharge. She was on IV Lasix twice a day with replacement of potassium and magnesium as necessary. IV Lasix was eventually switched out with oral Bumex, which the patient tolerated well. Of note, when the patient was started back on dobutamine at 5, her mentation improved significantly and she was back to her baseline. This proved to the patient's family and care team that she is somewhat dependent on inotropic support at this point due to the severity of her heart failure. The patient continued to have short periods of SVT, but was mostly controlled throughout her stay. She was considered stable for discharge to halfway on hospice, but due to problems with insurance, it seems that the patient is going to have to first transition to SNF and then set up hospice care from there. This is potentially concerning due to the fact that the patient has very severe heart failure, and currently, is full code. Out of hospital DNR was recommended to be signed as soon as possible, according to the patient's and family's wishes . The plan for the patient is to decrease the dobutamine drip the evening before the patient is to be transferred to the nursing facility from 5 down to 2.5. Continue diuresing up to that point. On the day when the patient is going to be transferred, the dobutamine drip will be stopped. Job ID: [id number] [facility]
[2020-04-07] MEDS: Melatonin 3 MG TAB PO PRN (20:39)
[2020-04-08] MEDS: DOBUTamine 500 mg/250 ml 500 MG in Premix Bag 1 BAG IVPB SCH (00:09)
[2020-04-08] MEDS: Sodium Chloride 0.65% Nasal 44 ML BOT EA NARE SCH ×4 (03:48→20:43)
[2020-04-08 05:07] LABS: Anion Gap 15 mmol/L (10-20); BUN (Urea Nitrogen) 26 mg/dL (9.8-20.1); Calc. Creatinine Clearance 74 mL/min (70-130); Calcium 9.9 mg/dL (7.8-10.44); Carbon Dioxide 28 mmol/L (23-31); Chloride 94 mmol/L (98-107); Estimated GFR-MDRD 82; Glucose 95 mg/dL (80-115); Potassium 4.2 mmol/L (3.5-5.1); Sodium 133 mmol/L (136-145)
--- NOTE | 2020-04-08 06:17 | PDOC.FM ---
- Subjective Subjective: Patient is resting comfortably in bed. No concerns. Denies chest pain, shortness of breath, abdominal pain. Per tele monitoring had a run of aflutter/tachycardia at 0300 for 45 minutes, patient was sleeping at the time. - Objective MAR Reviewed: Yes Vital Signs & Weight: Vital Signs (12 hours) Temp Pulse Resp BP Pulse Ox 04/08/20 04:00 97.5 F L 90 26 H 114/65 94 L 04/07/20 19:36 98.9 F 95 16 119/68 98 04/07/20 19:24 94 16 96 Weight Admit Weight 86.863 kg Weight 70.488 kg I&O: 04/06/20 04/07/20 04/08/20 06:59 06:59 06:59 Intake Total 1002 1350 810 Output Total 860 1400 1250 Balance 142 -65 -440 Result Diagrams: 04/05/20 09:20 04/08/20 04:15 Phys Exam - Physical Examination Constitutional: NAD HEENT: PERRLA, moist MMs Respiratory: no wheezing, clear to auscultation bilateral Cardiovascular: RRR systolic ejection murmur Gastrointestinal: soft, non-tender, positive bowel sounds Musculoskeletal: no edema Neurological: non-focal Deviation from normal: flat affect Skin: no rash Dx/Plan - Plan Plan: 64YOF here for acute on chronic CHF exacerbation Acute on chronic CHF vs COPD exacerbation - cardiology, Dr Rocha on board & following his recs as follows: continue dobutamine gtt but will decrease to 2.5mcg/min the night before discharge & will monitor kidney function, K and Mg closely, will d/c dobutamine gtt on discharge - Continue bumex 1mg po bid - ECHO: cor pulmonale with EF 45-50% - Maintaining sats on RA - CM and palliative care consulted - discussed with family, plan is for patient to go to senior care on hospice. Likely to discharge today Intermittent arrhythmia/SVT/V-tach - Dr. Rocha managing as noted above, appreciate recs R groin hematoma -fem line removed on 03/22 -US: hematoma, no VTE Constipation - Patient with recent hx of stercoral colitis - Bowel regimen: jose miralax, dulcolax, & senna. Hypomagnesemia - Mg goal 2 - will replace as necessary and monitor bid HypoK - K goal 4 - will replace as necessary and monitor bid Hypotension, improved - likely due to severe right heart failure - dobutamine gtt - Cards consulted UTI -UCX: e coli -completed tx with rocephin Respiratory alkalosis - stable, will monitor Metabolic acidosis - resolved Hyperbilirubinemia-improved - 5.8-->3.1, likely from hepatic congestion - LFTs mildly elevated, improved Indeterminate trop - Likely from demand - Tele monitoring. Physical deconditioning - Family would like NH placement - CM/PT/OT consulted COPD - PRN Duonebs - sPO2 target goal 88-92% Pulmonary HTN/Pulm fibrosis - Continue home O2 PRN but maintaining sats on RA for last few days. LEE -needs outpt f/u Admit:Tele/Inpt PCP: [facility] Dvt ppx: Lovenox Code:Full Dispo: Severe R heart failure, Dr Rocha on board, appreciate recs, CM working on NH hospice placement.
[2020-04-08] MEDS: Mometasone 200 MCG/Formoterol 5 MCG 120 PUFF INHALER INH SCH ×2 (07:13→18:55)
[2020-04-08] MEDS: Polyethylene Glycol 3350 17 GM Packet PO SCH (07:57)
[2020-04-08] MEDS: Senokot S 8.6-50 MG TAB PO SCH ×2 (07:57→20:38)
[2020-04-08] MEDS: Bumetanide 1 MG TAB PO SCH ×2 (08:03→15:39)
[2020-04-08] MEDS: Potassium Chloride 20 MEQ TAB PO SCH ×2 (08:03→20:37)
[2020-04-08] MEDS: Enoxaparin Sodium 40 MG/0.4 ML SYRINGE SC SCH (08:04)
[2020-04-08] MEDS: predniSONE 5 MG TAB PO SCH (08:04)
[2020-04-08] MEDS: Amiodarone 200 MG TAB PO SCH ×2 (08:04→20:36)
[2020-04-08] MEDS ORDERED: DOBUTamine 500 mg/250 ml 500 MG in Premix Bag 1 BAG IVPB SCH (08:47)
[2020-04-08] MEDS ORDERED: DOBUTamine 500 mg/250 ml 250 ML IVPB SCH (09:00)
--- NOTE | 2020-04-08 11:20 | PRG ---
DATE OF SERVICE: 04/08/2020 Ms. Pollard is a 64-year-old lady, who was admitted with a heart failure exacerbation. Her echo reveals cor pulmonale and an ejection fraction of 45% to 50%. Dr. Rocha was consulted as she was initially started on dobutamine drip. Dr. Rocha has followed throughout the stay, and the patient is improved clinically. We appreciate his input. We are currently awaiting group home hospice placement. Job ID: [id number]
[2020-04-08] MEDS: DOBUTamine 500 mg/250 ml 250 ML IVPB SCH (16:22)
--- NOTE | 2020-04-08 17:08 | PRG ---
DATE OF SERVICE: 04/08/2020 SERVICE: [facility]ing Service. SUBJECTIVE: Ms. Pollard has done very well this past week on dobutamine. She has increasing energy level, but is breathing easy. She is continued to be diuresed and her renal function remained intact. She is much more interactive now. She is able to eat and participate in some of her care. Due to her insurance situation, she will need to wait for being moved to a fpc facility. Once at the fpc facility, they will transition to hospice afterwards. Right now, she is very comfortable. REVIEW OF SYSTEMS: GENERAL: There is no fever, chills, productive cough, but there is increasing energy level. HEENT: There is no change in vision, hearing, swallowing. PULMONARY: There is no shortness of breath. CARDIAC: There is no chest pain or syncope. GI: There is no nausea, vomiting, or diarrhea. : She is incontinent. MUSCULOSKELETAL: There are no muscle pains or joint pains. INTEGUMENT: There is no skin breakdown. NEUROLOGIC: There are no focal deficits or weaknesses. MEDICATIONS: Consist of: 1. Albuterol/ipratropium nebs. 2. Amiodarone 200 mg b.i.d. 3. Bumex 1 mg b.i.d. 4. Dobutamine currently at 5 mcg/kg per minute. 5. Enoxaparin at 40 mg subcutaneous daily. 6. Melatonin 6 mg at bedtime. 7. Dulera 200/5 mcg twice a day. 8. Protonix 40 mg daily. 9. MiraLAX 17 g daily. 10. K-Dur 40 mEq daily in the morning and 20 mEq in afternoon. 11. Prednisone 5 mg daily. DIAGNOSTIC STUDIES: Her telemetry was reviewed. It is currently in sinus rhythm. However, she did have a run of AFib/A-flutter overnight. PHYSICAL EXAMINATION: LATEST VITAL SIGNS: Heart rate 84, blood pressure 122/77. GENERAL: She is alert and conversational, sitting comfortably in bed and relaxed. HEENT: Shows EOMI. Oropharynx is benign with moist mucosa. NECK: JVP is about 11 cm. Positive hepatojugular reflux. PULMONARY: There are bilateral Velcro-like crackles, but there is better air movement this week than last week. She also has some pulmonary edema like crackles at the bases, but less so than last week. CARDIAC: Regular rate and rhythm with normal S1, S2. There is loud 3/6 holosystolic murmur at the left upper sternal border. There is also 2/6 holosystolic murmur at the apex with radiation to left axilla. There is a significant RV heave. ABDOMEN: Soft, nontender, and positive bowel sounds. LOWER EXTREMITIES: She has a lot more loose skin, still a little bit of fluid around her thighs. Thus, her previous LE edema has greatly diminished. LABORATORY DATA: Her 24-hour I's and O's 810 in and 1250 out, so she is net negative 440 mL. Her electrolytes are sodium 133, potassium 4.2, BUN 26, creatinine 0.84, and magnesium is 2. ASSESSMENT: A 64-year-old lady continues to do well on inotrope support for her severe right ventricular failure/cor pulmonale. She has severe pulmonary hypertension that causes a right ventricle to fail. Her right atrium and right ventricle are severely dilated, much bigger than the left. However, dobutamine has augmented her right ventricular function, so she can sustain the diuresis and give her general overall increased energy level. The she and family chose to go hospice. For now, we will continue to support her with inotropic therapy for the hospice transition. She also has paroxysmal atrial fibrillation/atrial flutter. Currently, amiodarone 200 mg twice a day, keeping it in check. Her BUN, creatinine are increasing a bit. Perhaps tomorrow, we will need to switch over to torsemide 20 mg p.o. daily to keep her renal functions intact as much as possible. Please see the following for my detailed recommendations. RECOMMENDATIONS: 1. Continue dobutamine at 5 mcg/kg per minute. The night before transferring, decrease to 2.5 mcg/kg per minute, and then 1 hour before transfer, discontinue dobutamine. 2. Continue to keep potassium to be at least 4 and also magnesium to be least 2. 3. Continue with Bumex 1 mg twice a day for now. We will check labs tomorrow again. If her labs show BUN and creatinine still increasing, then we will transition to torsemide 20 mg daily. It has been a pleasure taking care of Ms. Pollard. If you have any questions, please give me a call. The total time is 30 minutes. Job ID: [id number] MTDD
[2020-04-08] MEDS: Acetaminophen 325 MG TAB PO PRN (20:37)
[2020-04-08] MEDS: Melatonin 3 MG TAB PO PRN (20:42)
[2020-04-09] MEDS: Sodium Chloride 0.65% Nasal 44 ML BOT EA NARE SCH ×4 (04:34→19:58)
[2020-04-09 05:23] LABS: Anion Gap 17 mmol/L (10-20); BUN (Urea Nitrogen) 25 mg/dL (9.8-20.1); Calc. Creatinine Clearance 80 mL/min (70-130); Calcium 10.2 mg/dL (7.8-10.44); Carbon Dioxide 24 mmol/L (23-31); Chloride 95 mmol/L (98-107); Estimated GFR-MDRD 90; Glucose 102 mg/dL (80-115); Potassium 4.4 mmol/L (3.5-5.1); Sodium 132 mmol/L (136-145)
[2020-04-09] MEDS: DOBUTamine 500 mg/250 ml 250 ML IVPB SCH (05:27)
--- NOTE | 2020-04-09 06:46 | PDOC.FM ---
- Subjective Subjective: Patient is resting comfortably in bed. No acute events, no concerns. Denies chest pain, shortness of breath, abdominal pain. - Objective MAR Reviewed: Yes Vital Signs & Weight: Vital Signs (12 hours) Temp Pulse Resp BP Pulse Ox 04/09/20 03:29 97.6 F 92 18 142/81 H 93 L 04/08/20 20:00 98 04/08/20 19:11 98.0 F 85 18 108/54 L 98 Weight Admit Weight 86.863 kg Weight 69.989 kg I&O: 04/07/20 04/08/20 04/09/20 06:59 06:59 06:59 Intake Total 1350 810 910 Output Total 1400 1250 1100 Balance -50 440 190 Result Diagrams: 04/05/20 09:20 04/09/20 04:18 Phys Exam - Physical Examination Constitutional: NAD HEENT: PERRLA, moist MMs Respiratory: no wheezing, clear to auscultation bilateral Cardiovascular: RRR systolic murmur Gastrointestinal: soft, non-tender, positive bowel sounds Musculoskeletal: no edema Neurological: non-focal Deviation from normal: flat affect Dx/Plan - Plan Plan: 64YOF here for acute on chronic CHF exacerbation Acute on chronic CHF vs COPD exacerbation - cardiology, Dr Rocha on board & following his recs as follows: continue dobutamine gtt but will decrease to 2.5mcg/min the night before discharge & will monitor kidney function, K and Mg closely, will d/c dobutamine gtt on discharge - Continue bumex 1mg po bid - ECHO: cor pulmonale with EF 45-50% - Maintaining sats on RA - and palliative care consulted - discussed with family, plan is for patient to go to SNF where they will arrange hospice through medicaid Intermittent arrhythmia/SVT/V-tach - Dr. Rocha managing as noted above, appreciate recs R groin hematoma -fem line removed on 03/22 -US: hematoma, no VTE Constipation - Patient with recent hx of stercoral colitis - Bowel regimen: jose miralax, dulcolax, & senna. Hypomagnesemia - Mg goal 2 - will replace as necessary and monitor bid HypoK - K goal 4 - will replace as necessary and monitor bid Hypotension, improved - likely due to severe right heart failure - dobutamine gtt - Cards consulted UTI -UCX: e coli -completed tx with rocephin Respiratory alkalosis - stable, will monitor Metabolic acidosis - resolved Hyperbilirubinemia-improved - 5.8-->3.1, likely from hepatic congestion - LFTs mildly elevated, improved Indeterminate trop - Likely from demand - Tele monitoring. Physical deconditioning - Family would like NH placement - CM/PT/OT consulted COPD - PRN Duonebs - sPO2 target goal 88-92% Pulmonary HTN/Pulm fibrosis - Continue home O2 PRN but maintaining sats on RA for last few days. LEE -needs outpt f/u Admit:Tele/Inpt PCP: [facility] Dvt ppx: Lovenox Code:Full Dispo: Severe R heart failure, Dr Rocha on board, appreciate recs, CM working on SNF placement, where they will then set up hospice. Addendum - Attending - Attending Attestation Date/Time: 04/09/20 1040 I personally evaluated the patient and discussed the management with Dr. Dumont. I agree with the History, Examination, Assessment and Plan documented above with any addition or exceptions noted below. Patient just answering yes/no questions. Says she had no cp/sob/n/v/f/c. Bilateral insp velcro crackles. No obvious JVD on my exam. Legs without edema. Transition gtt as directed by Dr. Rocha. Monitor.
[2020-04-09] MEDS: Bumetanide 1 MG TAB PO SCH ×2 (07:39→15:32)
[2020-04-09] MEDS: Enoxaparin Sodium 40 MG/0.4 ML SYRINGE SC SCH (07:40)
[2020-04-09] MEDS: Potassium Chloride 20 MEQ TAB PO SCH ×2 (07:40→19:59)
[2020-04-09] MEDS: Amiodarone 200 MG TAB PO SCH ×2 (07:40→19:59)
[2020-04-09] MEDS: predniSONE 5 MG TAB PO SCH (07:41)
[2020-04-09] MEDS: Polyethylene Glycol 3350 17 GM Packet PO SCH (07:41)
[2020-04-09] MEDS: Senokot S 8.6-50 MG TAB PO SCH ×2 (07:42→19:58)
[2020-04-09] MEDS: Mometasone 200 MCG/Formoterol 5 MCG 120 PUFF INHALER INH SCH ×2 (07:48→19:09)
[2020-04-09] MEDS ORDERED: DOBUTamine 500 mg/250 ml 250 ML IVPB SCH (11:45)
[2020-04-09 13:32] VITALS: BMI 26.4
--- NOTE | 2020-04-09 14:48 | PRG ---
DATE OF SERVICE: 04/09/2020 SUBJECTIVE: Ms. Pollard had an excellent day. She is able to breathe well. She felt that she has sufficient energy. She participated with physical therapy. There is no new complaint. She has been waiting for placement. However, she continues to dislike the food. The nurse reported there was one period of feeling short of breath in afternoon. However, her oxygen saturation was above 90%. Her heart rate was in the 80s range. Her blood pressure was above 100. Thus, there does not seem to have a strong reason why that happens. Since the episode of shortness of breath, she did not have any more episodes of short of breath. REVIEW OF SYSTEMS: GENERAL: There is no fever, chills, or productive cough. HEENT: There is no change in vision, hearing, or swallowing. PULMONARY: Please see HPI. Right now, she is breathing easily. CARDIAC: There is no palpitation, chest pain, or syncope. GI: There is no nausea, vomiting, or diarrhea. : She is incontinent. MUSCULOSKELETAL: She is not complaining of muscle or joint pains. INTEGUMENT: There is no new skin breakdown. NEUROLOGIC: There are no focal deficits or weaknesses. MEDICATIONS: 1. Amiodarone 200 mg b.i.d. 2. Bumex 1 mg b.i.d. 3. Dobutamine currently at 5 mcg/kg per minute. 4. Enoxaparin at 40 mg subcutaneously daily. 5. Dulera 200/5 mcg combination two puffs twice a day. 6. Protonix 40 mg daily. 7. K-Dur 40 mEq in the morning and 20 mEq in the afternoon. 8. Prednisone 5 mg daily. 9. Saline nasal spray once every 6 hours as needed. Telemetry was reviewed, she is in sinus rhythm. There is no recurrence of atrial fibrillation or atrial flutter in the last 24 hours. PHYSICAL EXAMINATION: VITAL SIGNS: The latest vitals are heart rate about 87, oxygen saturation 96% on room air, her blood pressure is 113/59. GENERAL: She is alert, conversational, resting comfortably in bed, watching TV. She is responsive. She is functioning at her baseline according to daughter. HEENT: Showed EOMI. Oropharynx is benign with moist mucosa. NECK: JVP is about 9 cm. PULMONARY: There is air movement. There is a combination of Velcro like crackles diffusely in both lungs, there might have been a small amount of fluid crackles down the left base. CARDIAC: Regular rate and rhythm with normal S1 and S2, there is 2/6 holosystolic murmur at the apex with radiation to the left axilla. There is also 3/6 holosystolic murmur at the left upper sternal border. Thus, she has probably severe mitral regurgitation, also significant/severe tricuspid regurgitation. She also has a right ventricular heave. ABDOMEN: Soft, nontender. Slightly distended. EXTREMITIES: Lower extremities, she continue to lose water volume. She is not edematous. LABORATORY VALUES: Sodium 132; potassium 4.4; BUN 25, it is slightly lower than 26 yesterday; creatinine decreased a little bit from 0.84 yesterday down to 0.78 today. ASSESSMENT: 64-year-old lady, continues to do well on dobutamine to support her right ventricular failure/cor pulmonale. She has multiple comorbidities. She has pulmonary fibrosis. She also has pulmonary hypertension. Pulmonary hypertension caused right heart failure/cor pulmonale. Her right ventricle and right atrium were severely dilated, many times size of left ventricle and left atrium. She is requiring dobutamine to support her right heart. She does have paroxysmal atrial fibrillation, atrial flutter, but amiodarone keeps that under control. With electrolyte correction, she is also keeping that under control. Today, she is euvolemic and is well compensated. Thus, she is ready to be discharged when the transfer preparations are finalized. Please see the following for my recommendations. RECOMMENDATIONS 1. Continue dobutamine 5 mcg/kg per minute for now. Decreased down to 2.5 mcg/kg per minute on the evening before to transfer. Stop dobutamine and remove PICC at 1 hour before transfer. 2. She will continue to need amiodarone 200 mg b.i.d. to keep her in sinus rhythm. She will need Bumex 1 mg twice a day. Continue with potassium supplementation 40 mEq in the morning and 20 mEq in afternoon, may increase as needed. 3. Please keep her oxygen level 92% or higher. Hypoxia will worsen pulmonary hypertension. Providing sufficient oxygen, that will help to keep the pulmonary vessel dilated. 4. She may transfer to retirement facility when a bed becomes available. I understand from that point on, she will transition to hospice care. It has been a pleasure taking care of Ms. Pollard. If you have any questions, please give me a call. Visitation time is 35 minutes. Job ID: [id number] [facility]
[2020-04-09] MEDS: Acetaminophen 325 MG TAB PO PRN (18:28)
[2020-04-10] MEDS: Sodium Chloride 0.65% Nasal 44 ML BOT EA NARE SCH ×3 (02:06→13:22)
[2020-04-10 05:20] LABS: Anion Gap 16 mmol/L (10-20); BUN (Urea Nitrogen) 24 mg/dL (9.8-20.1); Calc. Creatinine Clearance 83 mL/min (70-130); Calcium 10.5 mg/dL (7.8-10.44); Carbon Dioxide 25 mmol/L (23-31); Chloride 96 mmol/L (98-107); Estimated GFR-MDRD Greater than 90; Glucose 92 mg/dL (80-115); Potassium 3.9 mmol/L (3.5-5.1); Sodium 133 mmol/L (136-145)
--- NOTE | 2020-04-10 06:38 | PDOC.FM ---
- Subjective Subjective: Patient is resting comfortably in bed. No concerns, no acute events overnight. Denies chest pain, shortness of breath, N/V, abdominal pain. - Objective MAR Reviewed: Yes Vital Signs & Weight: Vital Signs (12 hours) Temp Pulse Resp BP Pulse Ox 04/10/20 03:23 98.3 F 93 16 124/65 97 04/09/20 20:00 98.9 F 89 16 114/60 92 L Weight Admit Weight 86.863 kg Weight 71.804 kg I&O: 04/08/20 04/09/20 04/10/20 06:59 06:59 06:59 Intake Total 897 458 6660 Output Total 1250 1100 1800 Balance -514 -610 -777 Result Diagrams: 04/05/20 09:20 04/10/20 04:34 Phys Exam - Physical Examination Constitutional: NAD HEENT: PERRLA faint crackles systolic ejection murmur Gastrointestinal: soft, non-tender, positive bowel sounds Musculoskeletal: no edema trace edema Psychiatric: A&O x 3 Deviation from normal: flat affect Skin: no rash Dx/Plan - Plan Plan: 64YOF here for acute on chronic CHF exacerbation Acute on chronic CHF vs COPD exacerbation - cardiology, Dr Rocha on board & following his recs as follows: continue dobutamine gtt but will decrease to 2.5mcg/min the night before discharge & will monitor kidney function, K and Mg closely, will d/c dobutamine gtt on discharge - Continue bumex 1mg po bid - ECHO: cor pulmonale with EF 45-50% - Maintaining sats on RA - CM and palliative care consulted - discussed with family, plan is for patient to go to SNF where they will arrange hospice through medicaid - plan for accel CS today Intermittent arrhythmia/SVT/V-tach - Dr. Rocha managing as noted above, appreciate recs R groin hematoma -fem line removed on 03/22 -US: hematoma, no VTE Constipation - Patient with recent hx of stercoral colitis - Bowel regimen: jose miralax, dulcolax, & senna. Hypomagnesemia - Mg goal 2 - will replace as necessary and monitor bid HypoK - K goal 4 - will replace as necessary and monitor bid Hypotension, improved - likely due to severe right heart failure - dobutamine gtt - Cards consulted UTI -UCX: e coli -completed tx with rocephin Respiratory alkalosis - stable, will monitor Metabolic acidosis - resolved Hyperbilirubinemia-improved - 5.8-->3.1, likely from hepatic congestion - LFTs mildly elevated, improved Indeterminate trop - Likely from demand - Tele monitoring. Physical deconditioning - Family would like NH placement - CM/PT/OT consulted COPD - PRN Duonebs - sPO2 target goal 88-92% Pulmonary HTN/Pulm fibrosis - Continue home O2 PRN but maintaining sats on RA for last few days. LEE -needs outpt f/u Admit:Tele/Inpt PCP: [facility] Dvt ppx: Lovenox Code:Full Dispo: Severe R heart failure, Dr Rocha on board, appreciate recs, CM working on SNF placement, where they will then set up hospie --> plan is for accel CS and d/c today. Addendum - Attending - Attending Attestation Date/Time: 04/10/20 [id number] I personally evaluated the patient and discussed the management with Dr. Dumont. I agree with the History, Examination, Assessment and Plan documented above with any addition or exceptions noted below. O2 sat goals >92%. Velcro crackles present, appears euvolemic. D/c today.
[2020-04-10] MEDS: Bumetanide 1 MG TAB PO SCH (10:46)
[2020-04-10] MEDS: Senokot S 8.6-50 MG TAB PO SCH (10:46)
[2020-04-10] MEDS: Potassium Chloride 20 MEQ TAB PO SCH (10:46)
[2020-04-10] MEDS: predniSONE 5 MG TAB PO SCH (10:47)
[2020-04-10] MEDS: Amiodarone 200 MG TAB PO SCH (10:47)
[2020-04-10] MEDS: Enoxaparin Sodium 40 MG/0.4 ML SYRINGE SC SCH (10:47)
[2020-04-10] MEDS: Polyethylene Glycol 3350 17 GM Packet PO SCH (10:47)
[2020-04-10] MEDS: Mometasone 200 MCG/Formoterol 5 MCG 120 PUFF INHALER INH SCH (10:55)
[2020-04-10] MEDS: Acetaminophen 325 MG TAB PO PRN (14:16)
--- NOTE | 2020-04-10 14:24 | PRG ---
DATE OF SERVICE: 04/10/2020 SERVICE: Advanced Heart Failure/Transplant Cardiology Consult Service. SUBJECTIVE: Mrs. Pollard had a good day. She was able to breathe well without being short of breath. She is able to go all day without oxygen, still maintain oxygen saturation above 92%. There is no cough. She has returned to her baseline function. However, she still does not like the food in the hospital. From report, there is a good chance that Mrs. Pollard will be going to a half-way facility today. She was able to sleep well. She did not have PND and her edema is still receding. REVIEW OF SYSTEMS: GENERAL: There is no fever, chills, or productive cough. HEENT: There is no change in vision, hearing, or swallowing. PULMONARY: Please see HPI. CARDIAC: There is no chest pain, palpitations, or syncope. GI: There is no nausea, vomiting, or diarrhea. : She is incontinent. MUSCULOSKELETAL: There is no muscle or joint pains. INTEGUMENT: There is no new skin breakdown. NEUROLOGIC: There are no new focal deficits or weakness. CURRENT MEDICATIONS: 1. Amiodarone 200 mg twice a day. 2. Bumex 1 mg twice a day. 3. Dobutamine 2.5 mcg/kg/minute. 4. Enoxaparin 40 mg subcutaneous daily. 5. Dulera 200/5 mcg inhaler two puffs twice a day. 6. Protonix 40 mg daily. 7. MiraLAX at 17 g daily. 8. Potassium chloride K-Dur 40 mEq in the morning and 20 mEq at night. 9. Prednisone 5 mg daily. Her telemetry was reviewed she is in sinus rhythm. There is occasional PVC and PAC. Otherwise, there was no concerning arrhythmias. OBJECTIVE: VITAL SIGNS: Her latest vital signs are heart rate 88, blood pressure 110/59. GENERAL: She is alert and conversational, sitting comfortably in bed, finishing her lunch. HEENT: Show EOMI. Oropharynx is benign with moist mucosa. NECK: Her JVP is actually lower today, it is about 11 cm. PULMONARY: There is sufficient air movement. There is bilateral Velcro like crackles, more prominent on the left. CARDIAC: Regular rate and rhythm with normal S1, S2. There is a loud 3/6 holosystolic murmur at the left upper sternal border and also 2/6 holosystolic murmur at the apex with radiation to the left axilla. So consequently she has severe tricuspid regurgitation and significant amount of mitral regurgitation. ABDOMEN: Soft, nontender. Positive bowel sounds. EXTREMITIES: Lower extremities were now without edema, but there are large skin flaps. This showed that she lost a great amount of edema volume, now she has skin flaps where edema used to be. Her in's and out's for the last 24-hour is 1253 in and 1800 out, this gives her net negative 547 mL. LABORATORY DATA: Her current laboratory values are sodium 133, potassium 3.9, chloride 96, BUN 24, creatinine 0.75, magnesium is 2. ASSESSMENT: In general, a 64-year-old lady is steady and well compensated from her right heart failure/cor pulmonale. This right heart failure is caused by severe pulmonary hypertension. This severe hypertension is likely secondary due to ongoing and progressive pulmonary fibrosis. She does have recent history of atrial fibrillation adn atrial flutter; however amiodarone is maintaining the sinus rhythm. She also has SLE. There is severely dilated right ventricle, severely dilated right atrium, and progressive pulmonary fibrosis, she is not expected to live very long. Her family and her wishes are transition to half-way eventually on hospice care. This is very appropriate for this cessation. For the last 2 weeks now we have successfully remove large edema volume. So, she is as comfortable as much as possible now. Please see the following for my recommendations. RECOMMENDATIONS 1. Continue dobutamine 2.5 mcg/kg per minute until now before transfer out to skilled facility. 2. Stop dobutamine one hour before transfer. At that time, also remove the PICC line. 3. Please keep the current regimen of cardiac medications that include amiodarone, which keeps heart rate in sinus rhythm. Bumex which keeps her fluid level down and potassium supplement. It has been a pleasure taking care of Mrs. Araceli Pollard. Since she will be transferring to half-way facility today with transition to palliative care, then to hospice, I will now sign off. Thank you very much for interesting consult. Visitation time today is 35 minutes. Job ID: [id number] [facility]
[2020-04-10 15:43] VITALS: BP 117/76; TEMP 98.6
--- NOTE | 2020-04-11 06:36 | PQF ---
Dear : Joanne Olivares Date 04/11/2020 Please exercise your independent, professional judgment in responding to the clarification form. Clinical indicators are provided on the bottom of this form for your review Can you please further clarify the diagnosis of the patient? Please check appropriate box(es): [ x ] Acute Respiratory Failure: [ x ] with Hypoxia [ ] Acute On Chronic Respiratory Failure: [ ] with Hypoxia [ ] Acute Respiratory Failure due to: (etiology) [ ] Other diagnosis please specify [ ] Unable to determine Physician Signature: Date/Time: For continuity of documentation, please document condition throughout progress notes and discharge summary. Thank You. To be completed by CDI/Coding staff for physician review: Present Clinical Indicators - Signs / Symptoms / Labs Results and Location in Medical Record [ x ] ABG Ph 7.47H Blood Gas 03/18 [ x ] ABG pCO2 27.3L Blood Gas 03/18 [ x ] ABG consistent with metabolic acidosis with respiratory compensation H and P pg.1 [ x ] Respiratory alkalosis H and P pg.4 [ x ] Recent Covid and now with SOB into 80s pulse ox and respiratory distress and crackles in lungs ED Notes 03/18 [ x ] Hypoxia ED Notes 03/18 [ x ] Orthopedia H and P pg.1 [ x ] Chest Xray: moderate to severe interstitial lung disease Chest Xray 03/19 Present Risk Factors Results and Location in Medical Record [ x ] O2 home H and P pg.1 [ x ] 64 years old H and P pg.1 [ x ] COPD H and P pg.1 [ x ] Pulmonary HTN H and P pg.1 [ x ] LEE H and P pg.1 [ x ] Former Smoker H and P pg.1 [ x ] Acute on chronic CHF exacerbation H and P pg.4 [ x ] Pulmonary fibrosis H and P pg.1 Present Treatments Results and Location in Medical Record [ x ] Supplemental O2 H and P pg.5 [ x ] Pulmonary Consult Judd Arce 03/22 [ x ] Blood gas monitoring Laboratory [ x ] IV Fluids MAR [ x ] Bumex 1mg PO MAR CD[employer] Coordinator Signature: Irvin Durand Phone #: ext [phone] Date 04/11/20 Acute Respiratory Failure: ABG pH < 7.35 or > 7.45; Decreased oxygen saturation (<90% room air or < 95% on oxygen); PCO2 > 50 mm Hg; PO2 < 60 mm Hg; Labored or rapid respirations ARDS: Dx Criteria [[place] ARDS]: Respiratory symptoms within one week of a known clinical insult (e.g. shock, infection, surgery, trauma) Bilateral opacities in CXR/Chest CT not due to CHF or fluid This is a permanent part of the Medical Record [facility]
--- NOTE | 2020-04-11 14:15 | DIS ---
DATE OF ADMISSION: 03/18/2020 DATE OF DISCHARGE: 04/10/2020 ADMITTING ATTENDING: Lucila Guzman MD. DISCHARGE ATTENDING: Marshall Rubio MD. CONSULTS: 1. Dr. Rocha, Cardiology/Heart Failure. 2. Dr. Junior, Cardiology. 3. Dr. Byrd, Pulmonology. PROCEDURES: None. PRIMARY DIAGNOSIS: Acute on chronic congestive heart failure exacerbation. SECONDARY DIAGNOSES: 1. Chronic obstructive pulmonary disease exacerbation. 2. Intermittent arrhythmia. 3. Right groin hematoma. 4. Constipation. 5. Hypomagnesemia, resolved. 6. Hypokalemia, resolved. 7. Hypotension, improved. 8. Urinary tract infection, resolved. 9. Respiratory alkalosis. 10. Metabolic alkalosis. 11. Hyperbilirubinemia, improved. 12. Indeterminate troponin. 13. Physical deconditioning. 14. Pulmonary hypertension/pulmonary fibrosis. 15. Obstructive sleep apnea. DISCHARGE MEDICATIONS: 1. Amiodarone 200 mg p.o. b.i.d. 2. Bisacodyl 5 mg p.o. daily. 3. Bumetanide 1 mg p.o. b.i.d. - a.c. 4. Calcium carbonate 1000 mg p.o. q.4 hours. 5. Guaifenesin p.o. q.4 hours. 6. Ipratropium/albuterol sulfate 3 mL neb q.4 hours - RT. 7. Mometasone/formoterol 200/5 two puffs inhaled b.i.d. - RT. 8. Naproxen 500 mg p.o. b.i.d. 9. Polyethylene glycol 17 g p.o. daily. 10. Potassium chloride 40 mEq p.o. q.a.m. with meals. 11. Prednisone 5 mg p.o. daily. 12. Senokot two tabs p.o. b.i.d. 13. Sitz baths. Discontinued medications: None. HISTORY OF PRESENT ILLNESS/HOSPITAL COURSE: Please refer to brief progress note written by Ramonita Krishnamurthy MD, on 04/07/2020 for summary of patient's stay from 03/18/2020 to 04/07/2020. Dr. Rocha's recommendation was to continue dobutamine drip but decrease to 2.5 mcg/minute the night before discharge, continue to monitor kidney function and potassium and magnesium, replete it needed, and then dobutamine drip an hour prior to discharge. The patient stayed due to arranging home assisted at [facility]. From there, she will begin to arrange hospice with her family through Medicaid. The patient was discharged in stable condition. DISPOSITION: Stable. DISCHARGE INSTRUCTIONS: Location: [facility]. Diet: Regular diet. Activity: Ad deisy. Followup: Follow up with your primary care physician in 7-14 days. Follow up with Dr. Rocha in 7-14 days. Job ID: [id number]
--- NOTE | 2020-04-12 13:05 | EKG ---
Test Reason : Blood Pressure : / mmHG Vent. Rate : 086 BPM Atrial Rate : 086 BPM P-R Int : 192 ms QRS Dur : 084 ms QT Int : 394 ms P-R-T Axes : 019 -16 -19 degrees QTc Int : 471 ms Normal sinus rhythm RSR' or QR pattern in V1 suggests right ventricular conduction delay Borderline ECG When compared with ECG of 31-MAR-2020 01:29, Minimal criteria for Anterior infarct are no longer Present Nonspecific T wave abnormality no longer evident in Anterior leads QT has lengthened Confirmed by SAMARA ROBERTSON (2) on 04/12/2020 1:05:35 PM Referred By: JERRI *R Confirmed By:SAMARA ROBERTSON
== END 2020-04-10 16:10 | DRG 291 ==
LOC: ERS 11:58 → ERHOLD 15:24 → 2SW 20:47 → 2NO 03-22 19:26
PROVIDERS: ADMIT Student in an Organized Health Care Education/Training Program; ATTEND Internal Medicine
PROC: 3E033XZ Introduction of Vasopressor into Peripheral Vein, Percutaneous Approach (ICD-10-PCS; principal; 2020-03-19)
PROC: 02HV33Z Insertion of Infusion Device into Superior Vena Cava, Percutaneous Approach (ICD-10-PCS; 2020-03-20)
PROC: 02HV33Z Insertion of Infusion Device into Superior Vena Cava, Percutaneous Approach (ICD-10-PCS; 2020-03-29)
PROC: B548ZZA Ultrasonography of Superior Vena Cava, Guidance (ICD-10-PCS; 2020-03-29)
DX: I11.0 Hypertensive heart disease with heart failure (principal); J96.01 Acute respiratory failure with hypoxia; E87.3 Alkalosis; E87.2 Acidosis; J44.1 Chronic obstructive pulmonary disease with (acute) exacerbation; I47.2 Ventricular tachycardia; I47.1 Supraventricular tachycardia; L76.32 Postprocedural hematoma of skin and subcutaneous tissue following other procedure; N39.0 Urinary tract infection, site not specified; I50.33 Acute on chronic diastolic (congestive) heart failure; Z96.642 Presence of left artificial hip joint; Z20.828 Contact with and (suspected) exposure to other viral communicable diseases; I27.20 Pulmonary hypertension, unspecified; M32.9 Systemic lupus erythematosus, unspecified; G47.33 Obstructive sleep apnea (adult) (pediatric); I27.81 Cor pulmonale (chronic); K76.1 Chronic passive congestion of liver; I50.813 Acute on chronic right heart failure; I48.0 Paroxysmal atrial fibrillation; J84.10 Pulmonary fibrosis, unspecified; K59.00 Constipation, unspecified; Y83.8 Other surgical procedures as the cause of abnormal reaction of the patient, or of later complication, without mention of misadventure at the time of the procedure; E83.42 Hypomagnesemia; B96.20 Unspecified Escherichia coli [E. coli] as the cause of diseases classified elsewhere; E87.6 Hypokalemia; Z87.891 Personal history of nicotine dependence; Z79.52 Long term (current) use of systemic steroids; Z79.899 Other long term (current) drug therapy; Z99.81 Dependence on supplemental oxygen
CPT/HCPCS: 36415; 36416; 36569; 71045; 71275; 80048; 80053; 80162; 81001; 81003; 82248; 82533; 82550; 82553; 82805; 83690; 83735; 83880; 84145; 84484; 85025; 85379; 85610; 85652; 85730; 86140; 87040; 87086; 87635; 93005; 93010; 93306; 93798; 94664; 94760; 96374; C1751; J0282; J0696; J1250; J1265; J1650; J1940; J3475; J3480; J3490; J7070; J7512; Q0163; Q9967; U0003